=== PATIENT | female | born 1970 | race Caucasian/White ===

== ENCOUNTER 2016-11-17 17:28 | Inpatient (IN) | payer OTHER ==
--- NOTE | 2016-11-17 18:23 | C.PDOC ---
History Of Present Illness 46 y/o female presents to emergency department with complaint of cough productive of yellow phlegm that started a few weeks ago. Patient also reports she has been wheezing. Denies fever. She states that symptoms have been progressively worsening, associated with orthopnea, SOB on exertion, and back pain when laying down. Patient has had full outpatient workup - including CT Chest, showing "re-demonstration of extensive cylindrical bronchiesctasis with areas of mucoid impaction, tree-in-bud interstitial infiltrates as well as lingular consolidation". Sputum culture grew pseudomonas, sensitive only to IV abx. Patient sent to ER by Dr. Huntley. Time Seen by Provider: 11/17/16 18:09 Chief Complaint (Nursing): Shortness Of Breath History Per: Patient History/Exam Limitations: no limitations Onset/Duration Of Symptoms: Days Current Symptoms Are (Timing): Worse Exacerbating Factor(s): Exertion, Laying Flat Current Respiratory Medications: See Home Med List Associated Symptoms: Productive Cough. denies: Fever, Chills, Dizziness, Anxiety Reports Recently: Treated By A Physician Recent travel outside of the [place]: No Past Medical History Reviewed: Historical Data, Nursing Documentation, Vital Signs Vital Signs: Last Vital Signs Temp 97.8 F 11/17/16 17:44 Pulse 96 H 11/17/16 19:12 Resp 22 11/17/16 19:12 BP 115/70 11/17/16 19:12 Pulse Ox 94 L 11/17/16 19:12 - Medical History PMH: Pneumonia Family History: States: Unknown Family Hx - Social History Hx Alcohol Use: No Hx Substance Use: No - Immunization History Hx Tetanus Toxoid Vaccination: No Hx Influenza Vaccination: Yes Hx Pneumococcal Vaccination: No Review Of Systems Except As Marked, All Systems Reviewed And Found Negative. Constitutional: Negative for: Fever, Chills Cardiovascular: Negative for: Chest Pain Respiratory: Positive for: Cough, Shortness of Breath, SOB with Excertion, Sputum, Wheezing Gastrointestinal: Negative for: Nausea, Vomiting, Abdominal Pain Skin: Negative for: Rash Neurological: Negative for: Headache, Dizziness Physical Exam - Physical Exam Appears: Non-toxic, No Acute Distress (at rest) Skin: Warm, Dry Head: Atraumatic, Normacephalic Oral Mucosa: Moist Chest: Symmetrical Cardiovascular: Rhythm Regular, No Murmur Respiratory: No Accessory Muscle Use, No Rales, Rhonchi (bilateral, diffuse, coarse), Wheezing (bilateral, diffuse) Gastrointestinal/Abdominal: Soft, No Tenderness Back: Normal Inspection Extremity: Normal ROM, Capillary Refill (< 2 sec. ) Neurological/Psych: Oriented x3 ED Course And Treatment - Laboratory Results Result Diagrams: 11/17/16 18:33 11/17/16 18:33 Lab Interpretation: No Acute Changes O2 Sat by Pulse Oximetry: 97 (RA) Pulse Ox Interpretation: Normal - Radiology CXR: Interpreted by Me CXR Interpretation: Yes: Infiltrates (bilateral lower lobe) Progress Note: CxR, bloodwork ordered. IVFs given. Reevaluation Time: 19:30 Reassessment Condition: Improved - Physician Consult Information Time Consulting Physician Contacted: 06:00 Physician Contacted: Reuben Gimenez Outcome Of Conversation: Patient to be admitted for IV antibiotics. Case referred to Dr Jorgensen. Disposition - Disposition Disposition: HOSPITALIZED Disposition Time: 19:32 Condition: STABLE - POA Present On Arrival: None - Clinical Impression Clinical Impression: Pseudomonas pneumonia - Scribe Statement The provider has reviewed the documentation as recorded by the Pamelaibmary Malcolm All medical record entries made by the Carlitos were at my direction and personally dictated by me. I have reviewed the chart and agree that the record accurately reflects my personal performance of the history, physical exam, medical decision making, and the department course for this patient. I have also personally directed, reviewed, and agree with the discharge instructions and disposition.
[2016-11-17] MEDS ORDERED: Imipenem/Cilastatin 500 MG in Dextrose 5% In Water 100 ML IVPB STA (18:30)
[2016-11-17 18:43] LABS: BASO % 0.3 % (0.0-2.0); EOS # 0.3 K/uL (0.0-0.7); HEMATOCRIT 41.6 % (34.0-47.0); LYMPH # 3.5 K/uL (1.0-4.3); LYMPH % 34.3 % (20.0-40.0); MEAN CELL VOLUME 69.4 fL (81.0-99.0); MEAN CORPUSCULAR HEMOGLOBIN 21.8 pg (27.0-31.0); MEAN CORPUSCULAR HGB CONC 31.3 g/dL (33.0-37.0); MEAN PLATELET VOLUME 8.1 fL (7.2-11.7); MONO # 0.6 K/uL (0.0-0.8); MONO % 5.9 % (0.0-10.0); RED CELL DISTRIBUTION WIDTH 17.9 % (11.5-14.5); WHITE BLOOD COUNT 10.2 K/uL (4.8-10.8)
[2016-11-17 18:54] LABS: CHLORIDE 99 mmol/L (98-107)
[2016-11-17 18:55] LABS: POTASSIUM 3.9 mmol/L (3.6-5.2); SODIUM 138 mmol/L (132-148)
[2016-11-17 18:57] LABS: AST/SGOT 19 U/L (14-36); BILIRUBIN,TOTAL 0.5 mg/dL (0.2-1.3); CARBON DIOXIDE 29 mmol/L (22-30); GFR AFRICAN-AMERICAN > 60
[2016-11-17 18:58] LABS: ALB/GLOB RATIO 1.2 (1.0-2.1); ALKALINE PHOSPHATASE 49 U/L (38-126); ALT/SGPT 24 U/L (9-52); BLOOD UREA NITROGEN 13 mg/dL (7-17); GLUCOSE,RANDOM 88 mg/dL (65-105); TOTAL PROTEIN 7.5 g/dL (6.3-8.3)
[2016-11-17] MEDS ORDERED: Albuterol-Ipratrop 3 mg / 0.5 (3 ml) UD INH PRN (20:56)
--- NOTE | 2016-11-17 21:08 | CP.PCM.HP ---
<Carson Oakley - Last Filed: 11/18/16 06:52> History of Present Illness - History of Present Illness History of Present Illness: CC: "I have lung problem, can't breathe properly, and have pneumonia" 46 F with PMH of obstructive lung disease, recurrent pneumonia and bronchiectasis presents to [facility] ED with complaint of SOB and pneumonia. Patient was sent in by PMD. Patient had CXR, CT chest, and PFTs done as outpatient at [facility] which showed peribronchial cuffing centrally, extensive cylindrical bronchiectasis with areas of mucoid impaction, tree-in- bud interstitial infiltrates as well as lingular consolidation and obstructive lung disease (see full reports for each). Sputum culture and sensitivity done on 11/03 was positive for Pseudomonas. Patient stated that these symptoms have been going on for about 2 weeks. She has had these symptoms in the past. Each time she experiences these symptoms she has been found to have pneumonia. She states that she has had pneumonia at least one per year. She is usually treated with oral antibiotics. Patient reports associated subjective fever/chills and productive cough with yellow/green sputum. Patient is also experiencing right sided back/rib pain. She rates the pain 8/10 in severity. She describes the pain as constant, dull, and aching located over ribs 4-6 that begins at midaxillary line with radiation paraspinally. Cough, exertion, movement, and lying flat exacerbates her symptoms while nothing specifically alleviates them. Admits fatigue, headache, palpitations. Denies vertigo, dizziness/ lightheadedness, syncope, cp, abd pain, n/v/d, constipation, incontinence, urinary symptoms, numbness/tingling. PMD: Dr. Huntley PMH: obstructive lung disease, recurrent pneumonia and bronchiectasis Meds: As per EMR Allergy: Seasonal, NKDA PSH: Nephrectomy Hosp: Denies FH: Denies Social: denies tobacco/etoh/illicit drug use, lives with family, has difficulty completing daily activities due to SOB, ambulates without assistance, currently unemployed Present on Admission - Present on Admission Any Indicators Present on Admission: No History of DVT/PE: No History of Uncontrolled Diabetes: No Urinary Catheter: No Decubitus Ulcer Present: No Review of Systems - Constitutional Constitutional: Chills, Fatigue, Fever - EENT Eyes: absent: Blurred Vision, Change in Vision, Exophthalmos, Loss of Vision Ears: absent: Decreased Hearing, Ear Discharge, Dizziness Nose/Mouth/Throat: absent: Nasal Congestion, Nasal Discharge, Sore Throat, Neck Mass - Breasts Breasts: absent: Mass, Pain, Swelling - Cardiovascular Cardiovascular: Dyspnea, Palpitations. absent: Chest Pain, Chest Pain at Rest, Chest Pain with Activity, Diaphoresis, Edema, Syncope - Respiratory Respiratory: Cough, Dyspnea, Dyspnea on Exertion, Wheezing, Chest Congestion, Pain with Coughing. absent: Hemoptysis - Gastrointestinal Gastrointestinal: absent: Abdominal Pain, Constipation, Diarrhea, Fecal Incontinence, Nausea, Vomiting - Genitourinary Genitourinary: absent: Change in Urinary Stream, Difficulty Urinating, Dysuria, Urinary Incontinence - Musculoskeletal Musculoskeletal: Arthralgias, Back Pain, Myalgias - Integumentary Integumentary: absent: Changing Lesions, New Lesions, Wounds - Neurological Neurological: Headaches. absent: Dizziness, Numbness, Syncope, Tingling, Tremor , Weakness - Psychiatric Psychiatric: absent: Anxiety, Depression, Homicidal Ideation, Suicidal Ideation - Endocrine Endocrine: Fatigue, Palpitations. absent: Polydipsia, Polyphagia, Polyuria - Hematologic/Lymphatic Hematologic: absent: Easy Bleeding, Easy Bruising, Lymphadenopathy Past Patient History - Past Social History Smoking Status: Never Smoked - PULMONARY Hx Pneumonia: Yes - RENAL Other/Comment: right nephrectomy - PSYCHIATRIC Hx Substance Use: No - SURGICAL HISTORY Hx Surgeries: Yes Other/Comment: right nephrectomy - ANESTHESIA Hx Anesthesia: Yes Hx Anesthesia Reactions: No Meds Allergies/Adverse Reactions: Allergies Allergy/AdvReac Type Severity Reaction Status Date / Time seasonal Allergy Uncoded 11/17/16 17:49 Physical Exam - Constitutional Appears: No Acute Distress - Head Exam Head Exam: ATRAUMATIC, NORMOCEPHALIC - Eye Exam Eye Exam: EOMI, Normal appearance Pupil Exam: PERRL - ENT Exam ENT Exam: Mucous Membranes Moist - Neck Exam Neck exam: Positive for: Normal Inspection - Respiratory Exam Respiratory Exam: Rhonchi, Wheezes - Cardiovascular Exam Cardiovascular Exam: REGULAR RHYTHM, +S1, +S2 - GI/Abdominal Exam GI & Abdominal Exam: Normal Bowel Sounds, Soft. absent: Distended, Firm, Guarding, Rebound, Tenderness - Extremities Exam Extremities exam: Positive for: normal capillary refill, pedal pulses present. Negative for: calf tenderness, pedal edema - Back Exam Back exam: tenderness. absent: CVA tenderness (L), CVA tenderness (R) - Neurological Exam Neurological exam: Alert, CN II-XII Intact, Oriented x3 - Psychiatric Exam Psychiatric exam: Normal Affect, Normal Mood - Skin Skin Exam: Dry, Intact, Normal Color, Warm Results - Vital Signs Recent Vital Signs: Last Vital Signs Temp 97.8 F 11/17/16 17:44 Pulse 96 H 11/17/16 19:12 Resp 22 11/17/16 19:12 BP 115/70 11/17/16 19:12 Pulse Ox 97 11/17/16 19:32 - Labs Result Diagrams: 11/17/16 18:33 11/17/16 18:33 Labs: Laboratory Results - last 24 hr 11/17/16 11/17/16 18:33 18:33 WBC 10.2 RBC 5.99 H Hgb 13.0 Hct 41.6 MCV 69.4 L MCH 21.8 L MCHC 31.3 L RDW 17.9 H Plt Count 375 MPV 8.1 Neut % (Auto) 56.5 Lymph % (Auto) 34.3 [place] % (Auto) 5.9 Eos % (Auto) 3.0 Baso % (Auto) 0.3 Neut # 5.8 Lymph # 3.5 [place] # 0.6 Eos # 0.3 Baso # 0.0 Differential Comment Sodium 138 Potassium 3.9 Chloride 99 Carbon Dioxide 29 Anion Gap 14 BUN 13 Creatinine 0.6 L Est GFR ( Amer) > 60 Est GFR (Non-Af Amer) > 60 Random Glucose 88 Calcium 9.0 Total Bilirubin 0.5 AST 19 ALT 24 Alkaline Phosphatase 49 Total Protein 7.5 Albumin 4.2 Globulin 3.3 Albumin/Globulin Ratio 1.2 Assessment & Plan - Assessment and Plan (Free Text) Plan: 1. Pneumonia Med/surg CT chest (11/09): Re-demonstration of extensive cylindrical bronchiectasis with areas of mucoid impaction, tree-in-bud interstitial infiltrates as well as lingular consolidation (see full report) CXR (11/02): Minimal interstitial prominence and peribronchiolar cuffing centrally. Findings consistent with mild reactive or inflammatory airway disease. Minimal basilar atelectasis (see full report) Repeat CXR EKG Blood culture Repeat Sputum culture Sputum culture (11/03) Pseudomonas + ID consult, Dr. Mendoza, help appreciated Pulm consult, Dr. Crowley, help appreciated Cefepime 1 gm IVPB Q8H Duonebs RQ2 PRN Pulmicort 0.5 mg INH RQ12 Robitussin DM 5 ml PO Q4H PRN Tylenol 650 mg PO Q6H PRN 2. Bronchectasis CT chest (11/09): Re-demonstration of extensive cylindrical bronchiectasis with areas of mucoid impaction, tree-in-bud interstitial infiltrates as well as lingular consolidation (see full report) CXR (11/02): Minimal interstitial prominence and peribronchiolar cuffing centrally. Findings consistent with mild reactive or inflammatory airway disease. Minimal basilar atelectasis (see full report) Repeat CXR EKG ID consult, Dr. Mendoza, help appreciated Pulm consult, Dr. Crowley, help appreciated Cefepime 1 gm IVPB Q8H Duonebs RQ2 PRN Pulmicort 0.5 mg INH RQ12 3. COPD PFTs done as outpatient shows Obstructive lung disease Duonebs RQ2 PRN Pulmicort 0.5 mg INH RQ12 4. Prophylactic Measures Protonix 40 mg PO daily SCDs Lovenox 40 mg SC daily Zofran 4 mg IVP Q6H PRN <Dominik Jorgensen P - Last Filed: 11/20/16 23:28> Results - Vital Signs Recent Vital Signs: Last Vital Signs Temp 97.8 F 11/20/16 15:00 Pulse 95 H 11/20/16 15:00 Resp 20 11/20/16 15:00 BP 145/75 11/20/16 15:00 Pulse Ox 95 11/20/16 15:00 - Labs Result Diagrams: 11/20/16 07:00 11/20/16 07:00 Labs: Laboratory Results - last 24 hr 11/20/16 11/20/16 07:00 07:00 WBC 8.9 RBC 5.41 H Hgb 11.7 Hct 37.5 MCV 69.3 L MCH 21.7 L MCHC 31.3 L RDW 17.5 H Plt Count 287 MPV 8.2 Neut % (Auto) 61.9 Lymph % (Auto) 28.3 [place] % (Auto) 6.6 Eos % (Auto) 2.8 Baso % (Auto) 0.4 Neut # 5.5 Lymph # 2.5 [place] # 0.6 Eos # 0.3 Baso # 0.0 Sodium 137 Potassium 3.8 Chloride 103 Carbon Dioxide 26 Anion Gap 12 BUN 14 Creatinine 0.6 L Est GFR ( Amer) > 60 Est GFR (Non-Af Amer) > 60 Random Glucose 99 Calcium 8.3 L Magnesium 2.2 Total Bilirubin 0.6 AST 20 ALT 16 Alkaline Phosphatase 39 Total Protein 6.5 Albumin 3.4 L Globulin 3.1 Albumin/Globulin Ratio 1.1 Attending/Attestation - Attestation I have personally seen and examined this patient.: Yes I have fully participated in the care of the patient.: Yes I have reviewed all pertinent clinical information: Yes
[2016-11-17 22:32] VITALS: RESP 20
[2016-11-17] MEDS: guaiFENesin DM 100 mg-10 mg/5 ml UD PO PRN (22:45)
--- NOTE | 2016-11-18 07:34 | RAD ---
HISTORY: Pneumonia COMPARISON: No prior. TECHNIQUE: Chest PA and lateral FINDINGS: LUNGS: Ill-defined opacities at both lung bases which may represent underlying infiltrate versus atelectasis versus additional etiology. Clinical correlation. Mild diffuse increased interstitial lung markings. Minimal right apical pleural thickening. PLEURA: Question trace left pleural effusion. CARDIOVASCULAR: Normal. OSSEOUS STRUCTURES: No significant abnormalities. VISUALIZED UPPER ABDOMEN: Normal. OTHER FINDINGS: None. IMPRESSION: Ill-defined opacities at both lung bases which may represent underlying infiltrate versus atelectasis versus additional etiology. Clinical correlation. Mild diffuse increased interstitial lung markings. Minimal right apical pleural thickening. Question trace left pleural effusion.
[2016-11-18 07:52] LABS: INR 1.1
[2016-11-18 07:54] LABS: BASO % 0.3 % (0.0-2.0); EOS # 0.4 K/uL (0.0-0.7); EOS % 5.3 % (0.0-4.0); HEMATOCRIT 39.5 % (34.0-47.0); LYMPH # 3.1 K/uL (1.0-4.3); LYMPH % 40.2 % (20.0-40.0); MEAN CELL VOLUME 68.9 fL (81.0-99.0); MEAN CORPUSCULAR HEMOGLOBIN 21.6 pg (27.0-31.0); MEAN CORPUSCULAR HGB CONC 31.4 g/dL (33.0-37.0); MEAN PLATELET VOLUME 8.2 fL (7.2-11.7); MONO # 0.7 K/uL (0.0-0.8); MONO % 8.8 % (0.0-10.0); NRBC % 0.1 % (0.0-2.0); RED CELL DISTRIBUTION WIDTH 17.7 % (11.5-14.5); WHITE BLOOD COUNT 7.8 K/uL (4.8-10.8)
[2016-11-18 07:58] LABS: CHLORIDE 104 mmol/L (98-107); SODIUM 138 mmol/L (132-148)
[2016-11-18 07:59] LABS: POTASSIUM 4.1 mmol/L (3.6-5.2)
[2016-11-18 08:01] LABS: ALB/GLOB RATIO 1.1 (1.0-2.1); ALKALINE PHOSPHATASE 41 U/L (38-126); ALT/SGPT 19 U/L (9-52); AST/SGOT 18 U/L (14-36); BILIRUBIN,TOTAL 0.5 mg/dL (0.2-1.3); BLOOD UREA NITROGEN 13 mg/dL (7-17); CARBON DIOXIDE 26 mmol/L (22-30); GFR AFRICAN-AMERICAN > 60; GLUCOSE,RANDOM 101 mg/dL (65-105); TOTAL PROTEIN 6.6 g/dL (6.3-8.3)
[2016-11-18 08:02] LABS: CALCIUM 8.4 mg/dl (8.6-10.4)
[2016-11-18] MEDS: Budesonide 0.5 mg/2 ml Inhal Susp UD INH SCH ×2 (09:10→19:58)
[2016-11-18] MEDS: Pantoprazole 40 mg EC Tab PO SCH (09:45)
[2016-11-18] MEDS: Enoxaparin 40 mg Syringe SC SCH (09:45)
[2016-11-18] MEDS: guaiFENesin DM 100 mg-10 mg/5 ml UD PO PRN (09:45)
[2016-11-18] MEDS: Albuterol-Ipratrop 3 mg / 0.5 (3 ml) UD INH SCH ×3 (11:02→19:58)
--- NOTE | 2016-11-18 11:50 | CP.PCM.CON ---
History of Present Illness - History of Present Illness History of Present Illness: reason for consultation: abnormal CAT scan of the chest and sputum positive for Pseudomonas 46 F with PMH of obstructive lung disease, recurrent pneumonia and bronchiectasis presents to [facility] ED with complaint of SOB and pneumonia. Patient was sent in by PMD. Patient had CXR, CT chest, and PFTs done as outpatient at [facility] which showed peribronchial cuffing centrally, extensive cylindrical bronchiectasis with areas of mucoid impaction, tree-in- bud interstitial infiltrates as well as lingular consolidation and obstructive lung disease (see full reports for each). Sputum culture and sensitivity done on 11/03 was positive for Pseudomonas. Review of Systems - Review of Systems All systems: reviewed and no additional remarkable complaints except (Cough associated with shortness of breath) Past Patient History - Past Medical History & Family History Past Medical History?: No - Past Social History Smoking Status: Never Smoked - PULMONARY Hx Pneumonia: Yes - RENAL Other/Comment: right nephrectomy - MUSCULOSKELETAL/RHEUMATOLOGICAL Hx Falls: No - PSYCHIATRIC Hx Substance Use: No - SURGICAL HISTORY Hx Surgeries: Yes Other/Comment: right nephrectomy - ANESTHESIA Hx Anesthesia: Yes Hx Anesthesia Reactions: No Meds Allergies/Adverse Reactions: Allergies Allergy/AdvReac Type Severity Reaction Status Date / Time seasonal Allergy Uncoded 11/17/16 17:49 - Medications Medications: Current Medications Acetaminophen (Tylenol 325mg Tab) 650 mg PO Q6 PRN PRN Reason: Fever >100.4 F Albuterol/Ipratropium (Duoneb 3 Mg/0.5 Mg (3 Ml) Ud) 3 ml INH RQ4 [facility] Last Admin: 11/18/16 11:02 Dose: 3 ml Budesonide (Pulmicort Respules) 0.5 mg INH RQ12 [facility] Last Admin: 11/18/16 09:10 Dose: Not Given Enoxaparin Sodium (Lovenox) 40 mg SC DAILY [facility] Last Admin: 11/18/16 09:45 Dose: 40 mg Guaifenesin/Dextromethorphan (Robitussin Dm) 5 ml PO Q4H PRN PRN Reason: Cough Last Admin: 11/18/16 09:45 Dose: 5 ml Cefepime HCl 1 gm/ Dextrose 50 mls @ 100 mls/hr IVPB Q8H [facility] Last Admin: 11/18/16 04:20 Dose: 100 mls/hr Montelukast Sodium (Singulair) 10 mg PO HS [facility] Last Admin: 11/17/16 22:45 Dose: 10 mg Ondansetron HCl (Zofran Inj) 4 mg IVP Q6 PRN PRN Reason: Nausea/Vomiting Pantoprazole Sodium (Protonix Ec Tab) 40 mg PO DAILY [facility] Last Admin: 11/18/16 09:45 Dose: 40 mg Physical Exam - Constitutional Appears: No Acute Distress - Head Exam Head Exam: ATRAUMATIC, NORMOCEPHALIC - Eye Exam Eye Exam: Normal appearance - ENT Exam ENT Exam: Mucous Membranes Moist - Neck Exam Neck exam: Positive for: Normal Inspection - Respiratory Exam Respiratory Exam: Rales, Rhonchi - Cardiovascular Exam Cardiovascular Exam: REGULAR RHYTHM - GI/Abdominal Exam GI & Abdominal Exam: Normal Bowel Sounds, Soft - Extremities Exam Extremities exam: Positive for: normal inspection - Neurological Exam Neurological exam: Alert, Oriented x3 Results - Vital Signs Recent Vital Signs: Last Vital Signs Temp 98 F 11/18/16 08:00 Pulse 64 11/18/16 08:00 Resp 20 11/18/16 08:00 BP 98/65 L 11/18/16 08:00 Pulse Ox 96 11/18/16 08:00 - Labs Result Diagrams: 11/18/16 07:36 11/18/16 07:36 Labs: Laboratory Results - last 24 hr 11/17/16 11/18/16 11/18/16 23:19 07:36 07:36 WBC 7.8 RBC 5.74 H Hgb 12.4 Hct 39.5 MCV 68.9 L MCH 21.6 L MCHC 31.4 L RDW 17.7 H Plt Count 323 MPV 8.2 Neut % (Auto) 45.4 L Lymph % (Auto) 40.2 H [place] % (Auto) 8.8 Eos % (Auto) 5.3 H Baso % (Auto) 0.3 Neut # 3.5 Lymph # 3.1 [place] # 0.7 Eos # 0.4 Baso # 0.0 PT 12.0 INR 1.1 APTT 31 Sodium Potassium Chloride Carbon Dioxide Anion Gap BUN Creatinine Est GFR ( Amer) Est GFR (Non-Af Amer) Random Glucose Calcium Total Bilirubin AST ALT Alkaline Phosphatase Total Protein Albumin Globulin Albumin/Globulin Ratio Influenza Typ A,B (EIA) Negative for flu a/b 11/18/16 07:36 WBC RBC Hgb Hct MCV MCH MCHC RDW Plt Count MPV Neut % (Auto) Lymph % (Auto) [place] % (Auto) Eos % (Auto) Baso % (Auto) Neut # Lymph # [place] # Eos # Baso # PT INR APTT Sodium 138 Potassium 4.1 Chloride 104 Carbon Dioxide 26 Anion Gap 13 BUN 13 Creatinine 0.6 L Est GFR ( Amer) > 60 Est GFR (Non-Af Amer) > 60 Random Glucose 101 Calcium 8.4 L Total Bilirubin 0.5 AST 18 ALT 19 Alkaline Phosphatase 41 Total Protein 6.6 Albumin 3.5 Globulin 3.2 Albumin/Globulin Ratio 1.1 Influenza Typ A,B (EIA) Assessment & Plan (1) Bronchiectasis Status: Acute Comment: CAT scan of the chest consistent with severe bronchiectasis and sputum culture positive for Pseudomonas. Agree with imipenem. Continue nebulizer treatment and inhaled seroids
--- NOTE | 2016-11-18 14:50 | CP.PCM.PN ---
Subjective - Date & Time of Evaluation Date of Evaluation: 11/18/16 Time of Evaluation: 07:40 - Subjective Subjective: Patient seen and examined at bedside this morning. She admits to some SOB which has slightly improved since admission. She is able to talk in full sentences and is tolerating her diet. She report having a cough with mucus production. She denied fever/chill, chest pain, abd pain, N/V, urinary complaints, pain or weakness in the extremities. Objective - Vital Signs/Intake and Output Vital Signs (last 24 hours): Temp Pulse Resp BP Pulse Ox 98 F 64 20 98/65 L 96 11/18/16 08:00 11/18/16 08:00 11/18/16 08:00 11/18/16 08:00 11/18/16 08:00 Intake and Output: 11/18/16 11/18/16 06:59 18:59 Intake Total 290 Balance 290 - Medications Medications: Current Medications Acetaminophen (Tylenol 325mg Tab) 650 mg PO Q6 PRN PRN Reason: Fever >100.4 F Albuterol/Ipratropium (Duoneb 3 Mg/0.5 Mg (3 Ml) Ud) 3 ml INH RQ4 [facility] Last Admin: 11/18/16 11:02 Dose: 3 ml Budesonide (Pulmicort Respules) 0.5 mg INH RQ12 [facility] Last Admin: 11/18/16 09:10 Dose: Not Given Enoxaparin Sodium (Lovenox) 40 mg SC DAILY [facility] Last Admin: 11/18/16 09:45 Dose: 40 mg Guaifenesin/Dextromethorphan (Robitussin Dm) 5 ml PO Q4H PRN PRN Reason: Cough Last Admin: 11/18/16 09:45 Dose: 5 ml Cefepime HCl 1 gm/ Dextrose 50 mls @ 100 mls/hr IVPB Q8H [facility] Last Admin: 11/18/16 13:46 Dose: 100 mls/hr Montelukast Sodium (Singulair) 10 mg PO HS [facility] Last Admin: 11/17/16 22:45 Dose: 10 mg Ondansetron HCl (Zofran Inj) 4 mg IVP Q6 PRN PRN Reason: Nausea/Vomiting Pantoprazole Sodium (Protonix Ec Tab) 40 mg PO DAILY [facility] Last Admin: 11/18/16 09:45 Dose: 40 mg - Labs Labs: 11/18/16 07:36 11/18/16 07:36 PT 12.0 SECONDS (9.7-12.2) 11/18/16 07:36 INR 1.1 11/18/16 07:36 APTT 31 SECONDS (21-34) 11/18/16 07:36 - Constitutional Appears: Non-toxic, No Acute Distress - Head Exam Head Exam: ATRAUMATIC, NORMAL INSPECTION - Eye Exam Eye Exam: EOMI - ENT Exam ENT Exam: Mucous Membranes Moist - Respiratory Exam Respiratory Exam: Decreased Breath Sounds, Rales. absent: Accessory Muscle Use , Clear to Ausculation Bilateral, Respiratory Distress - Cardiovascular Exam Cardiovascular Exam: REGULAR RHYTHM, +S1, +S2 - GI/Abdominal Exam GI & Abdominal Exam: Soft, Normal Bowel Sounds. absent: Distended, Firm, Guarding, Tenderness - Extremities Exam Extremities Exam: Normal Inspection. absent: Calf Tenderness, Pedal Edema - Back Exam Back Exam: NORMAL INSPECTION. absent: CVA tenderness (L), CVA tenderness (R), paraspinal tenderness - Neurological Exam Neurological Exam: Alert, Awake, CN II-XII Intact, Normal Gait, Oriented x3 - Psychiatric Exam Psychiatric exam: Normal Affect, Normal Mood - Skin Skin Exam: Dry, Intact, Normal Color, Warm Assessment and Plan - Assessment and Plan (Free Text) Assessment: 1. Pneumonia Med/surg CT chest (11/09): Re-demonstration of extensive cylindrical bronchiectasis with areas of mucoid impaction, tree-in-bud interstitial infiltrates as well as lingular consolidation (see full report) CXR (11/02): Minimal interstitial prominence and peribronchiolar cuffing centrally. Findings consistent with mild reactive or inflammatory airway disease. Minimal basilar atelectasis (see full report) Repeat CXR (11/17) - ill defined opactiies at both lung bases underlying infiltrate vs atelectasis. trace left pleural effusion (please see full report) EKG Blood culture f/u Repeat Sputum culture Sputum culture (11/03) Pseudomonas + ID consult, Dr. Mendoza, help appreciated Pulm consult, Dr. Crowley, help appreciated Cefepime 1 gm IVPB Q8H Duonebs RQ2 PRN Pulmicort 0.5 mg INH RQ12 Robitussin DM 5 ml PO Q4H PRN Tylenol 650 mg PO Q6H PRN f/u Echo f/u am labs 2. Bronchectasis CT chest (11/09): Re-demonstration of extensive cylindrical bronchiectasis with areas of mucoid impaction, tree-in-bud interstitial infiltrates as well as lingular consolidation (see full report) CXR (11/02): Minimal interstitial prominence and peribronchiolar cuffing centrally. Findings consistent with mild reactive or inflammatory airway disease. Minimal basilar atelectasis (see full report) Repeat CXR EKG ID consult, Dr. Mendoza, help appreciated Pulm consult, Dr. Crowley, help appreciated Cefepime 1 gm IVPB Q8H Duonebs RQ2 PRN Pulmicort 0.5 mg INH RQ12 3. COPD PFTs done as outpatient shows Obstructive lung disease Duonebs RQ2 PRN Pulmicort 0.5 mg INH RQ12 4. Prophylactic Measures Protonix 40 mg PO daily SCDs Lovenox 40 mg SC daily Zofran 4 mg IVP Q6H PRN
--- NOTE | 2016-11-18 18:03 | CP.PCM.CON ---
History of Present Illness - History of Present Illness History of Present Illness: 46 F presents to [facility] ED with complaint of SOB and pneumonia. id consult requested for pseudomonas infection in setting of bronchiectasis PMH of obstructive lung disease, recurrent pneumonia and bronchiectasis Review of Systems - Constitutional Constitutional: As Per HPI, Fever, Lethargy, Malaise - EENT Eyes: absent: As Per HPI, Blind Spots, Blurred Vision, Change in Vision, Decreased Night Vision, Diplopia, Discharge, Dry Eye, Exophthalmos, Floaters, Irritation, Itchy Eyes, Loss of Peripheral Vision, Pain, Photophobia, Requires Corrective Lenses, Sees Flashes, Spots in Vision, Tunnel Vision, Other Visual Disturbances, Loss of Vision, Other Ears: absent: As Per HPI, Decreased Hearing, Ear Discharge, Ear Pain, Tinnitus, Abnormal Hearing, Disequilibrium, Dizziness, Other Nose/Mouth/Throat: absent: As Per HPI, Epistaxis, Nasal Congestion, Nasal Discharge, Nasal Obstruction, Nasal Trauma, Nose Pain, Post Nasal Drip, Sinus Pain, Sinus Pressure, Bleeding Gums, Change in Voice, Dental Pain, Dry Mouth, Dysphagia, Halitosis, Hoarsness, Lip Swelling, Mouth Lesions, Mouth Pain, Odynophagia, Sore Throat, Throat Swelling, Tongue Swelling, Facial Pain, Neck Pain, Neck Mass, Other - Breasts Breasts: absent: As Per HPI, Change in Shape, Mass, Pain, Nipple Discharge, Nipple Inversion, Skin Changes, Swelling, Other - Cardiovascular Cardiovascular: absent: As Per HPI, Acrocyanosis, Chest Pain, Chest Pain at Rest , Chest Pain with Activity, Claudication, Diaphoresis, Dyspnea, Dyspnea on Exertion, Edema, Irregular Heart Rhythm, Pain Radiating to Arm/Neck/Jaw, Leg Edema, Leg Ulcers, Lightheadedness, Orthopnea, Palpitations, Paroxysmal Nocturnal Dyspnea, Pedal Edema, Radiating Pain, Rapid Heart Rate, Slow Heart Rate, Syncope, Other - Respiratory Respiratory: As Per HPI, Cough, Dyspnea. absent: Hemoptysis - Gastrointestinal Gastrointestinal: absent: As Per HPI, Abdominal Pain, Belching, Bloating, Change in Bowel Habits, Change in Stool Character, Coffee Ground Emesis, Constipation, Cramping, Diarrhea, Dyspepsia, Dysphagia, Early Satiety, Excessive Flatus, Fecal Incontinence, Heartburn, Hematemesis, Hematochezia, Loose Stools, Melena, Nausea, Odynophagia, Temesmus, Vomiting, Other - Genitourinary Genitourinary: absent: As Per HPI, Change in Urinary Stream, Difficulty Urinating, Dysuria, Flank Pain, Hematuria, Pyuria, Nocturia, Urinary Incontinence, Urinary Frequency, Urinary Hesitance, Urinary Urgency, Voiding Freq/Small Amts, Freq UTI, Hx Renal/Bladder Calculi, Hx /Renal Surgery, Bladder Distension, Other - Reproductive: Female Reproductive:Female: absent: As Per HPI, Amenorrhea, Amenorrhea/ Control, Currently Menstual, Cycle <21 Days, Cycle >35 Days, Cycle Variable, Menses 1-7 Days, Menses >/= 8 Days, Menses Variable, Cycle > 4 Weeks Between, No Menses for 6 Months, Heavy Menses, Light Menses, Normal Menses, Spotting Between Cycles , S/P Hysterectomy, Menopausal, Post Menopausal, Premenarche, Abnormal Vaginal Bleeding, Dysmenorrhea, Dyspareunia, Genital Lesions, Genital Pruritis, Pelvic Pain, Prolapse Symptoms, Sexual Dysfunction, Vaginal Discharge, Vaginal Dryness , Vaginal Odor, Vaginal Pruritis, Other - Menstruation Menstruation: absent: As Per HPI, Amenorrhea, Amenorrhea/ Control, Currently Menstual, Cycle <21 Days, Cycle >35 Days, Cycle Variable, Menses 1-7 Days, Menses >/= 8 Days, Menses Variable, Cycle > 4 Weeks Between, No Menses for 6 Months, Heavy Menses, Light Menses, Normal Menses, Spotting Between Cycles , S/P Hysterectomy, Menopausal, Post Menopausal, Premenarche, Abnormal Vaginal Bleeding, Dysmenorrhea, Other - Musculoskeletal Musculoskeletal: absent: As Per HPI, Abnormal Gait, Arthralgias, Atrophy, Back Pain, Deformity, Joint Swelling, Limited Range of Motion, Loss of Height, Muscle Cramps, Muscle Weakness, Myalgias, Neck Pain, Numbness, Radiating Pain into Limb, Stiffness, Tingling, Other - Integumentary Integumentary: absent: As Per HPI, Acne, Alopecia, Bleeding Lesions, Change in Hair, Change in Nails, Change in Pigmentation, Changing Lesions, Dry Skin, Erythema, Furuncle, Hirsutism, Lesions, New Lesions, Non-Healing Lesions, Photosensitivity, Pruritus, Rash, Skin Pain, Skin Ulcer, Sores, Striae, Swelling , Unusual Bruising, Wounds, Jaundice, Other - Neurological Neurological: absent: As Per HPI, Abnormal Gait, Abnormal Hearing, Abnormal Movements, Abnormal Speech, Behavioral Changes, Burning Sensations, Confusion, Convulsions, Disequilibrium, Dizziness, Numbness, Focal Weakness, Frequent Falls , Headaches, Lack of Coordination, Loss of Vision, Memory Loss, Paresthesias, Radicular Pain, Restless Legs, Sensory Deficit, Syncope, Tingling, Tremor, Vertigo, Weakness, Other Visual Disturbances, Other - Psychiatric Psychiatric: absent: As Per HPI, Abnormal Sleep Pattern, Anhedonia, Anxiety, Auditory Hallucinations, Behavioral Changes, Change in Appetite, Change in Libido, Confusion, Depression, Difficulty Concentrating, Hallucinations, Homicidal Ideation, Hopelessness, Irritability, Memory Loss, Mood Swings, Panic Attacks, Paranoia, Suicidal Ideation, Visual Hallucinations, Tactile Hallucinations, Other - Endocrine Endocrine: absent: As Per HPI, Change in Body Appearance, Change in Libido, Cold Intolorance, Deepening of Voice, Excessive Sweating, Fatigue, Flushing, Heat Intolorance, Increase in Ring/Shoe/Hat Size, Palpitations, Polydipsia, Polyphagia, Polyuria, Other - Hematologic/Lymphatic Hematologic: absent: As Per HPI, Easy Bleeding, Easy Bruising, Lymphadenopathy, Other Past Patient History - Past Medical History & Family History Past Medical History?: No - Past Social History Smoking Status: Never Smoked - PULMONARY Hx Pneumonia: Yes - RENAL Other/Comment: right nephrectomy - MUSCULOSKELETAL/RHEUMATOLOGICAL Hx Falls: No - PSYCHIATRIC Hx Substance Use: No - SURGICAL HISTORY Hx Surgeries: Yes Other/Comment: right nephrectomy - ANESTHESIA Hx Anesthesia: Yes Hx Anesthesia Reactions: No Meds Allergies/Adverse Reactions: Allergies Allergy/AdvReac Type Severity Reaction Status Date / Time seasonal Allergy Uncoded 11/17/16 17:49 - Medications Medications: Current Medications Acetaminophen (Tylenol 325mg Tab) 650 mg PO Q6 PRN PRN Reason: Fever >100.4 F Albuterol/Ipratropium (Duoneb 3 Mg/0.5 Mg (3 Ml) Ud) 3 ml INH RQ4 [facility] Last Admin: 11/18/16 17:07 Dose: Not Given Budesonide (Pulmicort Respules) 0.5 mg INH RQ12 [facility] Last Admin: 11/18/16 09:10 Dose: Not Given Enoxaparin Sodium (Lovenox) 40 mg SC DAILY [facility] Last Admin: 11/18/16 09:45 Dose: 40 mg Guaifenesin/Dextromethorphan (Robitussin Dm) 5 ml PO Q4H PRN PRN Reason: Cough Last Admin: 11/18/16 09:45 Dose: 5 ml Cefepime HCl 1 gm/ Dextrose 50 mls @ 100 mls/hr IVPB Q8H [facility] Last Admin: 11/18/16 13:46 Dose: 100 mls/hr Montelukast Sodium (Singulair) 10 mg PO HS [facility] Last Admin: 11/17/16 22:45 Dose: 10 mg Ondansetron HCl (Zofran Inj) 4 mg IVP Q6 PRN PRN Reason: Nausea/Vomiting Pantoprazole Sodium (Protonix Ec Tab) 40 mg PO DAILY [facility] Last Admin: 11/18/16 09:45 Dose: 40 mg Physical Exam - Constitutional Appears: Non-toxic, Chronically Ill - Head Exam Head Exam: NORMOCEPHALIC - Eye Exam Eye Exam: PERRL. absent: Scleral icterus - ENT Exam ENT Exam: Mucous Membranes Dry, Normal External Ear Exam, Normal Oropharynx - Neck Exam Neck exam: Negative for: Lymphadenopathy, Thyromegaly - Respiratory Exam Respiratory Exam: Decreased Breath Sounds, Rhonchi - Cardiovascular Exam Cardiovascular Exam: REGULAR RHYTHM, +S1, +S2 - GI/Abdominal Exam GI & Abdominal Exam: Diminished Bowel Sounds, Soft. absent: Tenderness - Rectal Exam Rectal Exam: Deferred - Exam Exam: NORMAL INSPECTION - Extremities Exam Extremities exam: Negative for: calf tenderness, pedal edema, tenderness - Back Exam Back exam: absent: CVA tenderness (L), CVA tenderness (R), paraspinal tenderness - Neurological Exam Neurological exam: Alert, CN II-XII Intact, Oriented x3, Reflexes Normal - Psychiatric Exam Psychiatric exam: Normal Mood - Skin Skin Exam: Dry Results - Vital Signs Recent Vital Signs: Last Vital Signs Temp 98.2 F 11/18/16 15:20 Pulse 89 11/18/16 15:20 Resp 20 11/18/16 15:20 BP 111/75 11/18/16 15:20 Pulse Ox 96 11/18/16 15:20 - Labs Result Diagrams: 11/18/16 07:36 11/18/16 07:36 Labs: Laboratory Results - last 24 hr 11/17/16 11/18/16 11/18/16 23:19 07:36 07:36 WBC 7.8 RBC 5.74 H Hgb 12.4 Hct 39.5 MCV 68.9 L MCH 21.6 L MCHC 31.4 L RDW 17.7 H Plt Count 323 MPV 8.2 Neut % (Auto) 45.4 L Lymph % (Auto) 40.2 H Gates % (Auto) 8.8 Eos % (Auto) 5.3 H Baso % (Auto) 0.3 Neut # 3.5 Lymph # 3.1 Gates # 0.7 Eos # 0.4 Baso # 0.0 PT 12.0 INR 1.1 APTT 31 Sodium Potassium Chloride Carbon Dioxide Anion Gap BUN Creatinine Est GFR ( Amer) Est GFR (Non-Af Amer) Random Glucose Calcium Total Bilirubin AST ALT Alkaline Phosphatase Total Protein Albumin Globulin Albumin/Globulin Ratio Influenza Typ A,B (EIA) Negative for flu a/b 11/18/16 07:36 WBC RBC Hgb Hct MCV MCH MCHC RDW Plt Count MPV Neut % (Auto) Lymph % (Auto) Gates % (Auto) Eos % (Auto) Baso % (Auto) Neut # Lymph # Gates # Eos # Baso # PT INR APTT Sodium 138 Potassium 4.1 Chloride 104 Carbon Dioxide 26 Anion Gap 13 BUN 13 Creatinine 0.6 L Est GFR ( Amer) > 60 Est GFR (Non-Af Amer) > 60 Random Glucose 101 Calcium 8.4 L Total Bilirubin 0.5 AST 18 ALT 19 Alkaline Phosphatase 41 Total Protein 6.6 Albumin 3.5 Globulin 3.2 Albumin/Globulin Ratio 1.1 Influenza Typ A,B (EIA) Assessment & Plan (1) Bronchiectasis Status: Acute (2) Pseudomonas pneumonia Status: Acute - Assessment and Plan (Free Text) Assessment: cont iv antibiotics, chest pt, postural drainage may need 3 weeks iv rx
[2016-11-19] MEDS: Albuterol-Ipratrop 3 mg / 0.5 (3 ml) UD INH SCH ×6 (00:36→19:36)
[2016-11-19 07:38] LABS: BASO # 0.1 K/uL (0.0-0.2); EOS # 0.4 K/uL (0.0-0.7); EOS % 4.6 % (0.0-4.0); HEMATOCRIT 41.3 % (34.0-47.0); LYMPH % 32.1 % (20.0-40.0); MEAN CELL VOLUME 69.2 fL (81.0-99.0); MEAN CORPUSCULAR HEMOGLOBIN 21.7 pg (27.0-31.0); MEAN CORPUSCULAR HGB CONC 31.4 g/dL (33.0-37.0); MEAN PLATELET VOLUME 8.7 fL (7.2-11.7); MONO # 0.5 K/uL (0.0-0.8); MONO % 5.2 % (0.0-10.0); NRBC % 0.2 % (0.0-2.0); RED CELL DISTRIBUTION WIDTH 17.8 % (11.5-14.5); WHITE BLOOD COUNT 9.2 K/uL (4.8-10.8)
[2016-11-19] MEDS: Budesonide 0.5 mg/2 ml Inhal Susp UD INH SCH ×2 (07:46→19:36)
[2016-11-19 08:00] LABS: CHLORIDE 103 mmol/L (98-107); POTASSIUM 3.8 mmol/L (3.6-5.2); SODIUM 137 mmol/L (132-148)
[2016-11-19 08:02] LABS: AST/SGOT 17 U/L (14-36); BILIRUBIN,TOTAL 0.5 mg/dL (0.2-1.3); CARBON DIOXIDE 23 mmol/L (22-30); GFR AFRICAN-AMERICAN > 60
[2016-11-19 08:03] LABS: ALB/GLOB RATIO 1.2 (1.0-2.1); ALKALINE PHOSPHATASE 45 U/L (38-126); ALT/SGPT 20 U/L (9-52); BLOOD UREA NITROGEN 13 mg/dL (7-17); CALCIUM 8.6 mg/dl (8.6-10.4); GLUCOSE,RANDOM 121 mg/dL (65-105); PHOSPHOROUS 3.7 mg/dL (2.5-4.5); TOTAL PROTEIN 6.9 g/dL (6.3-8.3)
[2016-11-19 10:29] LABS: THYROID STIMULATING HORMONE 2.53 mIU/L (0.46-4.68)
[2016-11-19] MEDS: Pantoprazole 40 mg EC Tab PO SCH (10:52)
[2016-11-19] MEDS: Enoxaparin 40 mg Syringe SC SCH (10:53)
[2016-11-19] MEDS: Vitamins A & D Oint UD Foilpak TOP SCH ×4 (12:50→23:42)
--- NOTE | 2016-11-19 13:52 | CP.PCM.PN ---
<Ana Coffeya - Last Filed: 11/19/16 13:48> Subjective - Date & Time of Evaluation Date of Evaluation: 11/19/16 Time of Evaluation: 09:00 - Subjective Subjective: Medicine Note for Dr. Anne, Patient was seen and examined at bedside. Patient reports she continues to feel SOB and pain upon inspiration or during coughing. Patient consented for PICC line today for prolonged IV ABX. Denied fever, chills, headache, abdominal pain , or urinary symptoms. Objective - Vital Signs/Intake and Output Vital Signs (last 24 hours): Temp Pulse Resp BP Pulse Ox 98.5 F 86 20 111/74 96 11/19/16 07:59 11/19/16 07:59 11/19/16 07:59 11/19/16 07:59 11/19/16 07:59 Intake and Output: 11/19/16 11/19/16 06:59 18:59 Intake Total 410 290 Balance 410 290 - Medications Medications: Current Medications Acetaminophen (Tylenol 325mg Tab) 650 mg PO Q6 PRN PRN Reason: Fever >100.4 F Last Admin: 11/18/16 22:48 Dose: 650 mg Albuterol/Ipratropium (Duoneb 3 Mg/0.5 Mg (3 Ml) Ud) 3 ml INH RQ4 [facility] Last Admin: 11/19/16 11:21 Dose: 3 ml Budesonide (Pulmicort Respules) 0.5 mg INH RQ12 [facility] Last Admin: 11/19/16 07:46 Dose: 0.5 mg Enoxaparin Sodium (Lovenox) 40 mg SC DAILY [facility] Last Admin: 11/19/16 10:53 Dose: Not Given Guaifenesin/Dextromethorphan (Robitussin Dm) 5 ml PO Q4H PRN PRN Reason: Cough Last Admin: 11/18/16 09:45 Dose: 5 ml Cefepime HCl 1 gm/ Dextrose 50 mls @ 100 mls/hr IVPB Q8H [facility] Last Admin: 11/19/16 12:51 Dose: 100 mls/hr Ketorolac Tromethamine (Toradol) 30 mg IVP Q6H PRN PRN Reason: Pain, moderate (4-7) Levothyroxine Sodium (Synthroid) 50 mcg PO DAILY@0630 [facility] Montelukast Sodium (Singulair) 10 mg PO HS [facility] Last Admin: 11/18/16 22:17 Dose: 10 mg Nystatin (Nystop Topical Powder) 1 applic TOP BID [facility] Ondansetron HCl (Zofran Inj) 4 mg IVP Q6 PRN PRN Reason: Nausea/Vomiting Pantoprazole Sodium (Protonix Ec Tab) 40 mg PO DAILY [facility] Last Admin: 11/19/16 10:52 Dose: 40 mg Saccharomyces Boulardii (Florastor) 250 mg PO DAILY [facility] Vitamin A (Vitamin A & D Oint Ud Foilpak) 0.5 ea TOP Q4 [facility] Last Admin: 11/19/16 12:50 Dose: 0.5 ea - Labs Labs: 11/19/16 07:23 11/19/16 07:23 PT 12.0 SECONDS (9.7-12.2) 11/18/16 07:36 INR 1.1 11/18/16 07:36 APTT 31 SECONDS (21-34) 11/18/16 07:36 - Constitutional Appears: No Acute Distress - Head Exam Head Exam: NORMAL INSPECTION, NORMOCEPHALIC - Respiratory Exam Respiratory Exam: Decreased Breath Sounds, Wheezes, NORMAL BREATHING PATTERN - Cardiovascular Exam Cardiovascular Exam: REGULAR RHYTHM, RRR, +S1, +S2 - GI/Abdominal Exam GI & Abdominal Exam: Soft, Normal Bowel Sounds. absent: Distended, Tenderness - Extremities Exam Extremities Exam: Normal Inspection. absent: Pedal Edema, Tenderness - Neurological Exam Neurological Exam: Alert, Awake, Oriented x3 - Skin Skin Exam: Dry, Intact, Normal Color, Warm Assessment and Plan - Assessment and Plan (Free Text) Plan: 1. Pneumonia CT chest (11/09): Re-demonstration of extensive cylindrical bronchiectasis with areas of mucoid impaction, tree-in-bud interstitial infiltrates as well as lingular consolidation (see full report) CXR (11/02): Minimal interstitial prominence and peribronchiolar cuffing centrally. Findings consistent with mild reactive or inflammatory airway disease. Minimal basilar atelectasis (see full report) Repeat CXR (11/17) - ill defined opactiies at both lung bases underlying infiltrate vs atelectasis. trace left pleural effusion (please see full report) Sputum culture (11/03) Pseudomonas + ID consult, Dr. Mendoza, help appreciated Pulm consult, Dr. 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 Bronchectasis CT chest (11/09): Re-demonstration of extensive cylindrical bronchiectasis with areas of mucoid impaction, tree-in-bud interstitial infiltrates as well as lingular consolidation (see full report) CXR (11/02): Minimal interstitial prominence and peribronchiolar cuffing centrally. Findings consistent with mild reactive or inflammatory airway disease. Minimal basilar atelectasis (see full report) Repeat CXR EKG ID consult, Dr. Mendoza, help appreciated Pulm consult, Dr. Crowley, help appreciated Cefepime 1 gm IVPB Q8H Duonebs RQ2 PRN Pulmicort 0.5 mg INH RQ12 3. COPD PFTs done as outpatient shows Obstructive lung disease Duonebs RQ2 PRN Pulmicort 0.5 mg INH RQ12 4. Prophylactic Measures Protonix 40 mg PO daily [facility] Lovenox 40 mg SC daily Zofran 4 mg IVP Q6H PRN F/U PT/ OT - evaluation of pulse ox during ambulation DW Dr. Anne, Erlinda TRAORE, PGY-1 <Sury Anne V - Last Filed: 11/19/16 20:49> Objective - Vital Signs/Intake and Output Vital Signs (last 24 hours): Temp Pulse Resp BP Pulse Ox 98.1 F 76 20 96/64 L 95 11/19/16 15:00 11/19/16 15:00 11/19/16 15:00 11/19/16 15:00 11/19/16 15:00 Intake and Output: 11/19/16 11/20/16 18:59 06:59 Intake Total 540 Balance 540 - Medications Medications: Current Medications Acetaminophen (Tylenol 325mg Tab) 650 mg PO Q6 PRN PRN Reason: Fever >100.4 F Last Admin: 11/18/16 22:48 Dose: 650 mg Albuterol/Ipratropium (Duoneb 3 Mg/0.5 Mg (3 Ml) Ud) 3 ml INH RQ4 [facility] Last Admin: 11/19/16 19:36 Dose: 3 ml Budesonide (Pulmicort Respules) 0.5 mg INH RQ12 [facility] Last Admin: 11/19/16 19:36 Dose: 0.5 mg Enoxaparin Sodium (Lovenox) 40 mg SC DAILY [facility] Last Admin: 11/19/16 10:53 Dose: Not Given Guaifenesin/Dextromethorphan (Robitussin Dm) 5 ml PO Q4H PRN PRN Reason: Cough Last Admin: 11/18/16 09:45 Dose: 5 ml Cefepime HCl 1 gm/ Dextrose 50 mls @ 100 mls/hr IVPB Q8H [facility] Last Admin: 11/19/16 12:51 Dose: 100 mls/hr Ketorolac Tromethamine (Toradol) 30 mg IVP Q6H PRN PRN Reason: Pain, moderate (4-7) Levothyroxine Sodium (Synthroid) 50 mcg PO DAILY@0630 [facility] Montelukast Sodium (Singulair) 10 mg PO HS [facility] Last Admin: 11/18/16 22:17 Dose: 10 mg Nystatin (Nystop Topical Powder) 1 applic TOP BID [facility] Last Admin: 11/19/16 19:00 Dose: 1 applic Ondansetron HCl (Zofran Inj) 4 mg IVP Q6 PRN PRN Reason: Nausea/Vomiting Pantoprazole Sodium (Protonix Ec Tab) 40 mg PO DAILY [facility] Last Admin: 11/19/16 10:52 Dose: 40 mg Saccharomyces Boulardii (Florastor) 250 mg PO DAILY [facility] Vitamin A (Vitamin A & D Oint Ud Foilpak) 0.5 ea TOP Q4 [facility] Last Admin: 11/19/16 17:00 Dose: 0.5 ea - Labs Labs: 11/19/16 07:23 11/19/16 07:23 PT 12.0 SECONDS (9.7-12.2) 11/18/16 07:36 INR 1.1 11/18/16 07:36 APTT 31 SECONDS (21-34) 11/18/16 07:36 Attending/Attestation - Attestation I have personally seen and examined this patient.: Yes I have fully participated in the care of the patient.: Yes I have reviewed all pertinent clinical information, including history, physical exam and plan: Yes Notes (Text): Patient seen, examined and case discussed with day-time resident. Patient seen this morning. Patient reporting productive cough, pleuritic chest pain, denies fever, denies chills, denies nausea, denies vomitting, denies abdominal pain, reports pruritis in the groin area. Per examination, patient has mild erythema along the intrigenous folds of the groin, suspicious for possible fungal infection. Patient's outpatient sputum positive for Pseudomonas. Infectious disease recommended for 3 weeks of IV Abx. Patient consented for PICC by resident, risks and benefits discussed by resident , and PICC line placed by PICC line nurse. Reason: 3 weeks duration IV abx. Discussed with case management, will attempt to setup patient for outpatient transfusion center. Assessment/Plan 1. Pneumonia * CT chest (11/09/16): Re-demonstration of extensive cylindrical bronchiectasis with areas of mucoid impaction, tree-in-bud interstitial infiltrates as well as lingular consolidation (see full report) * CXR (11/02/16): Minimal interstitial prominence and peribronchiolar cuffing centrally. Findings consistent with mild reactive or inflammatory airway disease. Minimal basilar atelectasis (see full report) * CXR (11/17/16) - ill defined opactiies at both lung bases underlying infiltrate vs atelectasis. trace left pleural effusion (please see full report) * Sputum culture (11/03) Pseudomonas + * ID consult, Dr. Mendoza, help appreciated * Pulm consult, Dr. Crowley, help appreciated * PICC line consented for mcc IV ABX use: Cefepime 1 gm IVPB Q8H * Duonebs RQ2 PRN * Pulmicort 0.5 mg INH RQ12 * Robitussin DM 5 ml PO Q4H PRN * Tylenol 650 mg PO Q6H PRN * Motrin 600mg PO tid for pleuritic chest pain * f/u Repeat Sputum culture * f/u Echo 2. Bronchectasis * CT chest (11/09): Re-demonstration of extensive cylindrical bronchiectasis with areas of mucoid impaction, tree-in-bud interstitial infiltrates as well as lingular consolidation (see full report) * CXR (11/02): Minimal interstitial prominence and peribronchiolar cuffing centrally. Findings consistent with mild reactive or inflammatory airway disease. Minimal basilar atelectasis (see full report) * CXR (11/17/16) - ill defined opactiies at both lung bases underlying infiltrate vs atelectasis. trace left pleural effusion (please see full report) * ID consult, Dr. Mendoza, help appreciated * Pulm consult, Dr. Crowley, help appreciated * Cefepime 1 gm IVPB Q8H * Duonebs RQ2 PRN * Pulmicort 0.5 mg INH RQ12 3. COPD * PFTs done as outpatient shows Obstructive lung disease * Duonebs RQ2 PRN * Pulmicort 0.5 mg INH RQ12 * Peak-flows: 150 4. Fungal rash * Groin area * Nystatin topical 5. Prophylactic Measures * Protonix 40 mg PO daily for GI ppx * SCDs b/l * Lovenox 40 mg SC daily for DVT ppx * Zofran 4 mg IVP Q6H PRN * PT/OT eval Disposition: * F/u case management to determine if patient is eligible for outpatient transfusion center
--- NOTE | 2016-11-19 15:06 | RAD ---
PROCEDURE: CHEST RADIOGRAPH, 1 VIEW HISTORY: verify right PICC COMPARISON: Comparison made with prior study 11/17/2016 FINDINGS: LUNGS: Interval placement right-sided PICC line with tip in the SVC so far as can be seen. Re- demonstrated are patchy bilateral lower lobe infiltrates left greater than right. PLEURA: No pneumothorax or pleural fluid seen. CARDIOVASCULAR: Heart appears enlarged. OSSEOUS STRUCTURES: No significant abnormalities. VISUALIZED UPPER ABDOMEN: Normal. OTHER FINDINGS: None. IMPRESSION: In situ right-sided PICC line as above. Patchy bilateral lower lobe infiltrates left greater than right.
--- NOTE | 2016-11-19 16:23 | CP.PCM.PN ---
Subjective - Date & Time of Evaluation Date of Evaluation: 11/19/16 Time of Evaluation: 13:15 - Subjective Subjective: patient seen and examined. Still complaining of shortness of breath and chest pain Objective - Vital Signs/Intake and Output Vital Signs (last 24 hours): Temp Pulse Resp BP Pulse Ox 98.1 F 76 20 96/64 L 95 11/19/16 15:00 11/19/16 15:00 11/19/16 15:00 11/19/16 15:00 11/19/16 15:00 Intake and Output: 11/19/16 11/19/16 06:59 18:59 Intake Total 410 540 Balance 410 540 - Medications Medications: Current Medications Acetaminophen (Tylenol 325mg Tab) 650 mg PO Q6 PRN PRN Reason: Fever >100.4 F Last Admin: 11/18/16 22:48 Dose: 650 mg Albuterol/Ipratropium (Duoneb 3 Mg/0.5 Mg (3 Ml) Ud) 3 ml INH RQ4 [facility] Last Admin: 11/19/16 11:21 Dose: 3 ml Budesonide (Pulmicort Respules) 0.5 mg INH RQ12 [facility] Last Admin: 11/19/16 07:46 Dose: 0.5 mg Enoxaparin Sodium (Lovenox) 40 mg SC DAILY [facility] Last Admin: 11/19/16 10:53 Dose: Not Given Guaifenesin/Dextromethorphan (Robitussin Dm) 5 ml PO Q4H PRN PRN Reason: Cough Last Admin: 11/18/16 09:45 Dose: 5 ml Cefepime HCl 1 gm/ Dextrose 50 mls @ 100 mls/hr IVPB Q8H [facility] Last Admin: 11/19/16 12:51 Dose: 100 mls/hr Ketorolac Tromethamine (Toradol) 30 mg IVP Q6H PRN PRN Reason: Pain, moderate (4-7) Levothyroxine Sodium (Synthroid) 50 mcg PO DAILY@0630 [facility] Montelukast Sodium (Singulair) 10 mg PO HS [facility] Last Admin: 11/18/16 22:17 Dose: 10 mg Nystatin (Nystop Topical Powder) 1 applic TOP BID [facility] Ondansetron HCl (Zofran Inj) 4 mg IVP Q6 PRN PRN Reason: Nausea/Vomiting Pantoprazole Sodium (Protonix Ec Tab) 40 mg PO DAILY [facility] Last Admin: 11/19/16 10:52 Dose: 40 mg Saccharomyces Boulardii (Florastor) 250 mg PO DAILY [facility] Vitamin A (Vitamin A & D Oint Ud Foilpak) 0.5 ea TOP Q4 [facility] Last Admin: 11/19/16 12:50 Dose: 0.5 ea - Labs Labs: 11/19/16 07:23 11/19/16 07:23 PT 12.0 SECONDS (9.7-12.2) 11/18/16 07:36 INR 1.1 11/18/16 07:36 APTT 31 SECONDS (21-34) 11/18/16 07:36 - Constitutional Appears: No Acute Distress - Head Exam Head Exam: ATRAUMATIC, NORMOCEPHALIC - Eye Exam Eye Exam: Normal appearance - ENT Exam ENT Exam: Mucous Membranes Moist - Neck Exam Neck Exam: Normal Inspection - Respiratory Exam Respiratory Exam: Rhonchi - Cardiovascular Exam Cardiovascular Exam: REGULAR RHYTHM - GI/Abdominal Exam GI & Abdominal Exam: Soft, Normal Bowel Sounds - Extremities Exam Extremities Exam: Full ROM, Normal Inspection Assessment and Plan (1) Bronchiectasis Assessment & Plan: Continue antibiotics as per infectious for 3 weeks Status post PICC line insertion Continue nebulizer treatment and inhaled steroid Status: Acute
--- NOTE | 2016-11-19 17:28 | CP.PCM.PN ---
Subjective - Date & Time of Evaluation Date of Evaluation: 11/19/16 Time of Evaluation: 07:00 - Subjective Subjective: pseudomonas infection in setting of bronchiectasis Objective - Vital Signs/Intake and Output Vital Signs (last 24 hours): Temp Pulse Resp BP Pulse Ox 98.1 F 76 20 96/64 L 95 11/19/16 15:00 11/19/16 15:00 11/19/16 15:00 11/19/16 15:00 11/19/16 15:00 Intake and Output: 11/19/16 11/19/16 06:59 18:59 Intake Total 410 540 Balance 410 540 - Medications Medications: Current Medications Acetaminophen (Tylenol 325mg Tab) 650 mg PO Q6 PRN PRN Reason: Fever >100.4 F Last Admin: 11/18/16 22:48 Dose: 650 mg Albuterol/Ipratropium (Duoneb 3 Mg/0.5 Mg (3 Ml) Ud) 3 ml INH RQ4 [facility] Last Admin: 11/19/16 16:41 Dose: 3 ml Budesonide (Pulmicort Respules) 0.5 mg INH RQ12 [facility] Last Admin: 11/19/16 07:46 Dose: 0.5 mg Enoxaparin Sodium (Lovenox) 40 mg SC DAILY [facility] Last Admin: 11/19/16 10:53 Dose: Not Given Guaifenesin/Dextromethorphan (Robitussin Dm) 5 ml PO Q4H PRN PRN Reason: Cough Last Admin: 11/18/16 09:45 Dose: 5 ml Cefepime HCl 1 gm/ Dextrose 50 mls @ 100 mls/hr IVPB Q8H [facility] Last Admin: 11/19/16 12:51 Dose: 100 mls/hr Ketorolac Tromethamine (Toradol) 30 mg IVP Q6H PRN PRN Reason: Pain, moderate (4-7) Levothyroxine Sodium (Synthroid) 50 mcg PO DAILY@0630 [facility] Montelukast Sodium (Singulair) 10 mg PO HS [facility] Last Admin: 11/18/16 22:17 Dose: 10 mg Nystatin (Nystop Topical Powder) 1 applic TOP BID [facility] Ondansetron HCl (Zofran Inj) 4 mg IVP Q6 PRN PRN Reason: Nausea/Vomiting Pantoprazole Sodium (Protonix Ec Tab) 40 mg PO DAILY [facility] Last Admin: 11/19/16 10:52 Dose: 40 mg Saccharomyces Boulardii (Florastor) 250 mg PO DAILY [facility] Vitamin A (Vitamin A & D Oint Ud Foilpak) 0.5 ea TOP Q4 [facility] Last Admin: 11/19/16 12:50 Dose: 0.5 ea - Labs Labs: 11/19/16 07:23 11/19/16 07:23 PT 12.0 SECONDS (9.7-12.2) 11/18/16 07:36 INR 1.1 11/18/16 07:36 APTT 31 SECONDS (21-34) 11/18/16 07:36 - Constitutional Appears: Non-toxic, Chronically Ill - Head Exam Head Exam: NORMOCEPHALIC - Eye Exam Eye Exam: PERRL. absent: Scleral icterus - ENT Exam ENT Exam: Mucous Membranes Dry - Neck Exam Neck Exam: absent: Lymphadenopathy - Respiratory Exam Respiratory Exam: Decreased Breath Sounds, Rhonchi - Cardiovascular Exam Cardiovascular Exam: REGULAR RHYTHM, +S1, +S2 - GI/Abdominal Exam GI & Abdominal Exam: Distended, Soft. absent: Tenderness Assessment and Plan (1) Bronchiectasis Status: Acute (2) Pseudomonas pneumonia Status: Acute - Assessment and Plan (Free Text) Assessment: iv rx renewed
[2016-11-20] MEDS: Albuterol-Ipratrop 3 mg / 0.5 (3 ml) UD INH SCH ×7 (01:06→23:44)
[2016-11-20] MEDS: Vitamins A & D Oint UD Foilpak TOP SCH ×5 (04:32→21:20)
[2016-11-20] MEDS: guaiFENesin DM 100 mg-10 mg/5 ml UD PO PRN ×2 (04:37→09:20)
[2016-11-20] MEDS: Levothyroxine 50 MCG TAB PO SCH (05:46)
[2016-11-20 07:16] LABS: BASO % 0.4 % (0.0-2.0); EOS # 0.3 K/uL (0.0-0.7); EOS % 2.8 % (0.0-4.0); HEMATOCRIT 37.5 % (34.0-47.0); LYMPH # 2.5 K/uL (1.0-4.3); LYMPH % 28.3 % (20.0-40.0); MEAN CELL VOLUME 69.3 fL (81.0-99.0); MEAN CORPUSCULAR HEMOGLOBIN 21.7 pg (27.0-31.0); MEAN CORPUSCULAR HGB CONC 31.3 g/dL (33.0-37.0); MEAN PLATELET VOLUME 8.2 fL (7.2-11.7); MONO # 0.6 K/uL (0.0-0.8); MONO % 6.6 % (0.0-10.0); NRBC % 0.2 % (0.0-2.0); RED CELL DISTRIBUTION WIDTH 17.5 % (11.5-14.5); WHITE BLOOD COUNT 8.9 K/uL (4.8-10.8)
[2016-11-20 07:37] LABS: CHLORIDE 103 mmol/L (98-107)
[2016-11-20 07:38] LABS: SODIUM 137 mmol/L (132-148)
[2016-11-20 07:40] LABS: ALB/GLOB RATIO 1.1 (1.0-2.1); ALKALINE PHOSPHATASE 39 U/L (38-126); ALT/SGPT 16 U/L (9-52); AST/SGOT 20 U/L (14-36); BILIRUBIN,TOTAL 0.6 mg/dL (0.2-1.3); BLOOD UREA NITROGEN 14 mg/dL (7-17); CALCIUM 8.3 mg/dl (8.6-10.4); CARBON DIOXIDE 26 mmol/L (22-30); GFR AFRICAN-AMERICAN > 60; GLUCOSE,RANDOM 99 mg/dL (65-105); POTASSIUM 3.8 mmol/L (3.6-5.2); TOTAL PROTEIN 6.5 g/dL (6.3-8.3)
[2016-11-20 07:41] LABS: MAGNESIUM 2.2 mg/dL (1.6-2.3)
[2016-11-20] MEDS: Budesonide 0.5 mg/2 ml Inhal Susp UD INH SCH ×2 (08:31→20:43)
[2016-11-20] MEDS: Saccharomyces Boulardi 250 mg Cap PO SCH ×2 (09:19→18:55)
[2016-11-20] MEDS: Pantoprazole 40 mg EC Tab PO SCH (09:19)
[2016-11-20] MEDS: Enoxaparin 40 mg Syringe SC SCH (09:20)
[2016-11-20] MEDS ORDERED: Saccharomyces Boulardi 250 mg Cap PO SCH (10:00)
--- NOTE | 2016-11-20 13:29 | CP.PCM.PN ---
Subjective - Date & Time of Evaluation Date of Evaluation: 11/20/16 Time of Evaluation: 09:00 - Subjective Subjective: Medicine Note for Dr. Cunningham, Patient was seen and examined at bedside. Patient reports she continues to feel SOB in the AM and continues to have wheezing at night. Denied fever, chills, headache, abdominal pain, or urinary symptoms. Pending sputum cultures. Objective - Vital Signs/Intake and Output Vital Signs (last 24 hours): Temp Pulse Resp BP Pulse Ox 97.6 F 105 H 20 98/85 L 96 11/20/16 08:00 11/20/16 08:00 11/20/16 08:00 11/20/16 08:00 11/20/16 08:00 Intake and Output: 11/20/16 11/20/16 06:59 18:59 Intake Total 640 Balance 640 - Medications Medications: Current Medications Acetaminophen (Tylenol 325mg Tab) 650 mg PO Q6 PRN PRN Reason: Fever >100.4 F Last Admin: 11/19/16 21:37 Dose: 650 mg Albuterol/Ipratropium (Duoneb 3 Mg/0.5 Mg (3 Ml) Ud) 3 ml INH RQ4 [facility] Last Admin: 11/20/16 08:31 Dose: 3 ml Budesonide (Pulmicort Respules) 0.5 mg INH RQ12 [facility] Last Admin: 11/20/16 08:31 Dose: 0.5 mg Enoxaparin Sodium (Lovenox) 40 mg SC DAILY [facility] Last Admin: 11/20/16 09:20 Dose: 40 mg Guaifenesin/Dextromethorphan (Robitussin Dm) 5 ml PO Q4H PRN PRN Reason: Cough Last Admin: 11/20/16 09:20 Dose: 5 ml Cefepime HCl 1 gm/ Dextrose 50 mls @ 100 mls/hr IVPB Q8H [facility] Last Admin: 11/20/16 13:02 Dose: 100 mls/hr Ibuprofen (Motrin Tab) 600 mg PO TID [facility] Stop: 11/22/16 10:00 Last Admin: 11/20/16 13:05 Dose: 600 mg Levothyroxine Sodium (Synthroid) 50 mcg PO DAILY@0630 [facility] Last Admin: 11/20/16 05:46 Dose: 50 mcg Montelukast Sodium (Singulair) 10 mg PO HS [facility] Last Admin: 11/19/16 21:38 Dose: 10 mg Nystatin (Nystop Topical Powder) 1 applic TOP BID [facility] Last Admin: 11/20/16 10:20 Dose: 1 applic Ondansetron HCl (Zofran Inj) 4 mg IVP Q6 PRN PRN Reason: Nausea/Vomiting Pantoprazole Sodium (Protonix Ec Tab) 40 mg PO DAILY [facility] Last Admin: 11/20/16 09:19 Dose: 40 mg Saccharomyces Boulardii (Florastor) 250 mg PO BID [facility] Last Admin: 11/20/16 09:19 Dose: 250 mg Vitamin A (Vitamin A & D Oint Ud Foilpak) 0.5 ea TOP Q4 [facility] Last Admin: 11/20/16 13:00 Dose: 0.5 ea - Labs Labs: 11/20/16 07:00 11/20/16 07:00 PT 12.0 SECONDS (9.7-12.2) 11/18/16 07:36 INR 1.1 11/18/16 07:36 APTT 31 SECONDS (21-34) 11/18/16 07:36 - Constitutional Appears: No Acute Distress - Head Exam Head Exam: NORMAL INSPECTION, NORMOCEPHALIC - Respiratory Exam Respiratory Exam: Decreased Breath Sounds, NORMAL BREATHING PATTERN. absent: Wheezes - Cardiovascular Exam Cardiovascular Exam: REGULAR RHYTHM, RRR, +S1, +S2 - GI/Abdominal Exam GI & Abdominal Exam: Soft, Normal Bowel Sounds. absent: Distended, Tenderness - Extremities Exam Extremities Exam: Normal Inspection. absent: Pedal Edema, Tenderness - Neurological Exam Neurological Exam: Alert, Awake, Oriented x3 - Skin Skin Exam: Dry, Intact, Normal Color, Warm Assessment and Plan - Assessment and Plan (Free Text) Plan: Pneumonia * CT chest (11/09/16): Re-demonstration of extensive cylindrical bronchiectasis with areas of mucoid impaction, tree-in-bud interstitial infiltrates as well as lingular consolidation (see full report) * CXR (11/02/16): Minimal interstitial prominence and peribronchiolar cuffing centrally. Findings consistent with mild reactive or inflammatory airway disease. Minimal basilar atelectasis (see full report) * CXR (11/17/16) - ill defined opactiies at both lung bases underlying infiltrate vs atelectasis. trace left pleural effusion (please see full report) * Sputum culture (11/03) Pseudomonas + * ID consult, Dr. Mendoza, help appreciated * Pulm consult, Dr. 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 Findings consistent with mild reactive or inflammatory airway disease. Minimal basilar atelectasis (see full report) * CXR (11/17/16) - ill defined opactiies at both lung bases underlying infiltrate vs atelectasis. trace left pleural effusion (please see full report) * ID consult, Dr. Mendoza, help appreciated * Pulm consult, Dr. Crowley, help appreciated * Cefepime 1 gm IVPB Q8H * Duonebs RQ2 PRN * Pulmicort 0.5 mg INH RQ12 COPD * PFTs done as outpatient shows Obstructive lung disease * Duonebs RQ2 PRN * Pulmicort 0.5 mg INH RQ12 * Peak-flows: 150 Fungal rash * Groin area * Nystatin topical Prophylactic Measures * Protonix 40 mg PO daily for GI ppx * SCDs b/l * Lovenox 40 mg SC daily for DVT ppx * Zofran 4 mg IVP Q6H PRN * PT/OT eval Disposition: * F/u case management to determine if patient is eligible for outpatient transfusion center DW Erlinda Stovall DO, PGY-1
[2016-11-21] MEDS: Vitamins A & D Oint UD Foilpak TOP SCH ×6 (00:53→21:33)
[2016-11-21] MEDS: Albuterol-Ipratrop 3 mg / 0.5 (3 ml) UD INH SCH ×6 (03:07→23:36)
[2016-11-21] MEDS: guaiFENesin DM 100 mg-10 mg/5 ml UD PO PRN ×2 (05:26→10:52)
[2016-11-21] MEDS: Levothyroxine 50 MCG TAB PO SCH (05:30)
[2016-11-21 06:57] LABS: BASO % 0.3 % (0.0-2.0); EOS # 0.4 K/uL (0.0-0.7); LYMPH # 2.3 K/uL (1.0-4.3); LYMPH % 24.3 % (20.0-40.0); MEAN CELL VOLUME 69.1 fL (81.0-99.0); MEAN CORPUSCULAR HEMOGLOBIN 21.3 pg (27.0-31.0); MEAN CORPUSCULAR HGB CONC 30.8 g/dL (33.0-37.0); MEAN PLATELET VOLUME 8.2 fL (7.2-11.7); MONO # 0.6 K/uL (0.0-0.8); MONO % 5.9 % (0.0-10.0); RED CELL DISTRIBUTION WIDTH 17.5 % (11.5-14.5); WHITE BLOOD COUNT 9.6 K/uL (4.8-10.8)
[2016-11-21 07:27] LABS: CHLORIDE 104 mmol/L (98-107)
[2016-11-21 07:28] LABS: POTASSIUM 3.9 mmol/L (3.6-5.2); SODIUM 138 mmol/L (132-148)
[2016-11-21 07:30] LABS: BILIRUBIN,TOTAL 0.5 mg/dL (0.2-1.3); GFR AFRICAN-AMERICAN > 60
[2016-11-21 07:59] LABS: ALB/GLOB RATIO 1.1 (1.0-2.1); ALKALINE PHOSPHATASE 37 U/L (38-126); ALT/SGPT 19 U/L (9-52); AST/SGOT 15 U/L (14-36); BLOOD UREA NITROGEN 14 mg/dL (7-17); CARBON DIOXIDE 27 mmol/L (22-30); GLUCOSE,RANDOM 104 mg/dL (65-105); TOTAL PROTEIN 6.2 g/dL (6.3-8.3)
[2016-11-21] MEDS: Budesonide 0.5 mg/2 ml Inhal Susp UD INH SCH ×2 (08:39→21:15)
[2016-11-21] MEDS: Saccharomyces Boulardi 250 mg Cap PO SCH ×2 (10:50→17:59)
[2016-11-21] MEDS: Pantoprazole 40 mg EC Tab PO SCH (10:50)
[2016-11-21] MEDS: Enoxaparin 40 mg Syringe SC SCH (10:51)
--- NOTE | 2016-11-21 11:06 | CP.PCM.PN ---
Subjective - Date & Time of Evaluation Date of Evaluation: 11/21/16 Time of Evaluation: 11:00 - Subjective Subjective: Medical Attending Note Patient seen, examined and case discussed with day-time resident. Patient reports productive cough is improving. Patient reports itchiness associated with the groin and under her eye. Patient denies other acute complaints. Objective - Vital Signs/Intake and Output Vital Signs (last 24 hours): Temp Pulse Resp BP Pulse Ox 98.1 F 76 20 105/69 97 11/21/16 00:00 11/21/16 00:00 11/21/16 00:00 11/21/16 00:00 11/21/16 00:00 Intake and Output: 11/21/16 11/21/16 06:59 18:59 Intake Total 550 Balance 550 - Medications Medications: Current Medications Acetaminophen (Tylenol 325mg Tab) 650 mg PO Q6 PRN PRN Reason: Fever >100.4 F Last Admin: 11/19/16 21:37 Dose: 650 mg Albuterol/Ipratropium (Duoneb 3 Mg/0.5 Mg (3 Ml) Ud) 3 ml INH RQ4 [facility] Last Admin: 11/21/16 03:07 Dose: Not Given Budesonide (Pulmicort Respules) 0.5 mg INH RQ12 [facility] Last Admin: 11/20/16 20:43 Dose: Not Given Enoxaparin Sodium (Lovenox) 40 mg SC DAILY [facility] [place] Last Admin: 11/21/16 10:51 Dose: 40 mg Guaifenesin/Dextromethorphan (Robitussin Dm) 5 ml PO Q4H PRN PRN Reason: Cough Last Admin: 11/21/16 10:52 Dose: 5 ml Cefepime HCl 1 gm/ Dextrose 50 mls @ 100 mls/hr IVPB Q8H [facility] [place] Last Admin: 11/21/16 05:14 Dose: 100 mls/hr Ibuprofen (Motrin Tab) 600 mg PO TID [facility] Stop: 11/22/16 10:00 Last Admin: 11/21/16 10:50 Dose: 600 mg Levothyroxine Sodium (Synthroid) 50 mcg PO DAILY@0630 [facility] [place] Last Admin: 11/21/16 05:30 Dose: 50 mcg Montelukast Sodium (Singulair) 10 mg PO HS [facility] [place] Last Admin: 11/19/16 21:38 Dose: 10 mg Nystatin (Nystop Topical Powder) 1 applic TOP BID [facility] [place] Last Admin: 11/21/16 10:53 Dose: 1 applic Ondansetron HCl (Zofran Inj) 4 mg IVP Q6 PRN PRN Reason: Nausea/Vomiting Pantoprazole Sodium (Protonix Ec Tab) 40 mg PO DAILY [facility] [place] Last Admin: 11/21/16 10:50 Dose: 40 mg Saccharomyces Boulardii (Florastor) 250 mg PO BID [facility] [place] Last Admin: 11/21/16 10:50 Dose: 250 mg Vitamin A (Vitamin A & D Oint Ud Foilpak) 0.5 ea TOP Q4 [facility] [place] Last Admin: 11/21/16 08:43 Dose: 0.5 ea - Labs Labs: 11/21/16 06:50 11/21/16 06:50 PT 12.0 SECONDS (9.7-12.2) 11/18/16 07:36 INR 1.1 11/18/16 07:36 APTT 31 SECONDS (21-34) 11/18/16 07:36 - Constitutional Appears: Non-toxic, No Acute Distress - Head Exam Head Exam: NORMAL INSPECTION Additional comments: PICC line over the right upper extremity - Eye Exam Eye Exam: EOMI - ENT Exam ENT Exam: Mucous Membranes Moist - Respiratory Exam Respiratory Exam: Decreased Breath Sounds, NORMAL BREATHING PATTERN. absent: Stridor - Cardiovascular Exam Cardiovascular Exam: REGULAR RHYTHM, +S1, +S2 - GI/Abdominal Exam GI & Abdominal Exam: Soft, Normal Bowel Sounds. absent: Distended, Firm, Guarding, Tenderness, Rebound - Extremities Exam Extremities Exam: absent: Pedal Edema, Tenderness - Neurological Exam Neurological Exam: Alert, Awake, Oriented x3 - Psychiatric Exam Psychiatric exam: Normal Affect, Normal Mood - Skin Skin Exam: Dry, Normal Color, Warm Assessment and Plan - Assessment and Plan (Free Text) Assessment: Assessment/Plan 1. Pneumonia * CT chest (11/09/16): Re-demonstration of extensive cylindrical bronchiectasis with areas of mucoid impaction, tree-in-bud interstitial infiltrates as well as lingular consolidation (see full report) * CXR (11/02/16): Minimal interstitial prominence and peribronchiolar cuffing centrally. Findings consistent with mild reactive or inflammatory airway disease. Minimal basilar atelectasis (see full report) * CXR (11/17/16) - ill defined opactiies at both lung bases underlying infiltrate vs atelectasis. trace left pleural effusion (please see full report) * Sputum culture (11/03) Pseudomonas + * ID consult, Dr. Mendoza, help appreciated * Pulm consult, Dr. Crowley, help appreciated * PICC line consented for mechanical engineer IV ABX use: Cefepime 1 gm IVPB Q8H * Cefepime 1 gm IVPB Q8H (Active since 11/17/16) * Duonebs RQ2 PRN * Pulmicort 0.5 mg INH RQ12 * Robitussin DM 5 ml PO Q4H PRN * Tylenol 650 mg PO Q6H PRN * Motrin 600mg PO tid for pleuritic chest pain * f/u Repeat Sputum culture: gram negative pending speciation * f/u Echo 2. Bronchectasis * Dr. Crowley (pul) on board-->help appreciated * CT chest (11/09): Re-demonstration of extensive cylindrical bronchiectasis with areas of mucoid impaction, tree-in-bud interstitial infiltrates as well as lingular consolidation (see full report) * CXR (11/02): Minimal interstitial prominence and peribronchiolar cuffing centrally. Findings consistent with mild reactive or inflammatory airway disease. Minimal basilar atelectasis (see full report) * CXR (11/17/16) - ill defined opactiies at both lung bases underlying infiltrate vs atelectasis. trace left pleural effusion (please see full report) * ID consult, Dr. Mendoza, help appreciated * Pulm consult, Dr. Crowley, help appreciated * Cefepime 1 gm IVPB Q8H (Active since 11/17/16) * Duonebs RQ2 PRN * Pulmicort 0.5 mg INH RQ12 * Robotussin DM 5ml PO Q 4hour PRn cough * Alpha-antitrypsin ordered 3. COPD * PFTs done as outpatient shows Obstructive lung disease * Duonebs RQ2 PRN * Pulmicort 0.5 mg INH RQ12 * Peak-flows: 150 4. Fungal rash * Groin area * Nystatin topical * Benadryl prn 5. Prophylactic Measures * Protonix 40 mg PO daily for GI ppx * SCDs b/l * Lovenox 40 mg SC daily for DVT ppx * Zofran 4 mg IVP Q6H PRN * PT/OT eval Disposition: * F/u case management to determine if patient is eligible for outpatient transfusion center pending sputum culture
--- NOTE | 2016-11-21 16:10 | CP.PCM.PN ---
Subjective - Date & Time of Evaluation Date of Evaluation: 11/21/16 Time of Evaluation: 08:00 - Subjective Subjective: discussed on rounds c/o post chest discomfort no fever iv maxepime increased to 2 g q12h Objective - Vital Signs/Intake and Output Vital Signs (last 24 hours): Temp Pulse Resp BP Pulse Ox 98.5 F 97 H 20 103/72 97 11/21/16 09:00 11/21/16 09:00 11/21/16 09:00 11/21/16 09:00 11/21/16 09:00 Intake and Output: 11/21/16 11/21/16 06:59 18:59 Intake Total 550 550 Balance 550 550 - Medications Medications: Current Medications Acetaminophen (Tylenol 325mg Tab) 650 mg PO Q6 PRN PRN Reason: Fever >100.4 F Last Admin: 11/19/16 21:37 Dose: 650 mg Albuterol/Ipratropium (Duoneb 3 Mg/0.5 Mg (3 Ml) Ud) 3 ml INH RQ4 [facility] Last Admin: 11/21/16 12:39 Dose: 3 ml Budesonide (Pulmicort Respules) 0.5 mg INH RQ12 [facility] Last Admin: 11/21/16 08:39 Dose: 0.5 mg Enoxaparin Sodium (Lovenox) 40 mg SC DAILY [facility] Last Admin: 11/21/16 10:51 Dose: 40 mg Guaifenesin/Dextromethorphan (Robitussin Dm) 5 ml PO Q4H PRN PRN Reason: Cough Last Admin: 11/21/16 10:52 Dose: 5 ml Cefepime HCl (Maxipime Iv 2 Gm Premix) 2 gm in 100 mls @ 100 mls/hr IVPB Q12 [facility] Stop: 11/26/16 22:01 Ibuprofen (Motrin Tab) 600 mg PO TID [facility] Stop: 11/22/16 10:00 Last Admin: 11/21/16 13:45 Dose: 600 mg Levothyroxine Sodium (Synthroid) 50 mcg PO DAILY@0630 [facility] Last Admin: 11/21/16 05:30 Dose: 50 mcg Montelukast Sodium (Singulair) 10 mg PO HS [facility] Last Admin: 11/19/16 21:38 Dose: 10 mg Nystatin (Nystop Topical Powder) 1 applic TOP BID [facility] Last Admin: 11/21/16 10:53 Dose: 1 applic Ondansetron HCl (Zofran Inj) 4 mg IVP Q6 PRN PRN Reason: Nausea/Vomiting Pantoprazole Sodium (Protonix Ec Tab) 40 mg PO DAILY [facility] Last Admin: 11/21/16 10:50 Dose: 40 mg Saccharomyces Boulardii (Florastor) 250 mg PO BID [facility] Last Admin: 11/21/16 10:50 Dose: 250 mg Vitamin A (Vitamin A & D Oint Ud Foilpak) 0.5 ea TOP Q4 [facility] Last Admin: 11/21/16 13:02 Dose: 0.5 ea - Labs Labs: 11/21/16 06:50 11/21/16 06:50 PT 12.0 SECONDS (9.7-12.2) 11/18/16 07:36 INR 1.1 11/18/16 07:36 APTT 31 SECONDS (21-34) 11/18/16 07:36 - Constitutional Appears: Non-toxic - Head Exam Head Exam: NORMOCEPHALIC - Eye Exam Eye Exam: absent: Scleral icterus - ENT Exam ENT Exam: Mucous Membranes Dry - Neck Exam Neck Exam: absent: Lymphadenopathy - Respiratory Exam Respiratory Exam: Decreased Breath Sounds, Rhonchi - Cardiovascular Exam Cardiovascular Exam: REGULAR RHYTHM - GI/Abdominal Exam GI & Abdominal Exam: Distended, Soft Assessment and Plan (1) Bronchiectasis Status: Acute (2) Pseudomonas pneumonia Status: Acute - Assessment and Plan (Free Text) Assessment: cont iv rx for brionchiectasis / [id number]
[2016-11-21] MEDS: Cefepime IV 2 gm in Dextrose 2 GM/100 ML BAG IVPB SCH (21:34)
[2016-11-22] MEDS: Vitamins A & D Oint UD Foilpak TOP SCH ×6 (00:45→21:28)
[2016-11-22] MEDS: guaiFENesin DM 100 mg-10 mg/5 ml UD PO PRN ×3 (01:29→21:30)
[2016-11-22] MEDS: Albuterol-Ipratrop 3 mg / 0.5 (3 ml) UD INH SCH ×6 (03:05→23:42)
[2016-11-22] MEDS: Levothyroxine 50 MCG TAB PO SCH (05:50)
[2016-11-22 06:21] LABS: BASO % 0.2 % (0.0-2.0); EOS # 0.3 K/uL (0.0-0.7); EOS % 3.2 % (0.0-4.0); HEMATOCRIT 36.6 % (34.0-47.0); LYMPH # 2.7 K/uL (1.0-4.3); LYMPH % 28.1 % (20.0-40.0); MEAN CELL VOLUME 68.8 fL (81.0-99.0); MEAN CORPUSCULAR HEMOGLOBIN 21.6 pg (27.0-31.0); MEAN CORPUSCULAR HGB CONC 31.4 g/dL (33.0-37.0); MEAN PLATELET VOLUME 8.3 fL (7.2-11.7); MONO # 0.6 K/uL (0.0-0.8); NRBC % 0.1 % (0.0-2.0); RED CELL DISTRIBUTION WIDTH 17.8 % (11.5-14.5); WHITE BLOOD COUNT 9.6 K/uL (4.8-10.8)
[2016-11-22 06:38] LABS: CHLORIDE 103 mmol/L (98-107); SODIUM 138 mmol/L (132-148)
[2016-11-22 06:40] LABS: ALB/GLOB RATIO 1.2 (1.0-2.1); AST/SGOT 14 U/L (14-36); BILIRUBIN,TOTAL 0.7 mg/dL (0.2-1.3); CARBON DIOXIDE 25 mmol/L (22-30); GFR AFRICAN-AMERICAN > 60; TOTAL PROTEIN 6.2 g/dL (6.3-8.3)
[2016-11-22 06:41] LABS: ALKALINE PHOSPHATASE 35 U/L (38-126); ALT/SGPT 23 U/L (9-52); BLOOD UREA NITROGEN 16 mg/dL (7-17); CALCIUM 8.4 mg/dl (8.6-10.4); GLUCOSE,RANDOM 99 mg/dL (65-105)
[2016-11-22] MEDS: Budesonide 0.5 mg/2 ml Inhal Susp UD INH SCH ×2 (07:39→19:43)
--- NOTE | 2016-11-22 10:32 | CP.PCM.PN ---
Addendum entered and electronically signed by Paris Eric DO 11/22/16 13:59: Patient complained of back pain radiating from chest. Will order dissection study, EKG and JOHNNIE. Original Note: <Paris Eric - Last Filed: 11/22/16 10:27> Subjective - Date & Time of Evaluation Date of Evaluation: 11/22/16 Time of Evaluation: 07:00 - Subjective Subjective: Patient seen, examined at bedside. Nursing reports no adverse events overnight. Today, pt is comfortable and in no acute distress. Pt states she continues to cough and wheeze, though she says both are much improved from admission. She complains of some soreness around her new picc line and states that her forearm on that side is slightly swollen. She continues to complain about pain in her left thoracic region and states that the oral medication helped more than the injected medication. Patient reports continued itchiness associated with the groin and states the given cream did not improve it. Patient denies dizziness, headache, chest pain, chanegs in vision, fever, chills, palpitations, abdominal pain. Pt is tolerating diet and having no trouble moving bladder or bowel. Objective - Vital Signs/Intake and Output Vital Signs (last 24 hours): Temp Pulse Resp BP Pulse Ox 98 F 92 H 20 100/63 95 11/22/16 00:00 11/22/16 00:00 11/22/16 00:00 11/22/16 00:00 11/22/16 00:00 Intake and Output: 11/22/16 11/22/16 06:59 18:59 Intake Total 240 Balance 240 - Medications Medications: Current Medications Acetaminophen (Tylenol 325mg Tab) 650 mg PO Q6 PRN PRN Reason: Fever >100.4 F Last Admin: 11/19/16 21:37 Dose: 650 mg Albuterol/Ipratropium (Duoneb 3 Mg/0.5 Mg (3 Ml) Ud) 3 ml INH RQ4 [facility] Last Admin: 11/22/16 07:39 Dose: Not Given Budesonide (Pulmicort Respules) 0.5 mg INH RQ12 [facility] Last Admin: 11/22/16 07:39 Dose: Not Given Clotrimazole (Lotrimin 1%) 1 gm TOP BID [facility] Enoxaparin Sodium (Lovenox) 40 mg SC DAILY [facility] Last Admin: 11/21/16 10:51 Dose: 40 mg Guaifenesin/Dextromethorphan (Robitussin Dm) 5 ml PO Q4H PRN PRN Reason: Cough Last Admin: 11/22/16 01:29 Dose: 5 ml Cefepime HCl (Maxipime Iv 2 Gm Premix) 2 gm in 100 mls @ 100 mls/hr IVPB Q12 [facility] Stop: 11/26/16 22:01 Last Admin: 11/21/16 21:34 Dose: 100 mls/hr Ibuprofen (Motrin Tab) 800 mg PO Q8 PRN PRN Reason: Pain, moderate (4-7) Levothyroxine Sodium (Synthroid) 50 mcg PO DAILY@0630 [facility] Last Admin: 11/22/16 05:50 Dose: 50 mcg Montelukast Sodium (Singulair) 10 mg PO HS [facility] Last Admin: 11/21/16 21:33 Dose: 10 mg Ondansetron HCl (Zofran Inj) 4 mg IVP Q6 PRN PRN Reason: Nausea/Vomiting Pantoprazole Sodium (Protonix Ec Tab) 40 mg PO DAILY [facility] Last Admin: 11/21/16 10:50 Dose: 40 mg Saccharomyces Boulardii (Florastor) 250 mg PO BID [facility] Last Admin: 11/21/16 17:59 Dose: 250 mg Vitamin A (Vitamin A & D Oint Ud Foilpak) 0.5 ea TOP Q4 [facility] Last Admin: 11/22/16 04:30 Dose: Not Given - Labs Labs: 11/22/16 06:15 11/22/16 06:15 PT 12.0 SECONDS (9.7-12.2) 11/18/16 07:36 INR 1.1 11/18/16 07:36 APTT 31 SECONDS (21-34) 11/18/16 07:36 - Constitutional Appears: Non-toxic, No Acute Distress - Head Exam Head Exam: ATRAUMATIC, NORMOCEPHALIC - Eye Exam Eye Exam: EOMI, Normal appearance. absent: Scleral icterus - Respiratory Exam Respiratory Exam: Decreased Breath Sounds, Wheezes, NORMAL BREATHING PATTERN. absent: Respiratory Distress - Cardiovascular Exam Cardiovascular Exam: REGULAR RHYTHM, +S1, +S2 - GI/Abdominal Exam GI & Abdominal Exam: Soft, Normal Bowel Sounds. absent: Distended, Firm, Guarding, Tenderness - Exam Additional comments: groin rash - Extremities Exam Extremities Exam: Tenderness Additional comments: TTP around picc line. R forearm slightly more swollen than L forearm - Back Exam Back Exam: NORMAL INSPECTION. absent: CVA tenderness (R), paraspinal tenderness , tenderness - Neurological Exam Neurological Exam: Alert, Awake, Normal Gait, Oriented x3 - Psychiatric Exam Psychiatric exam: Normal Affect, Normal Mood - Skin Skin Exam: Dry, Intact, Normal Color, Warm Assessment and Plan - Assessment and Plan (Free Text) Assessment: Assessment: 46 F presenting with bronchiectasis with pseudomonial pneumonia Plan: 1. Pneumonia * Sputum culture (11/18) Pseudomonas + * Cefepime 2 gm IVPB Q12H (Active since 11/17/16) * CT chest (11/09/16): Re-demonstration of extensive cylindrical bronchiectasis with areas of mucoid impaction, tree-in-bud interstitial infiltrates as well as lingular consolidation (see full report) * CXR (11/02/16): Minimal interstitial prominence and peribronchiolar cuffing centrally. Findings consistent with mild reactive or inflammatory airway disease. Minimal basilar atelectasis (see full report) * CXR (11/17/16) - ill defined opactiies at both lung bases underlying infiltrate vs atelectasis. trace left pleural effusion (please see full report) * ID consult, Dr. Mendoza, help appreciated * Pulm consult, Dr. Crowley, help appreciated * PICC line inserted 11/19, swelling around line, f/u doppler * Duonebs RQ2 PRN * Pulmicort 0.5 mg INH RQ12 * Robitussin DM 5 ml PO Q4H PRN * Tylenol 650 mg PO Q6H PRN * Motrin 800mg PO tid for pleuritic chest pain/dose increased today * f/u Echo 2. Bronchectasis * Dr. Crowley (pulm) on board-->help appreciated * Meds and imaging as listed above * Alpha-antitrypsin ordered 3. COPD * PFTs done as outpatient shows Obstructive lung disease * Duonebs RQ2 PRN * Pulmicort 0.5 mg INH RQ12 * Peak-flows: 150 4. Fungal rash * Groin area * Nystatin discontinued * lotrimin topical to be applied to rash * Benadryl prn 5. Prophylactic Measures * Protonix 40 mg PO daily for GI ppx * SCDs b/l * Lovenox 40 mg SC daily for DVT ppx * Zofran 4 mg IVP Q6H PRN * Florastor * PT/OT eval Disposition: * F/u case management to determine if patient is eligible for outpatient transfusion center <Sury Anne V - Last Filed: 11/22/16 21:05> Objective - Vital Signs/Intake and Output Vital Signs (last 24 hours): Temp Pulse Resp BP Pulse Ox 98.4 F 91 H 20 109/73 99 11/22/16 15:00 11/22/16 15:00 11/22/16 15:00 11/22/16 15:00 11/22/16 15:00 - Medications Medications: Current Medications Acetaminophen (Tylenol 325mg Tab) 650 mg PO Q6 PRN PRN Reason: Fever >100.4 F Last Admin: 11/19/16 21:37 Dose: 650 mg Albuterol/Ipratropium (Duoneb 3 Mg/0.5 Mg (3 Ml) Ud) 3 ml INH RQ4 [facility] Last Admin: 11/22/16 19:43 Dose: 3 ml Budesonide (Pulmicort Respules) 0.5 mg INH RQ12 [facility] Last Admin: 11/22/16 19:43 Dose: 0.5 mg Clotrimazole (Lotrimin 1%) 1 gm TOP BID [facility] Last Admin: 11/22/16 18:59 Dose: 1 applic Diphenhydramine HCl (Benadryl) 25 mg PO Q6 [facility] Last Admin: 11/22/16 18:56 Dose: 25 mg Enoxaparin Sodium (Lovenox) 40 mg SC DAILY [facility] Last Admin: 11/22/16 10:37 Dose: 40 mg Guaifenesin/Dextromethorphan (Robitussin Dm) 5 ml PO Q4H PRN PRN Reason: Cough Last Admin: 11/22/16 10:36 Dose: 5 ml Cefepime HCl (Maxipime Iv 2 Gm Premix) 2 gm in 100 mls @ 100 mls/hr IVPB Q12 [facility] Stop: 11/26/16 22:01 Last Admin: 11/22/16 10:34 Dose: 100 mls/hr Sodium Chloride (Sodium Chloride 0.9%) 1,000 mls @ 100 mls/hr IV .Q10H [facility] Ibuprofen (Motrin Tab) 800 mg PO Q8 PRN PRN Reason: Pain, moderate (4-7) Levothyroxine Sodium (Synthroid) 50 mcg PO DAILY@0630 [facility] Last Admin: 11/22/16 05:50 Dose: 50 mcg Montelukast Sodium (Singulair) 10 mg PO HS [facility] Last Admin: 11/21/16 21:33 Dose: 10 mg Ondansetron HCl (Zofran Inj) 4 mg IVP Q6 PRN PRN Reason: Nausea/Vomiting Pantoprazole Sodium (Protonix Ec Tab) 40 mg PO DAILY [facility] Last Admin: 11/22/16 10:37 Dose: 40 mg Saccharomyces Boulardii (Florastor) 250 mg PO BID [facility] Last Admin: 11/22/16 18:56 Dose: 250 mg Vitamin A (Vitamin A & D Oint Ud Foilpak) 0.5 ea TOP Q4 [facility] Last Admin: 11/22/16 19:01 Dose: Not Given - Labs Labs: 11/22/16 06:15 11/22/16 06:15 PT 12.0 SECONDS (9.7-12.2) 11/18/16 07:36 INR 1.1 11/18/16 07:36 APTT 31 SECONDS (21-34) 11/18/16 07:36 Attending/Attestation - Attestation I have personally seen and examined this patient.: Yes I have fully participated in the care of the patient.: Yes I have reviewed all pertinent clinical information, including history, physical exam and plan: Yes Notes (Text): Patient seen, examined and case discussed with day-time resident. Patient seen at bedside reporting productive cough which is improving but associated left back pain. Observed the back no observed erythema, no pain on palpation. Patient also reporting itchiness over the groin site which she reports is not improving with Nystatin, will change to Lotrim. CT dissection completed and report as below Pulmonary and infectious disease on the case-->help appreciated 1. Pneumonia * CT Dissection (11/22/16): thoracic and abdominal aorta appear within normal limits of caliber, extensive cyclindrical bronchiestasis throughout the lower lobes, bilateral hilar adenopathy, mediastinal adenoopathy measuring up to 11mm. Hepatomegaly. numerous splenules. Right nephrectomy, 15mm left ovarian cyst, uterine fundal fibroid * CT chest (11/09/16): Re-demonstration of extensive cylindrical bronchiectasis with areas of mucoid impaction, tree-in-bud interstitial infiltrates as well as lingular consolidation (see full report) * CXR (11/02/16): Minimal interstitial prominence and peribronchiolar cuffing centrally. Findings consistent with mild reactive or inflammatory airway disease. Minimal basilar atelectasis (see full report) * CXR (11/17/16) - ill defined opactiies at both lung bases underlying infiltrate vs atelectasis. trace left pleural effusion (please see full report) * Sputum culture (11/03) Pseudomonas + * Sputum culture (11/18/16) Pseudomonas + * ID consult, Dr. Mendoza, help appreciated * Pulm consult, Dr. Crowley, help appreciated * PICC line in place * Cefepime 2 gm IVPB Q12H (Active since 11/21/16) * Duonebs RQ2 PRN * Pulmicort 0.5 mg INH RQ12 * Robitussin DM 5 ml PO Q4H PRN * Tylenol 650 mg PO Q6H PRN * Motrin 600mg PO tid for pleuritic chest pain * f/u Echo-->PENDING 2. Bronchectasis * Dr. Crowley (pulm) on board-->help appreciated * CT chest (11/09): Re-demonstration of extensive cylindrical bronchiectasis with areas of mucoid impaction, tree-in-bud interstitial infiltrates as well as lingular consolidation (see full report) * CXR (11/02): Minimal interstitial prominence and peribronchiolar cuffing centrally. Findings consistent with mild reactive or inflammatory airway disease. Minimal basilar atelectasis (see full report) * CXR (11/17/16) - ill defined opactiies at both lung bases underlying infiltrate vs atelectasis. trace left pleural effusion (please see full report) * CT Dissection (11/22/16): thoracic and abdominal aorta appear within normal limits of caliber, extensive cyclindrical bronchiestasis throughout the lower lobes, bilateral hilar adenopathy, mediastinal adenoopathy measuring up to 11mm. Hepatomegaly. numerous splenules. Right nephrectomy, 15mm left ovarian cyst, uterine fundal fibroid * ID consult, Dr. Mendoza, help appreciated * Pulm consult, Dr. Crowley, help appreciated * Duonebs RQ2 PRN * Pulmicort 0.5 mg INH RQ12 * Robotussin DM 5ml PO Q 4hour PRn cough * Alpha-antitrypsin ordered 3. COPD * PFTs done as outpatient shows Obstructive lung disease * Duonebs RQ2 PRN * Pulmicort 0.5 mg INH RQ12 * Peak-flows: 150 4. Fungal rash * Groin area * Lotrim 1 top bid * Benadryl 25mg PO Q 6hour PRN pruitus 5. Prophylactic Measures * Protonix 40 mg PO daily for GI ppx * SCDs b/l * Lovenox 40 mg SC daily for DVT ppx * Zofran 4 mg IVP Q6H PRN * PT/OT eval * NS 100cc/hr Disposition: * F/u case management to determine if patient is eligible for outpatient transfusion center; Patient's antibiotic is currently twice a day
[2016-11-22] MEDS: Cefepime IV 2 gm in Dextrose 2 GM/100 ML BAG IVPB SCH ×2 (10:34→21:16)
[2016-11-22] MEDS: Enoxaparin 40 mg Syringe SC SCH (10:37)
[2016-11-22] MEDS: Saccharomyces Boulardi 250 mg Cap PO SCH ×2 (10:37→18:56)
[2016-11-22] MEDS: Pantoprazole 40 mg EC Tab PO SCH (10:37)
--- NOTE | 2016-11-22 11:44 | CP.PCM.PN ---
Subjective - Date & Time of Evaluation Date of Evaluation: 11/22/16 Time of Evaluation: 08:20 - Subjective Subjective: patient seen and examined. Complaining of pain at the back of the chest on left side close to the scapula Complaining of slight cough and dyspnea on exertion Objective - Vital Signs/Intake and Output Vital Signs (last 24 hours): Temp Pulse Resp BP Pulse Ox 98 F 92 H 20 100/63 95 11/22/16 00:00 11/22/16 00:00 11/22/16 00:00 11/22/16 00:00 11/22/16 00:00 Intake and Output: 11/22/16 11/22/16 06:59 18:59 Intake Total 240 Balance 240 - Medications Medications: Current Medications Acetaminophen (Tylenol 325mg Tab) 650 mg PO Q6 PRN PRN Reason: Fever >100.4 F Last Admin: 11/19/16 21:37 Dose: 650 mg Albuterol/Ipratropium (Duoneb 3 Mg/0.5 Mg (3 Ml) Ud) 3 ml INH RQ4 [facility] Last Admin: 11/22/16 11:19 Dose: 3 ml Budesonide (Pulmicort Respules) 0.5 mg INH RQ12 [facility] Last Admin: 11/22/16 07:39 Dose: Not Given Clotrimazole (Lotrimin 1%) 1 gm TOP BID [facility] Enoxaparin Sodium (Lovenox) 40 mg SC DAILY [facility] Last Admin: 11/22/16 10:37 Dose: 40 mg Guaifenesin/Dextromethorphan (Robitussin Dm) 5 ml PO Q4H PRN PRN Reason: Cough Last Admin: 11/22/16 10:36 Dose: 5 ml Cefepime HCl (Maxipime Iv 2 Gm Premix) 2 gm in 100 mls @ 100 mls/hr IVPB Q12 [facility] Stop: 11/26/16 22:01 Last Admin: 11/22/16 10:34 Dose: 100 mls/hr Ibuprofen (Motrin Tab) 800 mg PO Q8 PRN PRN Reason: Pain, moderate (4-7) Levothyroxine Sodium (Synthroid) 50 mcg PO DAILY@0630 [facility] Last Admin: 11/22/16 05:50 Dose: 50 mcg Montelukast Sodium (Singulair) 10 mg PO HS [facility] Last Admin: 11/21/16 21:33 Dose: 10 mg Ondansetron HCl (Zofran Inj) 4 mg IVP Q6 PRN PRN Reason: Nausea/Vomiting Pantoprazole Sodium (Protonix Ec Tab) 40 mg PO DAILY [facility] Last Admin: 11/22/16 10:37 Dose: 40 mg Saccharomyces Boulardii (Florastor) 250 mg PO BID [facility] Last Admin: 11/22/16 10:37 Dose: 250 mg Vitamin A (Vitamin A & D Oint Ud Foilpak) 0.5 ea TOP Q4 [facility] Last Admin: 11/22/16 10:37 Dose: 0.5 ea - Labs Labs: 11/22/16 06:15 11/22/16 06:15 PT 12.0 SECONDS (9.7-12.2) 11/18/16 07:36 INR 1.1 11/18/16 07:36 APTT 31 SECONDS (21-34) 11/18/16 07:36 - Constitutional Appears: No Acute Distress - Head Exam Head Exam: ATRAUMATIC, NORMOCEPHALIC - Eye Exam Eye Exam: Normal appearance - ENT Exam ENT Exam: Normal Exam - Neck Exam Neck Exam: Normal Inspection - Respiratory Exam Respiratory Exam: Rales, Rhonchi - Cardiovascular Exam Cardiovascular Exam: REGULAR RHYTHM - GI/Abdominal Exam GI & Abdominal Exam: Soft, Normal Bowel Sounds - Extremities Exam Extremities Exam: Normal Inspection - Neurological Exam Neurological Exam: Alert, Oriented x3 Assessment and Plan (1) Bronchiectasis Assessment & Plan: continue antibiotics for Pseudomonas infection Continue nebulizer treatment Pain medication as needed x-ray of ribs Status: Acute
[2016-11-22] MEDS: Clotrimazole 1% Cream(30 gm) TOP SCH ×2 (12:38→18:59)
[2016-11-22 13:51] LABS: ABG ALLEN TEST POS; ARTERIAL BLOOD HGB O2 SAT 96.9 % (95.0-98.0); CARBOXYHEMOGLOBIN 1.3 % (0.5-1.5); DRAW SITE RRA; HHB 0.8 % (0.0-5.0)
[2016-11-22] MEDS ORDERED: Iodixanol 320 MG/ML 100 ML BOTTLE IV ONE (17:23)
--- NOTE | 2016-11-22 19:11 | CT ---
CT dissection protocol without and with IV contrast Indication: r/o dissection, CT chest w/wo contrast Technique: Contiguous axial images of the abdomen and pelvis. Coronal and Sagittal reformats generated and reviewed. IV Visipaque [id number] exam was performed using 1 or more of the falling dose reduction techniques: Automated exposure control, adjustment of the MAA and/or kV according to patient size, and/or use of iterative reconstruction technique. Radiation dose: Total exam DLP = 1690.66 MGy-cm. Comparison: Chest x-ray performed 11/19/16, CT chest without contrast performed 11/09/16 Findings: Included portions of the thyroid gland appear unremarkable. Mediastinal and hilar vascular structures appear unremarkable. Heart size appears within normal limits. No evidence of pericardial effusion. Bilateral hilar adenopathy. Sub cm prevascular lymph nodes, nonspecific. Mediastinal adenopathy measuring up to 11 mm (pretracheal). No central pulmonary embolus identified. The thoracic and abdominal aorta appears within normal limits of caliber without evidence of dissection. No focal consolidation. Extensive cylindrical bronchiectasis throughout the lower lobes. Mosaic profusion compatible with small vessel/small airways disease. No pleural effusion. No pneumothorax. Hepatomegaly. Numerous splenules. 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 The left kidney appears unremarkable. Bilateral adrenal glands appear within normal limits. Diminutive pancreas similar in configuration to prior study. The stomach is nondistended. The bowel loops appear within normal limits of caliber without evidence of intestinal obstruction. There is no definite free air. The appendix appears within normal limits of caliber. No secondary signs of acute appendicitis. Uterus is present. Fundal fibroid. Decompressed urinary bladder limits evaluation. 15 mm probable left ovarian cyst. No acute osseous abnormality is detected. Impression: The thoracic and abdominal aorta appears within normal limits of caliber without evidence of dissection. Extensive cylindrical bronchiectasis throughout the lower lobes. Mosaic profusion compatible with small vessel/small airways disease. Bilateral hilar adenopathy. Sub cm prevascular lymph nodes, nonspecific. Mediastinal adenopathy measuring up to 11 mm (pretracheal). Hepatomegaly. Numerous splenules. Right nephrectomy. 15 mm probable left ovarian cyst. Uterine fundal fibroid. Pelvic ultrasound may be considered for further evaluation. Additional incidental findings as above.
[2016-11-22] MEDS: Sodium Chloride 0.9% 1,000 ML IV SCH (21:15)
[2016-11-23] MEDS: Vitamins A & D Oint UD Foilpak TOP SCH ×6 (00:40→21:08)
[2016-11-23] MEDS: Albuterol-Ipratrop 3 mg / 0.5 (3 ml) UD INH SCH ×5 (03:09→20:38)
[2016-11-23] MEDS: Levothyroxine 50 MCG TAB PO SCH (06:29)
[2016-11-23] MEDS: Sodium Chloride 0.9% 1,000 ML IV SCH ×4 (07:00→22:40)
[2016-11-23] MEDS: Budesonide 0.5 mg/2 ml Inhal Susp UD INH SCH ×2 (07:47→20:38)
[2016-11-23 07:48] LABS: BASO % 0.3 % (0.0-2.0); EOS # 0.5 K/uL (0.0-0.7); EOS % 4.8 % (0.0-4.0); HEMATOCRIT 38.6 % (34.0-47.0); LYMPH # 2.8 K/uL (1.0-4.3); LYMPH % 29.7 % (20.0-40.0); MEAN CELL VOLUME 69.2 fL (81.0-99.0); MEAN CORPUSCULAR HEMOGLOBIN 21.7 pg (27.0-31.0); MEAN CORPUSCULAR HGB CONC 31.3 g/dL (33.0-37.0); MEAN PLATELET VOLUME 8.4 fL (7.2-11.7); MONO # 0.6 K/uL (0.0-0.8); MONO % 6.2 % (0.0-10.0); NRBC % 0.1 % (0.0-2.0); RED CELL DISTRIBUTION WIDTH 17.4 % (11.5-14.5); WHITE BLOOD COUNT 9.3 K/uL (4.8-10.8)
[2016-11-23 08:03] LABS: CHLORIDE 105 mmol/L (98-107)
[2016-11-23 08:04] LABS: POTASSIUM 4.1 mmol/L (3.6-5.2); SODIUM 139 mmol/L (132-148)
[2016-11-23 08:06] LABS: ALB/GLOB RATIO 1.1 (1.0-2.1); ALKALINE PHOSPHATASE 38 U/L (38-126); AST/SGOT 20 U/L (14-36); BILIRUBIN,TOTAL 0.5 mg/dL (0.2-1.3); CARBON DIOXIDE 27 mmol/L (22-30); GFR AFRICAN-AMERICAN > 60; TOTAL PROTEIN 6.6 g/dL (6.3-8.3)
[2016-11-23 08:07] LABS: ALT/SGPT 18 U/L (9-52); BLOOD UREA NITROGEN 12 mg/dL (7-17); CALCIUM 8.3 mg/dl (8.6-10.4); GLUCOSE,RANDOM 94 mg/dL (65-105); MAGNESIUM 2.1 mg/dL (1.6-2.3); PHOSPHOROUS 3.6 mg/dL (2.5-4.5)
[2016-11-23] MEDS: guaiFENesin DM 100 mg-10 mg/5 ml UD PO PRN ×2 (10:23→18:41)
[2016-11-23] MEDS: Pantoprazole 40 mg EC Tab PO SCH (10:23)
[2016-11-23] MEDS: Enoxaparin 40 mg Syringe SC SCH (10:23)
[2016-11-23] MEDS: Saccharomyces Boulardi 250 mg Cap PO SCH ×2 (10:23→18:35)
[2016-11-23] MEDS: Cefepime IV 2 gm in Dextrose 2 GM/100 ML BAG IVPB SCH ×2 (10:24→21:05)
--- NOTE | 2016-11-23 10:25 | CP.PCM.PN ---
<Paris Eric - Last Filed: 11/23/16 10:35> Subjective - Date & Time of Evaluation Date of Evaluation: 11/23/16 Time of Evaluation: 07:00 - Subjective Subjective: Pt seen and examined at bedside. Nursing reports no adverse events overnight. Pt states she had some trouble breathing yesterday, but it improved entirely with her nebulizer treatment. Today, pt is comfortable and in no acute distress. Pt states that her back pain has improved, but it still bothers her form time to time. Pt also reports that she sometimes gets some pain in her epigastric region. Pt states she thinks the swelling in her arm has gone down and reports less soreness by the picc line. Pt denies headache, dizziness, chest pain, palpitations, leg swelling/pain. Pt tolerating diet and moving bowels/bladder without difficulty. Objective - Vital Signs/Intake and Output Vital Signs (last 24 hours): Temp Pulse Resp BP Pulse Ox 97.8 F 100 H 20 105/72 97 11/23/16 08:00 11/23/16 08:00 11/23/16 08:00 11/23/16 08:00 11/23/16 08:00 Intake and Output: 11/23/16 11/23/16 06:59 18:59 Intake Total 1450 Balance 1450 - Medications Medications: Current Medications Acetaminophen (Tylenol 325mg Tab) 650 mg PO Q6 PRN PRN Reason: Fever >100.4 F Last Admin: 11/19/16 21:37 Dose: 650 mg Albuterol/Ipratropium (Duoneb 3 Mg/0.5 Mg (3 Ml) Ud) 3 ml INH RQ4 [facility] Last Admin: 11/23/16 07:47 Dose: 3 ml Budesonide (Pulmicort Respules) 0.5 mg INH RQ12 [facility] Last Admin: 11/23/16 07:47 Dose: 0.5 mg Clotrimazole (Lotrimin 1%) 1 gm TOP BID [facility] Last Admin: 11/22/16 18:59 Dose: 1 applic Diphenhydramine HCl (Benadryl) 25 mg PO Q6 [facility] Last Admin: 11/23/16 06:29 Dose: 25 mg Enoxaparin Sodium (Lovenox) 40 mg SC DAILY [facility] Last Admin: 11/22/16 10:37 Dose: 40 mg Guaifenesin/Dextromethorphan (Robitussin Dm) 5 ml PO Q4H PRN PRN Reason: Cough Last Admin: 11/22/16 21:30 Dose: 5 ml Cefepime HCl (Maxipime Iv 2 Gm Premix) 2 gm in 100 mls @ 100 mls/hr IVPB Q12 [facility] Stop: 11/26/16 22:01 Last Admin: 11/22/16 21:16 Dose: 100 mls/hr Sodium Chloride (Sodium Chloride 0.9%) 1,000 mls @ 100 mls/hr IV .Q10H [facility] Last Admin: 11/23/16 07:00 Dose: Not Given Ibuprofen (Motrin Tab) 800 mg PO Q8 PRN PRN Reason: Pain, moderate (4-7) Levothyroxine Sodium (Synthroid) 50 mcg PO DAILY@0630 [facility] Last Admin: 11/23/16 06:29 Dose: 50 mcg Montelukast Sodium (Singulair) 10 mg PO HS [facility] Last Admin: 11/22/16 21:17 Dose: 10 mg Ondansetron HCl (Zofran Inj) 4 mg IVP Q6 PRN PRN Reason: Nausea/Vomiting Pantoprazole Sodium (Protonix Ec Tab) 40 mg PO DAILY [facility] Last Admin: 11/22/16 10:37 Dose: 40 mg Saccharomyces Boulardii (Florastor) 250 mg PO BID [facility] Last Admin: 11/22/16 18:56 Dose: 250 mg Vitamin A (Vitamin A & D Oint Ud Foilpak) 0.5 ea TOP Q4 [facility] Last Admin: 11/23/16 04:04 Dose: 0.5 ea - Labs Labs: 11/23/16 07:17 11/23/16 07:17 PT 12.0 SECONDS (9.7-12.2) 11/18/16 07:36 INR 1.1 11/18/16 07:36 APTT 31 SECONDS (21-34) 11/18/16 07:36 - Constitutional Appears: Non-toxic, No Acute Distress - Head Exam Head Exam: ATRAUMATIC, NORMOCEPHALIC - Eye Exam Eye Exam: EOMI, Normal appearance. absent: Scleral icterus - Respiratory Exam Respiratory Exam: Decreased Breath Sounds, NORMAL BREATHING PATTERN. absent: Respiratory Distress - Cardiovascular Exam Cardiovascular Exam: REGULAR RHYTHM, +S1, +S2. absent: JVD - GI/Abdominal Exam GI & Abdominal Exam: Soft, Tenderness, Normal Bowel Sounds. absent: Distended, Firm Additional comments: mild TTP in epigastric region - Extremities Exam Extremities Exam: Normal Inspection. absent: Calf Tenderness, Pedal Edema, Tenderness - Neurological Exam Neurological Exam: Alert, Awake, Normal Gait, Oriented x3 - Psychiatric Exam Psychiatric exam: Normal Affect, Normal Mood - Skin Skin Exam: Dry, Intact, Normal Color, Warm Assessment and Plan - Assessment and Plan (Free Text) Assessment: Assessment: 46 F presenting with bronchiectasis with pseudomonial pneumonia Plan: 1. Pneumonia * Sputum culture (11/18) Pseudomonas + * Cefepime 2 gm IVPB Q12H (Active since 11/17/16) Per ID the patient will need a total of 2 more weeks of IV abx (end 12/06) * CT chest (11/09/16): Re-demonstration of extensive cylindrical bronchiectasis with areas of mucoid impaction, tree-in-bud interstitial infiltrates as well as lingular consolidation (see full report) * CXR (11/02/16): Minimal interstitial prominence and peribronchiolar cuffing centrally. Findings consistent with mild reactive or inflammatory airway disease. Minimal basilar atelectasis (see full report) * CXR (11/17/16) - ill defined opactiies at both lung bases underlying infiltrate vs atelectasis. trace left pleural effusion (please see full report) * ID consult, Dr. Mendoza, help appreciated * Pulm consult, Dr. Crowley, help appreciated * PICC line inserted 11/19, swelling around line, f/u doppler * Duonebs RQ2 PRN * Pulmicort 0.5 mg INH RQ12 * Robitussin DM 5 ml PO Q4H PRN * Tylenol 650 mg PO Q6H PRN * Motrin 800mg PO tid for pleuritic chest pain/dose increased today * f/u Echo 2. Bronchectasis * Dr. Crowley (pulm) on board-->help appreciated * Meds and imaging as listed above * Alpha-antitrypsin ordered 3. COPD * PFTs done as outpatient shows Obstructive lung disease * Duonebs RQ2 PRN * Pulmicort 0.5 mg INH RQ12 * Peak-flows: 150 4. Fungal rash * Groin area * Nystatin discontinued * lotrimin topical to be applied to rash * Benadryl prn 5. Prophylactic Measures * Protonix 40 mg PO daily for GI ppx * SCDs b/l * Lovenox 40 mg SC daily for DVT ppx * Zofran 4 mg IVP Q6H PRN * Florastor * PT/OT eval Disposition: * Patient will need 2 more weeks of IV abx infusions. Not able to get outpatient because she will need them twice a day for Pseudomonal coverage. <Sury Anne V - Last Filed: 11/23/16 17:40> Objective - Vital Signs/Intake and Output Vital Signs (last 24 hours): Temp Pulse Resp BP Pulse Ox 98.1 F 91 H 20 113/78 97 11/23/16 15:00 11/23/16 15:00 11/23/16 15:00 11/23/16 15:00 11/23/16 15:00 Intake and Output: 11/23/16 11/23/16 06:59 18:59 Intake Total 1450 1280 Balance 1450 1280 - Medications Medications: Current Medications Acetaminophen (Tylenol 325mg Tab) 650 mg PO Q6 PRN PRN Reason: Fever >100.4 F Last Admin: 11/19/16 21:37 Dose: 650 mg Albuterol/Ipratropium (Duoneb 3 Mg/0.5 Mg (3 Ml) Ud) 3 ml INH RQ4 [facility] Last Admin: 11/23/16 15:50 Dose: 3 ml Budesonide (Pulmicort Respules) 0.5 mg INH RQ12 [facility] Last Admin: 11/23/16 07:47 Dose: 0.5 mg Clotrimazole (Lotrimin 1%) 1 gm TOP BID [facility] Last Admin: 11/23/16 10:26 Dose: 1 applic Diphenhydramine HCl (Benadryl) 25 mg PO Q6 [facility] Last Admin: 11/23/16 12:56 Dose: 25 mg Enoxaparin Sodium (Lovenox) 40 mg SC DAILY [facility] Last Admin: 11/23/16 10:23 Dose: 40 mg Guaifenesin/Dextromethorphan (Robitussin Dm) 5 ml PO Q4H PRN PRN Reason: Cough Last Admin: 11/23/16 10:23 Dose: 5 ml Cefepime HCl (Maxipime Iv 2 Gm Premix) 2 gm in 100 mls @ 100 mls/hr IVPB Q12 [facility] Stop: 11/26/16 22:01 Last Admin: 11/23/16 10:24 Dose: 100 mls/hr Sodium Chloride (Sodium Chloride 0.9%) 1,000 mls @ 100 mls/hr IV .Q10H [facility] Last Admin: 11/23/16 10:34 Dose: 100 mls/hr Ibuprofen (Motrin Tab) 800 mg PO Q8 PRN PRN Reason: Pain, moderate (4-7) Last Admin: 11/23/16 10:21 Dose: 800 mg Levothyroxine Sodium (Synthroid) 50 mcg PO DAILY@0630 [facility] Last Admin: 11/23/16 06:29 Dose: 50 mcg Montelukast Sodium (Singulair) 10 mg PO HS [facility] Last Admin: 11/22/16 21:17 Dose: 10 mg Ondansetron HCl (Zofran Inj) 4 mg IVP Q6 PRN PRN Reason: Nausea/Vomiting Pantoprazole Sodium (Protonix Ec Tab) 40 mg PO DAILY [facility] Last Admin: 11/23/16 10:23 Dose: 40 mg Saccharomyces Boulardii (Florastor) 250 mg PO BID [facility] Last Admin: 11/23/16 10:23 Dose: 250 mg Vitamin A (Vitamin A & D Oint Ud Foilpak) 0.5 ea TOP Q4 [facility] Last Admin: 11/23/16 12:56 Dose: 0.5 ea - Labs Labs: 11/23/16 07:17 11/23/16 07:17 PT 12.0 SECONDS (9.7-12.2) 11/18/16 07:36 INR 1.1 11/18/16 07:36 APTT 31 SECONDS (21-34) 11/18/16 07:36 Attending/Attestation - Attestation I have personally seen and examined this patient.: Yes I have fully participated in the care of the patient.: Yes I have reviewed all pertinent clinical information, including history, physical exam and plan: Yes Notes (Text): Patient seen, examined and case discussed with day-time resident. Patient seen at bedside reporting productive cough which is improving but associated left back pain. Observed the back no observed erythema, no pain on palpation. Increased Motrin 800mg PO tid for pleuritic chest pain. Patient is currently on IV abx for Pseudomonas Pneumonia. 1. Pneumonia * CT Dissection (11/22/16): thoracic and abdominal aorta appear within normal limits of caliber, extensive cyclindrical bronchiestasis throughout the lower lobes, bilateral hilar adenopathy, mediastinal adenoopathy measuring up to 11mm. Hepatomegaly. numerous splenules. Right nephrectomy, 15mm left ovarian cyst, uterine fundal fibroid * CT chest (11/09/16): Re-demonstration of extensive cylindrical bronchiectasis with areas of mucoid impaction, tree-in-bud interstitial infiltrates as well as lingular consolidation (see full report) * CXR (11/02/16): Minimal interstitial prominence and peribronchiolar cuffing centrally. Findings consistent with mild reactive or inflammatory airway disease. Minimal basilar atelectasis (see full report) * CXR (11/17/16) - ill defined opactiies at both lung bases underlying infiltrate vs atelectasis. trace left pleural effusion (please see full report) * Sputum culture (11/03) Pseudomonas + * Sputum culture (11/18/16) Pseudomonas + * ID consult, Dr. Mendoza, help appreciated * Pulm consult, Dr. Crowley, help appreciated * PICC line in place * Cefepime 2 gm IVPB Q12H (Active since 11/21/16 until 12/05/16) * Duonebs RQ2 PRN * Pulmicort 0.5 mg INH RQ12 * Robitussin DM 5 ml PO Q4H PRN * Tylenol 650 mg PO Q6H PRN * Motrin 800mg PO tid for pleuritic chest pain * f/u Echo-->PENDING 2. Bronchectasis * Dr. Crowley (pulm) on board-->help appreciated * CT chest (11/09): Re-demonstration of extensive cylindrical bronchiectasis with areas of mucoid impaction, tree-in-bud interstitial infiltrates as well as lingular consolidation (see full report) * CXR (11/02): Minimal interstitial prominence and peribronchiolar cuffing centrally. Findings consistent with mild reactive or inflammatory airway disease. Minimal basilar atelectasis (see full report) * CXR (11/17/16) - ill defined opactiies at both lung bases underlying infiltrate vs atelectasis. trace left pleural effusion (please see full report) * CT Dissection (11/22/16): thoracic and abdominal aorta appear within normal limits of caliber, extensive cyclindrical bronchiestasis throughout the lower lobes, bilateral hilar adenopathy, mediastinal adenoopathy measuring up to 11mm. Hepatomegaly. numerous splenules. Right nephrectomy, 15mm left ovarian cyst, uterine fundal fibroid * ID consult, Dr. Mendoza, help appreciated * Pulm consult, Dr. Crowley, help appreciated * Duonebs RQ2 PRN * Pulmicort 0.5 mg INH RQ12 * Robotussin DM 5ml PO Q 4hour PRn cough * Alpha-antitrypsin ordered 3. COPD * PFTs done as outpatient shows Obstructive lung disease * Duonebs RQ2 PRN * Pulmicort 0.5 mg INH RQ12 * Peak-flows: 150 4. Fungal rash * Groin area * Lotrim 1 top bid * Benadryl 25mg PO Q 6hour PRN pruitus 5. Prophylactic Measures * Protonix 40 mg PO daily for GI ppx * SCDs b/l * Lovenox 40 mg SC daily for DVT ppx * Zofran 4 mg IVP Q6H PRN * PT/OT eval * NS 100cc/hr Disposition: * F/u case management to determine if patient is eligible for outpatient transfusion center; Patient's antibiotic is currently twice a day for two weeks as recommended strongly by infectious disease.
[2016-11-23] MEDS: Clotrimazole 1% Cream(30 gm) TOP SCH ×2 (10:26→18:36)
--- NOTE | 2016-11-23 12:17 | CP.PCM.PN ---
Subjective - Date & Time of Evaluation Date of Evaluation: 11/23/16 Time of Evaluation: 07:00 - Subjective Subjective: slow progress cont iv rzx Objective - Vital Signs/Intake and Output Vital Signs (last 24 hours): Temp Pulse Resp BP Pulse Ox 97.8 F 100 H 20 105/72 97 11/23/16 08:00 11/23/16 08:00 11/23/16 08:00 11/23/16 08:00 11/23/16 08:00 Intake and Output: 11/23/16 11/23/16 06:59 18:59 Intake Total 1450 Balance 1450 - Medications Medications: Current Medications Acetaminophen (Tylenol 325mg Tab) 650 mg PO Q6 PRN PRN Reason: Fever >100.4 F Last Admin: 11/19/16 21:37 Dose: 650 mg Albuterol/Ipratropium (Duoneb 3 Mg/0.5 Mg (3 Ml) Ud) 3 ml INH RQ4 [facility] Last Admin: 11/23/16 07:47 Dose: 3 ml Budesonide (Pulmicort Respules) 0.5 mg INH RQ12 [facility] Last Admin: 11/23/16 07:47 Dose: 0.5 mg Clotrimazole (Lotrimin 1%) 1 gm TOP BID [facility] Last Admin: 11/23/16 10:26 Dose: 1 applic Diphenhydramine HCl (Benadryl) 25 mg PO Q6 [facility] Last Admin: 11/23/16 06:29 Dose: 25 mg Enoxaparin Sodium (Lovenox) 40 mg SC DAILY [facility] Last Admin: 11/23/16 10:23 Dose: 40 mg Guaifenesin/Dextromethorphan (Robitussin Dm) 5 ml PO Q4H PRN PRN Reason: Cough Last Admin: 11/23/16 10:23 Dose: 5 ml Cefepime HCl (Maxipime Iv 2 Gm Premix) 2 gm in 100 mls @ 100 mls/hr IVPB Q12 [facility] Stop: 11/26/16 22:01 Last Admin: 11/23/16 10:24 Dose: 100 mls/hr Sodium Chloride (Sodium Chloride 0.9%) 1,000 mls @ 100 mls/hr IV .Q10H [facility] Last Admin: 11/23/16 10:34 Dose: 100 mls/hr Ibuprofen (Motrin Tab) 800 mg PO Q8 PRN PRN Reason: Pain, moderate (4-7) Last Admin: 11/23/16 10:21 Dose: 800 mg Levothyroxine Sodium (Synthroid) 50 mcg PO DAILY@0630 [facility] Last Admin: 11/23/16 06:29 Dose: 50 mcg Montelukast Sodium (Singulair) 10 mg PO HS [facility] Last Admin: 11/22/16 21:17 Dose: 10 mg Ondansetron HCl (Zofran Inj) 4 mg IVP Q6 PRN PRN Reason: Nausea/Vomiting Pantoprazole Sodium (Protonix Ec Tab) 40 mg PO DAILY [facility] Last Admin: 11/23/16 10:23 Dose: 40 mg Saccharomyces Boulardii (Florastor) 250 mg PO BID [facility] Last Admin: 11/23/16 10:23 Dose: 250 mg Vitamin A (Vitamin A & D Oint Ud Foilpak) 0.5 ea TOP Q4 [facility] Last Admin: 11/23/16 08:25 Dose: 0.5 ea - Labs Labs: 11/23/16 07:17 11/23/16 07:17 PT 12.0 SECONDS (9.7-12.2) 11/18/16 07:36 INR 1.1 11/18/16 07:36 APTT 31 SECONDS (21-34) 11/18/16 07:36 - Constitutional Appears: Non-toxic, Chronically Ill - Head Exam Head Exam: NORMOCEPHALIC - Eye Exam Eye Exam: PERRL. absent: Scleral icterus - ENT Exam ENT Exam: Mucous Membranes Dry, Normal External Ear Exam - Neck Exam Neck Exam: absent: Lymphadenopathy - Respiratory Exam Respiratory Exam: Decreased Breath Sounds, Rhonchi - Cardiovascular Exam Cardiovascular Exam: REGULAR RHYTHM Assessment and Plan (1) Bronchiectasis Status: Acute (2) Pseudomonas pneumonia Status: Acute
[2016-11-24] MEDS: guaiFENesin DM 100 mg-10 mg/5 ml UD PO PRN ×3 (00:01→12:00)
[2016-11-24] MEDS: Vitamins A & D Oint UD Foilpak TOP SCH ×6 (00:03→21:00)
[2016-11-24] MEDS: Albuterol-Ipratrop 3 mg / 0.5 (3 ml) UD INH SCH ×7 (03:30→23:34)
[2016-11-24] MEDS: Levothyroxine 50 MCG TAB PO SCH (05:59)
--- NOTE | 2016-11-24 07:19 | CP.PCM.PN ---
<HernestoParis - Last Filed: 11/24/16 13:59> Subjective - Date & Time of Evaluation Date of Evaluation: 11/24/16 Time of Evaluation: 07:10 - Subjective Subjective: Pt seen and examined at bedside. Nursing reports no adverse events overnight. Today, pt is comfortable and in no acute distress. Pt states that her thoracic back pain has gone away completely, but she now complains of lower back pain. She states the pain feels like "heavy pressure," that hurts more when she walks. Pt states she has had this pain for years, but it feels worse since she' s been lying in bed so much. Pt states that the new cream has greatly improved her groin rash. Pt denies headache, dizziness, chest pain, palpitations, leg swelling/pain. Pt tolerating diet and moving bowels/bladder without difficulty. Objective - Vital Signs/Intake and Output Vital Signs (last 24 hours): Temp Pulse Resp BP Pulse Ox 97.7 F 86 20 100/67 97 11/24/16 00:00 11/24/16 00:00 11/24/16 00:00 11/24/16 00:00 11/24/16 00:00 Intake and Output: 11/24/16 11/24/16 06:59 18:59 Intake Total 1120 Output Total 1 Balance 1119 - Medications Medications: Current Medications Acetaminophen (Tylenol 325mg Tab) 650 mg PO Q6 PRN PRN Reason: Fever >100.4 F Last Admin: 11/19/16 21:37 Dose: 650 mg Albuterol/Ipratropium (Duoneb 3 Mg/0.5 Mg (3 Ml) Ud) 3 ml INH RQ4 [facility] Last Admin: 11/24/16 03:30 Dose: Not Given Budesonide (Pulmicort Respules) 0.5 mg INH RQ12 [facility] Last Admin: 11/23/16 20:38 Dose: 0.5 mg Clotrimazole (Lotrimin 1%) 1 gm TOP BID [facility] Last Admin: 11/23/16 18:36 Dose: 1 applic Diphenhydramine HCl (Benadryl) 25 mg PO Q6 [facility] Last Admin: 11/24/16 05:59 Dose: 25 mg Enoxaparin Sodium (Lovenox) 40 mg SC DAILY [facility] Last Admin: 11/23/16 10:23 Dose: 40 mg Guaifenesin/Dextromethorphan (Robitussin Dm) 5 ml PO Q4H PRN PRN Reason: Cough Last Admin: 11/24/16 05:58 Dose: 5 ml Cefepime HCl (Maxipime Iv 2 Gm Premix) 2 gm in 100 mls @ 100 mls/hr IVPB Q12 [facility] Stop: 11/26/16 22:01 Last Admin: 11/23/16 21:05 Dose: 100 mls/hr Sodium Chloride (Sodium Chloride 0.9%) 1,000 mls @ 100 mls/hr IV .Q10H [facility] Last Admin: 11/23/16 22:40 Dose: 100 mls/hr Ibuprofen (Motrin Tab) 800 mg PO Q8 PRN PRN Reason: Pain, moderate (4-7) Last Admin: 11/23/16 18:41 Dose: 800 mg Levothyroxine Sodium (Synthroid) 50 mcg PO DAILY@0630 [facility] Last Admin: 11/24/16 05:59 Dose: 50 mcg Montelukast Sodium (Singulair) 10 mg PO HS [facility] Last Admin: 11/23/16 21:07 Dose: 10 mg Ondansetron HCl (Zofran Inj) 4 mg IVP Q6 PRN PRN Reason: Nausea/Vomiting Pantoprazole Sodium (Protonix Ec Tab) 40 mg PO DAILY [facility] Last Admin: 11/23/16 10:23 Dose: 40 mg Saccharomyces Boulardii (Florastor) 250 mg PO BID [facility] Last Admin: 11/23/16 18:35 Dose: 250 mg Vitamin A (Vitamin A & D Oint Ud Foilpak) 0.5 ea TOP Q4 [facility] Last Admin: 11/24/16 04:00 Dose: 0.5 ea - Labs Labs: 11/23/16 07:17 11/23/16 07:17 PT 12.0 SECONDS (9.7-12.2) 11/18/16 07:36 INR 1.1 11/18/16 07:36 APTT 31 SECONDS (21-34) 11/18/16 07:36 - Constitutional Appears: Non-toxic, No Acute Distress - Head Exam Head Exam: ATRAUMATIC, NORMAL INSPECTION - Eye Exam Eye Exam: EOMI - ENT Exam ENT Exam: Mucous Membranes Moist - Neck Exam Neck Exam: Normal Inspection - Respiratory Exam Respiratory Exam: Decreased Breath Sounds, Clear to Ausculation Bilateral, NORMAL BREATHING PATTERN. absent: Respiratory Distress - Cardiovascular Exam Cardiovascular Exam: REGULAR RHYTHM, +S1, +S2 - GI/Abdominal Exam GI & Abdominal Exam: Soft, Normal Bowel Sounds. absent: Distended, Firm, Guarding, Tenderness - Extremities Exam Extremities Exam: Normal Inspection. absent: Calf Tenderness - Back Exam Back Exam: NORMAL INSPECTION, paraspinal tenderness. absent: CVA tenderness (L) , CVA tenderness (R) Additional comments: TTP in lumbar lordosis - Neurological Exam Neurological Exam: Alert, Awake, Normal Gait, Oriented x3 - Psychiatric Exam Psychiatric exam: Normal Affect, Normal Mood - Skin Skin Exam: Dry, Intact, Normal Color, Warm Assessment and Plan - Assessment and Plan (Free Text) Assessment: Pneumonia * Sputum culture (11/18/16) Pseudomonas + * Cefepime 2 gm IVPB Q12H (Active since 11/21/16 until 12/05/16) - will need to complete IV ABX inpatient, not a candidate for outpatient infusions * CT Dissection (11/22/16): thoracic and abdominal aorta appear within normal limits of caliber, extensive cyclindrical bronchiestasis throughout the lower lobes, bilateral hilar adenopathy, mediastinal adenoopathy measuring up to 11mm. Hepatomegaly. numerous splenules. Right nephrectomy, 15mm left ovarian cyst, uterine fundal fibroid * CT chest (11/09/16): Re-demonstration of extensive cylindrical bronchiectasis with areas of mucoid impaction, tree-in-bud interstitial infiltrates as well as lingular consolidation (see full report) * CXR (11/02/16): Minimal interstitial prominence and peribronchiolar cuffing centrally. Findings consistent with mild reactive or inflammatory airway disease. Minimal basilar atelectasis (see full report) * CXR (11/17/16) - ill defined opactiies at both lung bases underlying infiltrate vs atelectasis. trace left pleural effusion (please see full report) * ID consult, Dr. Mendoza, help appreciated * Pulm consult, Dr. Crowley, help appreciated * PICC line in place * Duonebs RQ2 PRN * Pulmicort 0.5 mg INH RQ12 * Robitussin DM 5 ml PO Q4H PRN * Tylenol 650 mg PO Q6H PRN * Motrin 800mg PO tid for pleuritic chest pain * f/u Echo-->PENDING, call placed to cardiology today to obtain read Bronchectasis * Dr. Crowley (pulm) on board-->help appreciated * CT chest (11/09): Re-demonstration of extensive cylindrical bronchiectasis with areas of mucoid impaction, tree-in-bud interstitial infiltrates as well as lingular consolidation (see full report) * CXR (11/02): Minimal interstitial prominence and peribronchiolar cuffing centrally. Findings consistent with mild reactive or inflammatory airway disease. Minimal basilar atelectasis (see full report) * CXR (11/17/16) - ill defined opactiies at both lung bases underlying infiltrate vs atelectasis. trace left pleural effusion (please see full report) * CT Dissection (11/22/16): thoracic and abdominal aorta appear within normal limits of caliber, extensive cyclindrical bronchiestasis throughout the lower lobes, bilateral hilar adenopathy, mediastinal adenoopathy measuring up to 11mm. Hepatomegaly. numerous splenules. Right nephrectomy, 15mm left ovarian cyst, uterine fundal fibroid * ID consult, Dr. Mendoza, help appreciated * Pulm consult, Dr. Crowley, help appreciated * Duonebs RQ2 PRN * Pulmicort 0.5 mg INH RQ12 * Robotussin DM 5ml PO Q 4hour PRn cough * Alpha-antitrypsin ordered COPD * PFTs done as outpatient shows Obstructive lung disease * Duonebs RQ2 PRN * Pulmicort 0.5 mg INH RQ12 * Peak-flows: 150 Fungal rash * Groin area, improving * Lotrim 1 top bid * Benadryl 25mg PO Q 6hour PRN pruitus Prophylactic Measures * Protonix 40 mg PO daily for GI ppx * SCDs b/l * Lovenox 40 mg SC daily for DVT ppx * Zofran 4 mg IVP Q6H PRN * PT/OT eval * NS 100cc/hr Back pain * likely musculoskeletal in nature * Flexeril 5mg PO TID prn Disposition: * F/u case management to determine if patient is eligible for outpatient transfusion center; Patient's antibiotic is currently twice a day for two weeks as recommended strongly by infectious disease. <Sury Anne V - Last Filed: 11/24/16 15:51> Objective - Vital Signs/Intake and Output Vital Signs (last 24 hours): Temp Pulse Resp BP Pulse Ox 98.0 F 75 20 135/75 97 11/24/16 08:00 11/24/16 15:30 11/24/16 08:00 11/24/16 15:30 11/24/16 15:30 Intake and Output: 11/24/16 11/24/16 06:59 18:59 Intake Total 1120 Output Total 1 Balance 1119 - Medications Medications: Current Medications Acetaminophen (Tylenol 325mg Tab) 650 mg PO Q6 PRN PRN Reason: Fever >100.4 F Last Admin: 11/19/16 21:37 Dose: 650 mg Albuterol/Ipratropium (Duoneb 3 Mg/0.5 Mg (3 Ml) Ud) 3 ml INH RQ4 [facility] Last Admin: 11/24/16 15:40 Dose: 3 ml Budesonide (Pulmicort Respules) 0.5 mg INH RQ12 [facility] Last Admin: 11/24/16 07:44 Dose: 0.5 mg Clotrimazole (Lotrimin 1%) 1 gm TOP BID [facility] Last Admin: 11/24/16 12:02 Dose: 1 applic Cyclobenzaprine HCl (Flexeril) 5 mg PO TID PRN PRN Reason: Pain, moderate (4-7) Diphenhydramine HCl (Benadryl) 25 mg PO Q6 [facility] Last Admin: 11/24/16 12:00 Dose: 25 mg Enoxaparin Sodium (Lovenox) 40 mg SC DAILY [facility] Last Admin: 11/24/16 11:58 Dose: 40 mg Guaifenesin/Dextromethorphan (Robitussin Dm) 5 ml PO Q4H PRN PRN Reason: Cough Last Admin: 11/24/16 12:00 Dose: 5 ml Cefepime HCl (Maxipime Iv 2 Gm Premix) 2 gm in 100 mls @ 100 mls/hr IVPB Q12 [facility] Stop: 11/26/16 22:01 Last Admin: 11/24/16 11:00 Dose: 100 mls/hr Sodium Chloride (Sodium Chloride 0.9%) 1,000 mls @ 100 mls/hr IV .Q10H [facility] Last Admin: 11/24/16 12:13 Dose: 100 mls/hr Ibuprofen (Motrin Tab) 800 mg PO Q8 PRN PRN Reason: Pain, moderate (4-7) Last Admin: 11/24/16 11:59 Dose: 800 mg Levothyroxine Sodium (Synthroid) 50 mcg PO DAILY@0630 [facility] Last Admin: 11/24/16 05:59 Dose: 50 mcg Montelukast Sodium (Singulair) 10 mg PO HS [facility] Last Admin: 11/23/16 21:07 Dose: 10 mg Ondansetron HCl (Zofran Inj) 4 mg IVP Q6 PRN PRN Reason: Nausea/Vomiting Pantoprazole Sodium (Protonix Ec Tab) 40 mg PO DAILY [facility] Last Admin: 11/24/16 12:00 Dose: 40 mg Saccharomyces Boulardii (Florastor) 250 mg PO BID [facility] Last Admin: 11/24/16 12:00 Dose: 250 mg Vitamin A (Vitamin A & D Oint Ud Foilpak) 0.5 ea TOP Q4 [facility] Last Admin: 11/24/16 12:00 Dose: 0.5 ea - Labs Labs: 11/24/16 07:49 11/24/16 07:49 PT 12.0 SECONDS (9.7-12.2) 11/18/16 07:36 INR 1.1 11/18/16 07:36 APTT 31 SECONDS (21-34) 11/18/16 07:36 Attending/Attestation - Attestation I have personally seen and examined this patient.: Yes I have fully participated in the care of the patient.: Yes I have reviewed all pertinent clinical information, including history, physical exam and plan: Yes Notes (Text): Patient seen, examined and case discussed with day-time resident. Patient seen at bedside reporting productive cough which is improving but associated left back pain. Observed the back no observed erythema, no pain on palpation. Denies drop foot, denies urinary incontinence. Patient started on muscle relaxant as needed. Patient is currently on IV abx for Pseudomonas Pneumonia until 12/05/16. Assessment/Plan 1. Pneumonia * CT Dissection (11/22/16): thoracic and abdominal aorta appear within normal limits of caliber, extensive cyclindrical bronchiestasis throughout the lower lobes, bilateral hilar adenopathy, mediastinal adenoopathy measuring up to 11mm. Hepatomegaly. numerous splenules. Right nephrectomy, 15mm left ovarian cyst, uterine fundal fibroid * CT chest (11/09/16): Re-demonstration of extensive cylindrical bronchiectasis with areas of mucoid impaction, tree-in-bud interstitial infiltrates as well as lingular consolidation (see full report) * CXR (11/02/16): Minimal interstitial prominence and peribronchiolar cuffing centrally. Findings consistent with mild reactive or inflammatory airway disease. Minimal basilar atelectasis (see full report) * CXR (11/17/16) - ill defined opactiies at both lung bases underlying infiltrate vs atelectasis. trace left pleural effusion (please see full report) * Sputum culture (11/03) Pseudomonas + * Sputum culture (11/18/16) Pseudomonas + * ID consult, Dr. Mendoza, help appreciated * Pulm consult, Dr. Crowley, help appreciated * PICC line in place * Cefepime 2 gm IVPB Q12H (Active since 11/21/16 until 12/05/16) * Duonebs RQ2 PRN * Pulmicort 0.5 mg INH RQ12 * Robitussin DM 5 ml PO Q4H PRN * Tylenol 650 mg PO Q6H PRN * Motrin 800mg PO tid for pleuritic chest pain * f/u Echo-->PENDING 2. Bronchectasis * Dr. Crowley (pulm) on board-->help appreciated * CT chest (11/09): Re-demonstration of extensive cylindrical bronchiectasis with areas of mucoid impaction, tree-in-bud interstitial infiltrates as well as lingular consolidation (see full report) * CXR (11/02): Minimal interstitial prominence and peribronchiolar cuffing centrally. Findings consistent with mild reactive or inflammatory airway disease. Minimal basilar atelectasis (see full report) * CXR (11/17/16) - ill defined opactiies at both lung bases underlying infiltrate vs atelectasis. trace left pleural effusion (please see full report) * CT Dissection (11/22/16): thoracic and abdominal aorta appear within normal limits of caliber, extensive cyclindrical bronchiestasis throughout the lower lobes, bilateral hilar adenopathy, mediastinal adenoopathy measuring up to 11mm. Hepatomegaly. numerous splenules. Right nephrectomy, 15mm left ovarian cyst, uterine fundal fibroid * ID consult, Dr. Mendoza, help appreciated * Pulm consult, Dr. Crowley, help appreciated * Duonebs RQ2 PRN * Pulmicort 0.5 mg INH RQ12 * Robotussin DM 5ml PO Q 4hour PRn cough * Alpha-antitrypsin ordered 3. COPD * PFTs done as outpatient shows Obstructive lung disease * Duonebs RQ2 PRN * Pulmicort 0.5 mg INH RQ12 * Peak-flows: 150 4. Fungal rash * Groin area * Lotrim 1 top bid * Benadryl 25mg PO Q 6hour PRN pruitus 5. Prophylactic Measures * Protonix 40 mg PO daily for GI ppx * SCDs b/l * Lovenox 40 mg SC daily for DVT ppx * Zofran 4 mg IVP Q6H PRN * PT/OT eval * NS 100cc/hr Disposition: * F/u case management to determine if patient is eligible for outpatient transfusion center; Patient's antibiotic is currently twice a day for two weeks as recommended strongly by infectious disease.
[2016-11-24] MEDS: Sodium Chloride 0.9% 1,000 ML IV SCH ×2 (07:38→12:13)
[2016-11-24] MEDS: Budesonide 0.5 mg/2 ml Inhal Susp UD INH SCH ×2 (07:44→18:59)
[2016-11-24 08:06] LABS: BASO % 0.2 % (0.0-2.0); EOS # 0.4 K/uL (0.0-0.7); EOS % 4.2 % (0.0-4.0); HEMATOCRIT 34.8 % (34.0-47.0); LYMPH # 2.3 K/uL (1.0-4.3); LYMPH % 27.4 % (20.0-40.0); MEAN CELL VOLUME 69.8 fL (81.0-99.0); MEAN CORPUSCULAR HEMOGLOBIN 21.6 pg (27.0-31.0); MEAN CORPUSCULAR HGB CONC 30.9 g/dL (33.0-37.0); MEAN PLATELET VOLUME 8.4 fL (7.2-11.7); MONO # 0.6 K/uL (0.0-0.8); MONO % 6.8 % (0.0-10.0); NRBC % 0.1 % (0.0-2.0); RED CELL DISTRIBUTION WIDTH 17.5 % (11.5-14.5); WHITE BLOOD COUNT 8.4 K/uL (4.8-10.8)
[2016-11-24 08:20] LABS: CHLORIDE 105 mmol/L (98-107)
[2016-11-24 08:21] LABS: POTASSIUM 3.9 mmol/L (3.6-5.2); SODIUM 139 mmol/L (132-148)
[2016-11-24 08:23] LABS: ALKALINE PHOSPHATASE 35 U/L (38-126); AST/SGOT 13 U/L (14-36); BILIRUBIN,TOTAL 0.5 mg/dL (0.2-1.3); CARBON DIOXIDE 26 mmol/L (22-30); GFR AFRICAN-AMERICAN > 60; TOTAL PROTEIN 5.9 g/dL (6.3-8.3)
[2016-11-24 08:24] LABS: ALT/SGPT 19 U/L (9-52); BLOOD UREA NITROGEN 11 mg/dL (7-17); CALCIUM 7.9 mg/dl (8.6-10.4); GLUCOSE,RANDOM 90 mg/dL (65-105); PHOSPHOROUS 3.7 mg/dL (2.5-4.5)
[2016-11-24] MEDS: Cefepime IV 2 gm in Dextrose 2 GM/100 ML BAG IVPB SCH ×2 (11:00→21:55)
[2016-11-24] MEDS: Enoxaparin 40 mg Syringe SC SCH (11:58)
[2016-11-24] MEDS: Saccharomyces Boulardi 250 mg Cap PO SCH ×2 (12:00→17:09)
[2016-11-24] MEDS: Pantoprazole 40 mg EC Tab PO SCH (12:00)
[2016-11-24] MEDS: Clotrimazole 1% Cream(30 gm) TOP SCH ×2 (12:02→17:10)
--- NOTE | 2016-11-24 15:05 | VASCLAB ---
PROCEDURE: Right Upper Extremity Venous Duplex Exam HISTORY: swelling around picc line PRIORS: None. TECHNIQUE: Right upper extremity, internal jugular, subclavian, axillary, brachial, ulnar, radial, basilic and upper cephalic veins were evaluated. Flow was assessed with color Doppler, compressibility, assessment of phasic flow and augmentation response. Report prepared by LITA Capellan, RVT FINDINGS: RIGHT: 1. Internal Jugular: 1.1. Compressibility - Fully compressible: Thrombus - None : Flow - Phasic: Augmentation -Normal: Reflux - None. 2. Subclavian: 2.1. Compressibility - Fully compressible: Thrombus - None : Flow - Phasic: Augmentation -Normal: Reflux - None. 3. Axillary: 3.1. Compressibility - Fully compressible: Thrombus - None : Flow - Phasic: Augmentation -Normal: Reflux - None. 4. Brachial: 4.1. Compressibility - Fully compressible: Thrombus - None: Flow - Phasic: Augmentation -Normal: Reflux - None. 5. Ulnar: 5.1. Compressibility - Fully compressible: Thrombus - None: Flow - Phasic: Augmentation -Normal: Reflux - None. 6. Radial: 6.1. Compressibility - Fully compressible: Thrombus - None: Flow - Phasic: Augmentation - Normal: Reflux - None. 7. Cephalic: 7.1. Compressibility - Fully compressible: Thrombus - None: Flow - Phasic: Augmentation -Normal: Reflux - None. 8. Basilic: 8.1. Compressibility - Fully compressible: Thrombus - None: Flow - Phasic: Augmentation -Normal: Reflux - None. OTHER FINDINGS: Right: None. IMPRESSION: Right: No evidence of vein thrombosis of the right upper extremity with excellent venous flow. Normal valve function noted of the right side. Normal venous flow noted in the left internal jugular and left subclavian veins.
[2016-11-25] MEDS: Vitamins A & D Oint UD Foilpak TOP SCH ×6 (00:05→22:07)
[2016-11-25] MEDS: guaiFENesin DM 100 mg-10 mg/5 ml UD PO PRN (00:15)
--- NOTE | 2016-11-25 01:08 | CARD ---
APPROVED REPORT EXAM: Two-dimensional and M-mode echocardiogram with Doppler and color Doppler. Other Information Quality : Good[employer]hythm : INDICATION Dyspnea Palpitations M-Mode DIMENSIONS RVDd2.50 (2.1-3.2cm)Left Atrium (MM)3.09 (2.5-4.0cm) IVSd0.59 (0.7-1.1cm)Aortic Root2.53 (2.2-3.7cm) LVDd4.48 (4.0-5.6cm)Aortic Cusp Exc.1.87 (1.5-2.0cm) PWd0.69 (0.7-1.1cm)FS (%) 36 % LVDs2.88 (2.0-3.8cm)LVEF (%)65 (>50%) Mitral Valve MV E Irjfksnk67.3cm/sMV A Xkpjkjno46.7cm/sE/A ratio1.1 TDI E/Lateral E'0.0E/Medial E'0.0 Tricuspid Valve TR Peak [id number]/sTR Peak [id number] <Conclusion> Left ventricle: thickness: normal; size: normal; overall ejection fraction: 65%: diastolic filling pressures: normal Mitral valve: annulus: normal: leaflets: normal: excursion: normal; no significant trans-mitral gradient: mild incompetence: left atrium: normal Aortic valve: leaflets: normal: excursion: normal; no significant trans-aortic gradient: No significant incompetence: aortic root: normal Right sided Structures: Pulmonary valve: normal; no significant incompetence; Tricuspid valve: normal; no significant incompetence: Intra-cardiac hemodynamics: pulmonary systolic pressures: normal; central venous pressures: normal No pericardial effusion
[2016-11-25] MEDS: Albuterol-Ipratrop 3 mg / 0.5 (3 ml) UD INH SCH ×5 (03:08→19:02)
[2016-11-25] MEDS: Levothyroxine 50 MCG TAB PO SCH (06:17)
--- NOTE | 2016-11-25 07:21 | CP.PCM.PN ---
<HernestoParis - Last Filed: 11/25/16 13:13> Subjective - Date & Time of Evaluation Date of Evaluation: 11/25/16 Time of Evaluation: 07:05 - Subjective Subjective: Pt seen and examined at bedside. Nursing reports no adverse events overnight. Today, pt is comfortable and in no acute distress. She states that he back pain yesterday was relieved with the Flexeril. She also reports that her groin rash is improving. Pt denies headache, dizziness, chest pain, palpitations, leg swelling/pain. Patient is tolerating diet and moving bowels/bladder without difficulty. Objective - Vital Signs/Intake and Output Vital Signs (last 24 hours): Temp Pulse Resp BP Pulse Ox 97.4 F L 85 20 104/69 98 11/25/16 00:00 11/25/16 00:00 11/25/16 00:00 11/25/16 00:00 11/25/16 00:00 Intake and Output: 11/25/16 11/25/16 06:59 18:59 Intake Total 1160 Balance 1160 - Medications Medications: Current Medications Acetaminophen (Tylenol 325mg Tab) 650 mg PO Q6 PRN PRN Reason: Fever >100.4 F Last Admin: 11/19/16 21:37 Dose: 650 mg Albuterol/Ipratropium (Duoneb 3 Mg/0.5 Mg (3 Ml) Ud) 3 ml INH RQ4 [facility] Last Admin: 11/25/16 03:08 Dose: Not Given Budesonide (Pulmicort Respules) 0.5 mg INH RQ12 [facility] Last Admin: 11/24/16 18:59 Dose: 0.5 mg Clotrimazole (Lotrimin 1%) 1 gm TOP BID [facility] Last Admin: 11/24/16 17:10 Dose: 1 applic Cyclobenzaprine HCl (Flexeril) 5 mg PO TID PRN PRN Reason: Pain, moderate (4-7) Last Admin: 11/24/16 17:08 Dose: 5 mg Diphenhydramine HCl (Benadryl) 25 mg PO Q6 [facility] Last Admin: 11/25/16 06:17 Dose: 25 mg Enoxaparin Sodium (Lovenox) 40 mg SC DAILY [facility] Last Admin: 11/24/16 11:58 Dose: 40 mg Guaifenesin/Dextromethorphan (Robitussin Dm) 5 ml PO Q4H PRN PRN Reason: Cough Last Admin: 11/25/16 00:15 Dose: 5 ml Cefepime HCl (Maxipime Iv 2 Gm Premix) 2 gm in 100 mls @ 100 mls/hr IVPB Q12 [facility] Stop: 11/26/16 22:01 Last Admin: 11/24/16 21:55 Dose: 100 mls/hr Sodium Chloride (Sodium Chloride 0.9%) 1,000 mls @ 100 mls/hr IV .Q10H [facility] Last Admin: 11/25/16 00:00 Dose: 100 mls/hr Ibuprofen (Motrin Tab) 800 mg PO Q8 PRN PRN Reason: Pain, moderate (4-7) Last Admin: 11/24/16 11:59 Dose: 800 mg Levothyroxine Sodium (Synthroid) 50 mcg PO DAILY@0630 [facility] Last Admin: 11/25/16 06:17 Dose: 50 mcg Montelukast Sodium (Singulair) 10 mg PO HS [facility] Last Admin: 11/24/16 21:55 Dose: 10 mg Ondansetron HCl (Zofran Inj) 4 mg IVP Q6 PRN PRN Reason: Nausea/Vomiting Pantoprazole Sodium (Protonix Ec Tab) 40 mg PO DAILY [facility] Last Admin: 11/24/16 12:00 Dose: 40 mg Saccharomyces Boulardii (Florastor) 250 mg PO BID [facility] Last Admin: 11/24/16 17:09 Dose: 250 mg Vitamin A (Vitamin A & D Oint Ud Foilpak) 0.5 ea TOP Q4 [facility] Last Admin: 11/25/16 04:24 Dose: 0.5 ea - Labs Labs: 11/24/16 07:49 11/24/16 07:49 PT 12.0 SECONDS (9.7-12.2) 11/18/16 07:36 INR 1.1 11/18/16 07:36 APTT 31 SECONDS (21-34) 11/18/16 07:36 - Constitutional Appears: Non-toxic, No Acute Distress - Head Exam Head Exam: ATRAUMATIC, NORMAL INSPECTION - Eye Exam Eye Exam: EOMI Pupil Exam: NORMAL ACCOMODATION - ENT Exam ENT Exam: Mucous Membranes Moist - Respiratory Exam Respiratory Exam: Decreased Breath Sounds, NORMAL BREATHING PATTERN. absent: Clear to Ausculation Bilateral, Rales, Rhonchi, Wheezes, Respiratory Distress - Cardiovascular Exam Cardiovascular Exam: REGULAR RHYTHM, +S1, +S2. absent: Diastolic murmur - GI/Abdominal Exam GI & Abdominal Exam: Soft, Normal Bowel Sounds. absent: Distended, Firm, Guarding, Tenderness - Extremities Exam Extremities Exam: Normal Inspection. absent: Calf Tenderness, Pedal Edema - Back Exam Back Exam: NORMAL INSPECTION. absent: CVA tenderness (L), CVA tenderness (R), paraspinal tenderness - Neurological Exam Neurological Exam: Alert, Awake, CN II-XII Intact, Normal Gait, Oriented x3 Neuro motor strength exam: Left Upper Extremity: 5, Right Upper Extremity: 5, Left Lower Extremity: 5, Right Lower Extremity: 5 - Psychiatric Exam Psychiatric exam: Normal Affect, Normal Mood - Skin Skin Exam: Dry, Intact, Normal Color, Warm Assessment and Plan - Assessment and Plan (Free Text) Assessment: Pneumonia * Sputum culture (11/18/16) Pseudomonas + * Cefepime 2 gm IVPB Q12H (Active since 11/21/16 until 12/05/16) - will need to complete IV ABX inpatient, not a candidate for outpatient infusions * CT Dissection (11/22/16): thoracic and abdominal aorta appear within normal limits of caliber, extensive cyclindrical bronchiestasis throughout the lower lobes, bilateral hilar adenopathy, mediastinal adenoopathy measuring up to 11mm. Hepatomegaly. numerous splenules. Right nephrectomy, 15mm left ovarian cyst, uterine fundal fibroid * CT chest (11/09/16): Re-demonstration of extensive cylindrical bronchiectasis with areas of mucoid impaction, tree-in-bud interstitial infiltrates as well as lingular consolidation (see full report) * CXR (11/02/16): Minimal interstitial prominence and peribronchiolar cuffing centrally. Findings consistent with mild reactive or inflammatory airway disease. Minimal basilar atelectasis (see full report) * CXR (11/17/16) - ill defined opactiies at both lung bases underlying infiltrate vs atelectasis. trace left pleural effusion (please see full report) * ID consult, Dr. Mendoza, help appreciated * Pulm consult, Dr. Crowley, help appreciated * PICC line in place * Duonebs RQ2 PRN * Pulmicort 0.5 mg INH RQ12 * Robitussin DM 5 ml PO Q4H PRN * Tylenol 650 mg PO Q6H PRN * Motrin 800mg PO tid for pleuritic chest pain * f/u Echo--> wnl EF 65% Bronchectasis * Dr. Crowley (pulm) on board-->help appreciated * CT chest (11/09): Re-demonstration of extensive cylindrical bronchiectasis with areas of mucoid impaction, tree-in-bud interstitial infiltrates as well as lingular consolidation (see full report) * CXR (11/02): Minimal interstitial prominence and peribronchiolar cuffing centrally. Findings consistent with mild reactive or inflammatory airway disease. Minimal basilar atelectasis (see full report) * CXR (11/17/16) - ill defined opactiies at both lung bases underlying infiltrate vs atelectasis. trace left pleural effusion (please see full report) * CT Dissection (11/22/16): thoracic and abdominal aorta appear within normal limits of caliber, extensive cyclindrical bronchiestasis throughout the lower lobes, bilateral hilar adenopathy, mediastinal adenoopathy measuring up to 11mm. Hepatomegaly. numerous splenules. Right nephrectomy, 15mm left ovarian cyst, uterine fundal fibroid * ID consult, Dr. Mendoza, help appreciated * Pulm consult, Dr. Crowley, help appreciated * Duonebs RQ2 PRN * Pulmicort 0.5 mg INH RQ12 * Robotussin DM 5ml PO Q 4hour PRn cough * Alpha-antitrypsin ordered COPD * PFTs done as outpatient shows Obstructive lung disease * Duonebs RQ2 PRN * Pulmicort 0.5 mg INH RQ12 * Peak-flows: 150 Fungal rash * Groin area, improving * Lotrim 1 top bid * Benadryl 25mg PO Q 6hour PRN pruitus Prophylactic Measures * Protonix 40 mg PO daily for GI ppx * SCDs b/l * Lovenox 40 mg SC daily for DVT ppx * Zofran 4 mg IVP Q6H PRN * PT/OT eval * NS 100cc/hr Back pain * likely musculoskeletal in nature * Flexeril 5mg PO TID prn Disposition: * F/u case management to determine if patient is eligible for outpatient transfusion center; Patient's antibiotic is currently twice a day for two weeks as recommended strongly by infectious disease. <Sury Anne V - Last Filed: 11/30/16 16:36> Objective - Vital Signs/Intake and Output Vital Signs (last 24 hours): Temp Pulse Resp BP Pulse Ox 97.8 F 78 20 102/69 95 11/30/16 08:40 11/30/16 08:40 11/30/16 08:40 11/30/16 08:40 11/30/16 08:40 Intake and Output: 11/30/16 11/30/16 06:59 18:59 Intake Total 300 Output Total 700 Balance -400 - Medications Medications: Current Medications Acetaminophen (Tylenol 325mg Tab) 650 mg PO Q6 PRN PRN Reason: Fever >100.4 F Last Admin: 11/19/16 21:37 Dose: 650 mg Albuterol/Ipratropium (Duoneb 3 Mg/0.5 Mg (3 Ml) Ud) 3 ml INH RQ4 [facility] Last Admin: 11/30/16 15:50 Dose: 3 ml Artificial Tears (Artificial Tears) 0.1 ml OU Q8H [facility] Last Admin: 11/30/16 14:29 Dose: 1 drop Budesonide (Pulmicort Respules) 0.5 mg INH RQ12 [facility] Last Admin: 11/30/16 08:44 Dose: 0.5 mg Clotrimazole (Lotrimin 1%) 1 gm TOP BID [facility] Last Admin: 11/30/16 09:35 Dose: 1 applic Cyclobenzaprine HCl (Flexeril) 5 mg PO TID PRN PRN Reason: Pain, moderate (4-7) Last Admin: 11/28/16 22:18 Dose: 5 mg Diphenhydramine HCl (Benadryl) 25 mg PO Q6 [facility] Last Admin: 11/30/16 12:17 Dose: 25 mg Enoxaparin Sodium (Lovenox) 40 mg SC DAILY [facility] Last Admin: 11/30/16 09:32 Dose: 40 mg Guaifenesin/Dextromethorphan (Robitussin Dm) 5 ml PO Q4H PRN PRN Reason: Cough Last Admin: 11/28/16 22:18 Dose: 5 ml Cefepime HCl (Maxipime Iv 2 Gm Premix) 2 gm in 100 mls @ 100 mls/hr IVPB Q12H [facility] Last Admin: 11/30/16 12:08 Dose: 100 mls/hr Levothyroxine Sodium (Synthroid) 50 mcg PO DAILY@0630 [facility] Last Admin: 11/30/16 05:45 Dose: 50 mcg Montelukast Sodium (Singulair) 10 mg PO HS [facility] Last Admin: 11/29/16 21:37 Dose: 10 mg Naproxen (Anaprox) 275 mg PO BID [facility] Last Admin: 11/30/16 09:30 Dose: 275 mg Ondansetron HCl (Zofran Inj) 4 mg IVP Q6 PRN PRN Reason: Nausea/Vomiting Pantoprazole Sodium (Protonix Ec Tab) 40 mg PO DAILY [facility] Last Admin: 11/30/16 09:32 Dose: 40 mg Saccharomyces Boulardii (Florastor) 250 mg PO BID [facility] Last Admin: 11/30/16 09:32 Dose: 250 mg Simethicone (Mylicon Chew Tab) 80 mg PO Q12 PRN PRN Reason: GI distress Vitamin A (Vitamin A & D Oint Ud Foilpak) 0.5 ea TOP Q4 [facility] Last Admin: 11/30/16 12:11 Dose: 0.5 ea - Labs Labs: 11/30/16 06:16 11/30/16 06:16 PT 12.0 SECONDS (9.7-12.2) 11/18/16 07:36 INR 1.1 11/18/16 07:36 APTT 31 SECONDS (21-34) 11/18/16 07:36 Attending/Attestation - Attestation I have personally seen and examined this patient.: Yes I have fully participated in the care of the patient.: Yes I have reviewed all pertinent clinical information, including history, physical exam and plan: Yes Notes (Text): This is a late computer entry for 11/25/16. Patient seen, examined and case discussed with day-time resident. Patient reports muscle relaxant helps to improve her back pain. Patient is currently on IV abx for Pseudomonas Pneumonia until 12/05/16. Assessment/Plan 1. Pneumonia * CT Dissection (11/22/16): thoracic and abdominal aorta appear within normal limits of caliber, extensive cyclindrical bronchiestasis throughout the lower lobes, bilateral hilar adenopathy, mediastinal adenoopathy measuring up to 11mm. Hepatomegaly. numerous splenules. Right nephrectomy, 15mm left ovarian cyst, uterine fundal fibroid * CT chest (11/09/16): Re-demonstration of extensive cylindrical bronchiectasis with areas of mucoid impaction, tree-in-bud interstitial infiltrates as well as lingular consolidation (see full report) * CXR (11/02/16): Minimal interstitial prominence and peribronchiolar cuffing centrally. Findings consistent with mild reactive or inflammatory airway disease. Minimal basilar atelectasis (see full report) * CXR (11/17/16) - ill defined opactiies at both lung bases underlying infiltrate vs atelectasis. trace left pleural effusion (please see full report) * Sputum culture (11/03) Pseudomonas + * Sputum culture (11/18/16) Pseudomonas + * ID consult, Dr. Mendoza, help appreciated * Pulm consult, Dr. Crowley, help appreciated * PICC line in place * Cefepime 2 gm IVPB Q12H (Active since 11/21/16 until 12/05/16) * Duonebs RQ2 PRN * Pulmicort 0.5 mg INH RQ12 * Robitussin DM 5 ml PO Q4H PRN * Tylenol 650 mg PO Q6H PRN * Motrin 800mg PO tid for pleuritic chest pain * Echo:EF: 65% 2. Bronchectasis * Dr. Crowley (pulm) on board-->help appreciated * CT chest (11/09): Re-demonstration of extensive cylindrical bronchiectasis with areas of mucoid impaction, tree-in-bud interstitial infiltrates as well as lingular consolidation (see full report) * CXR (11/02): Minimal interstitial prominence and peribronchiolar cuffing centrally. Findings consistent with mild reactive or inflammatory airway disease. Minimal basilar atelectasis (see full report) * CXR (11/17/16) - ill defined opactiies at both lung bases underlying infiltrate vs atelectasis. trace left pleural effusion (please see full report) * CT Dissection (11/22/16): thoracic and abdominal aorta appear within normal limits of caliber, extensive cyclindrical bronchiestasis throughout the lower lobes, bilateral hilar adenopathy, mediastinal adenoopathy measuring up to 11mm. Hepatomegaly. numerous splenules. Right nephrectomy, 15mm left ovarian cyst, uterine fundal fibroid * ID consult, Dr. Mendoza, help appreciated * Pulm consult, Dr. Crowley, help appreciated * Duonebs RQ2 PRN * Pulmicort 0.5 mg INH RQ12 * Robotussin DM 5ml PO Q 4hour PRn cough * Alpha-antitrypsin ordered 3. COPD * PFTs done as outpatient shows Obstructive lung disease * Duonebs RQ2 PRN * Pulmicort 0.5 mg INH RQ12 * Peak-flows: 150 4. Fungal rash * Groin area * Lotrim 1 top bid * Benadryl 25mg PO Q 6hour PRN pruitus 5. Prophylactic Measures * Protonix 40 mg PO daily for GI ppx * SCDs b/l * Lovenox 40 mg SC daily for DVT ppx * Zofran 4 mg IVP Q6H PRN * PT/OT eval * NS 100cc/hr Disposition: * Patient's antibiotic is currently twice a day for two weeks as recommended strongly by infectious disease; inpatient only given frequency of antibiotic per case management.
[2016-11-25] MEDS: Budesonide 0.5 mg/2 ml Inhal Susp UD INH SCH ×2 (07:22→19:02)
[2016-11-25 08:10] LABS: BASO % 0.3 % (0.0-2.0); EOS # 0.4 K/uL (0.0-0.7); HEMATOCRIT 33.5 % (34.0-47.0); LYMPH # 2.3 K/uL (1.0-4.3); LYMPH % 28.5 % (20.0-40.0); MEAN CELL VOLUME 69.3 fL (81.0-99.0); MEAN CORPUSCULAR HEMOGLOBIN 21.6 pg (27.0-31.0); MEAN CORPUSCULAR HGB CONC 31.2 g/dL (33.0-37.0); MEAN PLATELET VOLUME 8.6 fL (7.2-11.7); MONO # 0.5 K/uL (0.0-0.8); MONO % 6.7 % (0.0-10.0); RED CELL DISTRIBUTION WIDTH 17.6 % (11.5-14.5)
[2016-11-25 08:23] LABS: CHLORIDE 106 mmol/L (98-107)
[2016-11-25 08:24] LABS: POTASSIUM 3.7 mmol/L (3.6-5.2); SODIUM 139 mmol/L (132-148)
[2016-11-25 08:26] LABS: ALKALINE PHOSPHATASE 36 U/L (38-126); ALT/SGPT 23 U/L (9-52); AST/SGOT 17 U/L (14-36); BILIRUBIN,TOTAL 0.4 mg/dL (0.2-1.3); BLOOD UREA NITROGEN 11 mg/dL (7-17); CARBON DIOXIDE 26 mmol/L (22-30); GFR AFRICAN-AMERICAN > 60; GLUCOSE,RANDOM 114 mg/dL (65-105); TOTAL PROTEIN 5.9 g/dL (6.3-8.3)
[2016-11-25 08:27] LABS: CALCIUM 7.8 mg/dl (8.6-10.4); MAGNESIUM 1.9 mg/dL (1.6-2.3); PHOSPHOROUS 3.3 mg/dL (2.5-4.5)
[2016-11-25] MEDS: Sodium Chloride 0.9% 1,000 ML IV SCH ×3 (09:34→22:06)
[2016-11-25] MEDS: Pantoprazole 40 mg EC Tab PO SCH (09:35)
[2016-11-25] MEDS: Enoxaparin 40 mg Syringe SC SCH (09:36)
[2016-11-25] MEDS: Saccharomyces Boulardi 250 mg Cap PO SCH ×2 (09:36→17:41)
[2016-11-25] MEDS: Clotrimazole 1% Cream(30 gm) TOP SCH ×2 (09:37→17:43)
[2016-11-25] MEDS: Cefepime IV 2 gm in Dextrose 2 GM/100 ML BAG IVPB SCH ×2 (10:00→22:02)
[2016-11-26] MEDS: Vitamins A & D Oint UD Foilpak TOP SCH ×6 (00:19→21:21)
[2016-11-26] MEDS: Albuterol-Ipratrop 3 mg / 0.5 (3 ml) UD INH SCH ×7 (01:05→23:58)
[2016-11-26] MEDS: Sodium Chloride 0.9% 1,000 ML IV SCH ×3 (05:00→16:00)
[2016-11-26] MEDS: Levothyroxine 50 MCG TAB PO SCH (06:10)
--- NOTE | 2016-11-26 06:32 | CP.PCM.PN ---
Subjective - Date & Time of Evaluation Date of Evaluation: 11/26/16 Time of Evaluation: 07:05 - Subjective Subjective: Pt seen and examined at bedside. Nursing reports no adverse events overnight. Today, pt is comfortable and in no acute distress. She complains of back pain which she has had since admission. She also reports that her groin rash is improving. Pt denies headache, dizziness, chest pain, palpitations, leg swelling /pain. Patient is tolerating diet and moving bowels/bladder without difficulty. Objective - Vital Signs/Intake and Output Vital Signs (last 24 hours): Temp Pulse Resp BP Pulse Ox 98.2 F 89 20 99/66 L 94 L 11/26/16 00:00 11/26/16 00:00 11/26/16 00:00 11/26/16 00:00 11/26/16 00:00 - Medications Medications: Current Medications Acetaminophen (Tylenol 325mg Tab) 650 mg PO Q6 PRN PRN Reason: Fever >100.4 F Last Admin: 11/19/16 21:37 Dose: 650 mg Albuterol/Ipratropium (Duoneb 3 Mg/0.5 Mg (3 Ml) Ud) 3 ml INH RQ4 [facility] Last Admin: 11/26/16 04:30 Dose: Not Given Budesonide (Pulmicort Respules) 0.5 mg INH RQ12 [facility] Last Admin: 11/25/16 19:02 Dose: 0.5 mg Clotrimazole (Lotrimin 1%) 1 gm TOP BID [facility] Last Admin: 11/25/16 17:43 Dose: 1 applic Cyclobenzaprine HCl (Flexeril) 5 mg PO TID PRN PRN Reason: Pain, moderate (4-7) Last Admin: 11/24/16 17:08 Dose: 5 mg Diphenhydramine HCl (Benadryl) 25 mg PO Q6 [facility] Last Admin: 11/26/16 06:09 Dose: 25 mg Enoxaparin Sodium (Lovenox) 40 mg SC DAILY [facility] Last Admin: 11/25/16 09:36 Dose: 40 mg Guaifenesin/Dextromethorphan (Robitussin Dm) 5 ml PO Q4H PRN PRN Reason: Cough Last Admin: 11/25/16 00:15 Dose: 5 ml Cefepime HCl (Maxipime Iv 2 Gm Premix) 2 gm in 100 mls @ 100 mls/hr IVPB Q12 [facility] Stop: 11/26/16 22:01 Last Admin: 11/25/16 22:02 Dose: 100 mls/hr Sodium Chloride (Sodium Chloride 0.9%) 1,000 mls @ 100 mls/hr IV .Q10H [facility] Last Admin: 11/26/16 05:00 Dose: Not Given Ibuprofen (Motrin Tab) 800 mg PO Q8 PRN PRN Reason: Pain, moderate (4-7) Last Admin: 11/25/16 12:16 Dose: 800 mg Levothyroxine Sodium (Synthroid) 50 mcg PO DAILY@0630 [facility] Last Admin: 11/25/16 06:17 Dose: 50 mcg Montelukast Sodium (Singulair) 10 mg PO HS [facility] Last Admin: 11/25/16 22:02 Dose: 10 mg Ondansetron HCl (Zofran Inj) 4 mg IVP Q6 PRN PRN Reason: Nausea/Vomiting Pantoprazole Sodium (Protonix Ec Tab) 40 mg PO DAILY [facility] Last Admin: 11/25/16 09:35 Dose: 40 mg Saccharomyces Boulardii (Florastor) 250 mg PO BID [facility] Last Admin: 11/25/16 17:41 Dose: 250 mg Vitamin A (Vitamin A & D Oint Ud Foilpak) 0.5 ea TOP Q4 [facility] Last Admin: 11/26/16 04:15 Dose: 0.5 ea - Labs Labs: 11/25/16 08:02 11/25/16 08:02 PT 12.0 SECONDS (9.7-12.2) 11/18/16 07:36 INR 1.1 11/18/16 07:36 APTT 31 SECONDS (21-34) 11/18/16 07:36 - Constitutional Appears: Non-toxic, No Acute Distress - Head Exam Head Exam: ATRAUMATIC, NORMAL INSPECTION - Eye Exam Eye Exam: EOMI, PERRL Pupil Exam: NORMAL ACCOMODATION - ENT Exam ENT Exam: Mucous Membranes Moist - Neck Exam Neck Exam: Normal Inspection - Respiratory Exam Respiratory Exam: Decreased Breath Sounds, Clear to Ausculation Bilateral, NORMAL BREATHING PATTERN. absent: Accessory Muscle Use, Rales, Rhonchi, Wheezes , Respiratory Distress - Cardiovascular Exam Cardiovascular Exam: REGULAR RHYTHM, +S1, +S2 - GI/Abdominal Exam GI & Abdominal Exam: Soft, Normal Bowel Sounds. absent: Distended, Firm, Guarding, Tenderness - Back Exam Back Exam: NORMAL INSPECTION. absent: CVA tenderness (L), CVA tenderness (R), paraspinal tenderness - Neurological Exam Neurological Exam: Alert, Awake, Normal Gait, Oriented x3 Neuro motor strength exam: Left Upper Extremity: 5, Right Upper Extremity: 5, Left Lower Extremity: 5, Right Lower Extremity: 5 - Psychiatric Exam Psychiatric exam: Normal Affect, Normal Mood - Skin Skin Exam: Dry, Intact, Normal Color, Warm Assessment and Plan - Assessment and Plan (Free Text) Assessment: Pneumonia * Sputum culture (11/18/16) Pseudomonas + * Cefepime 2 gm IVPB Q12H (Active since 11/21/16 until 12/05/16) - will need to complete IV ABX inpatient, not a candidate for outpatient infusions * CT Dissection (11/22/16): thoracic and abdominal aorta appear within normal limits of caliber, extensive cyclindrical bronchiestasis throughout the lower lobes, bilateral hilar adenopathy, mediastinal adenoopathy measuring up to 11mm. Hepatomegaly. numerous splenules. Right nephrectomy, 15mm left ovarian cyst, uterine fundal fibroid * CT chest (11/09/16): Re-demonstration of extensive cylindrical bronchiectasis with areas of mucoid impaction, tree-in-bud interstitial infiltrates as well as lingular consolidation (see full report) * CXR (11/02/16): Minimal interstitial prominence and peribronchiolar cuffing centrally. Findings consistent with mild reactive or inflammatory airway disease. Minimal basilar atelectasis (see full report) * CXR (11/17/16) - ill defined opactiies at both lung bases underlying infiltrate vs atelectasis. trace left pleural effusion (please see full report) * ID consult, Dr. Mendoza, help appreciated * Pulm consult, Dr. Crowley, help appreciated * PICC line in place * Duonebs RQ2 PRN * Pulmicort 0.5 mg INH RQ12 * Robitussin DM 5 ml PO Q4H PRN * Tylenol 650 mg PO Q6H PRN * Motrin 800mg PO tid for pleuritic chest pain * f/u Echo--> wnl EF 65% Bronchectasis * Dr. Crowley (pulm) on board-->help appreciated * CT chest (11/09): Re-demonstration of extensive cylindrical bronchiectasis with areas of mucoid impaction, tree-in-bud interstitial infiltrates as well as lingular consolidation (see full report) * CXR (11/02): Minimal interstitial prominence and peribronchiolar cuffing centrally. Findings consistent with mild reactive or inflammatory airway disease. Minimal basilar atelectasis (see full report) * CXR (11/17/16) - ill defined opactiies at both lung bases underlying infiltrate vs atelectasis. trace left pleural effusion (please see full report) * CT Dissection (11/22/16): thoracic and abdominal aorta appear within normal limits of caliber, extensive cyclindrical bronchiestasis throughout the lower lobes, bilateral hilar adenopathy, mediastinal adenoopathy measuring up to 11mm. Hepatomegaly. numerous splenules. Right nephrectomy, 15mm left ovarian cyst, uterine fundal fibroid * ID consult, Dr. Mendoza, help appreciated * Pulm consult, Dr. Crowley, help appreciated * Duonebs RQ2 PRN * Pulmicort 0.5 mg INH RQ12 * Robotussin DM 5ml PO Q 4hour PRn cough * Alpha-antitrypsin ordered COPD * PFTs done as outpatient shows Obstructive lung disease * Duonebs RQ2 PRN * Pulmicort 0.5 mg INH RQ12 * Peak-flows: 150 Fungal rash * Groin area, improving * Lotrim 1 top bid * Benadryl 25mg PO Q 6hour PRN pruitus Prophylactic Measures * Protonix 40 mg PO daily for GI ppx * SCDs b/l * Lovenox 40 mg SC daily for DVT ppx * Zofran 4 mg IVP Q6H PRN * PT/OT eval * NS 100cc/hr Back pain * likely musculoskeletal in nature * Flexeril 5mg PO TID prn Disposition: * F/u case management to determine if patient is eligible for outpatient transfusion center; Patient's antibiotic is currently twice a day for two weeks as recommended strongly by infectious disease.
[2016-11-26 07:20] LABS: BASO % 0.2 % (0.0-2.0); EOS # 0.4 K/uL (0.0-0.7); EOS % 4.4 % (0.0-4.0); LYMPH # 2.4 K/uL (1.0-4.3); LYMPH % 24.9 % (20.0-40.0); MEAN CELL VOLUME 69.6 fL (81.0-99.0); MEAN CORPUSCULAR HEMOGLOBIN 21.6 pg (27.0-31.0); MEAN PLATELET VOLUME 8.6 fL (7.2-11.7); MONO # 0.6 K/uL (0.0-0.8); MONO % 6.6 % (0.0-10.0); RED CELL DISTRIBUTION WIDTH 17.9 % (11.5-14.5); WHITE BLOOD COUNT 9.8 K/uL (4.8-10.8)
[2016-11-26 07:37] LABS: CHLORIDE 105 mmol/L (98-107); SODIUM 139 mmol/L (132-148)
[2016-11-26 07:39] LABS: ALKALINE PHOSPHATASE 34 U/L (38-126); AST/SGOT 21 U/L (14-36); BILIRUBIN,TOTAL 0.5 mg/dL (0.2-1.3); BLOOD UREA NITROGEN 13 mg/dL (7-17); CARBON DIOXIDE 24 mmol/L (22-30); GFR AFRICAN-AMERICAN > 60; GLUCOSE,RANDOM 97 mg/dL (65-105)
[2016-11-26 07:40] LABS: ALT/SGPT 20 U/L (9-52); MAGNESIUM 1.9 mg/dL (1.6-2.3); PHOSPHOROUS 3.4 mg/dL (2.5-4.5)
[2016-11-26] MEDS: Budesonide 0.5 mg/2 ml Inhal Susp UD INH SCH ×2 (07:52→19:14)
[2016-11-26] MEDS: Saccharomyces Boulardi 250 mg Cap PO SCH ×2 (09:28→17:58)
[2016-11-26] MEDS: Enoxaparin 40 mg Syringe SC SCH (09:28)
[2016-11-26] MEDS: Pantoprazole 40 mg EC Tab PO SCH (09:28)
[2016-11-26] MEDS: Cefepime IV 2 gm in Dextrose 2 GM/100 ML BAG IVPB SCH ×2 (09:29→21:12)
[2016-11-26] MEDS: Clotrimazole 1% Cream(30 gm) TOP SCH ×2 (09:31→21:12)
[2016-11-26] MEDS: guaiFENesin DM 100 mg-10 mg/5 ml UD PO PRN (09:36)
--- NOTE | 2016-11-26 15:34 | CP.PCM.PN ---
Subjective - Date & Time of Evaluation Date of Evaluation: 11/26/16 Time of Evaluation: 09:00 - Subjective Subjective: CT noted rx renewed dr newberry for folow up Objective - Vital Signs/Intake and Output Vital Signs (last 24 hours): Temp Pulse Resp BP Pulse Ox 97.8 F 88 20 114/80 95 11/26/16 07:32 11/26/16 07:32 11/26/16 07:32 11/26/16 07:32 11/26/16 07:32 Intake and Output: 11/26/16 11/26/16 06:59 18:59 Intake Total 2089 Balance 2089 - Medications Medications: Current Medications Acetaminophen (Tylenol 325mg Tab) 650 mg PO Q6 PRN PRN Reason: Fever >100.4 F Last Admin: 11/19/16 21:37 Dose: 650 mg Albuterol/Ipratropium (Duoneb 3 Mg/0.5 Mg (3 Ml) Ud) 3 ml INH RQ4 [facility] Last Admin: 11/26/16 15:18 Dose: 3 ml Budesonide (Pulmicort Respules) 0.5 mg INH RQ12 [facility] Last Admin: 11/26/16 07:52 Dose: 0.5 mg Clotrimazole (Lotrimin 1%) 1 gm TOP BID [facility] Last Admin: 11/26/16 09:31 Dose: 1 applic Cyclobenzaprine HCl (Flexeril) 5 mg PO TID PRN PRN Reason: Pain, moderate (4-7) Last Admin: 11/26/16 09:35 Dose: 5 mg Diphenhydramine HCl (Benadryl) 25 mg PO Q6 [facility] Last Admin: 11/26/16 13:19 Dose: 25 mg Enoxaparin Sodium (Lovenox) 40 mg SC DAILY [facility] Last Admin: 11/26/16 09:28 Dose: 40 mg Guaifenesin/Dextromethorphan (Robitussin Dm) 5 ml PO Q4H PRN PRN Reason: Cough Last Admin: 11/26/16 09:36 Dose: 5 ml Cefepime HCl (Maxipime Iv 2 Gm Premix) 2 gm in 100 mls @ 100 mls/hr IVPB Q12 [facility] Stop: 11/26/16 22:01 Last Admin: 11/26/16 09:29 Dose: 100 mls/hr Sodium Chloride (Sodium Chloride 0.9%) 1,000 mls @ 100 mls/hr IV .Q10H [facility] Last Admin: 11/26/16 07:57 Dose: 100 mls/hr Ibuprofen (Motrin Tab) 800 mg PO Q8 PRN PRN Reason: Pain, moderate (4-7) Last Admin: 11/25/16 12:16 Dose: 800 mg Levothyroxine Sodium (Synthroid) 50 mcg PO DAILY@0630 [facility] Last Admin: 11/26/16 06:10 Dose: 50 mcg Montelukast Sodium (Singulair) 10 mg PO HS [facility] Last Admin: 11/25/16 22:02 Dose: 10 mg Ondansetron HCl (Zofran Inj) 4 mg IVP Q6 PRN PRN Reason: Nausea/Vomiting Pantoprazole Sodium (Protonix Ec Tab) 40 mg PO DAILY [facility] Last Admin: 11/26/16 09:28 Dose: 40 mg Saccharomyces Boulardii (Florastor) 250 mg PO BID [facility] Last Admin: 11/26/16 09:28 Dose: 250 mg Vitamin A (Vitamin A & D Oint Ud Foilpak) 0.5 ea TOP Q4 [facility] Last Admin: 11/26/16 13:18 Dose: Not Given - Labs Labs: 11/26/16 07:01 11/26/16 07:01 PT 12.0 SECONDS (9.7-12.2) 11/18/16 07:36 INR 1.1 11/18/16 07:36 APTT 31 SECONDS (21-34) 11/18/16 07:36 - Constitutional Appears: Non-toxic, Chronically Ill - Head Exam Head Exam: NORMOCEPHALIC - Eye Exam Eye Exam: PERRL. absent: Scleral icterus - ENT Exam ENT Exam: Mucous Membranes Dry, Normal External Ear Exam - Neck Exam Neck Exam: absent: Lymphadenopathy - Respiratory Exam Respiratory Exam: Decreased Breath Sounds, Rhonchi Assessment and Plan (1) Bronchiectasis Status: Acute (2) Pseudomonas pneumonia Status: Acute
[2016-11-27] MEDS: Vitamins A & D Oint UD Foilpak TOP SCH ×7 (00:10→23:49)
--- NOTE | 2016-11-27 01:45 | CP.PCM.PN ---
<TomaelleYobani - Last Filed: 11/27/16 07:50> Subjective - Date & Time of Evaluation Date of Evaluation: 11/27/16 Time of Evaluation: 01:42 - Subjective Subjective: PGY-1 medicine progress note Pt seen and examined at bedside. Nursing reports no adverse events overnight. Pt is found walking the halls comfortably with IV pole in tow. She complains of minimal back pain, which comes and goes, but does not stop her from walking. She reports it is responsive to the Flexeril she was prescribed. She denies difficulty breathing or SOB with exertion. Pt denies fever, chills, headache, dizziness, chest pain, palpitations, leg swelling/pain. Patient is tolerating diet and moving bowels/bladder without difficulty. Objective - Vital Signs/Intake and Output Vital Signs (last 24 hours): Temp Pulse Resp BP Pulse Ox 97.8 F 99 H 20 112/71 94 L 11/27/16 00:00 11/27/16 00:00 11/27/16 00:00 11/27/16 00:00 11/27/16 00:00 Intake and Output: 11/26/16 11/27/16 18:59 06:59 Intake Total 2090 1200 Output Total 700 Balance 2090 500 - Medications Medications: Current Medications Acetaminophen (Tylenol 325mg Tab) 650 mg PO Q6 PRN PRN Reason: Fever >100.4 F Last Admin: 11/19/16 21:37 Dose: 650 mg Albuterol/Ipratropium (Duoneb 3 Mg/0.5 Mg (3 Ml) Ud) 3 ml INH RQ4 [facility] Last Admin: 11/26/16 23:58 Dose: Not Given Budesonide (Pulmicort Respules) 0.5 mg INH RQ12 [facility] Last Admin: 11/26/16 19:14 Dose: 0.5 mg Clotrimazole (Lotrimin 1%) 1 gm TOP BID [facility] Last Admin: 11/26/16 21:12 Dose: 1 applic Cyclobenzaprine HCl (Flexeril) 5 mg PO TID PRN PRN Reason: Pain, moderate (4-7) Last Admin: 11/26/16 09:35 Dose: 5 mg Diphenhydramine HCl (Benadryl) 25 mg PO Q6 [facility] Last Admin: 11/27/16 00:10 Dose: Not Given Enoxaparin Sodium (Lovenox) 40 mg SC DAILY [facility] Last Admin: 11/26/16 09:28 Dose: 40 mg Guaifenesin/Dextromethorphan (Robitussin Dm) 5 ml PO Q4H PRN PRN Reason: Cough Last Admin: 11/26/16 09:36 Dose: 5 ml Sodium Chloride (Sodium Chloride 0.9%) 1,000 mls @ 100 mls/hr IV .Q10H [facility] Last Admin: 11/26/16 16:00 Dose: Not Given Ibuprofen (Motrin Tab) 800 mg PO Q8 PRN PRN Reason: Pain, moderate (4-7) Last Admin: 11/26/16 17:58 Dose: 800 mg Levothyroxine Sodium (Synthroid) 50 mcg PO DAILY@0630 [facility] Last Admin: 11/26/16 06:10 Dose: 50 mcg Montelukast Sodium (Singulair) 10 mg PO HS [facility] Last Admin: 11/26/16 21:21 Dose: 10 mg Ondansetron HCl (Zofran Inj) 4 mg IVP Q6 PRN PRN Reason: Nausea/Vomiting Pantoprazole Sodium (Protonix Ec Tab) 40 mg PO DAILY [facility] Last Admin: 11/26/16 09:28 Dose: 40 mg Saccharomyces Boulardii (Florastor) 250 mg PO BID [facility] Last Admin: 11/26/16 17:58 Dose: 250 mg Vitamin A (Vitamin A & D Oint Ud Foilpak) 0.5 ea TOP Q4 [facility] Last Admin: 11/27/16 00:10 Dose: Not Given - Labs Labs: 11/26/16 07:01 11/26/16 07:01 PT 12.0 SECONDS (9.7-12.2) 11/18/16 07:36 INR 1.1 11/18/16 07:36 APTT 31 SECONDS (21-34) 11/18/16 07:36 - Additional Findings Additional findings: - Constitutional Appears: Non-toxic, No Acute Distress - Head Exam Head Exam: ATRAUMATIC, NORMAL INSPECTION - Eye Exam Eye Exam: EOMI, PERRL Pupil Exam: NORMAL ACCOMODATION - ENT Exam ENT Exam: Mucous Membranes Moist - Neck Exam Neck Exam: Normal Inspection - Respiratory Exam Respiratory Exam: Decreased Breath Sounds, Clear to Ausculation Bilateral, NORMAL BREATHING PATTERN. absent: Accessory Muscle Use, Rales, Rhonchi, Wheezes , Respiratory Distress - Cardiovascular Exam Cardiovascular Exam: REGULAR RHYTHM, +S1, +S2 - GI/Abdominal Exam GI & Abdominal Exam: Soft, Normal Bowel Sounds. absent: Distended, Firm, Guarding, Tenderness - Back Exam Back Exam: NORMAL INSPECTION, tenderness in left paraspinal region with palpation (T6-T9 Sr, Rr). absent: CVA tenderness (L), CVA tenderness (R), paraspinal tenderness - Neurological Exam Neurological Exam: Alert, Awake, Normal Gait, Oriented x3 - Psychiatric Exam Psychiatric exam: Normal Affect, Normal Mood - Skin Skin Exam: Dry, Intact, Normal Color, Warm Assessment and Plan - Assessment and Plan (Free Text) Plan: Pneumonia * Sputum culture (11/18/16) Pseudomonas + * Cefepime 2 gm IVPB Q12H (Active since 11/21/16 until 12/05/16) - will need to complete IV ABX inpatient, not a candidate for outpatient infusions * CT Dissection (11/22/16): thoracic and abdominal aorta appear within normal limits of caliber, extensive cyclindrical bronchiestasis throughout the lower lobes, bilateral hilar adenopathy, mediastinal adenoopathy measuring up to 11mm. Hepatomegaly. numerous splenules. Right nephrectomy, 15mm left ovarian cyst, uterine fundal fibroid * CT chest (11/09/16): Re-demonstration of extensive cylindrical bronchiectasis with areas of mucoid impaction, tree-in-bud interstitial infiltrates as well as lingular consolidation (see full report) * CXR (11/02/16): Minimal interstitial prominence and peribronchiolar cuffing centrally. Findings consistent with mild reactive or inflammatory airway disease. Minimal basilar atelectasis (see full report) * CXR (11/17/16) - ill defined opactiies at both lung bases underlying infiltrate vs atelectasis. trace left pleural effusion (please see full report) * ID consult, Dr. Mendoza, help appreciated * Pulm consult, Dr. Crowley, help appreciated * PICC line in place * Duonebs RQ2 PRN * Pulmicort 0.5 mg INH RQ12 * Robitussin DM 5 ml PO Q4H PRN * Tylenol 650 mg PO Q6H PRN * Motrin 800mg PO tid for pleuritic chest pain * f/u Echo--> wnl EF 65% Bronchectasis * Dr. Crowley (pulm) on board-->help appreciated * CT chest (11/09): Re-demonstration of extensive cylindrical bronchiectasis with areas of mucoid impaction, tree-in-bud interstitial infiltrates as well as lingular consolidation (see full report) * CXR (11/02): Minimal interstitial prominence and peribronchiolar cuffing centrally. Findings consistent with mild reactive or inflammatory airway disease. Minimal basilar atelectasis (see full report) * CXR (11/17/16) - ill defined opactiies at both lung bases underlying infiltrate vs atelectasis. trace left pleural effusion (please see full report) * CT Dissection (11/22/16): thoracic and abdominal aorta appear within normal limits of caliber, extensive cyclindrical bronchiestasis throughout the lower lobes, bilateral hilar adenopathy, mediastinal adenoopathy measuring up to 11mm. Hepatomegaly. numerous splenules. Right nephrectomy, 15mm left ovarian cyst, uterine fundal fibroid * ID consult, Dr. Mendoza, help appreciated * Pulm consult, Dr. Crowley, help appreciated * Duonebs RQ2 PRN * Pulmicort 0.5 mg INH RQ12 * Robotussin DM 5ml PO Q 4hour PRn cough * Alpha-antitrypsin - 128 (WNL) COPD * PFTs done as outpatient shows Obstructive lung disease * Duonebs RQ4 PRN * Pulmicort 0.5 mg INH RQ12 * Peak-flows: 150 Fungal rash * Groin area, improving * Lotrim 1 top bid * Benadryl 25mg PO Q 6hour PRN pruitus Prophylactic Measures * Protonix 40 mg PO daily for GI ppx * SCDs b/l * Lovenox 40 mg SC daily for DVT ppx * Zofran 4 mg IVP Q6H PRN * PT/OT eval * NS 100cc/hr Back pain * likely musculoskeletal in nature * Flexeril 5mg PO TID prn Disposition: * F/u case management to determine if patient is eligible for outpatient transfusion center; Patient's antibiotic is currently twice a day for two weeks as recommended strongly by infectious disease. <Francois Goetz - Last Filed: 11/27/16 17:35> Objective - Vital Signs/Intake and Output Vital Signs (last 24 hours): Temp Pulse Resp BP Pulse Ox 98 F 91 H 20 108/75 96 11/27/16 15:00 11/27/16 15:00 11/27/16 15:00 11/27/16 15:00 11/27/16 15:00 Intake and Output: 11/27/16 11/27/16 06:59 18:59 Intake Total 1200 Output Total 700 Balance 500 - Medications Medications: Current Medications Acetaminophen (Tylenol 325mg Tab) 650 mg PO Q6 PRN PRN Reason: Fever >100.4 F Last Admin: 11/19/16 21:37 Dose: 650 mg Albuterol/Ipratropium (Duoneb 3 Mg/0.5 Mg (3 Ml) Ud) 3 ml INH RQ4 [facility] Last Admin: 11/27/16 16:29 Dose: 3 ml Budesonide (Pulmicort Respules) 0.5 mg INH RQ12 [facility] Last Admin: 11/27/16 07:44 Dose: 0.5 mg Clotrimazole (Lotrimin 1%) 1 gm TOP BID [facility] Last Admin: 11/27/16 10:58 Dose: 1 applic Cyclobenzaprine HCl (Flexeril) 5 mg PO TID PRN PRN Reason: Pain, moderate (4-7) Last Admin: 11/26/16 09:35 Dose: 5 mg Diphenhydramine HCl (Benadryl) 25 mg PO Q6 [facility] Last Admin: 11/27/16 12:37 Dose: 25 mg Enoxaparin Sodium (Lovenox) 40 mg SC DAILY [facility] Last Admin: 11/27/16 10:49 Dose: 40 mg Guaifenesin/Dextromethorphan (Robitussin Dm) 5 ml PO Q4H PRN PRN Reason: Cough Last Admin: 11/26/16 09:36 Dose: 5 ml Sodium Chloride (Sodium Chloride 0.9%) 1,000 mls @ 100 mls/hr IV .Q10H [facility] Last Admin: 11/27/16 15:04 Dose: Not Given Cefepime HCl (Maxipime Iv 2 Gm Premix) 2 gm in 100 mls @ 100 mls/hr IVPB Q12H [facility] Last Admin: 11/27/16 12:37 Dose: 100 mls/hr Ibuprofen (Motrin Tab) 800 mg PO Q8 PRN PRN Reason: Pain, moderate (4-7) Last Admin: 11/26/16 17:58 Dose: 800 mg Levothyroxine Sodium (Synthroid) 50 mcg PO DAILY@0630 [facility] Last Admin: 11/27/16 05:42 Dose: 50 mcg Montelukast Sodium (Singulair) 10 mg PO HS [facility] Last Admin: 11/26/16 21:21 Dose: 10 mg Ondansetron HCl (Zofran Inj) 4 mg IVP Q6 PRN PRN Reason: Nausea/Vomiting Pantoprazole Sodium (Protonix Ec Tab) 40 mg PO DAILY [facility] Last Admin: 11/27/16 10:49 Dose: 40 mg Saccharomyces Boulardii (Florastor) 250 mg PO BID [facility] Last Admin: 11/27/16 10:49 Dose: 250 mg Vitamin A (Vitamin A & D Oint Ud Foilpak) 0.5 ea TOP Q4 [facility] Last Admin: 11/27/16 12:37 Dose: 0.5 ea - Labs Labs: 11/27/16 06:54 11/27/16 06:54 PT 12.0 SECONDS (9.7-12.2) 11/18/16 07:36 INR 1.1 11/18/16 07:36 APTT 31 SECONDS (21-34) 11/18/16 07:36 Attending/Attestation - Attestation I have personally seen and examined this patient.: Yes I have fully participated in the care of the patient.: Yes I have reviewed all pertinent clinical information, including history, physical exam and plan: Yes Notes (Text): 11/27/16 17:30 Alert, Afebrile, back pain, No significant coughing. #. Pneumonia with Bronchiectasis - Sputum +ve for Pseudomonas - Continue IV Cefepime 2gms q12H until 12/05 - Not candidate for outpatient IV infusion #. Back pain responsive to Flexeril Francois Goetz MD
[2016-11-27] MEDS: Albuterol-Ipratrop 3 mg / 0.5 (3 ml) UD INH SCH ×5 (04:30→20:08)
[2016-11-27] MEDS: Levothyroxine 50 MCG TAB PO SCH (05:42)
[2016-11-27 07:07] LABS: BASO % 0.3 % (0.0-2.0); EOS # 0.4 K/uL (0.0-0.7); EOS % 4.9 % (0.0-4.0); HEMATOCRIT 34.9 % (34.0-47.0); LYMPH # 2.7 K/uL (1.0-4.3); MEAN CELL VOLUME 69.5 fL (81.0-99.0); MEAN CORPUSCULAR HEMOGLOBIN 21.8 pg (27.0-31.0); MEAN CORPUSCULAR HGB CONC 31.4 g/dL (33.0-37.0); MEAN PLATELET VOLUME 8.6 fL (7.2-11.7); MONO # 0.5 K/uL (0.0-0.8); MONO % 6.3 % (0.0-10.0); NRBC % 0.1 % (0.0-2.0); RED CELL DISTRIBUTION WIDTH 17.8 % (11.5-14.5); WHITE BLOOD COUNT 8.5 K/uL (4.8-10.8)
[2016-11-27 07:19] LABS: CHLORIDE 106 mmol/L (98-107); SODIUM 140 mmol/L (132-148)
[2016-11-27 07:21] LABS: ALB/GLOB RATIO 1.1 (1.0-2.1); ALKALINE PHOSPHATASE 37 U/L (38-126); ALT/SGPT 26 U/L (9-52); AST/SGOT 28 U/L (14-36); BILIRUBIN,TOTAL 0.5 mg/dL (0.2-1.3); BLOOD UREA NITROGEN 15 mg/dL (7-17); CARBON DIOXIDE 26 mmol/L (22-30); GFR AFRICAN-AMERICAN > 60; TOTAL PROTEIN 6.1 g/dL (6.3-8.3)
[2016-11-27 07:22] LABS: CALCIUM 8.4 mg/dl (8.6-10.4); GLUCOSE,RANDOM 89 mg/dL (65-105); MAGNESIUM 1.9 mg/dL (1.6-2.3); PHOSPHOROUS 3.7 mg/dL (2.5-4.5)
[2016-11-27] MEDS: Budesonide 0.5 mg/2 ml Inhal Susp UD INH SCH ×2 (07:44→20:08)
[2016-11-27] MEDS: Saccharomyces Boulardi 250 mg Cap PO SCH ×2 (10:49→17:49)
[2016-11-27] MEDS: Pantoprazole 40 mg EC Tab PO SCH (10:49)
[2016-11-27] MEDS: Enoxaparin 40 mg Syringe SC SCH (10:49)
[2016-11-27] MEDS: Clotrimazole 1% Cream(30 gm) TOP SCH ×2 (10:58→17:50)
[2016-11-27] MEDS: Cefepime IV 2 gm in Dextrose 2 GM/100 ML BAG IVPB SCH ×2 (12:37→23:46)
[2016-11-27] MEDS: Sodium Chloride 0.9% 1,000 ML IV SCH ×5 (15:04→23:25)
[2016-11-27] MEDS: guaiFENesin DM 100 mg-10 mg/5 ml UD PO PRN (17:59)
[2016-11-27] MEDS: Aritificial Tears (15ml) OU SCH (22:26)
[2016-11-28] MEDS: Albuterol-Ipratrop 3 mg / 0.5 (3 ml) UD INH SCH ×6 (00:05→19:47)
--- NOTE | 2016-11-28 01:33 | CP.PCM.PN ---
Subjective - Date & Time of Evaluation Date of Evaluation: 11/28/16 Time of Evaluation: 01:30 - Subjective Subjective: PGY-1 medicine progress note Pt seen and examined at bedside. Nursing reports no adverse events overnight. Pt is found resting comfortably in bed. Back pain has been chronic finding since admission, but pt states it was not bothering her as much today. She denies difficulty breathing or SOB with exertion. Pt c/o dry eyes, so artificial tears ordered. Pt denies fever, chills, headache, dizziness, chest pain, palpitations, leg swelling/pain. Patient is tolerating diet and moving bowels/bladder without difficulty. Objective - Vital Signs/Intake and Output Vital Signs (last 24 hours): Temp Pulse Resp BP Pulse Ox 98 F 93 H 20 112/75 95 11/28/16 00:00 11/28/16 00:00 11/28/16 00:00 11/28/16 00:00 11/28/16 00:00 Intake and Output: 11/27/16 11/28/16 18:59 06:59 Intake Total 1100 Balance 1100 - Medications Medications: Current Medications Acetaminophen (Tylenol 325mg Tab) 650 mg PO Q6 PRN PRN Reason: Fever >100.4 F Last Admin: 11/19/16 21:37 Dose: 650 mg Albuterol/Ipratropium (Duoneb 3 Mg/0.5 Mg (3 Ml) Ud) 3 ml INH RQ4 [facility] Last Admin: 11/28/16 00:05 Dose: Not Given Artificial Tears (Artificial Tears) 0.1 ml OU Q8H [facility] Last Admin: 11/27/16 22:26 Dose: 1 drop Budesonide (Pulmicort Respules) 0.5 mg INH RQ12 [facility] Last Admin: 11/27/16 20:08 Dose: 0.5 mg Clotrimazole (Lotrimin 1%) 1 gm TOP BID [facility] Last Admin: 11/27/16 17:50 Dose: 1 applic Cyclobenzaprine HCl (Flexeril) 5 mg PO TID PRN PRN Reason: Pain, moderate (4-7) Last Admin: 11/27/16 17:59 Dose: 5 mg Diphenhydramine HCl (Benadryl) 25 mg PO Q6 [facility] Last Admin: 11/27/16 23:45 Dose: 25 mg Enoxaparin Sodium (Lovenox) 40 mg SC DAILY [facility] Last Admin: 11/27/16 10:49 Dose: 40 mg Guaifenesin/Dextromethorphan (Robitussin Dm) 5 ml PO Q4H PRN PRN Reason: Cough Last Admin: 11/27/16 17:59 Dose: 5 ml Sodium Chloride (Sodium Chloride 0.9%) 1,000 mls @ 100 mls/hr IV .Q10H [facility] Last Admin: 11/27/16 21:00 Dose: Not Given Cefepime HCl (Maxipime Iv 2 Gm Premix) 2 gm in 100 mls @ 100 mls/hr IVPB Q12H [facility] Last Admin: 11/27/16 23:46 Dose: 100 mls/hr Ibuprofen (Motrin Tab) 800 mg PO Q8 PRN PRN Reason: Pain, moderate (4-7) Last Admin: 11/27/16 21:45 Dose: 800 mg Levothyroxine Sodium (Synthroid) 50 mcg PO DAILY@0630 [facility] Last Admin: 11/27/16 05:42 Dose: 50 mcg Montelukast Sodium (Singulair) 10 mg PO HS [facility] Last Admin: 11/27/16 22:06 Dose: 10 mg Ondansetron HCl (Zofran Inj) 4 mg IVP Q6 PRN PRN Reason: Nausea/Vomiting Pantoprazole Sodium (Protonix Ec Tab) 40 mg PO DAILY [facility] Last Admin: 11/27/16 10:49 Dose: 40 mg Saccharomyces Boulardii (Florastor) 250 mg PO BID [facility] Last Admin: 11/27/16 17:49 Dose: 250 mg Vitamin A (Vitamin A & D Oint Ud Foilpak) 0.5 ea TOP Q4 [facility] Last Admin: 11/27/16 23:49 Dose: 0.5 ea - Labs Labs: 11/27/16 06:54 11/27/16 06:54 PT 12.0 SECONDS (9.7-12.2) 11/18/16 07:36 INR 1.1 11/18/16 07:36 APTT 31 SECONDS (21-34) 11/18/16 07:36 - Additional Findings Additional findings: - Head Exam Head Exam: ATRAUMATIC, NORMAL INSPECTION - Eye Exam Eye Exam: EOMI, PERRL Pupil Exam: NORMAL ACCOMODATION - ENT Exam ENT Exam: Mucous Membranes Moist - Neck Exam Neck Exam: Normal Inspection - Respiratory Exam Respiratory Exam: Decreased Breath Sounds, Rhonchi (lower lobes) absent: Accessory Muscle Use, Rales, Wheezes, Respiratory Distress - Cardiovascular Exam Cardiovascular Exam: REGULAR RHYTHM, +S1, +S2 - GI/Abdominal Exam GI & Abdominal Exam: Soft, Normal Bowel Sounds. absent: Distended, Firm, Guarding, Tenderness - Back Exam Back Exam: NORMAL INSPECTION. absent: CVA tenderness (L), CVA tenderness (R), paraspinal tenderness - Neurological Exam Neurological Exam: Alert, Awake, Normal Gait, Oriented x3 Neuro motor strength exam: Left Upper Extremity: 5, Right Upper Extremity: 5, Left Lower Extremity: 5, Right Lower Extremity: 5 - Psychiatric Exam Psychiatric exam: Normal Affect, Normal Mood - Skin Skin Exam: Dry, Intact, Normal Color, Warm Assessment and Plan - Assessment and Plan (Free Text) Plan: Pneumonia * Sputum culture (11/18/16) Pseudomonas + * Cefepime 2 gm IVPB Q12H (Active since 11/21/16 until 12/05/16) - will need to complete IV ABX inpatient, not a candidate for outpatient infusions * CT Dissection (11/22/16): thoracic and abdominal aorta appear within normal limits of caliber, extensive cyclindrical bronchiestasis throughout the lower lobes, bilateral hilar adenopathy, mediastinal adenoopathy measuring up to 11mm. Hepatomegaly. numerous splenules. Right nephrectomy, 15mm left ovarian cyst, uterine fundal fibroid * CT chest (11/09/16): Re-demonstration of extensive cylindrical bronchiectasis with areas of mucoid impaction, tree-in-bud interstitial infiltrates as well as lingular consolidation (see full report) * CXR (11/02/16): Minimal interstitial prominence and peribronchiolar cuffing centrally. Findings consistent with mild reactive or inflammatory airway disease. Minimal basilar atelectasis (see full report) * CXR (11/17/16) - ill defined opactiies at both lung bases underlying infiltrate vs atelectasis. trace left pleural effusion (please see full report) * ID consult, Dr. Mendoza, help appreciated * Pulm consult, Dr. Crowley, help appreciated * PICC line in place * Duonebs RQ2 PRN * Pulmicort 0.5 mg INH RQ12 * Robitussin DM 5 ml PO Q4H PRN * Tylenol 650 mg PO Q6H PRN * Motrin 800mg PO tid for pleuritic chest pain * f/u Echo--> wnl EF 65% Bronchectasis * Dr. Crowley (pulm) on board-->help appreciated * CT chest (11/09): Re-demonstration of extensive cylindrical bronchiectasis with areas of mucoid impaction, tree-in-bud interstitial infiltrates as well as lingular consolidation (see full report) * CXR (11/02): Minimal interstitial prominence and peribronchiolar cuffing centrally. Findings consistent with mild reactive or inflammatory airway disease. Minimal basilar atelectasis (see full report) * CXR (11/17/16) - ill defined opactiies at both lung bases underlying infiltrate vs atelectasis. trace left pleural effusion (please see full report) * CT Dissection (11/22/16): thoracic and abdominal aorta appear within normal limits of caliber, extensive cyclindrical bronchiestasis throughout the lower lobes, bilateral hilar adenopathy, mediastinal adenoopathy measuring up to 11mm. Hepatomegaly. numerous splenules. Right nephrectomy, 15mm left ovarian cyst, uterine fundal fibroid * ID consult, Dr. Mendoza, help appreciated * Pulm consult, Dr. Crowley, help appreciated * Duonebs RQ2 PRN * Pulmicort 0.5 mg INH RQ12 * Robotussin DM 5ml PO Q 4hour PRn cough * Alpha-antitrypsin - 128 (WNL) COPD * PFTs done as outpatient shows Obstructive lung disease * Duonebs RQ4 PRN * Pulmicort 0.5 mg INH RQ12 * Peak-flows: 150 Fungal rash * Groin area, improving * Lotrim 1 top bid * Benadryl 25mg PO Q 6hour PRN pruitus Hypothyroidism * Continue home med Synthroid 50mcg PO Daily Prophylactic Measures * Protonix 40 mg PO daily for GI ppx * SCDs b/l * Lovenox 40 mg SC daily for DVT ppx * Zofran 4 mg IVP Q6H PRN * PT/OT eval * NS 100cc/hr Back pain * likely musculoskeletal in nature * Flexeril 5mg PO TID prn Disposition: * Patient is not eligible for outpatient transfusion center per case mgmt; Patient's antibiotic is currently twice a day for two weeks as recommended strongly by infectious disease.
[2016-11-28] MEDS: Vitamins A & D Oint UD Foilpak TOP SCH ×5 (04:33→20:10)
[2016-11-28] MEDS: Levothyroxine 50 MCG TAB PO SCH (05:32)
[2016-11-28] MEDS: Aritificial Tears (15ml) OU SCH ×3 (05:33→21:45)
[2016-11-28 07:23] LABS: CHLORIDE 106 mmol/L (98-107); SODIUM 141 mmol/L (132-148)
[2016-11-28 07:24] LABS: POTASSIUM 3.9 mmol/L (3.6-5.2)
[2016-11-28 07:26] LABS: ALB/GLOB RATIO 1.1 (1.0-2.1); ALKALINE PHOSPHATASE 38 U/L (38-126); AST/SGOT 37 U/L (14-36); BILIRUBIN,TOTAL 0.5 mg/dL (0.2-1.3); BLOOD UREA NITROGEN 14 mg/dL (7-17); CARBON DIOXIDE 26 mmol/L (22-30); GFR AFRICAN-AMERICAN > 60; GLUCOSE,RANDOM 90 mg/dL (65-105); PHOSPHOROUS 3.9 mg/dL (2.5-4.5)
[2016-11-28 07:27] LABS: ALT/SGPT 38 U/L (9-52); CALCIUM 8.7 mg/dl (8.6-10.4)
[2016-11-28 07:31] LABS: BASO % 0.2 % (0.0-2.0); EOS # 0.4 K/uL (0.0-0.7); EOS % 5.3 % (0.0-4.0); HEMATOCRIT 34.5 % (34.0-47.0); LYMPH # 2.6 K/uL (1.0-4.3); LYMPH % 31.8 % (20.0-40.0); MEAN CELL VOLUME 69.3 fL (81.0-99.0); MEAN CORPUSCULAR HEMOGLOBIN 21.6 pg (27.0-31.0); MEAN CORPUSCULAR HGB CONC 31.1 g/dL (33.0-37.0); MEAN PLATELET VOLUME 8.7 fL (7.2-11.7); MONO # 0.5 K/uL (0.0-0.8); MONO % 6.5 % (0.0-10.0); NRBC % 0.2 % (0.0-2.0); RED CELL DISTRIBUTION WIDTH 17.8 % (11.5-14.5); WHITE BLOOD COUNT 8.2 K/uL (4.8-10.8)
[2016-11-28] MEDS: Budesonide 0.5 mg/2 ml Inhal Susp UD INH SCH ×2 (07:36→19:47)
[2016-11-28] MEDS: Cefepime IV 2 gm in Dextrose 2 GM/100 ML BAG IVPB SCH (11:35)
[2016-11-28] MEDS: Saccharomyces Boulardi 250 mg Cap PO SCH ×2 (11:35→17:39)
[2016-11-28] MEDS: Pantoprazole 40 mg EC Tab PO SCH (11:35)
[2016-11-28] MEDS: Enoxaparin 40 mg Syringe SC SCH (11:36)
[2016-11-28] MEDS: Sodium Chloride 0.9% 1,000 ML IV SCH (11:45)
[2016-11-28] MEDS: Clotrimazole 1% Cream(30 gm) TOP SCH ×2 (11:47→18:15)
[2016-11-28] MEDS: guaiFENesin DM 100 mg-10 mg/5 ml UD PO PRN (22:18)
[2016-11-29] MEDS: Cefepime IV 2 gm in Dextrose 2 GM/100 ML BAG IVPB SCH ×2 (00:07→11:43)
[2016-11-29] MEDS: Albuterol-Ipratrop 3 mg / 0.5 (3 ml) UD INH SCH ×5 (00:14→20:00)
[2016-11-29] MEDS: Vitamins A & D Oint UD Foilpak TOP SCH ×6 (00:17→20:00)
[2016-11-29] MEDS: Aritificial Tears (15ml) OU SCH ×2 (05:44→14:28)
[2016-11-29] MEDS: Levothyroxine 50 MCG TAB PO SCH (05:45)
[2016-11-29 06:14] LABS: BASO # 0.1 K/uL (0.0-0.2); BASO % 0.7 % (0.0-2.0); EOS # 0.4 K/uL (0.0-0.7); EOS % 4.7 % (0.0-4.0); HEMATOCRIT 35.1 % (34.0-47.0); LYMPH # 2.3 K/uL (1.0-4.3); LYMPH % 26.7 % (20.0-40.0); MEAN CELL VOLUME 69.3 fL (81.0-99.0); MEAN CORPUSCULAR HEMOGLOBIN 21.3 pg (27.0-31.0); MEAN CORPUSCULAR HGB CONC 30.8 g/dL (33.0-37.0); MEAN PLATELET VOLUME 8.4 fL (7.2-11.7); MONO # 0.6 K/uL (0.0-0.8); MONO % 6.8 % (0.0-10.0); NRBC % 0.1 % (0.0-2.0); RED CELL DISTRIBUTION WIDTH 17.5 % (11.5-14.5); WHITE BLOOD COUNT 8.7 K/uL (4.8-10.8)
[2016-11-29 06:45] LABS: CHLORIDE 102 mmol/L (98-107)
[2016-11-29 06:46] LABS: POTASSIUM 3.9 mmol/L (3.6-5.2); SODIUM 137 mmol/L (132-148)
[2016-11-29 06:48] LABS: ALB/GLOB RATIO 1.1 (1.0-2.1); AST/SGOT 39 U/L (14-36); BILIRUBIN,TOTAL 0.5 mg/dL (0.2-1.3); CARBON DIOXIDE 28 mmol/L (22-30); GFR AFRICAN-AMERICAN > 60; TOTAL PROTEIN 6.1 g/dL (6.3-8.3)
[2016-11-29 06:49] LABS: ALKALINE PHOSPHATASE 38 U/L (38-126); ALT/SGPT 38 U/L (9-52); BLOOD UREA NITROGEN 15 mg/dL (7-17); CALCIUM 8.5 mg/dl (8.6-10.4); GLUCOSE,RANDOM 107 mg/dL (65-105); MAGNESIUM 1.9 mg/dL (1.6-2.3); PHOSPHOROUS 3.8 mg/dL (2.5-4.5)
[2016-11-29] MEDS: Budesonide 0.5 mg/2 ml Inhal Susp UD INH SCH ×2 (07:18→20:00)
--- NOTE | 2016-11-29 07:18 | CP.PCM.PN ---
Subjective - Date & Time of Evaluation Date of Evaluation: 11/29/16 Time of Evaluation: 07:15 - Subjective Subjective: Pt seen and evaluated at bedside. Nursing reports no adverse events overnight. Today, pt states that her breathing has greatly improved from admission, but that she continues to have thoracic back pain on her left side. Pt has not been asking for her pain medication and has been instructed to do so. Pt has no other complaints at this time. Pt denies fever, chills, headache, chest pain, palpitations, shortness of breath, abdominal pain, bowel/bladder pain or leg swelling/pain. Pt tolerating diet and medications well. Objective - Vital Signs/Intake and Output Vital Signs (last 24 hours): Temp Pulse Resp BP Pulse Ox 98.1 F 86 20 106/72 95 11/29/16 00:00 11/29/16 00:00 11/29/16 00:00 11/29/16 00:00 11/29/16 00:00 Intake and Output: 11/29/16 11/29/16 06:59 18:59 Intake Total 1140 Balance 1140 - Medications Medications: Current Medications Acetaminophen (Tylenol 325mg Tab) 650 mg PO Q6 PRN PRN Reason: Fever >100.4 F Last Admin: 11/19/16 21:37 Dose: 650 mg Albuterol/Ipratropium (Duoneb 3 Mg/0.5 Mg (3 Ml) Ud) 3 ml INH RQ4 [facility]IM[facility] Last Admin: 11/29/16 04:49 Dose: Not Given Artificial Tears (Artificial Tears) 0.1 ml OU Q8H [facility] Last Admin: 11/29/16 05:44 Dose: 1 drop Budesonide (Pulmicort Respules) 0.5 mg INH RQ12 [facility] Last Admin: 11/28/16 19:47 Dose: 0.5 mg Clotrimazole (Lotrimin 1%) 1 gm TOP BID [facility] Last Admin: 11/28/16 18:15 Dose: 1 applic Cyclobenzaprine HCl (Flexeril) 5 mg PO TID PRN PRN Reason: Pain, moderate (4-7) Last Admin: 11/28/16 22:18 Dose: 5 mg Diphenhydramine HCl (Benadryl) 25 mg PO Q6 [facility] Last Admin: 11/29/16 05:45 Dose: 25 mg Enoxaparin Sodium (Lovenox) 40 mg SC DAILY [facility] Last Admin: 11/28/16 11:36 Dose: 40 mg Guaifenesin/Dextromethorphan (Robitussin Dm) 5 ml PO Q4H PRN PRN Reason: Cough Last Admin: 11/28/16 22:18 Dose: 5 ml Cefepime HCl (Maxipime Iv 2 Gm Premix) 2 gm in 100 mls @ 100 mls/hr IVPB Q12H [facility] Last Admin: 11/29/16 00:07 Dose: 100 mls/hr Ibuprofen (Motrin Tab) 800 mg PO Q8 PRN PRN Reason: Pain, moderate (4-7) Last Admin: 11/28/16 13:31 Dose: 800 mg Levothyroxine Sodium (Synthroid) 50 mcg PO DAILY@0630 [facility] Last Admin: 11/29/16 05:45 Dose: 50 mcg Montelukast Sodium (Singulair) 10 mg PO HS [facility] Last Admin: 11/28/16 22:15 Dose: 10 mg Ondansetron HCl (Zofran Inj) 4 mg IVP Q6 PRN PRN Reason: Nausea/Vomiting Pantoprazole Sodium (Protonix Ec Tab) 40 mg PO DAILY [facility] Last Admin: 11/28/16 11:35 Dose: 40 mg Saccharomyces Boulardii (Florastor) 250 mg PO BID [facility] Last Admin: 11/28/16 17:39 Dose: 250 mg Vitamin A (Vitamin A & D Oint Ud Foilpak) 0.5 ea TOP Q4 [facility] Last Admin: 11/29/16 04:45 Dose: 0.5 ea - Labs Labs: 11/29/16 06:03 11/29/16 06:03 PT 12.0 SECONDS (9.7-12.2) 11/18/16 07:36 INR 1.1 11/18/16 07:36 APTT 31 SECONDS (21-34) 11/18/16 07:36 - Constitutional Appears: Non-toxic, No Acute Distress - Head Exam Head Exam: ATRAUMATIC, NORMOCEPHALIC - Eye Exam Eye Exam: EOMI. absent: Scleral icterus - ENT Exam ENT Exam: Mucous Membranes Moist, Normal Exam - Respiratory Exam Respiratory Exam: Wheezes, NORMAL BREATHING PATTERN. absent: Respiratory Distress - Cardiovascular Exam Cardiovascular Exam: REGULAR RHYTHM, +S1, +S2. absent: JVD - GI/Abdominal Exam GI & Abdominal Exam: Soft, Normal Bowel Sounds. absent: Distended, Firm, Guarding, Tenderness - Extremities Exam Extremities Exam: Normal Inspection. absent: Pedal Edema, Tenderness - Back Exam Back Exam: NORMAL INSPECTION, paraspinal tenderness. absent: muscle spasm Additional comments: T3-T8 - Neurological Exam Neurological Exam: Alert, Awake, Normal Gait, Oriented x3 - Psychiatric Exam Psychiatric exam: Normal Affect, Normal Mood - Skin Skin Exam: Dry, Intact, Normal Color, Warm Assessment and Plan - Assessment and Plan (Free Text) Assessment: 46F presenting with pseudomonal pneumonia Pneumonia * Sputum culture (11/18/16) Pseudomonas + * Cefepime 2 gm IVPB Q12H (Active since 11/21/16 until 12/05/16) - will need to complete IV ABX inpatient, not a candidate for outpatient infusions * CT Dissection (11/22/16): thoracic and abdominal aorta appear within normal limits of caliber, extensive cyclindrical bronchiestasis throughout the lower lobes, bilateral hilar adenopathy, mediastinal adenoopathy measuring up to 11mm. Hepatomegaly. numerous splenules. Right nephrectomy, 15mm left ovarian cyst, uterine fundal fibroid * CT chest (11/09/16): Re-demonstration of extensive cylindrical bronchiectasis with areas of mucoid impaction, tree-in-bud interstitial infiltrates as well as lingular consolidation (see full report) * CXR (11/02/16): Minimal interstitial prominence and peribronchiolar cuffing centrally. Findings consistent with mild reactive or inflammatory airway disease. Minimal basilar atelectasis (see full report) * CXR (11/17/16) - ill defined opactiies at both lung bases underlying infiltrate vs atelectasis. trace left pleural effusion (please see full report) * ID consult, Dr. Mendoza, help appreciated * Pulm consult, Dr. Crowley, help appreciated * PICC line in place * Duonebs RQ2 PRN * Pulmicort 0.5 mg INH RQ12 * Robitussin DM 5 ml PO Q4H PRN * Tylenol 650 mg PO Q6H PRN * Motrin 800mg PO tid for pleuritic chest pain * f/u Echo--> wnl EF 65% Bronchectasis * Dr. Crowley (pulm) on board-->help appreciated * CT chest (11/09): Re-demonstration of extensive cylindrical bronchiectasis with areas of mucoid impaction, tree-in-bud interstitial infiltrates as well as lingular consolidation (see full report) * CXR (11/02): Minimal interstitial prominence and peribronchiolar cuffing centrally. Findings consistent with mild reactive or inflammatory airway disease. Minimal basilar atelectasis (see full report) * CXR (11/17/16) - ill defined opactiies at both lung bases underlying infiltrate vs atelectasis. trace left pleural effusion (please see full report) * CT Dissection (11/22/16): thoracic and abdominal aorta appear within normal limits of caliber, extensive cyclindrical bronchiestasis throughout the lower lobes, bilateral hilar adenopathy, mediastinal adenoopathy measuring up to 11mm. Hepatomegaly. numerous splenules. Right nephrectomy, 15mm left ovarian cyst, uterine fundal fibroid * ID consult, Dr. Mendoza, help appreciated * Pulm consult, Dr. Crowley, help appreciated * Duonebs RQ2 PRN * Pulmicort 0.5 mg INH RQ12 * Robotussin DM 5ml PO Q 4hour PRn cough * Alpha-antitrypsin ordered COPD * PFTs done as outpatient shows Obstructive lung disease * Duonebs RQ2 PRN * Pulmicort 0.5 mg INH RQ12 * Peak-flows: 150 Fungal rash * Groin area, improving * Lotrim 1 top bid * Benadryl 25mg PO Q 6hour PRN pruitus Prophylactic Measures * Protonix 40 mg PO daily for GI ppx * SCDs b/l * Lovenox 40 mg SC daily for DVT ppx * Zofran 4 mg IVP Q6H PRN * PT/OT eval * NS 100cc/hr Back pain * likely musculoskeletal in nature * Flexeril 5mg PO TID prn * Added Naproxen BID KIMBER Dry eyes * Artificial tears Disposition: * F/u case management to determine if patient is eligible for outpatient transfusion center; Patient's antibiotic is currently twice a day for two weeks as recommended strongly by infectious disease.
[2016-11-29] MEDS: Saccharomyces Boulardi 250 mg Cap PO SCH ×2 (10:53→17:49)
[2016-11-29] MEDS: Pantoprazole 40 mg EC Tab PO SCH (10:53)
[2016-11-29] MEDS: Clotrimazole 1% Cream(30 gm) TOP SCH ×2 (10:54→17:52)
[2016-11-29] MEDS: Enoxaparin 40 mg Syringe SC SCH (11:58)
[2016-11-29] MEDS: Naproxen 275 mg Tab PO SCH ×2 (11:59→17:50)
[2016-11-30] MEDS: Cefepime IV 2 gm in Dextrose 2 GM/100 ML BAG IVPB SCH ×2 (00:03→12:08)
[2016-11-30] MEDS: Vitamins A & D Oint UD Foilpak TOP SCH ×6 (00:04→21:03)
[2016-11-30] MEDS: Albuterol-Ipratrop 3 mg / 0.5 (3 ml) UD INH SCH ×6 (00:35→20:23)
[2016-11-30] MEDS: Aritificial Tears (15ml) OU SCH ×4 (04:45→21:02)
[2016-11-30] MEDS: Levothyroxine 50 MCG TAB PO SCH (05:45)
[2016-11-30 06:29] LABS: BASO % 0.6 % (0.0-2.0); EOS # 0.4 K/uL (0.0-0.7); EOS % 5.2 % (0.0-4.0); HEMATOCRIT 36.6 % (34.0-47.0); LYMPH # 2.5 K/uL (1.0-4.3); LYMPH % 29.9 % (20.0-40.0); MEAN CELL VOLUME 69.9 fL (81.0-99.0); MEAN CORPUSCULAR HEMOGLOBIN 21.8 pg (27.0-31.0); MEAN CORPUSCULAR HGB CONC 31.1 g/dL (33.0-37.0); MEAN PLATELET VOLUME 8.5 fL (7.2-11.7); MONO # 0.5 K/uL (0.0-0.8); MONO % 6.3 % (0.0-10.0); RED CELL DISTRIBUTION WIDTH 17.5 % (11.5-14.5); WHITE BLOOD COUNT 8.3 K/uL (4.8-10.8)
[2016-11-30 06:42] LABS: CHLORIDE 99 mmol/L (98-107); POTASSIUM 3.8 mmol/L (3.6-5.2); SODIUM 138 mmol/L (132-148)
[2016-11-30 06:44] LABS: ALKALINE PHOSPHATASE 43 U/L (38-126); AST/SGOT 25 U/L (14-36); BILIRUBIN,TOTAL 0.5 mg/dL (0.2-1.3); BLOOD UREA NITROGEN 15 mg/dL (7-17); CARBON DIOXIDE 28 mmol/L (22-30); GFR AFRICAN-AMERICAN > 60; GLUCOSE,RANDOM 103 mg/dL (65-105); TOTAL PROTEIN 5.9 g/dL (6.3-8.3)
[2016-11-30 06:45] LABS: ALT/SGPT 37 U/L (9-52); CALCIUM 8.6 mg/dl (8.6-10.4); MAGNESIUM 1.8 mg/dL (1.6-2.3); PHOSPHOROUS 3.8 mg/dL (2.5-4.5)
[2016-11-30 06:46] LABS: ALB/GLOB RATIO 1.4 (1.0-2.1)
--- NOTE | 2016-11-30 07:02 | CP.PCM.PN ---
Subjective - Date & Time of Evaluation Date of Evaluation: 11/30/16 Time of Evaluation: 07:20 - Subjective Subjective: Pt seen and evaluated at bedside. Nursing reports no adverse events overnight. Today, pt is comfortable and in no acute distress. Pt states that her breathing is good today and that her back pain has resolved. Pt has no other complaints at this time. Pt denies fever, chills, headache, chest pain, palpitations, shortness of breath, back pain, abdominal pain, bowel/bladder pain or leg swelling/pain. Pt tolerating diet and medications well. Objective - Vital Signs/Intake and Output Vital Signs (last 24 hours): Temp Pulse Resp BP Pulse Ox 97.6 F 83 20 116/81 94 L 11/30/16 00:00 11/30/16 00:00 11/30/16 00:00 11/30/16 00:00 11/30/16 00:00 Intake and Output: 11/29/16 11/30/16 18:59 06:59 Intake Total 600 300 Output Total 700 Balance 600 -400 - Medications Medications: Current Medications Acetaminophen (Tylenol 325mg Tab) 650 mg PO Q6 PRN PRN Reason: Fever >100.4 F Last Admin: 11/19/16 21:37 Dose: 650 mg Albuterol/Ipratropium (Duoneb 3 Mg/0.5 Mg (3 Ml) Ud) 3 ml INH RQ4 [facility] Last Admin: 11/30/16 04:19 Dose: Not Given Artificial Tears (Artificial Tears) 0.1 ml OU Q8H [facility] Last Admin: 11/30/16 04:45 Dose: 1 drop Budesonide (Pulmicort Respules) 0.5 mg INH RQ12 [facility] Last Admin: 11/29/16 20:00 Dose: 0.5 mg Clotrimazole (Lotrimin 1%) 1 gm TOP BID [facility] Last Admin: 11/29/16 17:52 Dose: 1 applic Cyclobenzaprine HCl (Flexeril) 5 mg PO TID PRN PRN Reason: Pain, moderate (4-7) Last Admin: 11/28/16 22:18 Dose: 5 mg Diphenhydramine HCl (Benadryl) 25 mg PO Q6 [facility] Last Admin: 11/30/16 05:45 Dose: 25 mg Enoxaparin Sodium (Lovenox) 40 mg SC DAILY [facility] Last Admin: 11/29/16 11:58 Dose: 40 mg Guaifenesin/Dextromethorphan (Robitussin Dm) 5 ml PO Q4H PRN PRN Reason: Cough Last Admin: 11/28/16 22:18 Dose: 5 ml Cefepime HCl (Maxipime Iv 2 Gm Premix) 2 gm in 100 mls @ 100 mls/hr IVPB Q12H [facility] Last Admin: 11/30/16 00:03 Dose: 100 mls/hr Ibuprofen (Motrin Tab) 800 mg PO Q8 PRN PRN Reason: Pain, moderate (4-7) Last Admin: 11/28/16 13:31 Dose: 800 mg Levothyroxine Sodium (Synthroid) 50 mcg PO DAILY@0630 [facility] Last Admin: 11/30/16 05:45 Dose: 50 mcg Montelukast Sodium (Singulair) 10 mg PO HS [facility] Last Admin: 11/29/16 21:37 Dose: 10 mg Naproxen (Anaprox) 275 mg PO BID [facility] Last Admin: 11/29/16 17:50 Dose: 275 mg Ondansetron HCl (Zofran Inj) 4 mg IVP Q6 PRN PRN Reason: Nausea/Vomiting Pantoprazole Sodium (Protonix Ec Tab) 40 mg PO DAILY [facility] Last Admin: 11/29/16 10:53 Dose: 40 mg Saccharomyces Boulardii (Florastor) 250 mg PO BID [facility] Last Admin: 11/29/16 17:49 Dose: 250 mg Vitamin A (Vitamin A & D Oint Ud Foilpak) 0.5 ea TOP Q4 [facility] Last Admin: 11/30/16 05:00 Dose: 0.5 ea - Labs Labs: 11/30/16 06:16 11/30/16 06:16 PT 12.0 SECONDS (9.7-12.2) 11/18/16 07:36 INR 1.1 11/18/16 07:36 APTT 31 SECONDS (21-34) 11/18/16 07:36 - Constitutional Appears: Non-toxic, No Acute Distress - Head Exam Head Exam: ATRAUMATIC, NORMAL INSPECTION - Eye Exam Eye Exam: EOMI, Normal appearance, PERRL Pupil Exam: NORMAL ACCOMODATION - ENT Exam ENT Exam: Mucous Membranes Moist - Respiratory Exam Respiratory Exam: Rales, NORMAL BREATHING PATTERN. absent: Accessory Muscle Use , Chest Wall Tenderness, Rhonchi, Wheezes, Respiratory Distress - Cardiovascular Exam Cardiovascular Exam: REGULAR RHYTHM, +S1, +S2 - GI/Abdominal Exam GI & Abdominal Exam: Soft, Normal Bowel Sounds. absent: Distended, Firm, Guarding, Tenderness - Extremities Exam Extremities Exam: Normal Inspection. absent: Calf Tenderness, Pedal Edema - Back Exam Back Exam: NORMAL INSPECTION, paraspinal tenderness. absent: CVA tenderness (L) , CVA tenderness (R) - Neurological Exam Neurological Exam: Alert, Awake, CN II-XII Intact, Normal Gait, Oriented x3 Neuro motor strength exam: Left Upper Extremity: 5, Right Upper Extremity: 5, Left Lower Extremity: 5, Right Lower Extremity: 5 - Psychiatric Exam Psychiatric exam: Normal Affect, Normal Mood - Skin Skin Exam: Dry, Intact, Normal Color, Warm Assessment and Plan - Assessment and Plan (Free Text) Assessment: Assessment: 46F presenting with pseudomonal pneumonia Pneumonia * Sputum culture (11/18/16) Pseudomonas + * Cefepime 2 gm IVPB Q12H (Active since 11/21/16 until 12/05/16) - will need to complete IV ABX inpatient, not a candidate for outpatient infusions * CT Dissection (11/22/16): thoracic and abdominal aorta appear within normal limits of caliber, extensive cyclindrical bronchiestasis throughout the lower lobes, bilateral hilar adenopathy, mediastinal adenoopathy measuring up to 11mm. Hepatomegaly. numerous splenules. Right nephrectomy, 15mm left ovarian cyst, uterine fundal fibroid * CT chest (11/09/16): Re-demonstration of extensive cylindrical bronchiectasis with areas of mucoid impaction, tree-in-bud interstitial infiltrates as well as lingular consolidation (see full report) * CXR (11/02/16): Minimal interstitial prominence and peribronchiolar cuffing centrally. Findings consistent with mild reactive or inflammatory airway disease. Minimal basilar atelectasis (see full report) * CXR (11/17/16) - ill defined opactiies at both lung bases underlying infiltrate vs atelectasis. trace left pleural effusion (please see full report) * ID consult, Dr. Mendoza, help appreciated * Pulm consult, Dr. Crowley, help appreciated * PICC line in place * Duonebs RQ2 PRN * Pulmicort 0.5 mg INH RQ12 * Robitussin DM 5 ml PO Q4H PRN * Tylenol 650 mg PO Q6H PRN * Echo: wnl EF 65% Bronchectasis * Dr. Crowley (pulm) on board-->help appreciated * CT chest (11/09): Re-demonstration of extensive cylindrical bronchiectasis with areas of mucoid impaction, tree-in-bud interstitial infiltrates as well as lingular consolidation (see full report) * CXR (11/02): Minimal interstitial prominence and peribronchiolar cuffing centrally. Findings consistent with mild reactive or inflammatory airway disease. Minimal basilar atelectasis (see full report) * CXR (11/17/16) - ill defined opactiies at both lung bases underlying infiltrate vs atelectasis. trace left pleural effusion (please see full report) * CT Dissection (11/22/16): thoracic and abdominal aorta appear within normal limits of caliber, extensive cyclindrical bronchiestasis throughout the lower lobes, bilateral hilar adenopathy, mediastinal adenoopathy measuring up to 11mm. Hepatomegaly. numerous splenules. Right nephrectomy, 15mm left ovarian cyst, uterine fundal fibroid * ID consult, Dr. Mendoza, help appreciated * Pulm consult, Dr. Crowley, help appreciated * Duonebs RQ2 PRN * Pulmicort 0.5 mg INH RQ12 * Robotussin DM 5ml PO Q 4hour PRn cough * Alpha-antitrypsin negative COPD * PFTs done as outpatient shows Obstructive lung disease * Duonebs RQ2 PRN * Pulmicort 0.5 mg INH RQ12 * Peak-flows: 150 Fungal rash * Groin area, improving * Lotrim 1 top bid * Benadryl 25mg PO Q 6hour PRN pruitus Prophylactic Measures * Protonix 40 mg PO daily for GI ppx * SCDs b/l * Lovenox 40 mg SC daily for DVT ppx * Zofran 4 mg IVP Q6H PRN * PT/OT eval Back pain * likely musculoskeletal in nature * Flexeril 5mg PO TID prn * Added Naproxen BID KIMBER * Simethicone prn Dry eyes * Artificial tears Disposition: * F/u case management to determine if patient is eligible for outpatient transfusion center; Patient's antibiotic is currently twice a day for two weeks as recommended strongly by infectious disease.
[2016-11-30] MEDS: Budesonide 0.5 mg/2 ml Inhal Susp UD INH SCH ×2 (08:44→20:23)
[2016-11-30] MEDS: Naproxen 275 mg Tab PO SCH ×2 (09:30→18:12)
[2016-11-30] MEDS: Saccharomyces Boulardi 250 mg Cap PO SCH ×2 (09:32→18:13)
[2016-11-30] MEDS: Enoxaparin 40 mg Syringe SC SCH (09:32)
[2016-11-30] MEDS: Pantoprazole 40 mg EC Tab PO SCH (09:32)
[2016-11-30] MEDS: Clotrimazole 1% Cream(30 gm) TOP SCH ×2 (09:35→18:15)
[2016-11-30] MEDS: Simethicone 80 mg Chewtab PO PRN (18:12)
[2016-12-01] MEDS: Cefepime IV 2 gm in Dextrose 2 GM/100 ML BAG IVPB SCH ×2 (00:29→13:50)
[2016-12-01] MEDS: Vitamins A & D Oint UD Foilpak TOP SCH ×6 (00:30→21:08)
[2016-12-01] MEDS: Albuterol-Ipratrop 3 mg / 0.5 (3 ml) UD INH SCH ×5 (01:07→21:00)
[2016-12-01] MEDS: Aritificial Tears (15ml) OU SCH ×3 (05:38→21:07)
[2016-12-01] MEDS: Levothyroxine 50 MCG TAB PO SCH (05:38)
--- NOTE | 2016-12-01 07:09 | CP.PCM.PN ---
<Paris Eric - Last Filed: 12/01/16 12:00> Subjective - Date & Time of Evaluation Date of Evaluation: 12/01/16 Time of Evaluation: 07:05 - Subjective Subjective: Pt seen and evaluated at bedside. Nursing reports no adverse events overnight. Today, pt is comfortable and in no acute distress. Pt states that her breathing is good today and that her back pain has resolved. Pt has no other complaints at this time. Pt denies fever, chills, headache, chest pain, palpitations, shortness of breath, back pain, abdominal pain, bowel/bladder pain or leg swelling/pain. Pt tolerating diet and medications well. Objective - Vital Signs/Intake and Output Vital Signs (last 24 hours): Temp Pulse Resp BP Pulse Ox 98.1 F 87 20 116/83 99 12/01/16 00:20 12/01/16 00:20 12/01/16 00:20 12/01/16 00:20 12/01/16 00:20 Intake and Output: 12/01/16 12/01/16 06:59 18:59 Intake Total 640 Output Total 600 Balance 40 - Medications Medications: Current Medications Acetaminophen (Tylenol 325mg Tab) 650 mg PO Q6 PRN PRN Reason: Fever >100.4 F Last Admin: 11/19/16 21:37 Dose: 650 mg Albuterol/Ipratropium (Duoneb 3 Mg/0.5 Mg (3 Ml) Ud) 3 ml INH RQ4 [facility] Last Admin: 12/01/16 01:07 Dose: Not Given Artificial Tears (Artificial Tears) 0.1 ml OU Q8H [facility] Last Admin: 12/01/16 05:38 Dose: 1 drop Budesonide (Pulmicort Respules) 0.5 mg INH RQ12 [facility] Last Admin: 11/30/16 20:23 Dose: 0.5 mg Clotrimazole (Lotrimin 1%) 1 gm TOP BID [facility] Last Admin: 11/30/16 18:15 Dose: 1 applic Cyclobenzaprine HCl (Flexeril) 5 mg PO TID PRN PRN Reason: Pain, moderate (4-7) Last Admin: 11/28/16 22:18 Dose: 5 mg Diphenhydramine HCl (Benadryl) 25 mg PO Q6 [facility] Last Admin: 12/01/16 05:38 Dose: 25 mg Enoxaparin Sodium (Lovenox) 40 mg SC DAILY [facility] Last Admin: 11/30/16 09:32 Dose: 40 mg Guaifenesin/Dextromethorphan (Robitussin Dm) 5 ml PO Q4H PRN PRN Reason: Cough Last Admin: 11/28/16 22:18 Dose: 5 ml Cefepime HCl (Maxipime Iv 2 Gm Premix) 2 gm in 100 mls @ 100 mls/hr IVPB Q12H [facility] Last Admin: 12/01/16 00:29 Dose: 100 mls/hr Levothyroxine Sodium (Synthroid) 50 mcg PO DAILY@0630 [facility] Last Admin: 12/01/16 05:38 Dose: 50 mcg Montelukast Sodium (Singulair) 10 mg PO HS [facility] Last Admin: 11/30/16 21:01 Dose: 10 mg Naproxen (Anaprox) 275 mg PO BID [facility] Last Admin: 11/30/16 18:12 Dose: 275 mg Ondansetron HCl (Zofran Inj) 4 mg IVP Q6 PRN PRN Reason: Nausea/Vomiting Pantoprazole Sodium (Protonix Ec Tab) 40 mg PO DAILY [facility] Last Admin: 11/30/16 09:32 Dose: 40 mg Saccharomyces Boulardii (Florastor) 250 mg PO BID [facility] Last Admin: 11/30/16 18:13 Dose: 250 mg Simethicone (Mylicon Chew Tab) 80 mg PO Q12 PRN PRN Reason: GI distress Last Admin: 11/30/16 18:12 Dose: 80 mg Vitamin A (Vitamin A & D Oint Ud Foilpak) 0.5 ea TOP Q4 [facility] Last Admin: 12/01/16 03:53 Dose: Not Given - Labs Labs: 11/30/16 06:16 11/30/16 06:16 PT 12.0 SECONDS (9.7-12.2) 11/18/16 07:36 INR 1.1 11/18/16 07:36 APTT 31 SECONDS (21-34) 11/18/16 07:36 - Constitutional Appears: Non-toxic, No Acute Distress - Head Exam Head Exam: ATRAUMATIC, NORMAL INSPECTION - Eye Exam Eye Exam: EOMI, Normal appearance, PERRL Pupil Exam: NORMAL ACCOMODATION - ENT Exam ENT Exam: Mucous Membranes Moist - Neck Exam Neck Exam: Normal Inspection - Respiratory Exam Respiratory Exam: Decreased Breath Sounds, Rales, NORMAL BREATHING PATTERN. absent: Accessory Muscle Use, Chest Wall Tenderness, Rhonchi, Wheezes, Respiratory Distress - Cardiovascular Exam Cardiovascular Exam: REGULAR RHYTHM, +S1, +S2 - GI/Abdominal Exam GI & Abdominal Exam: Soft, Normal Bowel Sounds. absent: Distended, Firm, Guarding, Tenderness - Extremities Exam Extremities Exam: Normal Inspection. absent: Calf Tenderness, Pedal Edema - Back Exam Back Exam: NORMAL INSPECTION. absent: CVA tenderness (L), CVA tenderness (R), paraspinal tenderness - Neurological Exam Neurological Exam: Alert, Awake, CN II-XII Intact, Normal Gait, Oriented x3 Neuro motor strength exam: Left Upper Extremity: 5, Right Upper Extremity: 5, Left Lower Extremity: 5, Right Lower Extremity: 5 - Psychiatric Exam Psychiatric exam: Normal Affect, Normal Mood - Skin Skin Exam: Dry, Intact, Normal Color, Warm Assessment and Plan - Assessment and Plan (Free Text) Assessment: Assessment: 46F presenting with pseudomonal pneumonia Pneumonia * Sputum culture (11/18/16) Pseudomonas + * Cefepime 2 gm IVPB Q12H (Active since 11/21/16 until 12/05/16) - will need to complete IV ABX inpatient, not a candidate for outpatient infusions * CT Dissection (11/22/16): thoracic and abdominal aorta appear within normal limits of caliber, extensive cyclindrical bronchiestasis throughout the lower lobes, bilateral hilar adenopathy, mediastinal adenoopathy measuring up to 11mm. Hepatomegaly. numerous splenules. Right nephrectomy, 15mm left ovarian cyst, uterine fundal fibroid * CT chest (11/09/16): Re-demonstration of extensive cylindrical bronchiectasis with areas of mucoid impaction, tree-in-bud interstitial infiltrates as well as lingular consolidation (see full report) * CXR (11/02/16): Minimal interstitial prominence and peribronchiolar cuffing centrally. Findings consistent with mild reactive or inflammatory airway disease. Minimal basilar atelectasis (see full report) * CXR (11/17/16) - ill defined opactiies at both lung bases underlying infiltrate vs atelectasis. trace left pleural effusion (please see full report) * ID consult, Dr. Mendoza, help appreciated * Pulm consult, Dr. Crowley, help appreciated * PICC line in place * Duonebs RQ2 PRN * Pulmicort 0.5 mg INH RQ12 * Robitussin DM 5 ml PO Q4H PRN * Tylenol 650 mg PO Q6H PRN * Echo: wnl EF 65% Bronchectasis * Dr. Crowley (pulm) on board-->help appreciated * CT chest (11/09): Re-demonstration of extensive cylindrical bronchiectasis with areas of mucoid impaction, tree-in-bud interstitial infiltrates as well as lingular consolidation (see full report) * CXR (11/02): Minimal interstitial prominence and peribronchiolar cuffing centrally. Findings consistent with mild reactive or inflammatory airway disease. Minimal basilar atelectasis (see full report) * CXR (11/17/16) - ill defined opactiies at both lung bases underlying infiltrate vs atelectasis. trace left pleural effusion (please see full report) * CT Dissection (11/22/16): thoracic and abdominal aorta appear within normal limits of caliber, extensive cyclindrical bronchiestasis throughout the lower lobes, bilateral hilar adenopathy, mediastinal adenoopathy measuring up to 11mm. Hepatomegaly. numerous splenules. Right nephrectomy, 15mm left ovarian cyst, uterine fundal fibroid * ID consult, Dr. Mendoza, help appreciated * Pulm consult, Dr. Crowley, help appreciated * Duonebs RQ2 PRN * Pulmicort 0.5 mg INH RQ12 * Robotussin DM 5ml PO Q 4hour PRn cough * Alpha-antitrypsin negative COPD * PFTs done as outpatient shows Obstructive lung disease * Duonebs RQ2 PRN * Pulmicort 0.5 mg INH RQ12 * Peak-flows: 150 Fungal rash * Resolved * Groin area * Lotrim 1 top bid - discontinue, finished course Prophylactic Measures * Protonix 40 mg PO daily for GI ppx * SCDs b/l * Lovenox 40 mg SC daily for DVT ppx * Zofran 4 mg IVP Q6H PRN * PT/OT eval Back pain * likely musculoskeletal in nature * Flexeril 5mg PO TID prn * Naproxen BID [facility] * Simethicone prn Dry eyes * Artificial tears Disposition: * Will need IV inpatient ABX until 12/05/2016. <Sury Anne V - Last Filed: 12/01/16 20:50> Objective - Vital Signs/Intake and Output Vital Signs (last 24 hours): Temp Pulse Resp BP Pulse Ox 97.4 F L 90 20 128/81 96 12/01/16 15:00 12/01/16 15:00 12/01/16 15:00 12/01/16 15:00 12/01/16 15:00 Intake and Output: 12/01/16 12/02/16 18:59 06:59 Intake Total 400 Output Total 700 Balance -300 - Medications Medications: Current Medications Acetaminophen (Tylenol 325mg Tab) 650 mg PO Q6 PRN PRN Reason: Fever >100.4 F Last Admin: 11/19/16 21:37 Dose: 650 mg Albuterol/Ipratropium (Duoneb 3 Mg/0.5 Mg (3 Ml) Ud) 3 ml INH RQ4 [facility] Last Admin: 12/01/16 14:02 Dose: 3 ml Artificial Tears (Artificial Tears) 0.1 ml OU Q8H [facility] Last Admin: 12/01/16 14:27 Dose: 1 drop Budesonide (Pulmicort Respules) 0.5 mg INH RQ12 [facility] Last Admin: 12/01/16 07:54 Dose: 0.5 mg Cyclobenzaprine HCl (Flexeril) 5 mg PO TID PRN PRN Reason: Pain, moderate (4-7) Last Admin: 11/28/16 22:18 Dose: 5 mg Enoxaparin Sodium (Lovenox) 40 mg SC DAILY [facility] Last Admin: 12/01/16 09:04 Dose: 40 mg Guaifenesin/Dextromethorphan (Robitussin Dm) 5 ml PO Q4H PRN PRN Reason: Cough Last Admin: 12/01/16 09:05 Dose: 5 ml Cefepime HCl (Maxipime Iv 2 Gm Premix) 2 gm in 100 mls @ 100 mls/hr IVPB Q12H [facility] Last Admin: 12/01/16 13:50 Dose: 100 mls/hr Levothyroxine Sodium (Synthroid) 50 mcg PO DAILY@0630 [facility] Last Admin: 12/01/16 05:38 Dose: 50 mcg Montelukast Sodium (Singulair) 10 mg PO HS [facility] Last Admin: 11/30/16 21:01 Dose: 10 mg Naproxen (Anaprox) 275 mg PO BID [facility] Last Admin: 12/01/16 17:44 Dose: 275 mg Ondansetron HCl (Zofran Inj) 4 mg IVP Q6 PRN PRN Reason: Nausea/Vomiting Pantoprazole Sodium (Protonix Ec Tab) 40 mg PO DAILY [facility] Last Admin: 12/01/16 09:04 Dose: 40 mg Saccharomyces Boulardii (Florastor) 250 mg PO BID [facility] Last Admin: 12/01/16 17:44 Dose: 250 mg Simethicone (Mylicon Chew Tab) 80 mg PO Q12 PRN PRN Reason: GI distress Last Admin: 11/30/16 18:12 Dose: 80 mg Vitamin A (Vitamin A & D Oint Ud Foilpak) 0.5 ea TOP Q4 [facility] Last Admin: 12/01/16 12:00 Dose: Not Given - Labs Labs: 12/01/16 07:41 12/01/16 07:41 PT 12.0 SECONDS (9.7-12.2) 11/18/16 07:36 INR 1.1 11/18/16 07:36 APTT 31 SECONDS (21-34) 11/18/16 07:36 Attending/Attestation - Attestation I have personally seen and examined this patient.: Yes I have fully participated in the care of the patient.: Yes I have reviewed all pertinent clinical information, including history, physical exam and plan: Yes Notes (Text): Patient seen, examined, and case discussed with day-time resident. Patient denies acute complaints. Patient is currently finishing IV abx therapy of Pseudomonas pneumonia. Assessment/Plan 1. Pneumonia * CT Dissection (11/22/16): thoracic and abdominal aorta appear within normal limits of caliber, extensive cyclindrical bronchiestasis throughout the lower lobes, bilateral hilar adenopathy, mediastinal adenoopathy measuring up to 11mm. Hepatomegaly. numerous splenules. Right nephrectomy, 15mm left ovarian cyst, uterine fundal fibroid * CT chest (11/09/16): Re-demonstration of extensive cylindrical bronchiectasis with areas of mucoid impaction, tree-in-bud interstitial infiltrates as well as lingular consolidation (see full report) * CXR (11/02/16): Minimal interstitial prominence and peribronchiolar cuffing centrally. Findings consistent with mild reactive or inflammatory airway disease. Minimal basilar atelectasis (see full report) * CXR (11/17/16) - ill defined opactiies at both lung bases underlying infiltrate vs atelectasis. trace left pleural effusion (please see full report) * Sputum culture (11/03) Pseudomonas + * Sputum culture (11/18/16) Pseudomonas + * ID consult, Dr. Mendoza, help appreciated * Pulm consult, Dr. Crowley, help appreciated * PICC line in place * Cefepime 2 gm IVPB Q12H (Active since 11/21/16 until 12/05/16) * Duonebs RQ2 PRN * Pulmicort 0.5 mg INH RQ12 * Robitussin DM 5 ml PO Q4H PRN * Tylenol 650 mg PO Q6H PRN * Anaprox 275mg PO bid * Echo:EF: 65%; normal 2. Bronchectasis * Dr. Crowley (pul) on board-->help appreciated * CT chest (11/09): Re-demonstration of extensive cylindrical bronchiectasis with areas of mucoid impaction, tree-in-bud interstitial infiltrates as well as lingular consolidation (see full report) * CXR (11/02): Minimal interstitial prominence and peribronchiolar cuffing centrally. Findings consistent with mild reactive or inflammatory airway disease. Minimal basilar atelectasis (see full report) * CXR (11/17/16) - ill defined opactiies at both lung bases underlying infiltrate vs atelectasis. trace left pleural effusion (please see full report) * CT Dissection (11/22/16): thoracic and abdominal aorta appear within normal limits of caliber, extensive cyclindrical bronchiestasis throughout the lower lobes, bilateral hilar adenopathy, mediastinal adenoopathy measuring up to 11mm. Hepatomegaly. numerous splenules. Right nephrectomy, 15mm left ovarian cyst, uterine fundal fibroid * ID consult, Dr. Mendoza, help appreciated * Pulm consult, Dr. Crowley, help appreciated * Duonebs RQ2 PRN * Pulmicort 0.5 mg INH RQ12 * Robotussin DM 5ml PO Q 4hour PRn cough * Alpha-antitrypsin: 128 3. COPD * Pulmonary (Dr. Crowley) on board-->help appreciated * PFTs done as outpatient shows Obstructive lung disease * Duonebs RQ2 PRN * Pulmicort 0.5 mg INH RQ12 * Peak-flows: 150 4. Fungal rash * Groin area * Lotrim 1 top bid d/c today * Benadryl 25mg PO Q 6hour PRN pruitus 5. Prophylactic Measures * Protonix 40 mg PO daily for GI ppx * SCDs b/l * Lovenox 40 mg SC daily for DVT ppx * Zofran 4 mg IVP Q6H PRN * PT/OT eval Disposition: * Patient's antibiotic is currently twice a day for two weeks total; requiring inpatient IV infusion
[2016-12-01 07:49] LABS: EOS # 0.4 K/uL (0.0-0.7); MEAN CELL VOLUME 69.8 fL (81.0-99.0); MEAN PLATELET VOLUME 8.7 fL (7.2-11.7); MONO # 0.6 K/uL (0.0-0.8)
[2016-12-01] MEDS: Budesonide 0.5 mg/2 ml Inhal Susp UD INH SCH ×2 (07:54→21:00)
[2016-12-01 08:06] LABS: BASO % 0.4 % (0.0-2.0); HEMATOCRIT 37.1 % (34.0-47.0); LYMPH # 2.3 K/uL (1.0-4.3); MEAN CORPUSCULAR HEMOGLOBIN 21.7 pg (27.0-31.0); MEAN CORPUSCULAR HGB CONC 31.1 g/dL (33.0-37.0); MONO % 7.8 % (0.0-10.0); NRBC % 0.2 % (0.0-2.0); RED CELL DISTRIBUTION WIDTH 17.3 % (11.5-14.5)
[2016-12-01 08:13] LABS: CHLORIDE 102 mmol/L (98-107); SODIUM 139 mmol/L (132-148)
[2016-12-01 08:15] LABS: ALB/GLOB RATIO 1.2 (1.0-2.1); ALKALINE PHOSPHATASE 44 U/L (38-126); AST/SGOT 28 U/L (14-36); BILIRUBIN,TOTAL 0.5 mg/dL (0.2-1.3); CARBON DIOXIDE 28 mmol/L (22-30); GFR AFRICAN-AMERICAN > 60; TOTAL PROTEIN 6.4 g/dL (6.3-8.3)
[2016-12-01 08:16] LABS: ALT/SGPT 38 U/L (9-52); BLOOD UREA NITROGEN 18 mg/dL (7-17); CALCIUM 9.1 mg/dl (8.6-10.4); GLUCOSE,RANDOM 87 mg/dL (65-105); MAGNESIUM 2.1 mg/dL (1.6-2.3); PHOSPHOROUS 3.9 mg/dL (2.5-4.5)
[2016-12-01] MEDS: Saccharomyces Boulardi 250 mg Cap PO SCH ×2 (09:04→17:44)
[2016-12-01] MEDS: Enoxaparin 40 mg Syringe SC SCH (09:04)
[2016-12-01] MEDS: Pantoprazole 40 mg EC Tab PO SCH (09:04)
[2016-12-01] MEDS: guaiFENesin DM 100 mg-10 mg/5 ml UD PO PRN (09:05)
[2016-12-01] MEDS: Naproxen 275 mg Tab PO SCH ×2 (09:05→17:44)
[2016-12-01] MEDS: Clotrimazole 1% Cream(30 gm) TOP SCH (09:06)
[2016-12-01] MEDS: Simethicone 80 mg Chewtab PO PRN (21:06)
[2016-12-02] MEDS: Albuterol-Ipratrop 3 mg / 0.5 (3 ml) UD INH SCH ×6 (00:16→19:52)
[2016-12-02] MEDS: Vitamins A & D Oint UD Foilpak TOP SCH ×6 (00:41→23:42)
[2016-12-02] MEDS: Cefepime IV 2 gm in Dextrose 2 GM/100 ML BAG IVPB SCH ×2 (00:59→11:47)
[2016-12-02] MEDS: Levothyroxine 50 MCG TAB PO SCH (05:41)
--- NOTE | 2016-12-02 07:18 | CP.PCM.PN ---
<Paris Eric - Last Filed: 12/02/16 15:59> Subjective - Date & Time of Evaluation Date of Evaluation: 12/02/16 Time of Evaluation: 07:00 - Subjective Subjective: Pt seen and evaluated at bedside. Nursing reports no adverse events overnight. Today, pt is comfortable and in no acute distress. Pt states that her breathing is good today and that her back pain has resolved. Pt has no other complaints at this time. Pt denies fever, chills, headache, chest pain, palpitations, shortness of breath, back pain, abdominal pain, bowel/bladder pain or leg swelling/pain. Pt tolerating diet and medications well. Objective - Vital Signs/Intake and Output Vital Signs (last 24 hours): Temp Pulse Resp BP Pulse Ox 98.2 F 85 20 118/57 L 94 L 12/02/16 00:00 12/02/16 00:00 12/02/16 00:00 12/02/16 00:00 12/02/16 00:00 Intake and Output: 12/02/16 12/02/16 06:59 18:59 Intake Total 300 Output Total 700 Balance -400 - Medications Medications: Current Medications Acetaminophen (Tylenol 325mg Tab) 650 mg PO Q6 PRN PRN Reason: Fever >100.4 F Last Admin: 11/19/16 21:37 Dose: 650 mg Albuterol/Ipratropium (Duoneb 3 Mg/0.5 Mg (3 Ml) Ud) 3 ml INH RQ4 [facility] Last Admin: 12/02/16 04:11 Dose: Not Given Artificial Tears (Artificial Tears) 0.1 ml OU Q8H [facility] Last Admin: 12/01/16 21:07 Dose: 1 drop Budesonide (Pulmicort Respules) 0.5 mg INH RQ12 [facility] Last Admin: 12/01/16 21:00 Dose: 0.5 mg Cyclobenzaprine HCl (Flexeril) 5 mg PO TID PRN PRN Reason: Pain, moderate (4-7) Last Admin: 11/28/16 22:18 Dose: 5 mg Enoxaparin Sodium (Lovenox) 40 mg SC DAILY [facility] Last Admin: 12/01/16 09:04 Dose: 40 mg Guaifenesin/Dextromethorphan (Robitussin Dm) 5 ml PO Q4H PRN PRN Reason: Cough Last Admin: 12/01/16 09:05 Dose: 5 ml Cefepime HCl (Maxipime Iv 2 Gm Premix) 2 gm in 100 mls @ 100 mls/hr IVPB Q12H [facility] Last Admin: 12/02/16 00:59 Dose: 100 mls/hr Levothyroxine Sodium (Synthroid) 50 mcg PO DAILY@0630 [facility] Last Admin: 12/02/16 05:41 Dose: 50 mcg Montelukast Sodium (Singulair) 10 mg PO HS [facility] Last Admin: 12/01/16 21:06 Dose: 10 mg Naproxen (Anaprox) 275 mg PO BID [facility] Last Admin: 12/01/16 17:44 Dose: 275 mg Ondansetron HCl (Zofran Inj) 4 mg IVP Q6 PRN PRN Reason: Nausea/Vomiting Pantoprazole Sodium (Protonix Ec Tab) 40 mg PO DAILY [facility] Last Admin: 12/01/16 09:04 Dose: 40 mg Saccharomyces Boulardii (Florastor) 250 mg PO BID [facility] Last Admin: 12/01/16 17:44 Dose: 250 mg Simethicone (Mylicon Chew Tab) 80 mg PO Q12 PRN PRN Reason: GI distress Last Admin: 12/01/16 21:06 Dose: 80 mg Vitamin A (Vitamin A & D Oint Ud Foilpak) 0.5 ea TOP Q4 [facility] Last Admin: 12/02/16 04:00 Dose: 0.5 ea - Labs Labs: 12/01/16 07:41 12/01/16 07:41 PT 12.0 SECONDS (9.7-12.2) 11/18/16 07:36 INR 1.1 11/18/16 07:36 APTT 31 SECONDS (21-34) 11/18/16 07:36 - Constitutional Appears: Non-toxic, No Acute Distress - Head Exam Head Exam: NORMAL INSPECTION, NORMOCEPHALIC - Eye Exam Eye Exam: EOMI, Normal appearance, PERRL Pupil Exam: NORMAL ACCOMODATION - ENT Exam ENT Exam: Mucous Membranes Moist - Respiratory Exam Respiratory Exam: Decreased Breath Sounds, Rales, NORMAL BREATHING PATTERN. absent: Accessory Muscle Use, Rhonchi, Wheezes, Respiratory Distress, Stridor - Cardiovascular Exam Cardiovascular Exam: REGULAR RHYTHM, +S1, +S2 - GI/Abdominal Exam GI & Abdominal Exam: Soft, Normal Bowel Sounds. absent: Distended, Firm, Guarding, Tenderness - Extremities Exam Extremities Exam: Normal Inspection. absent: Calf Tenderness, Pedal Edema - Back Exam Back Exam: NORMAL INSPECTION. absent: CVA tenderness (L), CVA tenderness (R), paraspinal tenderness - Neurological Exam Neurological Exam: Alert, Awake, CN II-XII Intact, Normal Gait, Oriented x3 Neuro motor strength exam: Left Upper Extremity: 5, Right Upper Extremity: 5, Left Lower Extremity: 5, Right Lower Extremity: 5 - Psychiatric Exam Psychiatric exam: Normal Affect, Normal Mood - Skin Skin Exam: Dry, Intact, Normal Color, Warm Assessment and Plan - Assessment and Plan (Free Text) Assessment: Assessment: 46F presenting with pseudomonal pneumonia Pneumonia * Sputum culture (11/18/16) Pseudomonas + * Cefepime 2 gm IVPB Q12H (Active since 11/21/16 until 12/05/16) - will need to complete IV ABX inpatient, not a candidate for outpatient infusions * CT Dissection (11/22/16): thoracic and abdominal aorta appear within normal limits of caliber, extensive cyclindrical bronchiestasis throughout the lower lobes, bilateral hilar adenopathy, mediastinal adenoopathy measuring up to 11mm. Hepatomegaly. numerous splenules. Right nephrectomy, 15mm left ovarian cyst, uterine fundal fibroid * CT chest (11/09/16): Re-demonstration of extensive cylindrical bronchiectasis with areas of mucoid impaction, tree-in-bud interstitial infiltrates as well as lingular consolidation (see full report) * CXR (11/02/16): Minimal interstitial prominence and peribronchiolar cuffing centrally. Findings consistent with mild reactive or inflammatory airway disease. Minimal basilar atelectasis (see full report) * CXR (11/17/16) - ill defined opactiies at both lung bases underlying infiltrate vs atelectasis. trace left pleural effusion (please see full report) * ID consult, Dr. Mendoza, help appreciated * Pulm consult, Dr. Crowley, help appreciated * PICC line in place * Duonebs RQ2 PRN * Pulmicort 0.5 mg INH RQ12 * Robitussin DM 5 ml PO Q4H PRN * Tylenol 650 mg PO Q6H PRN * Echo: wnl EF 65% Bronchectasis * Dr. Crowley (pulm) on board-->help appreciated * CT chest (11/09): Re-demonstration of extensive cylindrical bronchiectasis with areas of mucoid impaction, tree-in-bud interstitial infiltrates as well as lingular consolidation (see full report) * CXR (11/02): Minimal interstitial prominence and peribronchiolar cuffing centrally. Findings consistent with mild reactive or inflammatory airway disease. Minimal basilar atelectasis (see full report) * CXR (11/17/16) - ill defined opactiies at both lung bases underlying infiltrate vs atelectasis. trace left pleural effusion (please see full report) * CT Dissection (11/22/16): thoracic and abdominal aorta appear within normal limits of caliber, extensive cyclindrical bronchiestasis throughout the lower lobes, bilateral hilar adenopathy, mediastinal adenoopathy measuring up to 11mm. Hepatomegaly. numerous splenules. Right nephrectomy, 15mm left ovarian cyst, uterine fundal fibroid * ID consult, Dr. Mendoza, help appreciated * Pulm consult, Dr. Crowley, help appreciated * Duonebs RQ2 PRN * Pulmicort 0.5 mg INH RQ12 * Robotussin DM 5ml PO Q 4hour PRn cough * Alpha-antitrypsin negative: 128 COPD * Pulmonary (Dr. Crowley) on board-->help appreciated * PFTs done as outpatient shows Obstructive lung disease * Duonebs RQ2 PRN * Pulmicort 0.5 mg INH RQ12 * Peak-flows: 150 Fungal rash * Resolved * Groin area * Lotrim 1 top bid - discontinue, finished course Prophylactic Measures * Protonix 40 mg PO daily for GI ppx * SCDs b/l * Lovenox 40 mg SC daily for DVT ppx * Zofran 4 mg IVP Q6H PRN * PT/OT eval Back pain * likely musculoskeletal in nature * Flexeril 5mg PO TID prn * Naproxen BID KIMBER * Simethicone prn Dry eyes * Artificial tears Disposition: * Will need IV antibiotics twice a day until 12/05/2016 <Sury Anne V - Last Filed: 12/02/16 21:47> Objective - Vital Signs/Intake and Output Vital Signs (last 24 hours): Temp Pulse Resp BP Pulse Ox 98.3 F 91 H 20 114/80 95 12/02/16 15:00 12/02/16 15:00 12/02/16 15:00 12/02/16 15:00 12/02/16 15:00 Intake and Output: 12/02/16 12/03/16 18:59 06:59 Intake Total 700 Balance 700 - Medications Medications: Current Medications Acetaminophen (Tylenol 325mg Tab) 650 mg PO Q6 PRN PRN Reason: Fever >100.4 F Last Admin: 11/19/16 21:37 Dose: 650 mg Albuterol/Ipratropium (Duoneb 3 Mg/0.5 Mg (3 Ml) Ud) 3 ml INH RQ4 [facility] Last Admin: 12/02/16 19:52 Dose: 3 ml Artificial Tears (Artificial Tears) 0.1 ml OU Q8H [facility] Last Admin: 12/02/16 13:53 Dose: 1 drop Budesonide (Pulmicort Respules) 0.5 mg INH RQ12 [facility] Last Admin: 12/02/16 19:52 Dose: 0.5 mg Cyclobenzaprine HCl (Flexeril) 5 mg PO TID PRN PRN Reason: Pain, moderate (4-7) Last Admin: 12/02/16 15:32 Dose: 5 mg Enoxaparin Sodium (Lovenox) 40 mg SC DAILY [facility] Last Admin: 12/02/16 09:28 Dose: 40 mg Guaifenesin/Dextromethorphan (Robitussin Dm) 5 ml PO Q4H PRN PRN Reason: Cough Last Admin: 12/01/16 09:05 Dose: 5 ml Cefepime HCl (Maxipime Iv 2 Gm Premix) 2 gm in 100 mls @ 100 mls/hr IVPB Q12H [facility] Last Admin: 12/02/16 11:47 Dose: 100 mls/hr Levothyroxine Sodium (Synthroid) 50 mcg PO DAILY@0630 [facility] Last Admin: 12/02/16 05:41 Dose: 50 mcg Montelukast Sodium (Singulair) 10 mg PO HS [facility] Last Admin: 12/01/16 21:06 Dose: 10 mg Naproxen (Anaprox) 275 mg PO BID [facility] Last Admin: 12/02/16 17:56 Dose: 275 mg Ondansetron HCl (Zofran Inj) 4 mg IVP Q6 PRN PRN Reason: Nausea/Vomiting Pantoprazole Sodium (Protonix Ec Tab) 40 mg PO DAILY [facility] Last Admin: 12/02/16 09:28 Dose: 40 mg Saccharomyces Boulardii (Florastor) 250 mg PO BID [facility] Last Admin: 12/02/16 17:57 Dose: 250 mg Simethicone (Mylicon Chew Tab) 80 mg PO Q12 PRN PRN Reason: GI distress Last Admin: 12/02/16 09:28 Dose: 80 mg Vitamin A (Vitamin A & D Oint Ud Foilpak) 0.5 ea TOP Q4 [facility] Last Admin: 12/02/16 15:33 Dose: Not Given - Labs Labs: 12/02/16 07:33 12/02/16 07:33 PT 12.0 SECONDS (9.7-12.2) 11/18/16 07:36 INR 1.1 11/18/16 07:36 APTT 31 SECONDS (21-34) 11/18/16 07:36 Attending/Attestation - Attestation I have personally seen and examined this patient.: Yes I have fully participated in the care of the patient.: Yes I have reviewed all pertinent clinical information, including history, physical exam and plan: Yes Notes (Text): Patient seen, examined, and case discussed with day-time resident. Patient denies acute complaints. Patient tolerating diet and seen walking on the hospital floors with ease. Patient is currently finishing IV abx therapy of Pseudomonas pneumonia. Assessment/Plan 1. Pneumonia * CT Dissection (11/22/16): thoracic and abdominal aorta appear within normal limits of caliber, extensive cyclindrical bronchiestasis throughout the lower lobes, bilateral hilar adenopathy, mediastinal adenoopathy measuring up to 11mm. Hepatomegaly. numerous splenules. Right nephrectomy, 15mm left ovarian cyst, uterine fundal fibroid * CT chest (11/09/16): Re-demonstration of extensive cylindrical bronchiectasis with areas of mucoid impaction, tree-in-bud interstitial infiltrates as well as lingular consolidation (see full report) * CXR (11/02/16): Minimal interstitial prominence and peribronchiolar cuffing centrally. Findings consistent with mild reactive or inflammatory airway disease. Minimal basilar atelectasis (see full report) * CXR (11/17/16) - ill defined opactiies at both lung bases underlying infiltrate vs atelectasis. trace left pleural effusion (please see full report) * Sputum culture (11/03) Pseudomonas + * Sputum culture (11/18/16) Pseudomonas + * ID consult, Dr. Mendoza, help appreciated * Pulm consult, Dr. Crowley, help appreciated * PICC line in place * Cefepime 2 gm IVPB Q12H (Active since 11/21/16 until 12/05/16) * Duonebs RQ2 PRN * Pulmicort 0.5 mg INH RQ12 * Robitussin DM 5 ml PO Q4H PRN * Tylenol 650 mg PO Q6H PRN * Anaprox 275mg PO bid * Echo:EF: 65%; normal * Florastor 250mg PO bid 2. Bronchiectasis * Dr. Crowley (pul) on board-->help appreciated * CT chest (11/09): Re-demonstration of extensive cylindrical bronchiectasis with areas of mucoid impaction, tree-in-bud interstitial infiltrates as well as lingular consolidation (see full report) * CXR (11/02): Minimal interstitial prominence and peribronchiolar cuffing centrally. Findings consistent with mild reactive or inflammatory airway disease. Minimal basilar atelectasis (see full report) * CXR (11/17/16) - ill defined opactiies at both lung bases underlying infiltrate vs atelectasis. trace left pleural effusion (please see full report) * CT Dissection (11/22/16): thoracic and abdominal aorta appear within normal limits of caliber, extensive cyclindrical bronchiestasis throughout the lower lobes, bilateral hilar adenopathy, mediastinal adenoopathy measuring up to 11mm. Hepatomegaly. numerous splenules. Right nephrectomy, 15mm left ovarian cyst, uterine fundal fibroid * ID consult, Dr. Mendoza, help appreciated * Pulm consult, Dr. Crowley, help appreciated * Duonebs RQ2 PRN * Pulmicort 0.5 mg INH RQ12 * Robotussin DM 5ml PO Q 4hour PRn cough * Alpha-antitrypsin: 128 3. COPD * Pulmonary (Dr. Crowley) on board-->help appreciated * PFTs done as outpatient shows Obstructive lung disease * Duonebs RQ2 PRN * Pulmicort 0.5 mg INH RQ12 * Peak-flows: 150-->210 4. Fungal rash * Completed 1 week therapy of Lotrim * Benadryl 25mg PO Q 6hour PRN pruitus 5. Prophylactic Measures * Protonix 40 mg PO daily for GI ppx * SCDs b/l * Lovenox 40 mg SC daily for DVT ppx * Zofran 4 mg IVP Q6H PRN * PT/OT eval Disposition: * Patient's antibiotic is currently twice a day for two weeks total; requiring inpatient IV infusion until 12/05/16 * Patient will need assistance for transportation on day of discharge; reports she does not have family who can pick her up
[2016-12-02] MEDS: Aritificial Tears (15ml) OU SCH ×3 (07:36→22:07)
[2016-12-02 07:53] LABS: BASO % 0.4 % (0.0-2.0); EOS # 0.4 K/uL (0.0-0.7); EOS % 5.2 % (0.0-4.0); HEMATOCRIT 38.7 % (34.0-47.0); LYMPH # 2.5 K/uL (1.0-4.3); LYMPH % 28.6 % (20.0-40.0); MEAN CELL VOLUME 70.2 fL (81.0-99.0); MEAN CORPUSCULAR HEMOGLOBIN 21.7 pg (27.0-31.0); MEAN CORPUSCULAR HGB CONC 30.9 g/dL (33.0-37.0); MEAN PLATELET VOLUME 8.6 fL (7.2-11.7); MONO # 0.7 K/uL (0.0-0.8); NRBC % 0.1 % (0.0-2.0); RED CELL DISTRIBUTION WIDTH 17.4 % (11.5-14.5); WHITE BLOOD COUNT 8.6 K/uL (4.8-10.8)
[2016-12-02] MEDS: Budesonide 0.5 mg/2 ml Inhal Susp UD INH SCH ×2 (07:57→19:52)
[2016-12-02 08:22] LABS: CHLORIDE 99 mmol/L (98-107); SODIUM 137 mmol/L (132-148)
[2016-12-02 08:24] LABS: ALB/GLOB RATIO 1.2 (1.0-2.1); ALKALINE PHOSPHATASE 49 U/L (38-126); AST/SGOT 27 U/L (14-36); BILIRUBIN,TOTAL 0.5 mg/dL (0.2-1.3); BLOOD UREA NITROGEN 20 mg/dL (7-17); CARBON DIOXIDE 25 mmol/L (22-30); GFR AFRICAN-AMERICAN > 60; GLUCOSE,RANDOM 89 mg/dL (65-105); TOTAL PROTEIN 7.1 g/dL (6.3-8.3)
[2016-12-02 08:25] LABS: ALT/SGPT 40 U/L (9-52); CALCIUM 8.9 mg/dl (8.6-10.4); MAGNESIUM 1.9 mg/dL (1.6-2.3); PHOSPHOROUS 4.2 mg/dL (2.5-4.5)
[2016-12-02] MEDS: Naproxen 275 mg Tab PO SCH ×2 (09:27→17:56)
[2016-12-02] MEDS: Simethicone 80 mg Chewtab PO PRN (09:28)
[2016-12-02] MEDS: Pantoprazole 40 mg EC Tab PO SCH (09:28)
[2016-12-02] MEDS: Enoxaparin 40 mg Syringe SC SCH (09:28)
[2016-12-02] MEDS: Saccharomyces Boulardi 250 mg Cap PO SCH ×2 (09:28→17:57)
[2016-12-03] MEDS: Cefepime IV 2 gm in Dextrose 2 GM/100 ML BAG IVPB SCH ×3 (00:05→23:52)
[2016-12-03] MEDS: Albuterol-Ipratrop 3 mg / 0.5 (3 ml) UD INH SCH ×6 (00:33→21:09)
[2016-12-03] MEDS: Levothyroxine 50 MCG TAB PO SCH (05:48)
[2016-12-03] MEDS: Aritificial Tears (15ml) OU SCH ×3 (05:48→21:31)
[2016-12-03] MEDS: Vitamins A & D Oint UD Foilpak TOP SCH ×6 (05:49→23:52)
[2016-12-03 07:27] LABS: BASO % 0.3 % (0.0-2.0); EOS # 0.4 K/uL (0.0-0.7); EOS % 5.9 % (0.0-4.0); HEMATOCRIT 38.4 % (34.0-47.0); LYMPH % 27.1 % (20.0-40.0); MEAN CELL VOLUME 69.5 fL (81.0-99.0); MEAN CORPUSCULAR HEMOGLOBIN 21.7 pg (27.0-31.0); MEAN CORPUSCULAR HGB CONC 31.3 g/dL (33.0-37.0); MEAN PLATELET VOLUME 8.8 fL (7.2-11.7); MONO # 0.6 K/uL (0.0-0.8); MONO % 8.2 % (0.0-10.0); NRBC % 0.1 % (0.0-2.0); RED CELL DISTRIBUTION WIDTH 17.5 % (11.5-14.5); WHITE BLOOD COUNT 7.4 K/uL (4.8-10.8)
[2016-12-03 07:55] LABS: CHLORIDE 104 mmol/L (98-107); SODIUM 138 mmol/L (132-148)
[2016-12-03 07:58] LABS: ALB/GLOB RATIO 1.2 (1.0-2.1); ALKALINE PHOSPHATASE 46 U/L (38-126); ALT/SGPT 32 U/L (9-52); AST/SGOT 23 U/L (14-36); BILIRUBIN,TOTAL 0.6 mg/dL (0.2-1.3); BLOOD UREA NITROGEN 20 mg/dL (7-17); CARBON DIOXIDE 26 mmol/L (22-30); GFR AFRICAN-AMERICAN > 60; GLUCOSE,RANDOM 100 mg/dL (65-105); PHOSPHOROUS 3.8 mg/dL (2.5-4.5); TOTAL PROTEIN 6.6 g/dL (6.3-8.3)
[2016-12-03] MEDS ORDERED: Pantoprazole 40 mg EC Tab PO SCH (08:16)
[2016-12-03] MEDS: Pantoprazole 40 mg EC Tab PO SCH ×2 (08:29→09:20)
[2016-12-03] MEDS: Simethicone 80 mg Chewtab PO PRN (08:30)
[2016-12-03] MEDS: Budesonide 0.5 mg/2 ml Inhal Susp UD INH SCH ×2 (08:36→21:09)
[2016-12-03] MEDS: Naproxen 275 mg Tab PO SCH ×2 (09:18→17:45)
[2016-12-03] MEDS: Enoxaparin 40 mg Syringe SC SCH (09:19)
[2016-12-03] MEDS: Saccharomyces Boulardi 250 mg Cap PO SCH ×2 (09:19→17:46)
--- NOTE | 2016-12-03 10:13 | CP.PCM.PN ---
Subjective - Date & Time of Evaluation Date of Evaluation: 12/03/16 Time of Evaluation: 07:15 - Subjective Subjective: Pt seen and evaluated at bedside. Nursing reports no adverse events overnight. Today, pt is comfortable and in no acute distress. She was requesting that her protnix be given earlier before she eats breakfast. Pt has no other complaints at this time. Pt denies fever, chills, headache, chest pain, palpitations, shortness of breath, back pain, abdominal pain, bowel/bladder pain or leg swelling/pain. Pt tolerating diet and medications well. Objective - Vital Signs/Intake and Output Vital Signs (last 24 hours): Temp Pulse Resp BP Pulse Ox 97.9 F 89 20 100/63 97 12/03/16 07:47 12/03/16 07:47 12/03/16 07:47 12/03/16 07:47 12/03/16 07:47 Intake and Output: 12/03/16 12/03/16 06:59 18:59 Intake Total 300 Balance 300 - Medications Medications: Current Medications Acetaminophen (Tylenol 325mg Tab) 650 mg PO Q6 PRN PRN Reason: Fever >100.4 F Last Admin: 11/19/16 21:37 Dose: 650 mg Albuterol/Ipratropium (Duoneb 3 Mg/0.5 Mg (3 Ml) Ud) 3 ml INH RQ4 [facility] Last Admin: 12/03/16 08:36 Dose: 3 ml Artificial Tears (Artificial Tears) 0.1 ml OU Q8H [facility] Last Admin: 12/03/16 05:48 Dose: 1 drop Budesonide (Pulmicort Respules) 0.5 mg INH RQ12 [facility] Last Admin: 12/03/16 08:36 Dose: 0.5 mg Cyclobenzaprine HCl (Flexeril) 5 mg PO TID PRN PRN Reason: Pain, moderate (4-7) Last Admin: 12/03/16 09:19 Dose: 5 mg Enoxaparin Sodium (Lovenox) 40 mg SC DAILY [facility] Last Admin: 12/03/16 09:19 Dose: 40 mg Guaifenesin/Dextromethorphan (Robitussin Dm) 5 ml PO Q4H PRN PRN Reason: Cough Last Admin: 12/01/16 09:05 Dose: 5 ml Cefepime HCl (Maxipime Iv 2 Gm Premix) 2 gm in 100 mls @ 100 mls/hr IVPB Q12H [facility] Last Admin: 12/03/16 00:05 Dose: 100 mls/hr Levothyroxine Sodium (Synthroid) 50 mcg PO DAILY@0630 [facility] Last Admin: 12/03/16 05:48 Dose: 50 mcg Montelukast Sodium (Singulair) 10 mg PO HS [facility] Last Admin: 12/02/16 22:08 Dose: 10 mg Naproxen (Anaprox) 275 mg PO BID [facility] Last Admin: 12/03/16 09:18 Dose: 275 mg Ondansetron HCl (Zofran Inj) 4 mg IVP Q6 PRN PRN Reason: Nausea/Vomiting Pantoprazole Sodium (Protonix Ec Tab) 40 mg PO DAILY [facility] Last Admin: 12/03/16 09:20 Dose: Not Given Saccharomyces Boulardii (Florastor) 250 mg PO BID [facility] Last Admin: 12/03/16 09:19 Dose: 250 mg Simethicone (Mylicon Chew Tab) 80 mg PO Q12 PRN PRN Reason: GI distress Last Admin: 12/03/16 08:30 Dose: 80 mg Vitamin A (Vitamin A & D Oint Ud Foilpak) 0.5 ea TOP Q4 [facility] Last Admin: 12/03/16 07:49 Dose: Not Given - Labs Labs: 12/03/16 07:07 12/03/16 07:07 PT 12.0 SECONDS (9.7-12.2) 11/18/16 07:36 INR 1.1 11/18/16 07:36 APTT 31 SECONDS (21-34) 11/18/16 07:36 - Constitutional Appears: Non-toxic, No Acute Distress - Head Exam Head Exam: ATRAUMATIC, NORMAL INSPECTION - Eye Exam Eye Exam: EOMI, Normal appearance Pupil Exam: NORMAL ACCOMODATION - ENT Exam ENT Exam: Mucous Membranes Moist - Respiratory Exam Respiratory Exam: Decreased Breath Sounds, NORMAL BREATHING PATTERN. absent: Accessory Muscle Use, Respiratory Distress - Cardiovascular Exam Cardiovascular Exam: REGULAR RHYTHM, +S1, +S2 - GI/Abdominal Exam GI & Abdominal Exam: Soft, Normal Bowel Sounds. absent: Distended, Firm, Guarding, Tenderness - Extremities Exam Extremities Exam: Normal Inspection. absent: Calf Tenderness, Pedal Edema - Back Exam Back Exam: NORMAL INSPECTION. absent: CVA tenderness (L), CVA tenderness (R), paraspinal tenderness - Neurological Exam Neurological Exam: Alert, Awake, CN II-XII Intact, Normal Gait, Oriented x3 Neuro motor strength exam: Left Upper Extremity: 5, Right Upper Extremity: 5, Left Lower Extremity: 5, Right Lower Extremity: 5 - Psychiatric Exam Psychiatric exam: Normal Affect, Normal Mood - Skin Skin Exam: Dry, Intact, Normal Color, Warm Assessment and Plan - Assessment and Plan (Free Text) Assessment: Assessment: 46F presenting with pseudomonal pneumonia Pneumonia * Sputum culture (11/18/16) Pseudomonas + * Cefepime 2 gm IVPB Q12H (Active since 11/21/16 until 12/05/16) - will need to complete IV ABX inpatient, not a candidate for outpatient infusions * CT Dissection (11/22/16): thoracic and abdominal aorta appear within normal limits of caliber, extensive cyclindrical bronchiestasis throughout the lower lobes, bilateral hilar adenopathy, mediastinal adenoopathy measuring up to 11mm. Hepatomegaly. numerous splenules. Right nephrectomy, 15mm left ovarian cyst, uterine fundal fibroid * CT chest (11/09/16): Re-demonstration of extensive cylindrical bronchiectasis with areas of mucoid impaction, tree-in-bud interstitial infiltrates as well as lingular consolidation (see full report) * CXR (11/02/16): Minimal interstitial prominence and peribronchiolar cuffing centrally. Findings consistent with mild reactive or inflammatory airway disease. Minimal basilar atelectasis (see full report) * CXR (11/17/16) - ill defined opactiies at both lung bases underlying infiltrate vs atelectasis. trace left pleural effusion (please see full report) * ID consult, Dr. Mendoza, help appreciated * Pulm consult, Dr. Crowley, help appreciated * PICC line in place * Duonebs RQ2 PRN * Pulmicort 0.5 mg INH RQ12 * Robitussin DM 5 ml PO Q4H PRN * Tylenol 650 mg PO Q6H PRN * Echo: wnl EF 65% Bronchectasis * Dr. Crowley (pulm) on board-->help appreciated * CT chest (11/09): Re-demonstration of extensive cylindrical bronchiectasis with areas of mucoid impaction, tree-in-bud interstitial infiltrates as well as lingular consolidation (see full report) * CXR (11/02): Minimal interstitial prominence and peribronchiolar cuffing centrally. Findings consistent with mild reactive or inflammatory airway disease. Minimal basilar atelectasis (see full report) * CXR (11/17/16) - ill defined opactiies at both lung bases underlying infiltrate vs atelectasis. trace left pleural effusion (please see full report) * CT Dissection (11/22/16): thoracic and abdominal aorta appear within normal limits of caliber, extensive cyclindrical bronchiestasis throughout the lower lobes, bilateral hilar adenopathy, mediastinal adenoopathy measuring up to 11mm. Hepatomegaly. numerous splenules. Right nephrectomy, 15mm left ovarian cyst, uterine fundal fibroid * ID consult, Dr. Mendoza, help appreciated * Pulm consult, Dr. Crowley, help appreciated * Duonebs RQ2 PRN * Pulmicort 0.5 mg INH RQ12 * Robotussin DM 5ml PO Q 4hour PRn cough * Alpha-antitrypsin negative: 128 COPD * Pulmonary (Dr. Crowley) on board-->help appreciated * PFTs done as outpatient shows Obstructive lung disease * Duonebs RQ2 PRN * Pulmicort 0.5 mg INH RQ12 * Peak-flows: 150 Fungal rash * Resolved * Groin area * Lotrim 1 top bid - discontinue, finished course Prophylactic Measures * Protonix 40 mg PO daily for GI ppx * SCDs b/l * Lovenox 40 mg SC daily for DVT ppx * Zofran 4 mg IVP Q6H PRN * PT/OT eval Back pain * likely musculoskeletal in nature * Flexeril 5mg PO TID prn * Naproxen BID [facility] * Simethicone prn Dry eyes * Artificial tears Disposition: * Will need IV antibiotics twice a day until 12/05/2016
[2016-12-03] MEDS: guaiFENesin DM 100 mg-10 mg/5 ml UD PO PRN (16:09)
[2016-12-04] MEDS: guaiFENesin DM 100 mg-10 mg/5 ml UD PO PRN ×2 (00:29→17:40)
[2016-12-04] MEDS: Albuterol-Ipratrop 3 mg / 0.5 (3 ml) UD INH SCH ×8 (00:41→23:47)
--- NOTE | 2016-12-04 01:06 | CP.PCM.PN ---
Subjective - Date & Time of Evaluation Date of Evaluation: 12/04/16 Time of Evaluation: 00:10 - Subjective Subjective: PGY 1 Medicine Note- Dr. Cunningham's service Pt seen and evaluated at bedside with no acute events overnight. Patient has a cough that has persisted. Pt denies subjective fevers or chills, headaches, chest pain, palpitations, shortness of breath, paresthesias, back pain, abdominal pain, or leg swelling/pain. Objective - Vital Signs/Intake and Output Vital Signs (last 24 hours): Temp Pulse Resp BP Pulse Ox 97.7 F 76 20 115/77 95 12/04/16 00:00 12/04/16 00:00 12/04/16 00:00 12/04/16 00:00 12/04/16 00:00 Intake and Output: 12/03/16 12/04/16 18:59 06:59 Intake Total 500 500 Balance 500 500 - Medications Medications: Current Medications Acetaminophen (Tylenol 325mg Tab) 650 mg PO Q6 PRN PRN Reason: Fever >100.4 F Last Admin: 11/19/16 21:37 Dose: 650 mg Albuterol/Ipratropium (Duoneb 3 Mg/0.5 Mg (3 Ml) Ud) 3 ml INH RQ4 KIMBER Last Admin: 12/04/16 00:41 Dose: Not Given Artificial Tears (Artificial Tears) 0.1 ml OU Q8H KIMBRE Last Admin: 12/03/16 21:31 Dose: 1 drop Budesonide (Pulmicort Respules) 0.5 mg INH RQ12 KIMBER Last Admin: 12/03/16 21:09 Dose: 0.5 mg Cyclobenzaprine HCl (Flexeril) 5 mg PO TID PRN PRN Reason: Pain, moderate (4-7) Last Admin: 12/03/16 17:46 Dose: 5 mg Enoxaparin Sodium (Lovenox) 40 mg SC DAILY KIMBER Last Admin: 12/03/16 09:19 Dose: 40 mg Guaifenesin/Dextromethorphan (Robitussin Dm) 5 ml PO Q4H PRN PRN Reason: Cough Last Admin: 12/04/16 00:29 Dose: 5 ml Cefepime HCl (Maxipime Iv 2 Gm Premix) 2 gm in 100 mls @ 100 mls/hr IVPB Q12H KIMBER Last Admin: 12/03/16 23:52 Dose: 100 mls/hr Levothyroxine Sodium (Synthroid) 50 mcg PO DAILY@0630 [facility] Last Admin: 12/03/16 05:48 Dose: 50 mcg Montelukast Sodium (Singulair) 10 mg PO HS [facility] Last Admin: 12/03/16 21:31 Dose: 10 mg Naproxen (Anaprox) 275 mg PO BID [facility] Last Admin: 12/03/16 17:45 Dose: 275 mg Ondansetron HCl (Zofran Inj) 4 mg IVP Q6 PRN PRN Reason: Nausea/Vomiting Pantoprazole Sodium (Protonix Ec Tab) 40 mg PO DAILY [facility] Last Admin: 12/03/16 09:20 Dose: Not Given Saccharomyces Boulardii (Florastor) 250 mg PO BID [facility] Last Admin: 12/03/16 17:46 Dose: 250 mg Simethicone (Mylicon Chew Tab) 80 mg PO Q12 PRN PRN Reason: GI distress Last Admin: 12/03/16 08:30 Dose: 80 mg Vitamin A (Vitamin A & D Oint Ud Foilpak) 0.5 ea TOP Q4 [facility] Last Admin: 12/03/16 23:52 Dose: 0.5 ea - Labs Labs: 12/03/16 07:07 12/03/16 07:07 PT 12.0 SECONDS (9.7-12.2) 11/18/16 07:36 INR 1.1 11/18/16 07:36 APTT 31 SECONDS (21-34) 11/18/16 07:36 - Constitutional Appears: Non-toxic, No Acute Distress - Head Exam Head Exam: ATRAUMATIC, NORMAL INSPECTION, NORMOCEPHALIC - Eye Exam Eye Exam: EOMI, Normal appearance, PERRL Pupil Exam: NORMAL ACCOMODATION, PERRL - ENT Exam ENT Exam: Mucous Membranes Moist - Neck Exam Neck Exam: Full ROM - Respiratory Exam Respiratory Exam: Wheezes, NORMAL BREATHING PATTERN - Cardiovascular Exam Cardiovascular Exam: +S1, +S2 - GI/Abdominal Exam GI & Abdominal Exam: Soft, Normal Bowel Sounds - Extremities Exam Extremities Exam: Full ROM, Normal Capillary Refill - Back Exam Back Exam: Full ROM, NORMAL INSPECTION - Neurological Exam Neurological Exam: Alert, Awake, CN II-XII Intact, Oriented x3 - Psychiatric Exam Psychiatric exam: Normal Affect, Normal Mood - Skin Skin Exam: Dry, Normal Color, Warm Assessment and Plan - Assessment and Plan (Free Text) Assessment: Pneumonia * Sputum culture (11/18/16) Pseudomonas + * Cefepime 2 gm IVPB Q12H (Active since 11/21/16 until 12/05/16) - will need to complete IV ABX inpatient, not a candidate for outpatient infusions * CT Dissection (11/22/16): thoracic and abdominal aorta appear within normal limits of caliber, extensive cyclindrical bronchiestasis throughout the lower lobes, bilateral hilar adenopathy, mediastinal adenoopathy measuring up to 11mm. Hepatomegaly. numerous splenules. Right nephrectomy, 15mm left ovarian cyst, uterine fundal fibroid * CT chest (11/09/16): Re-demonstration of extensive cylindrical bronchiectasis with areas of mucoid impaction, tree-in-bud interstitial infiltrates as well as lingular consolidation (see full report) * CXR (11/02/16): Minimal interstitial prominence and peribronchiolar cuffing centrally. Findings consistent with mild reactive or inflammatory airway disease. Minimal basilar atelectasis (see full report) * CXR (11/17/16) - ill defined opacities at both lung bases underlying infiltrate vs atelectasis. trace left pleural effusion (please see full report) * ID consult, Dr. Mendoza, help appreciated * Pulm consult, Dr. Crowley, help appreciated * PICC line in place * Duonebs RQ2 PRN * Pulmicort 0.5 mg INH RQ12 * Robitussin DM 5 ml PO Q4H PRN * Tylenol 650 mg PO Q6H PRN * Echo: wnl EF 65% Bronchiectasis * Dr. Crowley (pulm) on board-->help appreciated * CT chest (11/09): Re-demonstration of extensive cylindrical bronchiectasis with areas of mucoid impaction, tree-in-bud interstitial infiltrates as well as lingular consolidation (see full report) * CXR (11/02): Minimal interstitial prominence and peribronchiolar cuffing centrally. Findings consistent with mild reactive or inflammatory airway disease. Minimal basilar atelectasis (see full report) * CXR (11/17/16) - ill defined opacities at both lung bases underlying infiltrate vs atelectasis. trace left pleural effusion (please see full report) * CT Dissection (11/22/16): thoracic and abdominal aorta appear within normal limits of caliber, extensive cyclindrical bronchiestasis throughout the lower lobes, bilateral hilar adenopathy, mediastinal adenopathy measuring up to 11mm. Hepatomegaly. numerous splenules. Right nephrectomy, 15mm left ovarian cyst, uterine fundal fibroid * ID consult, Dr. Mendoza, help appreciated * Pulm consult, Dr. Crowley, help appreciated * Duonebs RQ2 PRN * Pulmicort 0.5 mg INH RQ12 * Robitussin DM 5ml PO Q 4hour prm cough * Alpha-antitrypsin negative: 128 COPD * Pulmonary (Dr. Crowley) on board-->help appreciated * PFTs done as outpatient shows Obstructive lung disease * Duonebs RQ2 PRN * Pulmicort 0.5 mg INH RQ12 * Peak-flows: 150 Fungal rash * Resolved * Groin area * Lotrim 1 top bid - discontinue, finished course Back pain * No current complaints * likely musculoskeletal in nature * Flexeril 5mg PO TID prn * Naproxen BID KIMBER * Simethicone prn Dry eyes * Artificial tears Prophylactic Measures * Protonix 40 mg PO daily for GI ppx * SCDs b/l * Lovenox 40 mg SC daily for DVT ppx * Zofran 4 mg IVP Q6H PRN * PT/OT eval Disposition: * Will need IV antibiotics twice a day until 12/05/2016
[2016-12-04] MEDS: Aritificial Tears (15ml) OU SCH ×3 (06:00→21:21)
[2016-12-04] MEDS: Levothyroxine 50 MCG TAB PO SCH (06:00)
[2016-12-04] MEDS: Vitamins A & D Oint UD Foilpak TOP SCH ×5 (06:00→20:14)
[2016-12-04 06:19] LABS: BASO % 0.5 % (0.0-2.0); EOS # 0.4 K/uL (0.0-0.7); HEMATOCRIT 37.2 % (34.0-47.0); LYMPH # 2.5 K/uL (1.0-4.3); LYMPH % 34.2 % (20.0-40.0); MEAN CELL VOLUME 69.9 fL (81.0-99.0); MEAN CORPUSCULAR HEMOGLOBIN 21.7 pg (27.0-31.0); MEAN CORPUSCULAR HGB CONC 31.1 g/dL (33.0-37.0); MEAN PLATELET VOLUME 8.5 fL (7.2-11.7); MONO # 0.7 K/uL (0.0-0.8); MONO % 9.4 % (0.0-10.0); RED CELL DISTRIBUTION WIDTH 17.8 % (11.5-14.5); WHITE BLOOD COUNT 7.4 K/uL (4.8-10.8)
[2016-12-04 06:39] LABS: CHLORIDE 101 mmol/L (98-107)
[2016-12-04 06:40] LABS: POTASSIUM 3.9 mmol/L (3.6-5.2); SODIUM 138 mmol/L (132-148)
[2016-12-04 06:42] LABS: ALB/GLOB RATIO 1.2 (1.0-2.1); BILIRUBIN,TOTAL 0.6 mg/dL (0.2-1.3); GFR AFRICAN-AMERICAN > 60; GLUCOSE,RANDOM 105 mg/dL (65-105); TOTAL PROTEIN 6.5 g/dL (6.3-8.3)
[2016-12-04 06:43] LABS: ALKALINE PHOSPHATASE 45 U/L (38-126); ALT/SGPT 31 U/L (9-52); AST/SGOT 21 U/L (14-36); BLOOD UREA NITROGEN 16 mg/dL (7-17); CALCIUM 8.6 mg/dl (8.6-10.4); CARBON DIOXIDE 27 mmol/L (22-30); PHOSPHOROUS 3.5 mg/dL (2.5-4.5)
[2016-12-04] MEDS: Budesonide 0.5 mg/2 ml Inhal Susp UD INH SCH ×2 (07:25→19:20)
[2016-12-04] MEDS: Saccharomyces Boulardi 250 mg Cap PO SCH ×2 (09:32→17:40)
[2016-12-04] MEDS: Naproxen 275 mg Tab PO SCH ×2 (09:32→17:39)
[2016-12-04] MEDS: Pantoprazole 40 mg EC Tab PO SCH (09:32)
[2016-12-04] MEDS: Enoxaparin 40 mg Syringe SC SCH (09:36)
[2016-12-04] MEDS: Cefepime IV 2 gm in Dextrose 2 GM/100 ML BAG IVPB SCH (11:32)
[2016-12-04] MEDS: Simethicone 80 mg Chewtab PO PRN (18:00)
[2016-12-05] MEDS: Vitamins A & D Oint UD Foilpak TOP SCH ×4 (00:04→13:10)
[2016-12-05] MEDS: guaiFENesin DM 100 mg-10 mg/5 ml UD PO PRN ×3 (00:15→10:44)
[2016-12-05 00:27] VITALS: TEMP 97.9
[2016-12-05] MEDS: Albuterol-Ipratrop 3 mg / 0.5 (3 ml) UD INH SCH ×3 (03:10→11:31)
--- NOTE | 2016-12-05 03:27 | CP.PCM.PN ---
Subjective - Date & Time of Evaluation Date of Evaluation: 12/05/16 Time of Evaluation: 00:11 - Subjective Subjective: PGY 1 Medicine Note- Dr. Cunningham's service Pt seen and evaluated at bedside with no acute events overnight. Patient states that she still has intermittent wheezes. Pt denies subjective fevers or chills, headaches, chest pain, palpitations, shortness of breath, paresthesias, back pain, nausea, vomiting, abdominal pain, or leg swelling/pain. Objective - Vital Signs/Intake and Output Vital Signs (last 24 hours): Temp Pulse Resp BP Pulse Ox 97.9 F 89 20 99/66 L 95 12/05/16 00:00 12/05/16 00:00 12/05/16 00:00 12/05/16 00:00 12/05/16 00:00 Intake and Output: 12/04/16 12/05/16 18:59 06:59 Intake Total 600 500 Balance 600 500 - Medications Medications: Current Medications Acetaminophen (Tylenol 325mg Tab) 650 mg PO Q6 PRN PRN Reason: Fever >100.4 F Last Admin: 11/19/16 21:37 Dose: 650 mg Albuterol/Ipratropium (Duoneb 3 Mg/0.5 Mg (3 Ml) Ud) 3 ml INH RQ4 KIMBER Last Admin: 12/05/16 03:10 Dose: Not Given Artificial Tears (Artificial Tears) 0.1 ml OU Q8H KIMBER Last Admin: 12/04/16 21:21 Dose: 1 drop Budesonide (Pulmicort Respules) 0.5 mg INH RQ12 KIMBER Last Admin: 12/04/16 19:20 Dose: 0.5 mg Cyclobenzaprine HCl (Flexeril) 5 mg PO TID PRN PRN Reason: Pain, moderate (4-7) Last Admin: 12/04/16 21:21 Dose: 5 mg Enoxaparin Sodium (Lovenox) 40 mg SC DAILY KIMBER Last Admin: 12/04/16 09:36 Dose: 40 mg Guaifenesin/Dextromethorphan (Robitussin Dm) 5 ml PO Q4H PRN PRN Reason: Cough Last Admin: 12/05/16 00:15 Dose: 5 ml Cefepime HCl (Maxipime Iv 2 Gm Premix) 2 gm in 100 mls @ 100 mls/hr IVPB Q12H [facility] Last Admin: 12/05/16 00:00 Dose: 100 mls/hr Levothyroxine Sodium (Synthroid) 50 mcg PO DAILY@0630 [facility] Last Admin: 12/04/16 06:00 Dose: 50 mcg Montelukast Sodium (Singulair) 10 mg PO HS [facility] Last Admin: 12/04/16 21:21 Dose: 10 mg Naproxen (Anaprox) 275 mg PO BID [facility] Last Admin: 12/04/16 17:39 Dose: 275 mg Ondansetron HCl (Zofran Inj) 4 mg IVP Q6 PRN PRN Reason: Nausea/Vomiting Pantoprazole Sodium (Protonix Ec Tab) 40 mg PO DAILY [facility] Last Admin: 12/04/16 09:32 Dose: 40 mg Saccharomyces Boulardii (Florastor) 250 mg PO BID [facility] Last Admin: 12/04/16 17:40 Dose: 250 mg Simethicone (Mylicon Chew Tab) 80 mg PO Q12 PRN PRN Reason: GI distress Last Admin: 12/04/16 18:00 Dose: 80 mg Vitamin A (Vitamin A & D Oint Ud Foilpak) 0.5 ea TOP Q4 [facility] Last Admin: 12/05/16 00:04 Dose: 0.5 ea - Labs Labs: 12/04/16 06:13 12/04/16 06:13 PT 12.0 SECONDS (9.7-12.2) 11/18/16 07:36 INR 1.1 11/18/16 07:36 APTT 31 SECONDS (21-34) 11/18/16 07:36 - Constitutional Appears: Non-toxic, No Acute Distress - Head Exam Head Exam: ATRAUMATIC, NORMAL INSPECTION, NORMOCEPHALIC - Eye Exam Eye Exam: EOMI, Normal appearance, PERRL Pupil Exam: NORMAL ACCOMODATION - ENT Exam ENT Exam: Mucous Membranes Moist - Neck Exam Neck Exam: Full ROM - Respiratory Exam Respiratory Exam: Wheezes - Cardiovascular Exam Cardiovascular Exam: REGULAR RHYTHM, +S1, +S2 - GI/Abdominal Exam GI & Abdominal Exam: Soft, Normal Bowel Sounds - Extremities Exam Extremities Exam: Full ROM - Back Exam Back Exam: Full ROM - Neurological Exam Neurological Exam: Alert, Awake, Normal Gait, Oriented x3 - Psychiatric Exam Psychiatric exam: Normal Affect, Normal Mood - Skin Skin Exam: Dry, Normal Color, Warm Assessment and Plan - Assessment and Plan (Free Text) Assessment: Pneumonia * Sputum culture (11/18/16) Pseudomonas + * Cefepime 2 gm IVPB Q12H (Active since 11/21/16 until 12/05/16) - will need to complete IV ABX inpatient, not a candidate for outpatient infusions * CT Dissection (11/22/16): thoracic and abdominal aorta appear within normal limits of caliber, extensive cyclindrical bronchiestasis throughout the lower lobes, bilateral hilar adenopathy, mediastinal adenoopathy measuring up to 11mm. Hepatomegaly. numerous splenules. Right nephrectomy, 15mm left ovarian cyst, uterine fundal fibroid * CT chest (11/09/16): Re-demonstration of extensive cylindrical bronchiectasis with areas of mucoid impaction, tree-in-bud interstitial infiltrates as well as lingular consolidation (see full report) * CXR (11/02/16): Minimal interstitial prominence and peribronchiolar cuffing centrally. Findings consistent with mild reactive or inflammatory airway disease. Minimal basilar atelectasis (see full report) * CXR (11/17/16) - ill defined opacities at both lung bases underlying infiltrate vs atelectasis. trace left pleural effusion (please see full report) * ID consult, Dr. Mendoza, help appreciated * Pulm consult, Dr. Crowley, help appreciated * PICC line in place * Duonebs RQ2 PRN * Pulmicort 0.5 mg INH RQ12 * Robitussin DM 5 ml PO Q4H PRN * Tylenol 650 mg PO Q6H PRN * Echo: wnl EF 65% Bronchiectasis * Dr. Crowley (pulm) on board-->help appreciated * CT chest (11/09): Re-demonstration of extensive cylindrical bronchiectasis with areas of mucoid impaction, tree-in-bud interstitial infiltrates as well as lingular consolidation (see full report) * CXR (11/02): Minimal interstitial prominence and peribronchiolar cuffing centrally. Findings consistent with mild reactive or inflammatory airway disease. Minimal basilar atelectasis (see full report) * CXR (11/17/16) - ill defined opacities at both lung bases underlying infiltrate vs atelectasis. trace left pleural effusion (please see full report) * CT Dissection (11/22/16): thoracic and abdominal aorta appear within normal limits of caliber, extensive cyclindrical bronchiestasis throughout the lower lobes, bilateral hilar adenopathy, mediastinal adenopathy measuring up to 11mm. Hepatomegaly. numerous splenules. Right nephrectomy, 15mm left ovarian cyst, uterine fundal fibroid * ID consult, Dr. Mendoza, help appreciated * Pulm consult, Dr. Crowley, help appreciated * Duonebs RQ2 PRN * Pulmicort 0.5 mg INH RQ12 * Robitussin DM 5ml PO Q 4hour prm cough * Alpha-antitrypsin negative: 128 COPD * Pulmonary (Dr. Crowley) on board-->help appreciated * PFTs done as outpatient shows Obstructive lung disease * Duonebs RQ2 PRN * Pulmicort 0.5 mg INH RQ12 * Peak-flows: 150 Fungal rash * Resolved * Groin area * Lotrim 1 top bid - discontinue, finished course Back pain * No current complaints * likely musculoskeletal in nature * Flexeril 5mg PO TID prn * Naproxen BID KIMBER * Simethicone prn Dry eyes * Artificial tears Prophylactic Measures * Protonix 40 mg PO daily for GI ppx * SCDs b/l * Lovenox 40 mg SC daily for DVT ppx * Zofran 4 mg IVP Q6H PRN * PT/OT eval Disposition: * Will need IV antibiotics twice a day until 12/05/2016
[2016-12-05] MEDS: Levothyroxine 50 MCG TAB PO SCH (06:21)
[2016-12-05] MEDS: Aritificial Tears (15ml) OU SCH ×2 (06:23→14:14)
[2016-12-05 07:23] LABS: BASO % 0.4 % (0.0-2.0); EOS # 0.4 K/uL (0.0-0.7); EOS % 5.5 % (0.0-4.0); HEMATOCRIT 37.9 % (34.0-47.0); LYMPH # 2.3 K/uL (1.0-4.3); LYMPH % 29.9 % (20.0-40.0); MEAN CELL VOLUME 69.7 fL (81.0-99.0); MEAN CORPUSCULAR HEMOGLOBIN 21.5 pg (27.0-31.0); MEAN CORPUSCULAR HGB CONC 30.8 g/dL (33.0-37.0); MEAN PLATELET VOLUME 8.7 fL (7.2-11.7); MONO # 0.6 K/uL (0.0-0.8); MONO % 7.4 % (0.0-10.0); NRBC % 0.1 % (0.0-2.0); RED CELL DISTRIBUTION WIDTH 17.4 % (11.5-14.5); WHITE BLOOD COUNT 7.7 K/uL (4.8-10.8)
[2016-12-05 07:28] LABS: CHLORIDE 100 mmol/L (98-107); POTASSIUM 3.8 mmol/L (3.6-5.2); SODIUM 137 mmol/L (132-148)
[2016-12-05 07:30] LABS: AST/SGOT 17 U/L (14-36); BILIRUBIN,TOTAL 0.5 mg/dL (0.2-1.3); CARBON DIOXIDE 26 mmol/L (22-30); GFR AFRICAN-AMERICAN > 60
[2016-12-05 07:31] LABS: ALB/GLOB RATIO 1.2 (1.0-2.1); ALKALINE PHOSPHATASE 43 U/L (38-126); ALT/SGPT 28 U/L (9-52); BLOOD UREA NITROGEN 18 mg/dL (7-17); CALCIUM 8.8 mg/dl (8.6-10.4); GLUCOSE,RANDOM 93 mg/dL (65-105); PHOSPHOROUS 3.8 mg/dL (2.5-4.5); TOTAL PROTEIN 6.5 g/dL (6.3-8.3)
[2016-12-05] MEDS: Budesonide 0.5 mg/2 ml Inhal Susp UD INH SCH ×2 (08:11→11:33)
[2016-12-05 09:40] VITALS: BP 106/72; PULSE 87; O2SAT 93
[2016-12-05] MEDS: Naproxen 275 mg Tab PO SCH (10:44)
[2016-12-05] MEDS: Saccharomyces Boulardi 250 mg Cap PO SCH (10:44)
[2016-12-05] MEDS: Pantoprazole 40 mg EC Tab PO SCH (10:44)
[2016-12-05] MEDS: Enoxaparin 40 mg Syringe SC SCH (10:44)
[2016-12-05] MEDS: Cefepime IV 2 gm in Dextrose 2 GM/100 ML BAG IVPB SCH ×2 (12:20)
[2016-12-05] MEDS ORDERED: Pneumococcal 23-Valent Vaccine IM ONE (13:36)
--- NOTE | 2016-12-05 14:00 | CP.PCM.DIS ---
Provider - Provider Date of Admission: 11/17/16 19:33 Attending physician: Sury Anne DO Primary care physician: Dr. Keo Kauffman Consults: ID: [id number] Pulm: Keo Time Spent in preparation of Discharge (in minutes): 40 Hospital Course - Lab Results Lab Results: Micro Results 11/18/16 05:10 Sputum Gram Stain - Final 11/18/16 05:10 Sputum Sputum Culture - Final Pseudomonas Aeruginosa Most Recent Lab Values WBC 7.7 K/uL (4.8-10.8) 12/05/16 07:11 RBC 5.43 Mil/uL (3.80-5.20) H 12/05/16 07:11 Hgb 11.7 g/dL (11.0-16.0) 12/05/16 07:11 Hct 37.9 % (34.0-47.0) 12/05/16 07:11 MCV 69.7 fL (81.0-99.0) L 12/05/16 07:11 MCH 21.5 pg (27.0-31.0) L 12/05/16 07:11 MCHC 30.8 g/dL (33.0-37.0) L 12/05/16 07:11 RDW 17.4 % (11.5-14.5) H 12/05/16 07:11 Plt Count 286 K/uL (130-400) 12/05/16 07:11 MPV 8.7 fL (7.2-11.7) 12/05/16 07:11 Neut % (Auto) 56.8 % (50.0-75.0) 12/05/16 07:11 Lymph % (Auto) 29.9 % (20.0-40.0) 12/05/16 07:11 Ponce % (Auto) 7.4 % (0.0-10.0) 12/05/16 07:11 Eos % (Auto) 5.5 % (0.0-4.0) H 12/05/16 07:11 Baso % (Auto) 0.4 % (0.0-2.0) 12/05/16 07:11 Neut # 4.4 K/uL (1.8-7.0) 12/05/16 07:11 Lymph # 2.3 K/uL (1.0-4.3) 12/05/16 07:11 Ponce # 0.6 K/uL (0.0-0.8) 12/05/16 07:11 Eos # 0.4 K/uL (0.0-0.7) 12/05/16 07:11 Baso # 0.0 K/uL (0.0-0.2) 12/05/16 07:11 Differential Comment 11/17/16 18:33 PT 12.0 SECONDS (9.7-12.2) 11/18/16 07:36 INR 1.1 11/18/16 07:36 APTT 31 SECONDS (21-34) 11/18/16 07:36 Puncture Site Rra 11/22/16 13:47 pCO2 27 mm/Hg (35-45) L 11/22/16 13:47 pO2 159 mm/Hg (80-100) H 11/22/16 13:47 HCO3 24.1 mmol/L (21-28) 11/22/16 13:47 ABG pH 7.50 (7.35-7.45) H 11/22/16 13:47 ABG Total CO2 21.9 mmol/L (22-28) L 11/22/16 13:47 ABG O2 Saturation 99.2 % (95-98) H 11/22/16 13:47 ABG Base Excess -1.1 mmol/L (-2.0-3.0) 11/22/16 13:47 ABG Hemoglobin 11.2 g/dL (11.7-17.4) L 11/22/16 13:47 ABG Carboxyhemoglobin 1.3 % (0.5-1.5) 11/22/16 13:47 POC ABG HHb (Measured) 0.8 % (0.0-5.0) 11/22/16 13:47 ABG Methemoglobin 1.0 % (0.0-3.0) 11/22/16 13:47 Quinn Test Pos 11/22/16 13:47 Hgb O2 Saturation 96.9 % (95.0-98.0) 11/22/16 13:47 Sodium 137 mmol/L (132-148) 12/05/16 07:11 Potassium 3.8 mmol/L (3.6-5.2) 12/05/16 07:11 Chloride 100 mmol/L (98-107) 12/05/16 07:11 Carbon Dioxide 26 mmol/L (22-30) 12/05/16 07:11 Anion Gap 15 (10-20) 12/05/16 07:11 BUN 18 mg/dL (7-17) H 12/05/16 07:11 Creatinine 0.6 MG/DL (0.7-1.2) L 12/05/16 07:11 Est GFR ( Amer) > 60 12/05/16 07:11 Est GFR (Non-Af Amer) > 60 12/05/16 07:11 POC Glucose (mg/dL) 98 mg/dL (65-110) 11/28/16 07:04 Random Glucose 93 mg/dL (65-105) 12/05/16 07:11 Calcium 8.8 mg/dl (8.6-10.4) 12/05/16 07:11 Phosphorus 3.8 mg/dL (2.5-4.5) 12/05/16 07:11 Magnesium 2.0 mg/dL (1.6-2.3) 12/05/16 07:11 Total Bilirubin 0.5 mg/dL (0.2-1.3) 12/05/16 07:11 AST 17 U/L (14-36) 12/05/16 07:11 ALT 28 U/L (9-52) 12/05/16 07:11 Alkaline Phosphatase 43 U/L (38-126) 12/05/16 07:11 Total Creatine Kinase 40 U/L (30-135) 11/22/16 14:48 CK-MB (Mass) 0.32 ng/mL (0.0-3.38) 11/22/16 14:48 Troponin I, Quant < 0.0120 ng/mL (0.00-0.120) 11/22/16 14:48 Total Protein 6.5 g/dL (6.3-8.3) 12/05/16 07:11 Albumin 3.5 g/dL (3.5-5.0) 12/05/16 07:11 Globulin 3.0 gm/dL (2.2-3.9) 12/05/16 07:11 Albumin/Globulin Ratio 1.2 (1.0-2.1) 12/05/16 07:11 Dcxco-7-Hlbplpouvte 128 mg/dL (83-199) 11/21/16 06:50 TSH 3rd Generation 2.53 mIU/L (0.46-4.68) 11/19/16 07:23 Urine HCG, Qual Negative (NEGATIVE) 11/22/16 16:26 Influenza Typ A,B (EIA) Negative for flu a/b (NEGATIVE) 11/17/16 23:19 - Hospital Course Hospital Course: On admission: 46 F with PMH of obstructive lung disease, recurrent pneumonia and bronchiectasis presents to [facility] ED with complaint of SOB and pneumonia. Patient was sent in by PMD. Patient had CXR, CT chest, and PFTs done as outpatient at [facility] which showed peribronchial cuffing centrally, extensive cylindrical bronchiectasis with areas of mucoid impaction, tree-in- bud interstitial infiltrates as well as lingular consolidation and obstructive lung disease (see full reports for each). Sputum culture and sensitivity done on 11/03 was positive for Pseudomonas. Patient stated that these symptoms have been going on for about 2 weeks. She has had these symptoms in the past. Each time she experiences these symptoms she has been found to have pneumonia. She states that she has had pneumonia at least one per year. She is usually treated with oral antibiotics. Patient reports associated subjective fever/chills and productive cough with yellow/green sputum. Patient is also experiencing right sided back/rib pain. She rates the pain 8/10 in severity. She describes the pain as constant, dull, and aching located over ribs 4-6 that begins at midaxillary line with radiation paraspinally. Cough, exertion, movement, and lying flat exacerbates her symptoms while nothing specifically alleviates them. Admits fatigue, headache, palpitations. Denies vertigo, dizziness/ lightheadedness, syncope, cp, abd pain, n/v/d, constipation, incontinence, urinary symptoms, numbness/tingling. Hospital Course: Patient was treated for pneumonia and bronchiectasis. CT Dissection (11/22/16) showed thoracic and abdominal aorta appear within normal limits of caliber, extensive cyclindrical bronchiestasis throughout the lower lobes, bilateral hilar adenopathy, mediastinal adenoopathy measuring up to 11mm. Hepatomegaly. numerous splenules. Right nephrectomy, 15mm left ovarian cyst, uterine fundal fibroid (please see full report). Chest CT (11/09/16) showed Re-demonstration of extensive cylindrical bronchiectasis with areas of mucoid impaction, tree-in- bud interstitial infiltrates as well as lingular consolidation (see full report) . CXR (11/17/16) showed ill defined opacities at both lung bases underlying infiltrate vs atelectasis. trace left pleural effusion (please see full report) . Sputum culture showed pseudomonas. Alpha- antitrypsin was negative at 128. ECHO showed EF of 65%. Patient was started on Cefepime 2gm IVPB Q12H from to 12/05/16. Electrophysiology Nurse Practitioner, Dr. Crowley, was consulted - help appreciated. ID consulted - Dr. Mendoza - help appreciated. Patient was also treated with Duonebs, Pulmicort, Robitussin and Tylenol. Patient also treated for COPD by extruder operator helper. PFTs done as outpatient showed obstructive lung disase. Duonebs and Pulmicort were used for treatment. Patient had a fungal rash in the groin which resolved with a course of lotrim topical cream twice a day. Patient also had back pain treated with flexeril and naproxen. Patient discharged today once her IV Abx were completed. On discharge: Patient to be discharged home per Dr. Jose E Cunningham. Patient should resume home medications and take newly prescribed medications as directed on prescriptions, including but not limited to Keflex 500mg by mouth twice a day for 5 days. Patient should make an appointment and follow up with her primary medical doctor within one week. Patient should return to ED immediately if symptoms return or worsen. Discharge Exam - Head Exam Head Exam: ATRAUMATIC, NORMAL INSPECTION, NORMOCEPHALIC - Eye Exam Eye Exam: EOMI - ENT Exam ENT Exam: Mucous Membranes Moist - Respiratory Exam Respiratory Exam: Clear to PA & Lateral, NORMAL BREATHING PATTERN. absent: Rales, Rhonchi, Wheezes - Cardiovascular Exam Cardiovascular Exam: REGULAR RHYTHM, +S1, +S2. absent: Gallop, Rubs, Systolic Murmur - GI/Abdominal Exam GI & Abdominal Exam: Normal Bowel Sounds, Soft, Unremarkable. absent: Tenderness - Extremities Exam Extremities exam: normal capillary refill - Neurological Exam Neurological exam: Alert, Oriented x3 - Psychiatric Exam Psychiatric exam: Normal Affect, Normal Mood - Skin Skin Exam: Normal Color, Warm Discharge Plan - Discharge Medications Prescriptions: Albuterol 0.083% [Albuterol Sulfate 3 Ml] 3 ml IH Q4 #60 neb Budesonide [Pulmicort Respules] 0.5 mg INH RQ12 #1 Cephalexin [cephalexin] 500 mg PO BID #10 cap Cyclobenzaprine [Flexeril] 5 mg PO TID PRN #30 tab PRN Reason: Pain, Moderate (4-7) guaiFENesin/Dextromethorphan [Robitussin DM] 5 ml PO Q4H PRN #1 PRN Reason: Cough Levothyroxine [Synthroid] 50 mcg PO DAILY@0630 #30 tab Montelukast [Singulair] 10 mg PO DAILY #30 Naproxen [Anaprox] 275 mg PO BID #60 tab Pantoprazole [Protonix EC Tab] 40 mg PO DAILY #30 ect Simethicone [Mylicon Chew Tab] 80 mg PO Q12 PRN #60 PRN Reason: Gi Distress - Follow Up Plan Condition: STABLE Disposition: HOME/ ROUTINE Instructions: Bronchiectasis (DC), Bronchiectasis (GEN), Bacterial Pneumonia ( DC), Bacterial Pneumonia (GEN) Additional Instructions: Patient to be discharged home per Dr. Jose E Cunningham. Patient should resume home medications and take newly prescribed medications as directed on prescriptions, including but not limited to Keflex 500mg by mouth twice a day for 5 days. Patient should make an appointment and follow up with her primary medical doctor within one week. Patient should return to ED immediately if symptoms return or worsen. Referrals: Kody Crowley MD [Staff Provider] -
== END 2016-12-05 15:00 | disposition home or self-care (01) | DRG 79 ==
LOC: C.ER 17:28 → C.9E 19:33 → C.3T 19:55
PROVIDERS: ADMIT Hospitalist; ATTEND Hospitalist
PROC: 02HV33Z Insertion of Infusion Device into Superior Vena Cava, Percutaneous Approach (ICD-10-PCS; principal; 2016-11-19)
DX: J15.1 Pneumonia due to Pseudomonas (principal); J90 Pleural effusion, not elsewhere classified; R16.0 Hepatomegaly, not elsewhere classified; J47.9 Bronchiectasis, uncomplicated; B35.6 Tinea cruris; E03.9 Hypothyroidism, unspecified; G89.29 Other chronic pain; M54.9 Dorsalgia, unspecified; R59.0 Localized enlarged lymph nodes

== ENCOUNTER 2018-06-28 10:11 | Observation (INO) | payer OTHER ==
--- NOTE | 2018-06-28 11:02 | C.PDOC ---
History Of Present Illness 47 y/o female,w/PMhx of COPD, presents to the ER complaining of worsening shortness of breath and dyspnea on exertion over the past 5 days. Patient states that she has associated pleuritic chest pain and subjective fever. Patient rep orts that she had similar symptoms last year. She notes that she is compliant with her medications but she still has persistent symptoms. Denies having nausea, vomiting, and leg swelling. <Suki Thakkar - Last Filed: 06/28/18 12:47> History Per: Patient History/Exam Limitations: no limitations Onset/Duration Of Symptoms: Days Current Symptoms Are (Timing): Still Present Severity: Moderate <Suki Thakkar - Last Filed: 06/28/18 12:47> <Fco Eric - Last Filed: 06/28/18 15:12> Time Seen by Provider: 06/28/18 10:55 Chief Complaint (Nursing): Respiratory Distress Past Medical History Reviewed: Historical Data, Nursing Documentation, Vital Signs Vital Signs: Last Vital Signs Temp 98.3 F 06/28/18 10:22 Pulse 124 H 06/28/18 10:22 Resp 34 H 06/28/18 10:22 BP 132/97 H 06/28/18 10:22 Pulse Ox 89 L 06/28/18 10:22 - Medical History PMH: Arthritis (KNEE), Asthma, Bronchitis, Hypothyroidism, Kidney Stones, Pneumonia, Chronic Kidney Disease Other Surgeries: Hx of surgeries - [facility] Procedures INSERTION OF INFUSION DEV INTO SUP VENA CAVA, PERC APPROACH (11/17/16) Family History: States: No Known Family Hx - Social History Hx Alcohol Use: No Hx Substance Use: No - Immunization History Hx Tetanus Toxoid Vaccination: No Hx Influenza Vaccination: Yes Hx Pneumococcal Vaccination: No <Suki Thakkar - Last Filed: 06/28/18 12:47> Vital Signs: Last Vital Signs Temp 98.3 F 06/28/18 10:22 Pulse 124 H 06/28/18 10:22 Resp 34 H 06/28/18 10:22 BP 132/97 H 06/28/18 10:22 Pulse Ox 89 L 06/28/18 12:48 - [facility] Procedures INSERTION OF INFUSION DEV INTO SUP VENA CAVA, PERC APPROACH (11/17/16) <Fco Eric - Last Filed: 06/28/18 15:12> Review Of Systems Except As Marked, All Systems Reviewed And Found Negative. Constitutional: Positive for: Fever (subjective). Negative for: Chills Cardiovascular: Positive for: Chest Pain (pleuritic chest pain) Respiratory: Positive for: Shortness of Breath Gastrointestinal: Negative for: Nausea, Vomiting <Suki Thakkar Last Filed: 06/28/18 12:47> Physical Exam - Physical Exam Appears: No Acute Distress Skin: Normal Color, Warm, Dry Head: Atraumatic, Normacephalic Eye(s): bilateral: Normal Inspection Cardiovascular: Other (irregular rate and rhythm ( tachycardia)) Respiratory: Rales (bilateral rales), Rhonchi (bilateral rhonchi), No Wheezing, Other (retractions, tachypnea) Extremity: Normal ROM, Other (no edema) Neurological/Psych: Oriented x3, Normal Speech <Suki Thakkar Last Filed: 06/28/18 12:47> ED Course And Treatment - Laboratory Results Result Diagrams: 06/28/18 11:29 06/28/18 11:29 ECG: Interpreted By Me, Viewed By Me ECG Rhythm: Sinus Tachycardia Rate From EC O2 Sat by Pulse Oximetry: 89 (Nasal Cannula) Pulse Ox Interpretation: Abnormal <Suki Thakkar Last Filed: 06/28/18 12:47> - Laboratory Results Result Diagrams: 06/28/18 11:29 06/28/18 11:29 Lab Results: pO2 44 mm/Hg (30-55) 06/28/18 11:20 VBG pH 7.40 (7.32-7.43) 06/28/18 11:20 VBG pCO2 45 mmHg (40-60) 06/28/18 11:20 VBG HCO3 26.4 mmol/L 06/28/18 11:20 VBG Total CO2 29.3 mmol/L (22-28) H 06/28/18 11:20 VBG O2 Sat (Calc) 83.3 % (40-65) H 06/28/18 11:20 VBG Base Excess 2.5 mmol/L (0.0-2.0) H 06/28/18 11:20 VBG Potassium 4.3 mmol/L (3.6-5.2) 06/28/18 11:20 Sodium 138.0 mmol/l (132-148) 06/28/18 11:20 Chloride 104.0 mmol/L (98-107) 06/28/18 11:20 Glucose 94 mg/dl (65-105) 06/28/18 11:20 Lactate 0.7 mmol/L (0.7-2.1) 06/28/18 11:20 Troponin I < 0.0120 ng/mL (0.00-0.120) 06/28/18 11:29 NT-Pro-B Natriuret Pep 53.3 pg/mL (0-450) 06/28/18 11:29 Total Bilirubin 0.4 mg/dL (0.2-1.3) 06/28/18 11:29 AST 36 U/L (14-36) D 06/28/18 11:29 ALT 60 U/L (9-52) H D 06/28/18 11:29 Alkaline Phosphatase 51 U/L (38-126) 06/28/18 11:29 Total Protein 8.3 g/dL (6.3-8.3) 06/28/18 11:29 Albumin 4.6 g/dL (3.5-5.0) 06/28/18 11:29 Globulin 3.7 gm/dL (2.2-3.9) 06/28/18 11:29 Albumin/Globulin Ratio 1.2 (1.0-2.1) 06/28/18 11:29 <Fco Eric - Last Filed: 06/28/18 15:12> Progress - Re-Evaluation Re-evaluation Note: 06/28/18 12:37 NO IMPROVE SP NEB. PERSIST B/L CHEST WALL TIGHTNESS. VSS. PENDING CTA - Data Reviewed Data Reviewed: Lab, Diagnostic imaging, EKG, Old records - Critical Care Citical Care: Excluding Proc Time Critical Care Time: 90 minutes <Suki Thakkar - Last Filed: 06/28/18 12:47> Medical Decision Making Medical Decision Making: Plan: --Labs --CXR --Solu-Medrol IV --Albuterol <Suki Thakkar - Last Filed: 06/28/18 12:47> Disposition Counseled Patient/Family Regarding: Studies Performed, Diagnosis - Disposition Disposition Time: 13:00 <Suki Thakkar - Last Filed: 06/28/18 12:47> Discussed With : Aura Smith Doctor Will See Patient In The: Hospital - Disposition Disposition Time: 15:12 <Fco Eric - Last Filed: 06/28/18 15:12> - Disposition Disposition: HOSPITALIZED Condition: FAIR Forms: [facility] (Citizen Of [place]) - Clinical Impression Clinical Impression: Exacerbation of asthma, Bronchitis, Pleuritic chest pain - Scribe Statement The provider has reviewed the documentation as recorded by the Scribe Fabi Padgett Provider Attestation: All medical record entries made by the Scribe were at my direction and personally dictated by me. I have reviewed the chart and agree that the record accurately reflects my personal performance of the history, physical exam, medical decision making, and the department course for this patient. I have also personally directed, reviewed, and agree with the discharge instructions and disposition. <Suki Thakkar - Last Filed: 06/28/18 12:47> Physician Patient Turnover Patient Signed Over To: Fco Eric Handoff Comments: FU CTA, DISPO <Suki Thakkar - Last Filed: 06/28/18 12:47> Addendum Addendum: 06/28/18 15:11 Received patient in s/o pending cta chest. Cta no pe. Patient still with sob. Discussed with Dr. Smith and will admit to med surg observation. <Fco Eric - Last Filed: 06/28/18 15:12>
[2018-06-28] MEDS ORDERED: MethylPREDNISolone 40 mg Vial ONE (11:13)
[2018-06-28] MEDS ORDERED: Albuterol-Ipratrop 3 mg / 0.5 (3 ml) UD ONE (11:13)
[2018-06-28] MEDS ORDERED: Albuterol-Ipratrop 3 mg / 0.5 (3 ml) UD IH SCH (11:15)
[2018-06-28 11:23] LABS: VENOUS BLOOD GAS BASE EXCESS 2.5 mmol/L (0.0-2.0); VENOUS BLOOD GAS PCO2 45 mmHg (40-60); VENOUS BLOOD GAS PO2 44 mm/Hg (30-55)
[2018-06-28 11:38] LABS: BASO # 0.1 K/uL (0.0-0.2); BASO % 0.4 % (0.0-2.0); EOS # 0.3 K/uL (0.0-0.7); EOS % 2.3 % (0.0-4.0); LYMPH # 3.1 K/uL (1.0-4.3); LYMPH % 21.3 % (20.0-40.0); MEAN CORPUSCULAR HEMOGLOBIN 21.4 pg (27.0-31.0); MEAN CORPUSCULAR HGB CONC 31.1 g/dL (33.0-37.0); MEAN PLATELET VOLUME 8.1 fL (7.2-11.7); MONO # 0.8 K/uL (0.0-0.8); MONO % 5.7 % (0.0-10.0); NEUT # 10.3 K/uL (1.8-7.0); NEUT % 70.3 % (50.0-75.0); RBC 6.34 Mil/uL (3.80-5.20); RED CELL DISTRIBUTION WIDTH 18.2 % (11.5-14.5)
[2018-06-28 11:47] LABS: HEMOGLOBIN 13.6 g/dL (11.0-16.0); WHITE BLOOD COUNT 14.7 K/uL (4.8-10.8)
[2018-06-28 11:53] LABS: ALB/GLOB RATIO 1.2 (1.0-2.1); ALBUMIN 4.6 g/dL (3.5-5.0); ALT/SGPT 60 U/L (9-52); AST/SGOT 36 U/L (14-36); BLOOD UREA NITROGEN 14 mg/dL (7-17); CALCIUM 9.5 mg/dl (8.6-10.4); GFR NON-AFRICAN AMERICAN > 60
[2018-06-28 12:05] LABS: B-TYPE NATRIURETIC PEPTIDE 53.3 pg/mL (0-450)
--- NOTE | 2018-06-28 13:27 | RAD ---
Date of service: 06/28/2018 HISTORY: SOB COMPARISON: Comparison made with prior chest radiograph dated 01/02/2018. Comparison also made with CT chest performed the as part of a dissection study dated 11/22/2016 FINDINGS: LUNGS: Redemonstrated are cylindrical bronchiectatic changes both lower lung murray left greater than right although these changes are less well seen on the current exam as compared to high-resolution CT chest possibly in part due to poor inspiration with low lung volumes.. PLEURA: No significant pleural effusion identified, no pneumothorax apparent. CARDIOVASCULAR: No discernible aortic atherosclerotic calcification present. Heart is enlarged.. No pulmonary vascular congestion. OSSEOUS STRUCTURES: No significant abnormalities. VISUALIZED UPPER ABDOMEN: Normal. OTHER FINDINGS: None. IMPRESSION: Redemonstrated are residual cylindrical bronchiectatic changes both lower lung murray left greater than right although these changes are less well seen on the current exam as compared to high-resolution CT chest possibly in part due to poor inspiration with low lung volumes.
[2018-06-28] MEDS ORDERED: Iodixanol 320 MG/ML 200 ML BOTTLE IV ONE (13:43)
--- NOTE | 2018-06-28 14:20 | CT ---
Date of service: 06/28/2018 PROCEDURE: CT Chest with contrast (Pulmonary Angiogram) HISTORY: SOB r/o PE COMPARISON: Dissection protocol CT with contrast 11/22/2017. TECHNIQUE: Axial computed tomography images were obtained of the chest in the pulmonary arterial phase of enhancement. Coronal and sagittal reformatted images were created and reviewed. Intravenous contrast dose: Visipaque 320, 100 cc Radiation dose: Total exam DLP = 473.22 mGy-cm. This CT exam was performed using one or more of the following dose reduction techniques: Automated exposure control, adjustment of the mA and/or kV according to patient size, and/or use of iterative reconstruction technique. FINDINGS: PULMONARY ARTERIES: Unremarkable. No pulmonary embolism. AORTA: No acute findings. No thoracic aortic aneurysm. No aortic atherosclerotic calcification or mural plaque present. 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 LUNGS: Diffuse interstitial pulmonary disease appreciate manifest by increased reticular markings bilaterally and with predominant lower lobe bronchiectasis with associated aerated cystic changes at the bases as well. This pattern is not significantly changed in the interval with no alveolar pulmonary disease appreciable in the interval once again. PLEURAL SPACES: Unremarkable. No effusion or pneumothorax. HEART: Unremarkable. No cardiomegaly. No significant pericardial effusion. LYMPH NODES: Limited pre aortic lymph node enlargement again identified low gross lymphadenopathy appreciable. BONES, CHEST WALL: Unremarkable. No fracture or destructive lesion OTHER FINDINGS: Prior right nephrectomy evident. IMPRESSION: 1. No CT evidence of pulmonary embolus at this time. 2. Extensive bilateral lower lobe and middle lobe bronchiectasis appreciated once again without significant interval change associated limited cystic changes in the bilateral lower lobes accompanying dilated airways. Reticular markings are diffusely increased bilaterally diffusely on a chronic basis with no acute alveolitis appreciated bilaterally. No distinct mass or central airway lesion. 3. Limited pre aortic lymphadenopathy reiterated. 4. 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
[2018-06-28] MEDS ORDERED: Simethicone 80 mg Chewtab PO PRN (22:02)
[2018-06-29] MEDS: MethylPREDNISolone 40 mg Vial IVP SCH ×2 (00:26→12:15)
[2018-06-29] MEDS: Albuterol-Ipratrop 3 mg / 0.5 (3 ml) UD INH SCH ×6 (00:50→19:30)
[2018-06-29 01:19] VITALS: RESP 20
[2018-06-29] MEDS: Levothyroxine 50 MCG TAB PO SCH (05:37)
--- NOTE | 2018-06-29 07:56 | CP.PCM.PN ---
Subjective - Date & Time of Evaluation Date of Evaluation: 06/29/18 Time of Evaluation: 07:56 - Subjective Subjective: Progress note for Dr. Smith Patient is a 47 year old female with a past medical history of asthma, bronchiestasis, and hypothyroidism, presented to the hospital with complaints of coughing and rib/back pain for over 10 days. She also complains of 2 days blood in sputum in the mornings. She denies having fevers and chills. The patient has have similar episodes in the past, last admission for similar complaints was in 2016. She has been using her nebulizer 4 times daily for the past 10 days, proair twice a day and breo once a day. She currently complains of wheezing, shortness of breath, pain in her ribcage and back pain when laying down (pain resolves when sitting up), and denies fevers, chills, nausea, vomiting, bowel and urinary complaints. PMHx: asthma, bronchiecstasis, uterine polyp, hypothyroidism SurgHx: right nephrectomy (2003), uterine polyp removal 01/2018 FamHx: denies SocHx: denies tobacco, alcohol, and drug use; recently traveled to last week and [place] in May. Allergies: NKDA Medications: Synthroid 50mg PO HS, Protonix 40mg PO BID, Norethindrone 5mg PO BID, Breo daily, Proair BID. Objective - Vital Signs/Intake and Output Vital Signs (last 24 hours): Temp Pulse Resp BP Pulse Ox 97.5 F L 120 H 20 122/83 95 06/29/18 07:50 06/29/18 07:50 06/29/18 07:50 06/29/18 07:50 06/29/18 07:50 Intake and Output: 06/29/18 06/29/18 06:59 18:59 Intake Total 250 Balance 250 - Medications Medications: Current Medications Albuterol/Ipratropium (Duoneb 3 Mg/0.5 Mg (3 Ml) Ud) 3 ml INH RQ4 [facility] Last Admin: 06/29/18 04:06 Dose: Not Given Ketorolac Tromethamine (Toradol) 30 mg IVP Q6 PRN PRN Reason: Pain, moderate (4-7) Levothyroxine Sodium (Synthroid) 50 mcg PO DAILY@0630 [facility] Last Admin: 06/29/18 05:37 Dose: 50 mcg Methylprednisolone (Solu-Medrol) 40 mg IVP Q12H [facility] Last Admin: 06/29/18 00:26 Dose: 40 mg Montelukast Sodium (Singulair) 10 mg PO HS [facility] Pantoprazole Sodium (Protonix Ec Tab) 40 mg PO DAILY [facility] Simethicone (Mylicon Chew Tab) 80 mg PO Q12 PRN PRN Reason: GI distress - Labs Labs: 06/28/18 11:29 06/28/18 11:29 - Constitutional Appears: No Acute Distress - Head Exam Head Exam: ATRAUMATIC, NORMAL INSPECTION - Eye Exam Eye Exam: EOMI, Normal appearance - ENT Exam ENT Exam: Mucous Membranes Moist - Respiratory Exam Respiratory Exam: Wheezes (throughout all lung murray), NORMAL BREATHING PATTERN. absent: Clear to Ausculation Bilateral, Rales, Rhonchi - Cardiovascular Exam Cardiovascular Exam: REGULAR RHYTHM, +S1, +S2 - GI/Abdominal Exam GI & Abdominal Exam: Soft, Normal Bowel Sounds. absent: Distended, Firm, Tenderness - Back Exam Back Exam: NORMAL INSPECTION. absent: rash noted, tenderness, vertebral tenderness - Neurological Exam Neurological Exam: Alert, Awake, Oriented x3 - Psychiatric Exam Psychiatric exam: Normal Affect, Normal Mood - Skin Skin Exam: Dry, Normal Color, Warm Assessment and Plan - Assessment and Plan (Free Text) Plan: Bronchiectasis - Hx of asthma - Previous admission in 2017 for bronchiectasis - CXR (06/28/18): Redemonstrated are residual cylindrical bronchiectatic changes both lower lung murray left greater than right although these changes are less well seen on the current exam as compared to high-resolution CT chest possibly in part due to poor inspiration with low lung volumes. - Chest CTA (06/28/18): No CT evidence of pulmonary embolus at this time. Exte nsive bilateral lower lobe and middle lobe bronchiectasis appreciated once again without significant interval change associated limited cystic changes in the bilateral lower lobes accompanying dilated airways. Reticular markings are diffusely increased bilaterally diffusely on a chronic basis with no acute alveolitis appreciated bilaterally. No distinct mass or central airway lesion. Limited pre aortic lymphadenopathy reiterated. 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 Management: * Duonebs Q4hr mirta * Solumedrol 40mg IV Q12hr * Avelox 400mg IV Q24h (started on 06/29/18) * Toradol 30mg IV Q6h prn for pain * Continue home medication: Montelukast 10mg PO HS, Breo qD Hypothyroidism - Continue home medication: Synthroid 50mcg PO daily Prophylaxis - DVT: Lovenox 40mg, SCDs - GI: Protonix 40mg PO daily Case discussed and patient seen with Dr. Luis Stevens, PGY2
[2018-06-29] MEDS: Enoxaparin 40 mg Syringe SC SCH (09:37)
[2018-06-29] MEDS: Pantoprazole 40 mg EC Tab PO SCH (09:37)
[2018-06-29] MEDS ORDERED: Fluticasone-Vilanterol 100/25mcg Diskus INH SCH (10:45)
[2018-06-29] MEDS: Moxifloxacin IV 400mg/250ml NS 400 MG/250 ML BAG IVPB SCH (12:28)
[2018-06-29 12:34] LABS: BASO % 0.3 % (0.0-2.0); HEMOGLOBIN 12.8 g/dL (11.0-16.0); LYMPH # 1.3 K/uL (1.0-4.3); LYMPH % 9.4 % (20.0-40.0); MEAN CELL VOLUME 68.2 fL (81.0-99.0); MEAN CORPUSCULAR HEMOGLOBIN 21.6 pg (27.0-31.0); MEAN CORPUSCULAR HGB CONC 31.7 g/dL (33.0-37.0); MEAN PLATELET VOLUME 7.9 fL (7.2-11.7); MONO # 0.5 K/uL (0.0-0.8); MONO % 3.8 % (0.0-10.0); NEUT # 12.2 K/uL (1.8-7.0); NEUT % 86.5 % (50.0-75.0); PLATELET COUNT 551 K/uL (130-400); RBC 5.93 Mil/uL (3.80-5.20); RED CELL DISTRIBUTION WIDTH 18.3 % (11.5-14.5); WHITE BLOOD COUNT 14.1 K/uL (4.8-10.8)
[2018-06-29 12:56] LABS: ALB/GLOB RATIO 1.3 (1.0-2.1); ALBUMIN 4.4 g/dL (3.5-5.0); ALT/SGPT 89 U/L (9-52); AST/SGOT 53 U/L (14-36); BLOOD UREA NITROGEN 17 mg/dL (7-17); CALCIUM 9.4 mg/dl (8.6-10.4); GFR NON-AFRICAN AMERICAN > 60
[2018-06-29 13:01] LABS: LYMPHOCYTE 8 % (20-40); MONOCYTE 2 % (0-10); MYELOCYTE 1 % (0-0); NEUTROPHIL 89 % (50-75); TOTAL CELLS COUNTED 100
[2018-06-29 13:02] LABS: ANISOCYTOSIS SLIGHT; MICROCYTOSIS SLIGHT; PLATELET ESTIMATE INCREASED (NORMAL)
[2018-06-30] MEDS: MethylPREDNISolone 40 mg Vial IVP SCH ×2 (00:31→12:35)
[2018-06-30] MEDS: Albuterol-Ipratrop 3 mg / 0.5 (3 ml) UD INH SCH ×3 (01:17→09:53)
[2018-06-30] MEDS: Levothyroxine 50 MCG TAB PO SCH (05:39)
[2018-06-30 07:16] LABS: BASO % 0.1 % (0.0-2.0); HEMOGLOBIN 12.2 g/dL (11.0-16.0); LYMPH # 0.9 K/uL (1.0-4.3); LYMPH % 6.4 % (20.0-40.0); MEAN CORPUSCULAR HEMOGLOBIN 21.9 pg (27.0-31.0); MEAN CORPUSCULAR HGB CONC 31.7 g/dL (33.0-37.0); MEAN PLATELET VOLUME 8.1 fL (7.2-11.7); MONO # 0.3 K/uL (0.0-0.8); MONO % 2.2 % (0.0-10.0); NEUT # 13.3 K/uL (1.8-7.0); NEUT % 91.3 % (50.0-75.0); PLATELET COUNT 499 K/uL (130-400); RBC 5.56 Mil/uL (3.80-5.20); RED CELL DISTRIBUTION WIDTH 18.7 % (11.5-14.5); WHITE BLOOD COUNT 14.6 K/uL (4.8-10.8)
--- NOTE | 2018-06-30 07:18 | CP.PCM.PN ---
Subjective - Date & Time of Evaluation Date of Evaluation: 06/30/18 Time of Evaluation: 07:18 - Subjective Subjective: Progress note for Dr. Smith Patient was seen and examined at bedside in no acute distress. Patient reports feeling better, no longer wheezing and less short of breath. She also says her rib/back pain has also improved. She is currently complaining of nasal congestion and says she usually takes nasonex at home. Objective - Vital Signs/Intake and Output Vital Signs (last 24 hours): Temp Pulse Resp BP Pulse Ox 98.2 F 114 H 20 129/79 94 L 06/30/18 00:00 06/30/18 00:00 06/30/18 00:00 06/30/18 00:00 06/30/18 04:05 Intake and Output: 06/30/18 06/30/18 06:59 18:59 Intake Total 800 250 Balance 800 250 - Medications Medications: Current Medications Albuterol/Ipratropium (Duoneb 3 Mg/0.5 Mg (3 Ml) Ud) 3 ml INH RQ4 [facility] Last Admin: 06/30/18 04:26 Dose: Not Given Enoxaparin Sodium (Lovenox) 40 mg SC DAILY [facility] Last Admin: 06/29/18 09:37 Dose: 40 mg Fluticasone/Vilanterol (Breo Ellipta 100-25 Mcg Inh) 1 puff INH RQ24 [facility] Last Admin: 06/29/18 13:59 Dose: Not Given Moxifloxacin HCl (Avelox Iv 400mg/250ml Ns) 400 mg in 250 mls @ 167 mls/hr IVPB Q24H [facility]; Protocol Last Admin: 06/29/18 12:28 Dose: 167 mls/hr Ketorolac Tromethamine (Toradol) 30 mg IVP Q6 PRN PRN Reason: Pain, moderate (4-7) Last Admin: 06/29/18 21:55 Dose: 30 mg Levothyroxine Sodium (Synthroid) 50 mcg PO DAILY@0630 [facility] Last Admin: 06/30/18 05:39 Dose: 50 mcg Methylprednisolone (Solu-Medrol) 40 mg IVP Q12H [facility] Last Admin: 06/30/18 00:31 Dose: 40 mg Montelukast Sodium (Singulair) 10 mg PO HS [facility] Last Admin: 06/29/18 21:50 Dose: 10 mg Pantoprazole Sodium (Protonix Ec Tab) 40 mg PO DAILY [facility] Last Admin: 06/29/18 09:37 Dose: 40 mg Simethicone (Mylicon Chew Tab) 80 mg PO Q12 PRN PRN Reason: GI distress - Labs Labs: 06/30/18 07:01 06/29/18 12:23 - Additional Findings Additional findings: - Constitutional Appears: No Acute Distress - Head Exam Head Exam: ATRAUMATIC, NORMAL INSPECTION - Eye Exam Eye Exam: EOMI, Normal appearance - ENT Exam ENT Exam: Mucous Membranes Moist - Respiratory Exam Respiratory Exam: Decreased breath sounds, NORMAL BREATHING PATTERN. absent: Clear to Ausculation Bilateral, Rales, Rhonchi, wheezes - Cardiovascular Exam Cardiovascular Exam: REGULAR RHYTHM, +S1, +S2 - GI/Abdominal Exam GI & Abdominal Exam: Soft, Normal Bowel Sounds. absent: Distended, Firm, Tenderness - Back Exam Back Exam: NORMAL INSPECTION. absent: rash noted, tenderness, vertebral tenderness - Neurological Exam Neurological Exam: Alert, Awake, Oriented x3 - Psychiatric Exam Psychiatric exam: Normal Affect, Normal Mood - Skin Skin Exam: Dry, Normal Color, Warm Assessment and Plan - Assessment and Plan (Free Text) Plan: Bronchiectasis (improving) - Patient is no longer wheezing, and shortness of breath has improved. - Hx of asthma - Previous admission in 2017 for bronchiectasis - CXR (06/28/18): Redemonstrated are residual cylindrical bronchiectatic changes both lower lung murray left greater than right although these changes are less well seen on the current exam as compared to high-resolution CT chest possibly in part due to poor inspiration with low lung volumes. - Chest CTA (06/28/18): No CT evidence of pulmonary embolus at this time. Extensive bilateral lower lobe and middle lobe bronchiectasis appreciated once again without significant interval change associated limited cystic changes in the bilateral lower lobes accompanying dilated airways. Reticular markings are diffusely increased bilaterally diffusely on a chronic basis with no acute alveolitis appreciated bilaterally. No distinct mass or central airway lesion. Limited pre aortic lymphadenopathy reiterated. 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 Management: * Duonebs Q4hr mir[facility] * Solumedrol 40mg IV Q12hr * Avelox 400mg IV Q24h (started on 06/29/18) * Toradol 30mg IV Q6h prn for pain * Continue home medication: Montelukast 10mg PO HS, Breo qD Hypothyroidism - Continue home medication: Synthroid 50mcg PO daily Nasal congestion - Flonase 1 spray in each nostril daily Prophylaxis - DVT: Lovenox 40mg, SCDs - GI: Protonix 40mg PO daily Patient is stable for discharge to home per Dr. Smith. Patient must continue home mediations and must start the following new medications: Medrol dose pack (take as directed) and Augmenting 875mg-125mg- take 1 tablet with breakfast and 1 tablet with dinner for 10 days. [Prescriptions sent electronically to patient's preferred pharmacy.] Patient must follow up with kickboxing instructor, Dr. Crowley, within one week of discharge. The patient must also follow up with their PMD within 1 week of discharge. If symptoms worsen or reoccur, patient should return to the nearest ED. Case discussed and patient seen with Dr. Luis Stevens, PGY2
[2018-06-30 07:38] LABS: ALB/GLOB RATIO 1.3 (1.0-2.1); ALBUMIN 4.2 g/dL (3.5-5.0); ALT/SGPT 93 U/L (9-52); AST/SGOT 50 U/L (14-36); BLOOD UREA NITROGEN 19 mg/dL (7-17); CALCIUM 8.9 mg/dl (8.6-10.4); GFR NON-AFRICAN AMERICAN > 60
[2018-06-30 07:50] VITALS: BP 133/85; PULSE 108; TEMP 97.9; O2SAT 95
[2018-06-30] MEDS: Enoxaparin 40 mg Syringe SC SCH (09:37)
[2018-06-30] MEDS: Pantoprazole 40 mg EC Tab PO SCH (09:37)
[2018-06-30 09:44] LABS: BANDS 1 % (0-2); LYMPHOCYTE 8 % (20-40); MONOCYTE 2 % (0-10); NEUTROPHIL 88 % (50-75); PLATELET ESTIMATE NORMAL (NORMAL); REACTIVE LYMPHOCYTES 1 % (0-0); TOTAL CELLS COUNTED 100
[2018-06-30] MEDS ORDERED: Fluticasone Nasal 50 mcg/Spray NAS SCH (11:00)
[2018-06-30] MEDS: Moxifloxacin IV 400mg/250ml NS 400 MG/250 ML BAG IVPB SCH (12:36)
--- NOTE | 2018-07-01 17:37 | CARD ---
APPROVED REPORT Date of service: 06/28/2018 EKG Measurement Heart [id number] <Conclusion> Sinus tachycardia Otherwise normal ECG
== END 2018-06-30 13:20 | disposition home or self-care (01) ==
LOC: C.ER 10:11 → C.9E 15:12 → C.3T 20:24
PROVIDERS: ADMIT Internal Medicine Pulmonary Disease; ATTEND Internal Medicine Pulmonary Disease
DX: J45.901 Unspecified asthma with (acute) exacerbation (principal); R07.81 Pleurodynia; J40 Bronchitis, not specified as acute or chronic; E03.9 Hypothyroidism, unspecified; N18.9 Chronic kidney disease, unspecified; Z87.442 Personal history of urinary calculi; Z90.5 Acquired absence of kidney
CPT/HCPCS: 36415; 71045; 71275; 80053; 81025; 82803; 82948; 83735; 83880; 84100; 84484; 85025; 87804; 93005; 94640; 96374; 99285; G0378; J1650; J1885; J2280; J2920; J2930; Q9966

== ENCOUNTER 2018-07-05 05:05 | Inpatient (IN) | payer OTHER ==
--- NOTE | 2018-07-05 05:17 | C.PDOC ---
History Of Present Illness The patient presents to the ED via ambulance for evaluation of shortness of breath and palpitations which began around five days ago but worsened tonight. Patient was found to be in uncontrollable atrial fibrillation with heart rate in 210bpm range. Patient recently underwent hospitalization for asthma exacerbation. She denies fever, chills, chest pain at this time. Time Seen by Provider: 07/05/18 05:16 History Per: Patient History/Exam Limitations: no limitations Onset/Duration Of Symptoms: Days (5) Current Symptoms Are (Timing): Worse Severity: Severe Pain Scale Rating Of: 8 Reports Recently: Seen In ED, Treated By A Physician, Hospitalized Recent travel outside of the [place]: No Additional History Per: Patient Past Medical History Reviewed: Historical Data, Nursing Documentation, Vital Signs - Medical History PMH: Arthritis (KNEE), Asthma, Bronchitis, Hypothyroidism, Kidney Stones, Pneumonia, Chronic Kidney Disease Surgical History: No Surg Hx - [facility] Procedures INSERTION OF INFUSION DEV INTO SUP VENA CAVA, PERC APPROACH (11/17/16) Family History: States: Unknown Family Hx - Social History Hx Alcohol Use: No Hx Substance Use: No - Immunization History Hx Tetanus Toxoid Vaccination: No Hx Influenza Vaccination: Yes Hx Pneumococcal Vaccination: No Review Of Systems Constitutional: Negative for: Fever, Chills Cardiovascular: Positive for: Palpitations. Negative for: Chest Pain Respiratory: Positive for: Shortness of Breath. Negative for: Cough Gastrointestinal: Negative for: Nausea, Vomiting, Abdominal Pain, Diarrhea Musculoskeletal: Negative for: Back Pain Skin: Negative for: Rash, Lesions, Jaundice, Bruising Neurological: Negative for: Weakness, Numbness, Headache, Dizziness Psych: Negative for: Anxiety Physical Exam - Physical Exam Appears: Other (in severe distress ) Skin: Warm, Dry Head: Normacephalic Eye(s): bilateral: Normal Inspection Oral Mucosa: Moist Neck: Supple Chest: Symmetrical, No Deformity, No Tenderness Cardiovascular: Rhythm Irregular, No Murmur, Other (irregularly irregular, tachycardia ) Respiratory: Decreased Breath Sounds, Rales, No Rhonchi, Wheezing (scattered ) Gastrointestinal/Abdominal: Soft, No Tenderness, Distention, No Guarding, No Rebound, Other (tympanic to percussion ) Back: Normal Inspection Extremity: Normal ROM, No Pedal Edema, Capillary Refill (less than 2 seconds ) Extremity: Bilateral: Atraumatic, Normal ROM Pulses: Left Dorsalis Pedis: Normal, Right Dorsalis Pedis: Normal Neurological/Psych: Oriented x3 Gait: Unable To Assess ED Course And Treatment - Laboratory Results Result Diagrams: 07/05/18 05:24 07/05/18 05:24 ECG: Interpreted By Me, Viewed By Me ECG Rhythm: Atrial Fibrillation Interpretation Of ECG: Atrial Fibrillation at rate 126bpm. Nonspecific changes. Rate From EC O2 Sat by Pulse Oximetry: 91 Pulse Ox Interpretation: Abnormal - Radiology CXR: Interpreted by Me, Viewed By Me CXR Interpretation: Yes: Other (? small left effuion). No: Infiltrates, Fracture, Pnemothorax Progress Note: Bloodwork, urinalysis, CXR, EKG ordered and reviewed. Cardizem IVP and Duoneb INH given. Placed on bipap. 6:34 AM pt feels better., hr controlled Critical Care Time - Critical Care Note Total Time (in mins): 30 Documented critical care: time excludes all time spent performing seperately billable procedures. Disposition Discussed With : Aura Smith Comment: accepted the pt on his service and took over the care at 5:55 AM Doctor Will See Patient In The: Hospital Counseled Patient/Family Regarding: Studies Performed, Diagnosis - Disposition Disposition: HOSPITALIZED Disposition Time: 05:17 Condition: GUARDED - POA Present On Arrival: Poor Glycemic Control - Clinical Impression Clinical Impression: Respiratory distress, Uncontrolled atrial fibrillation - Scribe Statement The provider has reviewed the documentation as recorded by the Scribe (Catalina Hanson) Provider Attestation: All medical record entries made by the Scribe were at my direction and personally dictated by me. I have reviewed the chart and agree that the record accurately reflects my personal performance of the history, physical exam, medical decision making, and the department course for this patient. I have also personally directed, reviewed, and agree with the discharge instructions and disposition. Decision To Admit - Pt Status Changed To: Hospital Disposition Of: Inpatient - Admit Certification Admit to Inpatient:: After my assessment, the patient will require hospitalization for at least two midnights. This is because of the severity of symptoms shown, intensity of services needed, and/or the medical risk in this patient being treated as an outpatient. - InPatient: Physician Admission Certification: I certify that this patient requires 2 or more midnights of care for the following reason:: After my assessment, the patient will require hospitalization for at least two midnights. This is because of the severity of symptoms shown, intensity of services needed, and/or the medical risk in this patient being treated as an outpatient. - . Bed Request Type: Telemetry Admitting Physician: Aura Smith Patient Diagnosis: Respiratory distress, Uncontrolled atrial fibrillation
[2018-07-05] MEDS ORDERED: Sodium Chloride 0.9% 1,000 ML ONE (05:19)
[2018-07-05 05:29] LABS: MEAN CORPUSCULAR HGB CONC 30.3 g/dL (33.0-37.0); RED CELL DISTRIBUTION WIDTH 18.8 % (11.5-14.5)
[2018-07-05] MEDS: Albuterol-Ipratrop 3 mg / 0.5 (3 ml) UD IH SCH ×3 (05:30→06:03)
[2018-07-05 05:31] LABS: BASO # 0.3 K/uL (0.0-0.2); BASO % 1.3 % (0.0-2.0); EOS % 0.2 % (0.0-4.0); HEMOGLOBIN 13.3 g/dL (11.0-16.0); LYMPH # 5.6 K/uL (1.0-4.3); LYMPH % 22.9 % (20.0-40.0); MEAN CELL VOLUME 69.7 fL (81.0-99.0); MEAN CORPUSCULAR HEMOGLOBIN 21.1 pg (27.0-31.0); MEAN PLATELET VOLUME 8.3 fL (7.2-11.7); MONO # 1.5 K/uL (0.0-0.8); MONO % 6.1 % (0.0-10.0); NEUT % 69.5 % (50.0-75.0); NRBC % 0.4 % (0.0-2.0); RBC 6.28 Mil/uL (3.80-5.20); WHITE BLOOD COUNT 24.5 K/uL (4.8-10.8)
[2018-07-05 05:32] VITALS: BMI 29.2
[2018-07-05 05:45] LABS: INR 1.1; PROTHROMBIN TIME 11.7 SECONDS (9.7-12.2)
[2018-07-05 05:48] LABS: ALB/GLOB RATIO 1.3 (1.0-2.1); ALBUMIN 4.3 g/dL (3.5-5.0); ALT/SGPT 115 U/L (9-52); AST/SGOT 54 U/L (14-36); BLOOD UREA NITROGEN 28 mg/dL (7-17); CALCIUM 9.2 mg/dl (8.6-10.4); GFR NON-AFRICAN AMERICAN > 60; LIPASE 46 U/L (23-300)
[2018-07-05] MEDS ORDERED: Enoxaparin 40 mg Syringe SC STA (05:53)
[2018-07-05 06:01] LABS: B-TYPE NATRIURETIC PEPTIDE 7160 pg/mL (0-450)
[2018-07-05] MEDS ORDERED: Enoxaparin 80 mg Syringe ONE (06:20)
--- NOTE | 2018-07-05 07:31 | RAD ---
Date of service: 07/05/2018 HISTORY: chest pain COMPARISON: Portable chest 06/28/2018. FINDINGS: LUNGS: Limited patchy density lateral to the left heart border is question in the interval which may indicate infiltrate or atelectasis. Remaining bilateral lung murray are clear. PLEURA: No significant pleural effusion identified, no pneumothorax apparent. CARDIOVASCULAR: No aortic atherosclerotic calcification present. Normal cardiac size. No pulmonary vascular congestion. OSSEOUS STRUCTURES: No significant abnormalities. VISUALIZED UPPER ABDOMEN: Normal. OTHER FINDINGS: None. IMPRESSION: Limited atelectasis or infiltrate question lateral to the left heart border at the left base. No pulmonary vascular congestion or additional potential infiltrate bilaterally.
[2018-07-05 07:38] LABS: SQUAMOUS EPITHIAL 2 /hpf (0-5); URINE BACTERIA RARE (<OCC); URINE BILIRUBIN NEGATIVE (NEGATIVE); URINE BLOOD NEGATIVE (NEGATIVE); URINE CLARITY Clear (Clear); URINE COLOR Straw (YELLOW); URINE GLUCOSE (UA) NORMAL (Normal); URINE HYALINE CAST 0-2 /lpf (0-2); URINE LEUKOCYTE ESTERASE NEG Leu/uL (Negative); URINE PROTEIN 1+ mg/dL (NEGATIVE); URINE UROBILINOGEN NORMAL mg/dL (0.2-1.0)
[2018-07-05] MEDS ORDERED: Azithromycin 500mg/250ML NS 500 MG/250 ML BAG IVPB SCH (08:30)
--- NOTE | 2018-07-05 08:34 | CP.PCM.PN ---
Subjective - Date & Time of Evaluation Date of Evaluation: 07/05/18 Time of Evaluation: 07:50 - Subjective Subjective: Progress note for Dr. Smith Patient is a 47 year old female with a past medical history of asthma, bronchiestasis, and hypothyroidism, who presented to the hospital with complaints of worsening shortness of breath and fast heart rate. Patient was recently admitted on 06/28/17- 06/30/17 and treated for her chronic bronchiectasis. Patient says it has been difficult for her to sleep and ambulate for the past few because she is so short of breath. She has also been checking her heart rate at home which has gone up into the 150s. Last night it became more difficult for her to breath and she was breathing very fast so she decided to come to the ED. She also admits to generalized abdominal pain which she says is chronic. Patient denies fevers, chills, nausea, vomiting, bowel and urinary complaints. PMD: Dr. Audi Mejia: Dr. Crowley PMHx: asthma, bronchiecstasis, uterine polyp, hypothyroidism, chronic abd pain SurgHx: right nephrectomy (2003), uterine polyp removal 01/2018 FamHx:Dad: DMII, MOM: DMII SocHx: denies tobacco, alcohol, and drug use; recently traveled to last week and [place] in May. Allergies: NKDA Medications: Synthroid 50mg PO HS, Pepcid 20mg po daily, Breo daily, Proair BID. Objective - Vital Signs/Intake and Output Vital Signs (last 24 hours): Temp Pulse Resp BP Pulse Ox 97.8 F 104 H 20 140/101 H 99 07/05/18 07:40 07/05/18 07:40 07/05/18 07:40 07/05/18 07:40 07/05/18 07:40 - Medications Medications: Current Medications Albuterol/Ipratropium (Duoneb 3 Mg/0.5 Mg (3 Ml) Ud) 3 ml INH RQ4 KIMBER Diltiazem HCl (Cardizem) 30 mg PO Q8H KIMBER Famotidine (Pepcid) 20 mg PO DAILY KIMBER Fluticasone/Vilanterol (Breo Ellipta 100-25 Mcg Inh) 1 puff INH RQ24 KIMBER Ceftriaxone Sodium (Rocephin Iv 1 Gm Duplex) 50 mls @ 100 mls/hr IVPB DAILY KIMBER; Protocol Azithromycin (Zithromax 500mg In Ns Addvantage) 500 mg in 250 mls @ 166.667 mls/hr IVPB Q24H KIMBER; Protocol Levothyroxine Sodium (Synthroid) 50 mcg PO DAILY@0630 KIMBER Methylprednisolone (Solu-Medrol) 40 mg IVP Q12H KIMBER Montelukast Sodium (Singulair) 10 mg PO HS KIMBER Simethicone (Mylicon Chew Tab) 80 mg PO Q12 PRN PRN Reason: GI distress - Labs Labs: 07/05/18 05:24 07/05/18 05:24 PT 11.7 SECONDS (9.7-12.2) 07/05/18 05:24 INR 1.1 07/05/18 05:24 APTT 25 SECONDS (21-34) 07/05/18 05:24 - Constitutional Appears: Non-toxic, In Acute Distress - Head Exam Head Exam: ATRAUMATIC, NORMAL INSPECTION, NORMOCEPHALIC - Eye Exam Eye Exam: EOMI, Normal appearance - Respiratory Exam Respiratory Exam: Decreased Breath Sounds, Rales, Wheezes - Cardiovascular Exam Cardiovascular Exam: Tachycardia, +S1, +S2 - GI/Abdominal Exam GI & Abdominal Exam: Soft, Tenderness - Extremities Exam Extremities Exam: Normal Inspection. absent: Pedal Edema - Neurological Exam Neurological Exam: Alert, Awake, Oriented x3 - Psychiatric Exam Psychiatric exam: Anxious, Normal Affect - Skin Skin Exam: Intact, Normal Color, Warm Assessment and Plan - Assessment and Plan (Free Text) Assessment: Bronchiectasis - Hx of asthma - Previous admission on 06/28/18 for bronchiectasis - CXR (07/05/18): Limited atelectasis or infiltrate question to the left heart border at the left base. No pulmonary vascular congestion or additional p otential infiltrate bilaterally. -Dr. Crowley consulted, Pulm, help appreciated -f/u IGE Meds: * Duonebs Q4hr kimber * Solumedrol 40mg IV Q12hr * Ceftriaxone 1gm daily * Azithromyxin 500mg daily * Continue home medication: Montelukast 10mg PO HS, Breo qD * Lasix 40mg ivp given in ED A Fib, SVT EKG: A fib at 126bpm on admission Dr. Law consulted, help appreciated rapid response called at 9:57 for HR in 200s. Patient was found to be in SVT and did not convert with Adenosine 6mg ivp then 12mg ivp then 12mg ivp. Cardizem 20mg ivp given which decreased heart rate to 100s. Dr. Crowley called for ICU consult and patient was transferred to ICU to be placed on Cardizem drip -Echo ordered -CTA -d dimer: 746 -Troponin I: .03, .05 -BNP: 7160 Meds: * Cardizem given in ED (20mg ivp + 15mg ivp)then Cardizem 30mg po, then Cardizem 20mg ivp * Cardizem drip * Amiodarone 150mg ivp * CHADSVASC: 1 point- 0.9% risk of stroke/TIA/systemic embolism per year * HASBLED: 0- .9% risk of bleed Leukocytosis -WBC:24.5 -patient on Prednisone at home -afebrile, lactic acid: 1.7 Hypothyroidism - Continue home medication: Synthroid 50mcg PO daily -TSH: 3.81 -f/u Free T4 Abdominal pain -Simethicone 80mg po q12h prn -Pepcid 20mg po daily Prophylaxis - DVT: Lovenox 70mg given in ED, Continue Lovenox 30mg sc q12h - GI: Pepcid 20mg po daily Case discussed and patient seen with Dr. Smith
[2018-07-05] MEDS: MethylPREDNISolone 40 mg Vial IVP SCH ×2 (09:17→20:30)
[2018-07-05] MEDS ORDERED: cefTRIAXone IV 1 gm in Dextros 50 ML IVPB SCH (10:00)
--- NOTE | 2018-07-05 10:15 | PCM.RRT ---
<Ramsey Gloria - Last Filed: 07/05/18 10:43> SERVER PROGRAMMER Nurses Assessment - Situation Date: 07/05/18 SERVER PROGRAMMER Location:: T Med/Surg SERVER PROGRAMMER Reason for Call: Tachycardia - IV IV Inserted during SERVER PROGRAMMER?: No - Respiratory SERVER PROGRAMMER Delivery Method: BiPAP @% Received Nebulizer Treatments: No Was the Patient Ventilated with Bag/Mask 100% O2?: No Secretions Suctioned?: No Was the Patient Intubated?: No Was the Patient Placed on a Ventilator?: No - Ventilator Settings FIO2 (% Oxygen): 40 - Diagnostic Test Ordered EKG: Yes (SVT) Chest X-Ray: No CT Scan: No - Stat Labs Ordered SERVER PROGRAMMER Stat Labs Ordered: CBC SERVER PROGRAMMER Other Labs Ordered: CMP, D Dimer, JOHNNIE x2 - Constitutional Appears: Non-toxic - Head Head Exam: ATRAUMATIC, NORMOCEPHALIC - Eyes Eye Exam: EOMI - Respiratory Exam Respiratory Exam: Rhonchi, NORMAL BREATHING PATTERN. absent: Accessory Muscle Use Additional comments: On bipap - Cardiovascular Exam Cardiovascular Exam: REGULAR RHYTHM, +S1, +S2 - GI/Abdominal Exam GI & Abdominal Exam: Soft, Normal Bowel Sounds. absent: Tenderness - Neurological Exam Neurological Exam: Alert, Awake, CN II-XII Intact, Oriented x3 - Extremities Exam Extremities Exam: absent: Pedal Edema, Tenderness Plan - Assessment of Findings&Treatment Plan SERVER PROGRAMMER called at 09:57 for heart rate in 200s. Patient admitted with new onset Afib - rapid A fib with RVR and given 35 cardizem IV in ER at approx 0600. Patient found to have HR in 200s on telemetry and rapid response was called. When we arrived on scene, patient found to be in no acute distress, on BiPap (she has history of asthma and was short of breath/respiratory distress on initial presentation). Patient denied any complaints of any chest pain. 12 lead EKG was ordered showing SVT. Defibrillator pads were applied. Adenosine 6mg IV was pushed at 10:14 and SVT did break momentarily, but went back up to 200s. Adenosine 12 mg IV was pushed at 10:16 which did not break SVT. Third dose adenosine (12 mg) pushed at 10:20 which still did not break rhythm. STAT labs were ordered including repeat CBC, CMP, D Dimer, JOHNNIE x 2 Cardizem 20 mg was then pushed - following cardizem, pulse 106, BP 124/88. Rhythm appeared at this point to convert to atrial flutter on the cardiac monitor technician. STAT ICU consult was placed. Dr. Crowley arrived to evaluate patient and patient was transferred to ICU bed 12. CTA was ordered STAT, as well as echo. <Sury Anne V - Last Filed: 07/05/18 22:48> SERVER PROGRAMMER Nurses Assessment - Vital Signs Vital Signs: Rapid Response Vital Sign Blood Pressure 140/80 Pulse Rate 200 Respiratory Rate 30 Oxygen Saturation 98 - Vital Signs at end of SERVER PROGRAMMER Vital Signs at end of SERVER PROGRAMMER: Rapid Response End Vital Sign Blood Pressure 124/88 Pulse Rate 105 O2 Sat by Pulse Oximetry 97 Attending/Attestation - Attestation I have personally seen and examined this patient.: Yes I have fully participated in the care of the patient.: Yes I have reviewed all pertinent clinical information, including history, physical exam and plan: Yes Notes (Text): Brief hospitalist note. Patient as admitted earlier this morning for new onset Afib - rapid A fib with RVR and given 35 cardizem IV in ER at approx 0600 AM. On telemetry, heart rate in 200s on the floor. Patient is on bipap, saturating with bipap. EKG noted for SVT; reviewed with cardiology Dr. Law, did not improve with vagal manuever, attempted Adenosine 6 units, 12 units, 12 units but did not improve. Patient given Cardizem 20mg IV X1, heart rate improved to low 100s, and hemodynamically stable. ICU consulted; patient placed on Cardizem drip and transferred to icu for further management Labs were collected at the SERVER PROGRAMMER. elevated d-dimer. CT angio ordered noted for left lobe PE; started on heparin drip and multifocal pneumonia, started Zosyn, Cipro and vancomycin to cover for healthcare associated pneumonia since patient was recently discharged in the ICU Echo, Thyroid studies ordered per cardiology pending venous doppler given confirmed PE to r/o dvt Resident working with Dr. Smith present at SERVER PROGRAMMER I spoke with patient and at bedside.
[2018-07-05 10:38] LABS: BASO # 0.4 K/uL (0.0-0.2); BASO % 1.5 % (0.0-2.0); EOS # 0.1 K/uL (0.0-0.7); EOS % 0.2 % (0.0-4.0); HEMOGLOBIN 13.6 g/dL (11.0-16.0); LYMPH # 4.5 K/uL (1.0-4.3); LYMPH % 17.9 % (20.0-40.0); MEAN CELL VOLUME 69.2 fL (81.0-99.0); MEAN CORPUSCULAR HEMOGLOBIN 21.5 pg (27.0-31.0); MEAN CORPUSCULAR HGB CONC 31.1 g/dL (33.0-37.0); MEAN PLATELET VOLUME 8.4 fL (7.2-11.7); MONO # 1.3 K/uL (0.0-0.8); MONO % 5.2 % (0.0-10.0); NEUT # 19.1 K/uL (1.8-7.0); NEUT % 75.2 % (50.0-75.0); NRBC % 0.1 % (0.0-2.0); RBC 6.29 Mil/uL (3.80-5.20); RED CELL DISTRIBUTION WIDTH 18.7 % (11.5-14.5); WHITE BLOOD COUNT 25.4 K/uL (4.8-10.8)
--- NOTE | 2018-07-05 10:49 | CP.PCM.CON ---
<Sudarshan Solares - Last Filed: 07/05/18 17:12> History of Present Illness - History of Present Illness History of Present Illness: PGY-1 ICU consult note for Dr Crowley Patient is 47 year old female w pmhx of asthma, bronchiestasis, and hypothyroidism, came to hospital with complaints of worsening shortness of breath and fast heart rate that started last night. HR has been elevated at home, as patient checks her HR. Patient reports having difficuty sleeping due to her breathing. Patient admitted to [facility] for new onset Afib, rapid a fib with RVR. Pt received cardizem in the ED In the floor, patient developed tacycardia, about 200 bpm, [employer] activated, SVT noticed on 12 lead EKG. Adenosine 6, 12, 12 given, with minimal break of SVT, but did not return to regular rhythm. Cardizem 20mg pushed, rhythm observed to break, with a flutter observed. Patient transferred to ICU for cardizem drip administration. PMD: Dr. Huntley Allergies: NKDA PMHx: asthma, bronchiecstasis, uterine polyp, hypothyroidism, chronic abd pain SurgHx: right nephrectomy (2003), uterine polyp removal 01/2018 SocHx: denies tobacco, alcohol, and drug use; recently traveled to [place] last week and [place] in May. Medications: Synthroid 50mg PO HS, Pepcid 20mg po daily, Breo daily, Proair BID Review of Systems - Review of Systems All systems: reviewed and no additional remarkable complaints except Review of Systems: as stated in HPI Past Patient History - Infectious Disease Hx of Infectious Diseases: None - Past Medical History & Family History Past Medical History?: No - Past Social History Smoking Status: Never Smoked - CARDIAC Hx Cardiac Disorders: No - PULMONARY Hx Asthma: Yes Hx Bronchitis: Yes Hx Pneumonia: Yes - NEUROLOGICAL Hx Neurological Disorder: No - HEENT Hx HEENT Problems: Yes Other/Comment: HX: LEFT SIDE OF NECK-GLAND REMOVED-NO CANCER. HX: DYSPHAGIA - RENAL Hx Chronic Kidney Disease: Yes Hx Kidney Stones: Yes - ENDOCRINE/METABOLIC Hx Hypothyroidism: Yes - HEMATOLOGICAL/ONCOLOGICAL Hx Blood Disorders: No - INTEGUMENTARY Hx Dermatological Problems: No - MUSCULOSKELETAL/RHEUMATOLOGICAL Hx Arthritis: Yes (KNEE) - GASTROINTESTINAL Hx Gastrointestinal Disorders: No - GENITOURINARY/GYNECOLOGICAL Hx Genitourinary Disorders: Yes Hx Reproductive Disorders: Yes Other/Comment: HX: DYSMENORRHEA. HX: ENDOMETRIAL POLYP - PSYCHIATRIC Hx Substance Use: No - SURGICAL HISTORY Hx Surgeries: Yes Hx Dilation and Curettage: Yes (WITH HYSTERSCOPY/MYOSURE(12/07/17)) Other/Comment: right nephrectomy, - ANESTHESIA Hx Anesthesia: Yes Hx Anesthesia Reactions: No Hx Malignant Hyperthermia: No Meds Allergies/Adverse Reactions: Allergies Allergy/AdvReac Type Severity Reaction Status Date / Time seasonal Allergy Uncoded 07/05/18 05:22 - Medications Medications: Current Medications Albuterol/Ipratropium (Duoneb 3 Mg/0.5 Mg (3 Ml) Ud) 3 ml INH RQ4 KIMBER Diltiazem HCl (Cardizem) 30 mg PO Q8H KIMBER Last Admin: 07/05/18 09:18 Dose: 30 mg Famotidine (Pepcid) 20 mg PO DAILY [facility] Last Admin: 07/05/18 09:18 Dose: 20 mg Fluticasone/Vilanterol (Breo Ellipta 100-25 Mcg Inh) 1 puff INH RQ24 KIMBER Ceftriaxone Sodium (Rocephin Iv 1 Gm Duplex) 50 mls @ 100 mls/hr IVPB DAILY KIMBER; Protocol Last Admin: 07/05/18 09:24 Dose: 100 mls/hr Azithromycin (Zithromax 500mg In Ns Addvantage) 500 mg in 250 mls @ 166.667 mls/hr IVPB Q24H KIMBER; Protocol Diltiazem HCl 125 mg/ Sodium (Chloride) 125 mls @ 5 mls/hr IV .Q24H KIMBER; Protocol Levothyroxine Sodium (Synthroid) 50 mcg PO DAILY@0630 [facility] Methylprednisolone (Solu-Medrol) 40 mg IVP Q12H [facility] Last Admin: 07/05/18 09:17 Dose: 40 mg Montelukast Sodium (Singulair) 10 mg PO HS KIMBER Simethicone (Mylicon Chew Tab) 80 mg PO Q12 PRN PRN Reason: GI distress Physical Exam - Head Exam Head Exam: ATRAUMATIC, NORMAL INSPECTION, NORMOCEPHALIC - Eye Exam Eye Exam: Normal appearance Pupil Exam: NORMAL ACCOMODATION - Respiratory Exam Respiratory Exam: Clear to Auscultation Bilateral, NORMAL BREATHING PATTERN - Cardiovascular Exam Cardiovascular Exam: Tachycardia, REGULAR RHYTHM, +S1, +S2 - GI/Abdominal Exam GI & Abdominal Exam: Normal Bowel Sounds, Soft - Extremities Exam Extremities exam: Positive for: normal inspection - Back Exam Back exam: NORMAL INSPECTION - Neurological Exam Neurological exam: Alert, CN II-XII Intact, Oriented x3 - Psychiatric Exam Psychiatric exam: Anxious, Normal Mood - Skin Skin Exam: Dry, Intact, Normal Color, Warm Results - Vital Signs Recent Vital Signs: Last Vital Signs Temp 97.8 F 07/05/18 07:40 Pulse 104 H 07/05/18 07:45 Resp 20 07/05/18 07:40 BP 140/101 H 07/05/18 07:40 Pulse Ox 99 07/05/18 07:40 - Labs Result Diagrams: 07/05/18 10:31 07/05/18 10:31 Labs: Laboratory Results - last 24 hr 07/05/18 07/05/18 07/05/18 05:24 05:24 05:24 WBC 24.5 H D RBC 6.28 H Hgb 13.3 Hct 43.7 MCV 69.7 L MCH 21.1 L MCHC 30.3 L RDW 18.8 H Plt Count 420 H MPV 8.3 Neut % (Auto) 69.5 Lymph % (Auto) 22.9 [place] % (Auto) 6.1 Eos % (Auto) 0.2 Baso % (Auto) 1.3 Neut # (Auto) 17.0 H Lymph # (Auto) 5.6 H [place] # (Auto) 1.5 H Eos # (Auto) 0.0 Baso # (Auto) 0.3 H PT 11.7 INR 1.1 APTT 25 D-Dimer, Quantitative Sodium 135 Potassium 4.8 Chloride 99 Carbon Dioxide 25 Anion Gap 16 BUN 28 H Creatinine 0.8 Est GFR ( Amer) > 60 Est GFR (Non-Af Amer) > 60 Random Glucose 164 H Lactic Acid Calcium 9.2 Total Bilirubin 0.8 AST 54 H ALT 115 H D Alkaline Phosphatase 39 Troponin I 0.0310 NT-Pro-B Natriuret Pep 7160 H Total Protein 7.6 Albumin 4.3 Globulin 3.3 Albumin/Globulin Ratio 1.3 Lipase 46 TSH 3rd Generation Urine Color Urine Clarity Urine pH Ur Specific [place] Urine Protein Urine Glucose (UA) Urine Ketones Urine Blood Urine Nitrate Urine Bilirubin Urine Urobilinogen Ur Leukocyte Esterase Urine WBC (Auto) Urine RBC (Auto) Ur Squamous Epith Cells Urine Bacteria Hyaline Casts 07/05/18 07/05/18 07/05/18 06:33 07:02 08:44 WBC RBC Hgb Hct MCV MCH MCHC RDW Plt Count MPV Neut % (Auto) Lymph % (Auto) [place] % (Auto) Eos % (Auto) Baso % (Auto) Neut # (Auto) Lymph # (Auto) [place] # (Auto) Eos # (Auto) Baso # (Auto) PT INR APTT D-Dimer, Quantitative Sodium Potassium Chloride Carbon Dioxide Anion Gap BUN Creatinine Est GFR ( Amer) Est GFR (Non-Af Amer) Random Glucose Lactic Acid 1.7 Calcium Total Bilirubin AST ALT Alkaline Phosphatase Troponin I NT-Pro-B Natriuret Pep Total Protein Albumin Globulin Albumin/Globulin Ratio Lipase TSH 3rd Generation 3.81 Urine Color Straw Urine Clarity Clear Urine pH 6.0 Ur Specific [place] 1.010 Urine Protein 1+ H Urine Glucose (UA) Normal Urine Ketones Negative Urine Blood Negative Urine Nitrate Negative Urine Bilirubin Negative Urine Urobilinogen Normal Ur Leukocyte Esterase Neg Urine WBC (Auto) 1 Urine RBC (Auto) 1 Ur Squamous Epith Cells 2 Urine Bacteria Rare Hyaline Casts 0-2 07/05/18 07/05/18 10:31 10:31 WBC 25.4 H RBC 6.29 H Hgb 13.6 Hct 43.5 MCV 69.2 L MCH 21.5 L MCHC 31.1 L RDW 18.7 H Plt Count 455 H MPV 8.4 Neut % (Auto) 75.2 H Lymph % (Auto) 17.9 L [place] % (Auto) 5.2 Eos % (Auto) 0.2 Baso % (Auto) 1.5 Neut # (Auto) 19.1 H Lymph # (Auto) 4.5 H [place] # (Auto) 1.3 H Eos # (Auto) 0.1 Baso # (Auto) 0.4 H PT INR APTT D-Dimer, Quantitative 746 H Sodium Potassium Chloride Carbon Dioxide Anion Gap BUN Creatinine Est GFR ( Amer) Est GFR (Non-Af Amer) Random Glucose Lactic Acid Calcium Total Bilirubin AST ALT Alkaline Phosphatase Troponin I NT-Pro-B Natriuret Pep Total Protein Albumin Globulin Albumin/Globulin Ratio Lipase TSH 3rd Generation Urine Color Urine Clarity Urine pH Ur Specific [place] Urine Protein Urine Glucose (UA) Urine Ketones Urine Blood Urine Nitrate Urine Bilirubin Urine Urobilinogen Ur Leukocyte Esterase Urine WBC (Auto) Urine RBC (Auto) Ur Squamous Epith Cells Urine Bacteria Hyaline Casts Assessment & Plan - Assessment and Plan (Free Text) Assessment: 47 year old female with pmhx of hypothyroidism, asthma came to ER for worsening shortness of breath and elevated HR, [employer] called 07/05 for HR 200, admitted for new onset afib EKG showed SVT, with unsuccessful breaking of rhythm with adenosine, rhty observe to be in aflutter after cardizem, transferred to ICU for administration of Cardizem drip. CTA shows isolated pulmonary embolism in subsegmental vessel left lower lobe and multifocal PNA. Plan: Neuro AAOx3 Cardio new onset afib/SVT/aflutter On tele Cardizem drip @ 5mg/hr Lasix x 1 in ED, Lasix x 1 on floor echo - pending BNP - 7160 D-Dimer - 746 f/u CBC, CMP, d dimer, JOHNNIE x 2 CTA - isolated pulmonary embolism in subsegmental vessel left lower lobe, multifocal PNA Cardio- Dr Law Pulines hx of asthma CTA chest - isolated pulmonary embolism in subsegmental vessel left lower lobe, multifocal PNA Echo - pending official report Heparin drip started Pulm - Dr rohith Mcmullen Q4 KIMBER solumedrol 40mg IVP Q12H Breo Ellipta and singuilair GI Regular diet Protonix ID continue Azythromycin, ceftriaxone zosyn cipro Vanco x1 dose now zosyn Q6 Vanco Q12 ID - Dr stevens MRSA screen Endo Synthroid 50mcg PO daily TSH: 3.81 free T4 - 1.76 PPX Heparin drip Pepcid 20mg PO daily Simethicone Plan discussed with Dr Rohith Solares, PGY-1 - Date & Time Date: 07/05/18 Time: 11:00 <Kody Crowley - Last Filed: 07/05/18 18:03> Meds - Medications Medications: Current Medications Albuterol/Ipratropium (Duoneb 3 Mg/0.5 Mg (3 Ml) Ud) 3 ml INH RQ4 KIMBER Famotidine (Pepcid) 20 mg PO DAILY KIMBER Last Admin: 07/05/18 09:18 Dose: 20 mg Fluticasone/Vilanterol (Breo Ellipta 100-25 Mcg Inh) 1 puff INH RQ24 KIMBER Azithromycin (Zithromax 500mg In Ns Addvantage) 500 mg in 250 mls @ 166.667 mls/hr IVPB Q24H KIMBER; Protocol Last Admin: 07/05/18 11:10 Dose: 166.667 mls/hr Diltiazem HCl 125 mg/ Sodium (Chloride) 125 mls @ 5 mls/hr IV .Q24H KIMBER; Protocol Last Titration: 07/05/18 11:16 Dose: 10 mg/hr, 10 mls/hr Heparin Sodium/Sodium Chloride (Heparin 06561 Units/250ml 1/2 Normal Saline) 25,000 units in 250 mls @ 12.654 mls/hr IV .[id number] PRN; Protocol PRN Reason: PROTOCOL Last Admin: 07/05/18 17:00 Dose: 18 units/kg/hr, 12.654 mls/hr Ciprofloxacin (Cipro 400mg/200ml Dsw) 400 mg in 200 mls @ 133 mls/hr IVPB ONCE ONE; Protocol Stop: 07/05/18 19:30 Vancomycin HCl 1 gm/ Sodium (Chloride) 250 mls @ 166.7 mls/hr IVPB ONCE ONE; Protocol Stop: 07/05/18 20:29 Piperacillin Sod/Tazobactam (Sod 3.375 gm/ Sodium Chloride) 100 mls @ 200 mls/hr IVPB Q6H KIMBER; Protocol Vancomycin HCl 1,000 mg/ (Sodium Chloride) 250 mls @ 166.6 mls/hr IVPB Q12H KIMBER; Protocol Levothyroxine Sodium (Synthroid) 50 mcg PO DAILY@0630 [facility] Methylprednisolone (Solu-Medrol) 40 mg IVP Q12H KIMBER Last Admin: 07/05/18 09:17 Dose: 40 mg Montelukast Sodium (Singulair) 10 mg PO HS KIMBER Simethicone (Mylicon Chew Tab) 80 mg PO Q12 PRN PRN Reason: GI distress Results - Vital Signs Recent Vital Signs: Last Vital Signs Temp 97.8 F 07/05/18 07:40 Pulse 132 H 07/05/18 15:00 Resp 28 H 07/05/18 15:00 BP 113/72 07/05/18 16:15 Pulse Ox 98 07/05/18 15:00 - Labs Result Diagrams: 07/05/18 10:31 07/05/18 10:31 Labs: Laboratory Results - last 24 hr 07/05/18 07/05/18 07/05/18 05:24 05:24 05:24 WBC 24.5 H D RBC 6.28 H Hgb 13.3 Hct 43.7 MCV 69.7 L MCH 21.1 L MCHC 30.3 L RDW 18.8 H Plt Count 420 H MPV 8.3 Neut % (Auto) 69.5 Lymph % (Auto) 22.9 [place] % (Auto) 6.1 Eos % (Auto) 0.2 Baso % (Auto) 1.3 Neut # (Auto) 17.0 H Lymph # (Auto) 5.6 H [place] # (Auto) 1.5 H Eos # (Auto) 0.0 Baso # (Auto) 0.3 H Differential Comment PT 11.7 INR 1.1 APTT 25 D-Dimer, Quantitative Sodium 135 Potassium 4.8 Chloride 99 Carbon Dioxide 25 Anion Gap 16 BUN 28 H Creatinine 0.8 Est GFR ( Amer) > 60 Est GFR (Non-Af Amer) > 60 Random Glucose 164 H Hemoglobin A1c Lactic Acid Calcium 9.2 Phosphorus Magnesium Total Bilirubin 0.8 AST 54 H ALT 115 H D Alkaline Phosphatase 39 Total Creatine Kinase CK-MB (Mass) Troponin I 0.0310 NT-Pro-B Natriuret Pep 7160 H Total Protein 7.6 Albumin 4.3 Globulin 3.3 Albumin/Globulin Ratio 1.3 Triglycerides Cholesterol LDL Cholesterol Direct HDL Cholesterol Lipase 46 Free T4 TSH 3rd Generation Urine Color Urine Clarity Urine pH Ur Specific [place] Urine Protein Urine Glucose (UA) Urine Ketones Urine Blood Urine Nitrate Urine Bilirubin Urine Urobilinogen Ur Leukocyte Esterase Urine WBC (Auto) Urine RBC (Auto) Ur Squamous Epith Cells Urine Bacteria Hyaline Casts Urine HCG, Qual 07/05/18 07/05/18 07/05/18 06:33 07:02 08:44 WBC RBC Hgb Hct MCV MCH MCHC RDW Plt Count MPV Neut % (Auto) Lymph % (Auto) [place] % (Auto) Eos % (Auto) Baso % (Auto) Neut # (Auto) Lymph # (Auto) [place] # (Auto) Eos # (Auto) Baso # (Auto) Differential Comment PT INR APTT D-Dimer, Quantitative Sodium Potassium Chloride Carbon Dioxide Anion Gap BUN Creatinine Est GFR ( Amer) Est GFR (Non-Af Amer) Random Glucose Hemoglobin A1c Lactic Acid 1.7 Calcium Phosphorus Magnesium Total Bilirubin AST ALT Alkaline Phosphatase Total Creatine Kinase CK-MB (Mass) Troponin I NT-Pro-B Natriuret Pep Total Protein Albumin Globulin Albumin/Globulin Ratio Triglycerides Cholesterol LDL Cholesterol Direct HDL Cholesterol Lipase Free T4 TSH 3rd Generation 3.81 Urine Color Straw Urine Clarity Clear Urine pH 6.0 Ur Specific [place] 1.010 Urine Protein 1+ H Urine Glucose (UA) Normal Urine Ketones Negative Urine Blood Negative Urine Nitrate Negative Urine Bilirubin Negative Urine Urobilinogen Normal Ur Leukocyte Esterase Neg Urine WBC (Auto) 1 Urine RBC (Auto) 1 Ur Squamous Epith Cells 2 Urine Bacteria Rare Hyaline Casts 0-2 Urine HCG, Qual 07/05/18 07/05/18 07/05/18 10:31 10:31 10:31 WBC RBC Hgb Hct MCV MCH MCHC RDW Plt Count MPV Neut % (Auto) Lymph % (Auto) [place] % (Auto) Eos % (Auto) Baso % (Auto) Neut # (Auto) Lymph # (Auto) [place] # (Auto) Eos # (Auto) Baso # (Auto) Differential Comment PT INR APTT D-Dimer, Quantitative 746 H Sodium 136 Potassium 4.4 Chloride 94 L Carbon Dioxide 29 Anion Gap 18 BUN 29 H Creatinine 0.8 Est GFR ( Amer) > 60 Est GFR (Non-Af Amer) > 60 Random Glucose 184 H Hemoglobin A1c Lactic Acid Calcium 9.3 Phosphorus 4.8 H Magnesium 1.7 Total Bilirubin 0.8 AST 69 H D ALT 132 H Alkaline Phosphatase 42 Total Creatine Kinase 33 CK-MB (Mass) 2.46 Troponin I 0.0580 NT-Pro-B Natriuret Pep Total Protein 7.6 Albumin 4.3 Globulin 3.4 Albumin/Globulin Ratio 1.3 Triglycerides 259 H Cholesterol 179 LDL Cholesterol Direct 132 H HDL Cholesterol 32 Lipase Free T4 1.75 TSH 3rd Generation Urine Color Urine Clarity Urine pH Ur Specific [place] Urine Protein Urine Glucose (UA) Urine Ketones Urine Blood Urine Nitrate Urine Bilirubin Urine Urobilinogen Ur Leukocyte Esterase Urine WBC (Auto) Urine RBC (Auto) Ur Squamous Epith Cells Urine Bacteria Hyaline Casts Urine HCG, Qual 07/05/18 07/05/18 07/05/18 10:31 11:47 12:09 WBC 25.4 H RBC 6.29 H Hgb 13.6 Hct 43.5 MCV 69.2 L MCH 21.5 L MCHC 31.1 L RDW 18.7 H Plt Count 455 H MPV 8.4 Neut % (Auto) 75.2 H Lymph % (Auto) 17.9 L [place] % (Auto) 5.2 Eos % (Auto) 0.2 Baso % (Auto) 1.5 Neut # (Auto) 19.1 H Lymph # (Auto) 4.5 H [place] # (Auto) 1.3 H Eos # (Auto) 0.1 Baso # (Auto) 0.4 H Differential Comment PT INR APTT D-Dimer, Quantitative Sodium Potassium Chloride Carbon Dioxide Anion Gap BUN Creatinine Est GFR ( Amer) Est GFR (Non-Af Amer) Random Glucose Hemoglobin A1c 7.5 H Lactic Acid Calcium Phosphorus Magnesium Total Bilirubin AST ALT Alkaline Phosphatase Total Creatine Kinase CK-MB (Mass) Troponin I NT-Pro-B Natriuret Pep Total Protein Albumin Globulin Albumin/Globulin Ratio Triglycerides Cholesterol LDL Cholesterol Direct HDL Cholesterol Lipase Free T4 TSH 3rd Generation Urine Color Urine Clarity Urine pH Ur Specific [place] Urine Protein Urine Glucose (UA) Urine Ketones Urine Blood Urine Nitrate Urine Bilirubin Urine Urobilinogen Ur Leukocyte Esterase Urine WBC (Auto) Urine RBC (Auto) Ur Squamous Epith Cells Urine Bacteria Hyaline Casts Urine HCG, Qual Negative 07/05/18 16:35 WBC RBC Hgb Hct MCV MCH MCHC RDW Plt Count MPV Neut % (Auto) Lymph % (Auto) [place] % (Auto) Eos % (Auto) Baso % (Auto) Neut # (Auto) Lymph # (Auto) [place] # (Auto) Eos # (Auto) Baso # (Auto) Differential Comment PT INR APTT D-Dimer, Quantitative Sodium Potassium Chloride Carbon Dioxide Anion Gap BUN Creatinine Est GFR ( Amer) Est GFR (Non-Af Amer) Random Glucose Hemoglobin A1c Lactic Acid Calcium Phosphorus Magnesium Total Bilirubin AST ALT Alkaline Phosphatase Total Creatine Kinase 22 L CK-MB (Mass) 2.07 Troponin I 0.0480 NT-Pro-B Natriuret Pep Total Protein Albumin Globulin Albumin/Globulin Ratio Triglycerides Cholesterol LDL Cholesterol Direct HDL Cholesterol Lipase Free T4 TSH 3rd Generation Urine Color Urine Clarity Urine pH Ur Specific [place] Urine Protein Urine Glucose (UA) Urine Ketones Urine Blood Urine Nitrate Urine Bilirubin Urine Urobilinogen Ur Leukocyte Esterase Urine WBC (Auto) Urine RBC (Auto) Ur Squamous Epith Cells Urine Bacteria Hyaline Casts Urine HCG, Qual Attending/Attestation - Attestation I have personally seen and examined this patient.: Yes I have fully participated in the care of the patient.: Yes I have reviewed all pertinent clinical information: Yes Notes (Text): 07/05/18 18:01 Patient seen and examined 47-year-old female with history of bronchiectasis/asthma was transfer to intensive care unit for atrial fibrillation with rapid ventricular response and severe shortness of breath. Patient was placed on BiPAP and was started on amiodarone drip. CT angios showed pulmonary embolism and patient was started on IV heparin Continue IV antibiotics for possible pneumonia Bronchodilators Echocardiogram noted
[2018-07-05 11:05] LABS: ALB/GLOB RATIO 1.3 (1.0-2.1); ALBUMIN 4.3 g/dL (3.5-5.0); ALT/SGPT 132 U/L (9-52); AST/SGOT 69 U/L (14-36); BLOOD UREA NITROGEN 29 mg/dL (7-17); CALCIUM 9.3 mg/dl (8.6-10.4); GFR NON-AFRICAN AMERICAN > 60
[2018-07-05 11:12] LABS: CK-MB 2.46 ng/mL (0.0-3.38)
[2018-07-05 12:10] LABS: HDL CHOLESTEROL 32 mg/dL (30-70)
[2018-07-05 12:21] LABS: LDL CHOLESTEROL 132 mg/dL (0-129)
[2018-07-05] MEDS ORDERED: Iodixanol 320 MG/ML 100 ML BOTTLE IV ONE (14:35)
--- NOTE | 2018-07-05 15:57 | CP.PCM.CON ---
<Walt Christianson - Last Filed: 07/05/18 17:12> History of Present Illness - History of Present Illness History of Present Illness: 47 year old female with a past medical history of hypothyroidism, asthma, recurrent pneumonia, obstructive lung disorder, and bronchiectasis who initially presented with complaints of coughing and rib/back pain for over 10 days. She also complained of 2 days blood in sputum in the mornings. She has been using her nebulizer 4 times daily for the past 10 days, proair twice a day and breo once a day. Cardiology was consulted earlier this morning for new onset Atrial fibrillation. Patient denies any chest pain ,shortness of breath, fevers, chills, nausea, vomiting, or any other complaints. PMHx: asthma, bronchiecstasis, uterine polyp, hypothyroidism SurgHx: right nephrectomy (2003), uterine polyp removal 01/2018 FamHx: denies SocHx: denies tobacco, alcohol, and drug use; recently traveled to last week and [place] in May. Allergies: NKDA Medications: Synthroid 50mg PO HS, Protonix 40mg PO BID, Norethindrone 5mg PO BID, Breo daily, Proair BID. Review of Systems - Constitutional Constitutional: absent: Chills, Frequent Falls, Night Sweats, Weakness - EENT Eyes: absent: Blurred Vision, Discharge, Loss of Peripheral Vision, Requires C orrective Lenses Ears: absent: Ear Discharge, Dizziness Nose/Mouth/Throat: absent: Nasal Congestion, Bleeding Gums, Odynophagia - Cardiovascular Cardiovascular: absent: Chest Pain, Claudication, Irregular Heart Rhythm, Leg Edema, Syncope - Respiratory Respiratory: absent: Cough, Dyspnea, Hemoptysis, Snoring - Gastrointestinal Gastrointestinal: absent: Belching, Change in Stool Character, Heartburn, Loose Stools, Melena, Nausea - Genitourinary Genitourinary: absent: Change in Urinary Stream, Difficulty Urinating, Urinary Urgency - Musculoskeletal Musculoskeletal: absent: Back Pain, Myalgias, Neck Pain, Tingling - Integumentary Integumentary: absent: Lesions, Pruritus, Striae, Swelling, Unusual Bruising - Neurological Neurological: absent: Abnormal Hearing, Burning Sensations, Dizziness, Numbness, Restless Legs, Tingling, Tremor, Vertigo - Psychiatric Psychiatric: absent: Depression, Hopelessness, Paranoia, Visual Hallucinations, Tactile Hallucinations - Endocrine Endocrine: absent: Polydipsia, Polyphagia, Polyuria - Hematologic/Lymphatic Hematologic: absent: Easy Bleeding, Easy Bruising Past Patient History - Infectious Disease Hx of Infectious Diseases: None - Past Medical History & Family History Past Medical History?: No - Past Social History Smoking Status: Never Smoked - CARDIAC Hx Cardiac Disorders: No - PULMONARY Hx Asthma: Yes Hx Bronchitis: Yes Hx Pneumonia: Yes - NEUROLOGICAL Hx Neurological Disorder: No - HEENT Hx HEENT Problems: Yes Other/Comment: HX: LEFT SIDE OF NECK-GLAND REMOVED-NO CANCER. HX: DYSPHAGIA - RENAL Hx Chronic Kidney Disease: Yes Hx Kidney Stones: Yes - ENDOCRINE/METABOLIC Hx Hypothyroidism: Yes - HEMATOLOGICAL/ONCOLOGICAL Hx Blood Disorders: No - INTEGUMENTARY Hx Dermatological Problems: No - MUSCULOSKELETAL/RHEUMATOLOGICAL Hx Arthritis: Yes (KNEE) - GASTROINTESTINAL Hx Gastrointestinal Disorders: No - GENITOURINARY/GYNECOLOGICAL Hx Genitourinary Disorders: Yes Hx Reproductive Disorders: Yes Other/Comment: HX: DYSMENORRHEA. HX: ENDOMETRIAL POLYP - PSYCHIATRIC Hx Substance Use: No - SURGICAL HISTORY Hx Surgeries: Yes Hx Dilation and Curettage: Yes (WITH HYSTERSCOPY/MYOSURE(12/07/17)) Other/Comment: right nephrectomy, - ANESTHESIA Hx Anesthesia: Yes Hx Anesthesia Reactions: No Hx Malignant Hyperthermia: No Has any member of the family had a problem w/ anesthesia?: No Meds Allergies/Adverse Reactions: Allergies Allergy/AdvReac Type Severity Reaction Status Date / Time seasonal Allergy Uncoded 07/05/18 05:22 - Medications Medications: Current Medications Adenosine (Adenosine 6 Mg/2 Ml Inj) 6 mg IVP STAT STA Stop: 07/05/18 15:49 Adenosine (Adenosine) 12 mg IVP ONCE ONE Stop: 07/05/18 15:49 Adenosine (Adenosine) 12 mg IVP ONCE ONE Stop: 07/05/18 15:50 Albuterol/Ipratropium (Duoneb 3 Mg/0.5 Mg (3 Ml) Ud) 3 ml INH RQ4 [facility] Enoxaparin Sodium (Lovenox) 30 mg SC Q12 [facility] Famotidine (Pepcid) 20 mg PO DAILY [facility] Last Admin: 07/05/18 09:18 Dose: 20 mg Fluticasone/Vilanterol (Breo Ellipta 100-25 Mcg Inh) 1 puff INH RQ24 [facility] Ceftriaxone Sodium (Rocephin Iv 1 Gm Duplex) 50 mls @ 100 mls/hr IVPB DAILY [facility]; Protocol Last Admin: 07/05/18 09:24 Dose: 100 mls/hr Azithromycin (Zithromax 500mg In Ns Addvantage) 500 mg in 250 mls @ 166.667 mls/hr IVPB Q24H [facility]; Protocol Last Admin: 07/05/18 11:10 Dose: 166.667 mls/hr Diltiazem HCl 125 mg/ Sodium (Chloride) 125 mls @ 5 mls/hr IV .Q24H [facility]; Protocol Last Titration: 07/05/18 11:16 Dose: 10 mg/hr, 10 mls/hr Levothyroxine Sodium (Synthroid) 50 mcg PO DAILY@0630 [facility] Methylprednisolone (Solu-Medrol) 40 mg IVP Q12H [facility] Last Admin: 07/05/18 09:17 Dose: 40 mg Montelukast Sodium (Singulair) 10 mg PO HS [facility] Simethicone (Mylicon Chew Tab) 80 mg PO Q12 PRN PRN Reason: GI distress Physical Exam - Head Exam Head Exam: ATRAUMATIC, NORMAL INSPECTION - Eye Exam Eye Exam: EOMI, Normal appearance, PERRL Pupil Exam: NORMAL ACCOMODATION, PERRL. absent: Irregular, Unequal - ENT Exam ENT Exam: Mucous Membranes Moist, Normal Oropharynx - Respiratory Exam Respiratory Exam: Clear to Auscultation Bilateral, NORMAL BREATHING PATTERN. absent: Prolonged Expiratory Phase, Respiratory Distress - Cardiovascular Exam Cardiovascular Exam: REGULAR RHYTHM, +S1, +S2 - GI/Abdominal Exam GI & Abdominal Exam: Normal Bowel Sounds, Soft. absent: Organomegaly, Tenderness - Back Exam Back exam: NORMAL INSPECTION. absent: CVA tenderness (R), paraspinal tenderness - Neurological Exam Neurological exam: Alert, CN II-XII Intact, Oriented x3 - Psychiatric Exam Psychiatric exam: Normal Affect, Normal Mood - Skin Skin Exam: Dry, Intact, Normal Color Results - Vital Signs Recent Vital Signs: Last Vital Signs Temp 97.8 F 07/05/18 07:40 Pulse 132 H 07/05/18 15:00 Resp 28 H 07/05/18 15:00 BP 114/82 07/05/18 14:47 Pulse Ox 98 07/05/18 15:00 - Labs Result Diagrams: 07/05/18 10:31 07/05/18 10:31 Labs: Laboratory Results - last 24 hr 07/05/18 07/05/18 07/05/18 05:24 05:24 05:24 WBC 24.5 H D RBC 6.28 H Hgb 13.3 Hct 43.7 MCV 69.7 L MCH 21.1 L MCHC 30.3 L RDW 18.8 H Plt Count 420 H MPV 8.3 Neut % (Auto) 69.5 Lymph % (Auto) 22.9 [place] % (Auto) 6.1 Eos % (Auto) 0.2 Baso % (Auto) 1.3 Neut # (Auto) 17.0 H Lymph # (Auto) 5.6 H [place] # (Auto) 1.5 H Eos # (Auto) 0.0 Baso # (Auto) 0.3 H Differential Comment PT 11.7 INR 1.1 APTT 25 D-Dimer, Quantitative Sodium 135 Potassium 4.8 Chloride 99 Carbon Dioxide 25 Anion Gap 16 BUN 28 H Creatinine 0.8 Est GFR ( Amer) > 60 Est GFR (Non-Af Amer) > 60 Random Glucose 164 H Hemoglobin A1c Lactic Acid Calcium 9.2 Phosphorus Magnesium Total Bilirubin 0.8 AST 54 H ALT 115 H D Alkaline Phosphatase 39 Total Creatine Kinase CK-MB (Mass) Troponin I 0.0310 NT-Pro-B Natriuret Pep 7160 H Total Protein 7.6 Albumin 4.3 Globulin 3.3 Albumin/Globulin Ratio 1.3 Triglycerides Cholesterol LDL Cholesterol Direct HDL Cholesterol Lipase 46 Free T4 TSH 3rd Generation Urine Color Urine Clarity Urine pH Ur Specific [place] Urine Protein Urine Glucose (UA) Urine Ketones Urine Blood Urine Nitrate Urine Bilirubin Urine Urobilinogen Ur Leukocyte Esterase Urine WBC (Auto) Urine RBC (Auto) Ur Squamous Epith Cells Urine Bacteria Hyaline Casts Urine HCG, Qual 07/05/18 07/05/18 07/05/18 06:33 07:02 08:44 WBC RBC Hgb Hct MCV MCH MCHC RDW Plt Count MPV Neut % (Auto) Lymph % (Auto) [place] % (Auto) Eos % (Auto) Baso % (Auto) Neut # (Auto) Lymph # (Auto) [place] # (Auto) Eos # (Auto) Baso # (Auto) Differential Comment PT INR APTT D-Dimer, Quantitative Sodium Potassium Chloride Carbon Dioxide Anion Gap BUN Creatinine Est GFR ( Amer) Est GFR (Non-Af Amer) Random Glucose Hemoglobin A1c Lactic Acid 1.7 Calcium Phosphorus Magnesium Total Bilirubin AST ALT Alkaline Phosphatase Total Creatine Kinase CK-MB (Mass) Troponin I NT-Pro-B Natriuret Pep Total Protein Albumin Globulin Albumin/Globulin Ratio Triglycerides Cholesterol LDL Cholesterol Direct HDL Cholesterol Lipase Free T4 TSH 3rd Generation 3.81 Urine Color Straw Urine Clarity Clear Urine pH 6.0 Ur Specific [place] 1.010 Urine Protein 1+ H Urine Glucose (UA) Normal Urine Ketones Negative Urine Blood Negative Urine Nitrate Negative Urine Bilirubin Negative Urine Urobilinogen Normal Ur Leukocyte Esterase Neg Urine WBC (Auto) 1 Urine RBC (Auto) 1 Ur Squamous Epith Cells 2 Urine Bacteria Rare Hyaline Casts 0-2 Urine HCG, Qual 07/05/18 07/05/18 07/05/18 10:31 10:31 10:31 WBC RBC Hgb Hct MCV MCH MCHC RDW Plt Count MPV Neut % (Auto) Lymph % (Auto) [place] % (Auto) Eos % (Auto) Baso % (Auto) Neut # (Auto) Lymph # (Auto) [place] # (Auto) Eos # (Auto) Baso # (Auto) Differential Comment PT INR APTT D-Dimer, Quantitative 746 H Sodium 136 Potassium 4.4 Chloride 94 L Carbon Dioxide 29 Anion Gap 18 BUN 29 H Creatinine 0.8 Est GFR ( Amer) > 60 Est GFR (Non-Af Amer) > 60 Random Glucose 184 H Hemoglobin A1c Lactic Acid Calcium 9.3 Phosphorus 4.8 H Magnesium 1.7 Total Bilirubin 0.8 AST 69 H D ALT 132 H Alkaline Phosphatase 42 Total Creatine Kinase 33 CK-MB (Mass) 2.46 Troponin I 0.0580 NT-Pro-B Natriuret Pep Total Protein 7.6 Albumin 4.3 Globulin 3.4 Albumin/Globulin Ratio 1.3 Triglycerides 259 H Cholesterol 179 LDL Cholesterol Direct 132 H HDL Cholesterol 32 Lipase Free T4 1.75 TSH 3rd Generation Urine Color Urine Clarity Urine pH Ur Specific [place] Urine Protein Urine Glucose (UA) Urine Ketones Urine Blood Urine Nitrate Urine Bilirubin Urine Urobilinogen Ur Leukocyte Esterase Urine WBC (Auto) Urine RBC (Auto) Ur Squamous Epith Cells Urine Bacteria Hyaline Casts Urine HCG, Qual 07/05/18 07/05/18 07/05/18 10:31 11:47 12:09 WBC 25.4 H RBC 6.29 H Hgb 13.6 Hct 43.5 MCV 69.2 L MCH 21.5 L MCHC 31.1 L RDW 18.7 H Plt Count 455 H MPV 8.4 Neut % (Auto) 75.2 H Lymph % (Auto) 17.9 L [place] % (Auto) 5.2 Eos % (Auto) 0.2 Baso % (Auto) 1.5 Neut # (Auto) 19.1 H Lymph # (Auto) 4.5 H [place] # (Auto) 1.3 H Eos # (Auto) 0.1 Baso # (Auto) 0.4 H Differential Comment PT INR APTT D-Dimer, Quantitative Sodium Potassium Chloride Carbon Dioxide Anion Gap BUN Creatinine Est GFR ( Amer) Est GFR (Non-Af Amer) Random Glucose Hemoglobin A1c 7.5 H Lactic Acid Calcium Phosphorus Magnesium Total Bilirubin AST ALT Alkaline Phosphatase Total Creatine Kinase CK-MB (Mass) Troponin I NT-Pro-B Natriuret Pep Total Protein Albumin Globulin Albumin/Globulin Ratio Triglycerides Cholesterol LDL Cholesterol Direct HDL Cholesterol Lipase Free T4 TSH 3rd Generation Urine Color Urine Clarity Urine pH Ur Specific [place] Urine Protein Urine Glucose (UA) Urine Ketones Urine Blood Urine Nitrate Urine Bilirubin Urine Urobilinogen Ur Leukocyte Esterase Urine WBC (Auto) Urine RBC (Auto) Ur Squamous Epith Cells Urine Bacteria Hyaline Casts Urine HCG, Qual Negative Assessment & Plan - Assessment and Plan (Free Text) Assessment: 47 year old female with a past medical history of hypothyroidism, asthma, recurrent pneumonia, obstructive lung disorder, and bronchiectasis who initially presented with complaints of coughing and rib/back pain for over 10 days. Cardiology was consulted after [employer] for new onset atrial fibrillation. Plan: 1. New onset Atrial fibrillation -TSH:3.81 -Free t4:1.76 -bnp: 7160 -D-DIMER: 746 -Echo taken. Pending final read -CTA ordered. Will f/u with results -CHADSVASC: 1 point- 0.9% risk of stroke/TIA/systemic embolism per year -HASBLED: 0- .9% risk of bleed Medications: -Cardizem drip @5mg/hr 2.Hypothyroidisim -Continue Synthroid 50mcg PO Daily 3.Abdominal pain -Simethicone 80mg po q12h prn -Pepcid 20mg po daily PPX -Lovenox 30mg SC Q12 -Pepcid 20mg PO Daily Plan discussed with Dr. Law. Walt Christianson, Pgy-2 <Олег Law - Last Filed: 07/05/18 21:32> Meds - Medications Medications: Current Medications Acetaminophen (Tylenol 325mg Tab) 650 mg PO Q4H PRN PRN Reason: Pain, moderate (4-7) Last Admin: 07/05/18 20:00 Dose: 650 mg Albuterol/Ipratropium (Duoneb 3 Mg/0.5 Mg (3 Ml) Ud) 3 ml INH RQ4 [facility] Famotidine (Pepcid) 20 mg PO DAILY [facility] Last Admin: 07/05/18 09:18 Dose: 20 mg Fluticasone/Vilanterol (Breo Ellipta 100-25 Mcg Inh) 1 puff INH RQ24 [facility] Azithromycin (Zithromax 500mg In Ns Addvantage) 500 mg in 250 mls @ 166.667 mls/hr IVPB Q24H [facility]; Protocol Last Admin: 07/05/18 11:10 Dose: 166.667 mls/hr Diltiazem HCl 125 mg/ Sodium (Chloride) 125 mls @ 5 mls/hr IV .Q24H [facility]; P rotocol Last Admin: 07/05/18 19:55 Dose: 15 mg/hr, 15 mls/hr Heparin Sodium/Sodium Chloride (Heparin 12443 Units/250ml 1/2 Normal Saline) 25,000 units in 250 mls @ 12.654 mls/hr IV .A29G10H PRN; Protocol PRN Reason: PROTOCOL Last Admin: 07/05/18 17:00 Dose: 18 units/kg/hr, 12.654 mls/hr Piperacillin Sod/Tazobactam Sod (Zosyn 3.375 Gm Iv Premix) 3.375 gm in 50 mls @ 200 mls/hr IVPB Q6H [facility]; Protocol Vancomycin/Sodium Chloride (Vancomycin 1 Gm/Ns 200 Ml) 1 gm in 200 mls @ 166.6 mls/hr IVPB Q12H [facility]; Protocol Stop: 07/11/18 04:31 Levothyroxine Sodium (Synthroid) 50 mcg PO DAILY@0630 [facility] Methylprednisolone (Solu-Medrol) 40 mg IVP Q12H [facility] Last Admin: 07/05/18 20:30 Dose: 40 mg Montelukast Sodium (Singulair) 10 mg PO HS [facility] Simethicone (Mylicon Chew Tab) 80 mg PO Q12 PRN PRN Reason: GI distress Results - Vital Signs Recent Vital Signs: Last Vital Signs Temp 97.7 F 07/05/18 20:00 Pulse 95 H 07/05/18 20:44 Resp 22 07/05/18 20:44 BP 99/66 L 07/05/18 20:44 Pulse Ox 97 07/05/18 20:44 - Labs Result Diagrams: 07/05/18 10:31 07/05/18 10:31 Labs: Laboratory Results - last 24 hr 07/05/18 07/05/18 07/05/18 05:24 05:24 05:24 WBC 24.5 H D RBC 6.28 H Hgb 13.3 Hct 43.7 MCV 69.7 L MCH 21.1 L MCHC 30.3 L RDW 18.8 H Plt Count 420 H MPV 8.3 Neut % (Auto) 69.5 Lymph % (Auto) 22.9 [place] % (Auto) 6.1 Eos % (Auto) 0.2 Baso % (Auto) 1.3 Neut # (Auto) 17.0 H Lymph # (Auto) 5.6 H [place] # (Auto) 1.5 H Eos # (Auto) 0.0 Baso # (Auto) 0.3 H Differential Comment PT 11.7 INR 1.1 APTT 25 D-Dimer, Quantitative Sodium 135 Potassium 4.8 Chloride 99 Carbon Dioxide 25 Anion Gap 16 BUN 28 H Creatinine 0.8 Est GFR ( Amer) > 60 Est GFR (Non-Af Amer) > 60 Random Glucose 164 H Hemoglobin A1c Lactic Acid Calcium 9.2 Phosphorus Magnesium Total Bilirubin 0.8 AST 54 H ALT 115 H D Alkaline Phosphatase 39 Total Creatine Kinase CK-MB (Mass) Troponin I 0.0310 NT-Pro-B Natriuret Pep 7160 H Total Protein 7.6 Albumin 4.3 Globulin 3.3 Albumin/Globulin Ratio 1.3 Triglycerides Cholesterol LDL Cholesterol Direct HDL Cholesterol Lipase 46 Free T4 TSH 3rd Generation Urine Color Urine Clarity Urine pH Ur Specific [place] Urine Protein Urine Glucose (UA) Urine Ketones Urine Blood Urine Nitrate Urine Bilirubin Urine Urobilinogen Ur Leukocyte Esterase Urine WBC (Auto) Urine RBC (Auto) Ur Squamous Epith Cells Urine Bacteria Hyaline Casts Urine HCG, Qual 07/05/18 07/05/18 07/05/18 06:33 07:02 08:44 WBC RBC Hgb Hct MCV MCH MCHC RDW Plt Count MPV Neut % (Auto) Lymph % (Auto) [place] % (Auto) Eos % (Auto) Baso % (Auto) Neut # (Auto) Lymph # (Auto) [place] # (Auto) Eos # (Auto) Baso # (Auto) Differential Comment PT INR APTT D-Dimer, Quantitative Sodium Potassium Chloride Carbon Dioxide Anion Gap BUN Creatinine Est GFR ( Amer) Est GFR (Non-Af Amer) Random Glucose Hemoglobin A1c Lactic Acid 1.7 Calcium Phosphorus Magnesium Total Bilirubin AST ALT Alkaline Phosphatase Total Creatine Kinase CK-MB (Mass) Troponin I NT-Pro-B Natriuret Pep Total Protein Albumin Globulin Albumin/Globulin Ratio Triglycerides Cholesterol LDL Cholesterol Direct HDL Cholesterol Lipase Free T4 TSH 3rd Generation 3.81 Urine Color Straw Urine Clarity Clear Urine pH 6.0 Ur Specific [place] 1.010 Urine Protein 1+ H Urine Glucose (UA) Normal Urine Ketones Negative Urine Blood Negative Urine Nitrate Negative Urine Bilirubin Negative Urine Urobilinogen Normal Ur Leukocyte Esterase Neg Urine WBC (Auto) 1 Urine RBC (Auto) 1 Ur Squamous Epith Cells 2 Urine Bacteria Rare Hyaline Casts 0-2 Urine HCG, Qual 07/05/18 07/05/18 07/05/18 10:31 10:31 10:31 WBC RBC Hgb Hct MCV MCH MCHC RDW Plt Count MPV Neut % (Auto) Lymph % (Auto) [place] % (Auto) Eos % (Auto) Baso % (Auto) Neut # (Auto) Lymph # (Auto) [place] # (Auto) Eos # (Auto) Baso # (Auto) Differential Comment PT INR APTT D-Dimer, Quantitative 746 H Sodium 136 Potassium 4.4 Chloride 94 L Carbon Dioxide 29 Anion Gap 18 BUN 29 H Creatinine 0.8 Est GFR ( Amer) > 60 Est GFR (Non-Af Amer) > 60 Random Glucose 184 H Hemoglobin A1c Lactic Acid Calcium 9.3 Phosphorus 4.8 H Magnesium 1.7 Total Bilirubin 0.8 AST 69 H D ALT 132 H Alkaline Phosphatase 42 Total Creatine Kinase 33 CK-MB (Mass) 2.46 Troponin I 0.0580 NT-Pro-B Natriuret Pep Total Protein 7.6 Albumin 4.3 Globulin 3.4 Albumin/Globulin Ratio 1.3 Triglycerides 259 H Cholesterol 179 LDL Cholesterol Direct 132 H HDL Cholesterol 32 Lipase Free T4 1.75 TSH 3rd Generation Urine Color Urine Clarity Urine pH Ur Specific [place] Urine Protein Urine Glucose (UA) Urine Ketones Urine Blood Urine Nitrate Urine Bilirubin Urine Urobilinogen Ur Leukocyte Esterase Urine WBC (Auto) Urine RBC (Auto) Ur Squamous Epith Cells Urine Bacteria Hyaline Casts Urine HCG, Qual 07/05/18 07/05/18 07/05/18 10:31 11:47 12:09 WBC 25.4 H RBC 6.29 H Hgb 13.6 Hct 43.5 MCV 69.2 L MCH 21.5 L MCHC 31.1 L RDW 18.7 H Plt Count 455 H MPV 8.4 Neut % (Auto) 75.2 H Lymph % (Auto) 17.9 L [place] % (Auto) 5.2 Eos % (Auto) 0.2 Baso % (Auto) 1.5 Neut # (Auto) 19.1 H Lymph # (Auto) 4.5 H [place] # (Auto) 1.3 H Eos # (Auto) 0.1 Baso # (Auto) 0.4 H Differential Comment PT INR APTT D-Dimer, Quantitative Sodium Potassium Chloride Carbon Dioxide Anion Gap BUN Creatinine Est GFR ( Amer) Est GFR (Non-Af Amer) Random Glucose Hemoglobin A1c 7.5 H Lactic Acid Calcium Phosphorus Magnesium Total Bilirubin AST ALT Alkaline Phosphatase Total Creatine Kinase CK-MB (Mass) Troponin I NT-Pro-B Natriuret Pep Total Protein Albumin Globulin Albumin/Globulin Ratio Triglycerides Cholesterol LDL Cholesterol Direct HDL Cholesterol Lipase Free T4 TSH 3rd Generation Urine Color Urine Clarity Urine pH Ur Specific [place] Urine Protein Urine Glucose (UA) Urine Ketones Urine Blood Urine Nitrate Urine Bilirubin Urine Urobilinogen Ur Leukocyte Esterase Urine WBC (Auto) Urine RBC (Auto) Ur Squamous Epith Cells Urine Bacteria Hyaline Casts Urine HCG, Qual Negative 07/05/18 16:35 WBC RBC Hgb Hct MCV MCH MCHC RDW Plt Count MPV Neut % (Auto) Lymph % (Auto) [place] % (Auto) Eos % (Auto) Baso % (Auto) Neut # (Auto) Lymph # (Auto) [place] # (Auto) Eos # (Auto) Baso # (Auto) Differential Comment PT INR APTT D-Dimer, Quantitative Sodium Potassium Chloride Carbon Dioxide Anion Gap BUN Creatinine Est GFR ( Amer) Est GFR (Non-Af Amer) Random Glucose Hemoglobin A1c Lactic Acid Calcium Phosphorus Magnesium Total Bilirubin AST ALT Alkaline Phosphatase Total Creatine Kinase 22 L CK-MB (Mass) 2.07 Troponin I 0.0480 NT-Pro-B Natriuret Pep Total Protein Albumin Globulin Albumin/Globulin Ratio Triglycerides Cholesterol LDL Cholesterol Direct HDL Cholesterol Lipase Free T4 TSH 3rd Generation Urine Color Urine Clarity Urine pH Ur Specific [place] Urine Protein Urine Glucose (UA) Urine Ketones Urine Blood Urine Nitrate Urine Bilirubin Urine Urobilinogen Ur Leukocyte Esterase Urine WBC (Auto) Urine RBC (Auto) Ur Squamous Epith Cells Urine Bacteria Hyaline Casts Urine HCG, Qual Assessment & Plan - Assessment and Plan (Free Text) Plan: Patient examined and evaluated personally by me. Plan of care d/w the medical office manager and as documented
--- NOTE | 2018-07-05 16:20 | CT ---
Date of service: 07/05/2018 PROCEDURE: CT Chest with contrast (Pulmonary Angiogram) HISTORY: SOB, r/o PE COMPARISON: 06/28/2018 TECHNIQUE: Axial computed tomography images were obtained of the chest in the pulmonary arterial phase of enhancement. Coronal and sagittal reformatted images were created and reviewed. Intravenous contrast dose: 100 mL Visipaque 320 Radiation dose: Total exam DLP = 563.13 mGy-cm. This CT exam was performed using one or more of the following dose reduction techniques: Automated exposure control, adjustment of the mA and/or kV according to patient size, and/or use of iterative reconstruction technique. FINDINGS: PULMONARY ARTERIES: There is filling defect in a subsegmental left lower lobe pulmonary artery branch. Consistent with pulmonary embolus. This is best demonstrated on series 2, image 131 and 132. No other pulmonary embolism is appreciated elsewhere. AORTA: No acute findings. No thoracic aortic aneurysm. No aortic atherosclerotic calcification or mural plaque present. LUNGS: Bilateral lower lobe bronchiectasis, fusiform. Bronchiectasis also noted in right middle lobe and lingular segment of left upper lobe. Multifocal ill-defined opacities in both upper lobes as well as in the superior segment of both lower lobes.. No discrete mass. Focal small airways disease, nonspecific, in the right upper lobe, images 37 through 42 on series 4. Presents as "tree-in-bud" appearance. PLEURAL SPACES: Unremarkable. No effusion or pneumothorax. HEART: Unremarkable. No cardiomegaly. No significant pericardial effusion. LYMPH NODES: There is bilateral hilar lymphadenopathy. There is mild mediastinal lymphadenopathy. BONES, CHEST WALL: Unremarkable. 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 This also could be the result of old splenic trauma. IMPRESSION: Multifocal opacities in both upper lobes and superior segment lower lobes, consistent with multifocal pneumonia. Follow-up to clearing to exclude underlying neoplasm. Focal small airways disease in right upper lobe. Isolated pulmonary embolism in subsegmental vessel left lower lobe. Mild mediastinal and bilateral hilar lymphadenopathy, nonspecific. Bilateral fusiform bronchiectasis both lower lobes as well as right middle lobe and lingular segment left upper lobe. 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
--- NOTE | 2018-07-05 16:40 | CARD ---
APPROVED REPORT Date of service: 07/05/2018 EXAM: Two-dimensional and M-mode echocardiogram with Doppler and color Doppler. INDICATION Atrial Fibrillation COPD r/o thrombus 2D DIMENSIONS IVSd0.9 (0.7-1.1cm)LVDd4.5 (3.9-5.9cm) PWd0.7 (0.7-1.1cm)LA Ucplim54 (18-58mL) LVDs3.0 (2.5-4.0cm)FS (%) 32.5 % LVEF (%)61.0 (>50%)LVEF (Burrell's)57 % M-Mode DIMENSIONS Left Atrium (MM)3.67 (2.5-4.0cm)IVSd0.85 (0.7-1.1cm) Aortic Root2.78 (2.2-3.7cm)LVDd4.53 (4.0-5.6cm) Aortic Cusp Exc.1.63 (1.5-2.0cm)PWd0.79 (0.7-1.1cm) FS (%) 29 %LVDs3.23 (2.0-3.8cm) LVEF (%)56 (>50%) Mitral Valve MV E Ktmircyr43.5cm/sE/A ratio0.8VLXK606.30 cm/s TDI Lateral E' Peak V7.13cm/sMedial E' Peak V7.06cm/sE/Lateral E'12.4 E/Medial E'12.5 Tricuspid Valve TR Peak Ghslczpq951qo/sTR Peak Gr.[id number] LEFT VENTRICLE The left ventricle is normal size. There is normal left ventricular wall thickness. The left ventricular function is normal. The left ventricular ejection fraction is within the normal range. There is normal LV segmental wall motion. RIGHT VENTRICLE The right ventricle is normal size. There is normal right ventricular wall thickness. The right ventricular systolic function is normal. ATRIA The left atrium is borderline dilated. The right atrium size is normal. AORTIC VALVE The aortic valve is normal in structure. No aortic regurgitation is present. There is no aortic valvular stenosis. MITRAL VALVE The mitral valve is mildly thickened. There is no mitral valve stenosis. Mitral regurgitation is moderate. TRICUSPID VALVE The tricuspid valve is normal in structure. There is mild tricuspid regurgitation. There is mild pulmonary hypertension. PULMONIC VALVE There is trace pulmonic valvular regurgitation. GREAT VESSELS The aortic root is normal in size. The IVC is normal in size and collapses >50% with inspiration. PERICARDIAL EFFUSION There is no pericardial effusion. <Conclusion> There is normal left ventricular wall thickness. The left ventricular function is normal. The left ventricular ejection fraction is within the normal range. There is normal LV segmental wall motion. Mitral regurgitation is moderate. There is mild tricuspid regurgitation. There is mild pulmonary hypertension.
[2018-07-05] MEDS ORDERED: Piperacill/Tazo 3.375gm in Dex 3.375 GM/50 ML BAG IVPB ONE (17:00)
[2018-07-05] MEDS: Heparin25000 units/250ml 1/2NS 25,000 UNITS/250 ML BAG IV PRN (17:00)
[2018-07-05 17:03] LABS: CK-MB 2.07 ng/mL (0.0-3.38); TROPONIN I 0.048 ng/mL (0.00-0.120)
[2018-07-05] MEDS ORDERED: Ciprofloxacin 400mg/200ml D5W 400 MG/200 ML BAG IVPB ONE (18:00)
[2018-07-05 18:44] VITALS: PULSE 107
[2018-07-05] MEDS ORDERED: Digoxin 500 mcg/2ml (0.5 mg/2ml) Inj IVP ONE (19:00)
[2018-07-05] MEDS ORDERED: Enoxaparin 30 mg Syringe SC SCH (22:00)
[2018-07-05 22:54] LABS: CK-MB 1.72 ng/mL (0.0-3.38); TROPONIN I 0.032 ng/mL (0.00-0.120)
[2018-07-06] MEDS: Albuterol-Ipratrop 3 mg / 0.5 (3 ml) UD INH SCH ×6 (00:46→20:10)
[2018-07-06] MEDS: Vancomycin 1 gm/NS 200 ml 1 GM/200 ML BAG IVPB SCH ×2 (03:30→17:43)
[2018-07-06] MEDS ORDERED: Ciprofloxacin 200mg/100ml D5W 100 ML IVPB SCH (04:30)
[2018-07-06 05:32] LABS: BASO # 0.1 K/uL (0.0-0.2); BASO % 0.4 % (0.0-2.0); EOS % 0.1 % (0.0-4.0); HEMOGLOBIN 12.1 g/dL (11.0-16.0); LYMPH # 1.5 K/uL (1.0-4.3); LYMPH % 8.1 % (20.0-40.0); MEAN CELL VOLUME 69.2 fL (81.0-99.0); MEAN CORPUSCULAR HEMOGLOBIN 21.6 pg (27.0-31.0); MEAN CORPUSCULAR HGB CONC 31.3 g/dL (33.0-37.0); MEAN PLATELET VOLUME 8.8 fL (7.2-11.7); MONO # 0.4 K/uL (0.0-0.8); NEUT # 16.1 K/uL (1.8-7.0); NEUT % 89.4 % (50.0-75.0); NRBC % 0.2 % (0.0-2.0); PLATELET COUNT 383 K/uL (130-400); RED CELL DISTRIBUTION WIDTH 18.7 % (11.5-14.5); WHITE BLOOD COUNT 18.1 K/uL (4.8-10.8)
[2018-07-06 05:43] LABS: ALB/GLOB RATIO 1.2 (1.0-2.1); ALBUMIN 3.7 g/dL (3.5-5.0); ALT/SGPT 112 U/L (9-52); AST/SGOT 35 U/L (14-36); BLOOD UREA NITROGEN 30 mg/dL (7-17); CALCIUM 8.6 mg/dl (8.6-10.4); GFR NON-AFRICAN AMERICAN > 60
[2018-07-06] MEDS: Levothyroxine 50 MCG TAB PO SCH (06:02)
[2018-07-06 08:23] LABS: BANDS 2 % (0-2); LYMPHOCYTE 10 % (20-40); MONOCYTE 1 % (0-10); NEUTROPHIL 87 % (50-75); PLATELET ESTIMATE NORMAL (NORMAL); TOTAL CELLS COUNTED 100
[2018-07-06 08:24] LABS: ANISOCYTOSIS SLIGHT; POIKILOCYTOSIS SLIGHT
[2018-07-06 08:25] LABS: GIANT PLATELETS PRESENT; TARGET CELLS SLIGHT
[2018-07-06] MEDS ORDERED: diltiaZEM 60 mg ER Cap PO SCH (08:30)
[2018-07-06] MEDS ORDERED: diltiaZEM 180 mg/24 Hours CD Cap PO SCH (09:00)
[2018-07-06] MEDS: MethylPREDNISolone 40 mg Vial IVP SCH ×2 (09:36→20:22)
[2018-07-06] MEDS ORDERED: Enoxaparin 30 mg Syringe SC SCH (10:00)
[2018-07-06] MEDS: Fluticasone-Vilanterol 100/25mcg Diskus INH SCH (11:02)
[2018-07-06] MEDS ORDERED: Metoprolol 1 mg/ml Inj IVP ONE ×2 (11:24→12:00)
[2018-07-06] MEDS: Heparin25000 units/250ml 1/2NS 25,000 UNITS/250 ML BAG IV PRN (11:55)
[2018-07-06] MEDS: Azithromycin 500 MG in Sodium Chloride 0.9% 250 ML IVPB SCH (12:15)
--- NOTE | 2018-07-06 17:32 | CP.CCUPN ---
<Deep Pérez - Last Filed: 07/06/18 17:49> CCU Objective - Vital Signs / Intake & Output Vital Signs (Last 4 hours): Vital Signs Pulse Resp BP Pulse Ox 07/06/18 15:56 94 H 07/06/18 15:00 94 H 18 98 07/06/18 14:44 101 H 21 117/77 96 07/06/18 14:32 101 H 20 114/80 97 07/06/18 14:00 109 H 17 97 Intake and Output (Last 8hrs): Intake & Output 07/06/18 07/06/18 07/06/18 06:59 14:59 22:59 Intake Total 676.1 596.2 Output Total 500 700 Balance 176.1 -103.8 Weight 153 lb 11.2 oz Intake: IV 74.5 250 Intake, IV Amount 351.6 346.2 Left Antecubital 50 270 Left Wrist 101.6 76.2 Right Hand 200 Oral 250 Output: Urine 500 700 Urine, Voided 500 700 Other: # Voids Urine, Voided 1 # Bowel Movements 0 1 - Medications Active Medications: Active Medications Generic Name Dose Route Start Last Admin Trade Name Freq PRN Reason Stop Dose Admin Acetaminophen 650 mg 07/05/18 19:55 07/06/18 09:42 Tylenol 325mg Tab PO 650 mg Q4H PRN Administration Pain, moderate (4-7) Albuterol/Ipratropium 3 ml 07/05/18 08:00 07/06/18 16:20 Duoneb 3 Mg/0.5 Mg (3 Ml) Ud INH 3 ml RQ4 KIMBER Administration Diltiazem HCl 180 mg 07/06/18 09:00 07/06/18 09:36 Cardizem Cd PO 180 mg Q24H KIMBER Administration Famotidine 20 mg 07/05/18 10:00 07/06/18 09:36 Pepcid PO 20 mg DAILY KIMBER Administration Fluticasone/Vilanterol 1 puff 07/05/18 08:00 07/06/18 11:02 Breo Ellipta 100-25 Mcg Inh INH 1 puff RQ24 KIMBER Administration Heparin Sodium/Sodium Chloride 25,000 units in 250 mls @ 12.654 mls/hr 07/05/18 16:51 07/06/18 11:55 Heparin 45272 Units/250ml 1/2 Normal Saline IV 18 units/kg/hr .[id number] PRN 12.654 mls/hr PROTOCOL Administration Protocol 18 UNITS/KG/HR Piperacillin Sod/Tazobactam Sod 3.375 gm in 50 mls @ 200 mls/hr 07/06/18 23:00 Zosyn 3.375 Gm Iv Premix IVPB Q6H KIMBER Protocol Vancomycin/Sodium Chloride 1 gm in 200 mls @ 166.6 mls/hr 07/06/18 04:30 07/06/18 03:30 Vancomycin 1 Gm/Ns 200 Ml IVPB 07/11/18 04:31 166.6 mls/hr Q12H KIMBER Administration Protocol Azithromycin 500 mg/ Sodium 250 mls @ 250 mls/hr 07/06/18 12:30 Chloride IVPB Q24H [facility] Protocol Levothyroxine Sodium 50 mcg 07/06/18 06:30 07/06/18 06:02 Synthroid PO 50 mcg DAILY@0630 KIMBER Administration Methylprednisolone 40 mg 07/05/18 08:30 07/06/18 09:36 Solu-Medrol IVP 40 mg Q12H KIMBER Administration Montelukast Sodium 10 mg 07/05/18 22:00 07/05/18 22:00 Singulair PO 10 mg HS KIMBER Administration Simethicone 80 mg 07/05/18 07:57 Mylicon Chew Tab PO Q12 PRN GI distress - Patient Studies Lab Studies: Microbiology Studies 07/05/18 11:40 MRSA Culture (Admit) - Final Naris MRSA NOT DETECTED Lab Studies 07/06/18 07/06/18 07/06/18 Range/Units 05:21 05:18 05:18 WBC 18.1 H (4.8-10.8) K/uL RBC 5.60 H (3.80-5.20) Mil/uL Hgb 12.1 (11.0-16.0) g/dL Hct 38.7 (34.0-47.0) % MCV 69.2 L (81.0-99.0) fL MCH 21.6 L (27.0-31.0) pg MCHC 31.3 L (33.0-37.0) g/dL RDW 18.7 H (11.5-14.5) % Plt Count 383 (130-400) K/uL MPV 8.8 (7.2-11.7) fL Neut % (Auto) 89.4 H (50.0-75.0) % Lymph % (Auto) 8.1 L (20.0-40.0) % [place] % (Auto) 2.0 (0.0-10.0) % Eos % (Auto) 0.1 (0.0-4.0) % Baso % (Auto) 0.4 (0.0-2.0) % Neut # (Auto) 16.1 H (1.8-7.0) K/uL Lymph # (Auto) 1.5 (1.0-4.3) K/uL [place] # (Auto) 0.4 (0.0-0.8) K/uL Eos # (Auto) 0.0 (0.0-0.7) K/uL Baso # (Auto) 0.1 (0.0-0.2) K/uL Neutrophils % (Manual) 87 H (50-75) % Band Neutrophils % 2 (0-2) % Lymphocytes % (Manual) 10 L (20-40) % Monocytes % (Manual) 1 (0-10) % Platelet Estimate Normal (NORMAL) Giant Platelets Present Poikilocytosis (manual Slight Anisocytosis (manual) Slight Target Cells Slight APTT 77 H D (21-34) SECONDS Sodium 137 (132-148) mmol/L Potassium 4.4 (3.6-5.2) mmol/L Chloride 94 L (98-107) mmol/L Carbon Dioxide 30 (22-30) mmol/L Anion Gap 17 (10-20) BUN 30 H (7-17) mg/dL Creatinine 0.8 (0.7-1.2) mg/dL Est GFR ( Amer) > 60 Est GFR (Non-Af Amer) > 60 Random Glucose 165 H (65-105) mg/dL Calcium 8.6 (8.6-10.4) mg/dl Phosphorus 4.8 H (2.5-4.5) mg/dL Magnesium 1.9 (1.6-2.3) mg/dL Total Bilirubin 0.6 (0.2-1.3) mg/dL AST 35 (14-36) U/L ALT 112 H (9-52) U/L Alkaline Phosphatase 43 (38-126) U/L Total Creatine Kinase (30-135) U/L CK-MB (Mass) (0.0-3.38) ng/mL Troponin I (0.00-0.120) ng/mL Total Protein 6.8 (6.3-8.3) g/dL Albumin 3.7 (3.5-5.0) g/dL Globulin 3.1 (2.2-3.9) gm/dL Albumin/Globulin Ratio 1.2 (1.0-2.1) IgE (<ox=244) kU/L 07/05/18 07/05/18 07/05/18 Range/Units 22:19 22:19 11:40 WBC (4.8-10.8) K/uL RBC (3.80-5.20) Mil/uL Hgb (11.0-16.0) g/dL Hct (34.0-47.0) % MCV (81.0-99.0) fL MCH (27.0-31.0) pg MCHC (33.0-37.0) g/dL RDW (11.5-14.5) % Plt Count (130-400) K/uL MPV (7.2-11.7) fL Neut % (Auto) (50.0-75.0) % Lymph % (Auto) (20.0-40.0) % [place] % (Auto) (0.0-10.0) % Eos % (Auto) (0.0-4.0) % Baso % (Auto) (0.0-2.0) % Neut # (Auto) (1.8-7.0) K/uL Lymph # (Auto) (1.0-4.3) K/uL [place] # (Auto) (0.0-0.8) K/uL Eos # (Auto) (0.0-0.7) K/uL Baso # (Auto) (0.0-0.2) K/uL Neutrophils % (Manual) (50-75) % Band Neutrophils % (0-2) % Lymphocytes % (Manual) (20-40) % Monocytes % (Manual) (0-10) % Platelet Estimate (NORMAL) Giant Platelets Poikilocytosis (manual Anisocytosis (manual) Target Cells APTT 52 H D (21-34) SECONDS Sodium (132-148) mmol/L Potassium (3.6-5.2) mmol/L Chloride (98-107) mmol/L Carbon Dioxide (22-30) mmol/L Anion Gap (10-20) BUN (7-17) mg/dL Creatinine (0.7-1.2) mg/dL Est GFR ( Amer) Est GFR (Non-Af Amer) Random Glucose (65-105) mg/dL Calcium (8.6-10.4) mg/dl Phosphorus (2.5-4.5) mg/dL Magnesium (1.6-2.3) mg/dL Total Bilirubin (0.2-1.3) mg/dL AST (14-36) U/L ALT (9-52) U/L Alkaline Phosphatase (38-126) U/L Total Creatine Kinase 23 L (30-135) U/L CK-MB (Mass) 1.72 (0.0-3.38) ng/mL Troponin I 0.0320 (0.00-0.120) ng/mL Total Protein (6.3-8.3) g/dL Albumin (3.5-5.0) g/dL Globulin (2.2-3.9) gm/dL Albumin/Globulin Ratio (1.0-2.1) IgE 182 H (<wo=441) kU/L Laboratory Results - last 24 hr 07/05/18 07/05/18 07/05/18 11:40 22:19 22:19 WBC RBC Hgb Hct MCV MCH MCHC RDW Plt Count MPV Neut % (Auto) Lymph % (Auto) [place] % (Auto) Eos % (Auto) Baso % (Auto) Neut # (Auto) Lymph # (Auto) [place] # (Auto) Eos # (Auto) Baso # (Auto) Neutrophils % (Manual) Band Neutrophils % Lymphocytes % (Manual) Monocytes % (Manual) Platelet Estimate Giant Platelets Poikilocytosis (manual Anisocytosis (manual) Target Cells APTT 52 H D Sodium Potassium Chloride Carbon Dioxide Anion Gap BUN Creatinine Est GFR ( Amer) Est GFR (Non-Af Amer) Random Glucose Calcium Phosphorus Magnesium Total Bilirubin AST ALT Alkaline Phosphatase Total Creatine Kinase 23 L CK-MB (Mass) 1.72 Troponin I 0.0320 Total Protein Albumin Globulin Albumin/Globulin Ratio IgE 182 H 07/06/18 07/06/18 07/06/18 05:18 05:18 05:21 WBC 18.1 H RBC 5.60 H Hgb 12.1 Hct 38.7 MCV 69.2 L MCH 21.6 L MCHC 31.3 L RDW 18.7 H Plt Count 383 MPV 8.8 Neut % (Auto) 89.4 H Lymph % (Auto) 8.1 L [place] % (Auto) 2.0 Eos % (Auto) 0.1 Baso % (Auto) 0.4 Neut # (Auto) 16.1 H Lymph # (Auto) 1.5 [place] # (Auto) 0.4 Eos # (Auto) 0.0 Baso # (Auto) 0.1 Neutrophils % (Manual) 87 H Band Neutrophils % 2 Lymphocytes % (Manual) 10 L Monocytes % (Manual) 1 Platelet Estimate Normal Giant Platelets Present Poikilocytosis (manual Slight Anisocytosis (manual) Slight Target Cells Slight APTT 77 H D Sodium 137 Potassium 4.4 Chloride 94 L Carbon Dioxide 30 Anion Gap 17 BUN 30 H Creatinine 0.8 Est GFR ( Amer) > 60 Est GFR (Non-Af Amer) > 60 Random Glucose 165 H Calcium 8.6 Phosphorus 4.8 H Magnesium 1.9 Total Bilirubin 0.6 AST 35 ALT 112 H Alkaline Phosphatase 43 Total Creatine Kinase CK-MB (Mass) Troponin I Total Protein 6.8 Albumin 3.7 Globulin 3.1 Albumin/Globulin Ratio 1.2 IgE Critical Care Progress Note - Nutrition Nutrition: Nutrition Category Date Time Status NPO Diet [DIET] Diets 07/07/18 Breakfast Active Regular Diet [DIET] Diets 07/05/18 Breakfast Active Attending/Attestation - Attestation I have personally seen and examined this patient.: Yes I have fully participated in the care of the patient.: Yes I have reviewed all pertinent clinical information: Yes Notes (Text): 07/06/18 17:50 I have seen and examined the patient. Medical records, lab studies, and imaging were reviewed by me and a management plan was formulated on multidisciplinary rounds with resident Dr. Solares. I agree with their documented assessment and plan. Patient in sinus tachycardia from PE, continue heparin drip, metoprolol IV for rate control. Multilobar pneumonia, continue abx. Hypothyroidism continue levothyroxine. Critical Care Time 35 minutes. Multi-disciplinary rounds were performed with house staff, nursing, speech therapy, respiratory therapy, pharmacy and nutrition with integrated input from the primary team/attending and other consulting services. The documented time is cumulative and includes review of patient data/exams/labs/chart review and examination of the patient on rounds and throughout the day; time is exclusive of any procedures or teaching time. <Sudarshan Solares - Last Filed: 07/06/18 21:53> CCU Subjective - Physician Review Subjective (Free Text): PGY-1 ICU progress note for Dr Pérez service Patient is seen and examined at bedside. Patient states having pain stomach pain, and back pain. Patient reports headaches, states she did not sleep last night. Denies fever, chills, chest pain, shortness of breath. Critical Care Time Spent (in minutes): 35 CCU Objective - Vital Signs / Intake & Output Vital Signs (Last 4 hours): Vital Signs Pulse Resp BP Pulse Ox 07/06/18 15:56 94 H 07/06/18 15:00 94 H 18 98 07/06/18 14:44 101 H 21 117/77 96 07/06/18 14:32 101 H 20 114/80 97 07/06/18 14:00 109 H 17 97 Intake and Output (Last 8hrs): Intake & Output 07/06/18 07/06/18 07/06/18 06:59 14:59 22:59 Intake Total 676.1 596.2 Output Total 500 700 Balance 176.1 -103.8 Weight 153 lb 11.2 oz Intake: IV 74.5 250 Intake, IV Amount 351.6 346.2 Left Antecubital 50 270 Left Wrist 101.6 76.2 Right Hand 200 Oral 250 Output: Urine 500 700 Urine, Voided 500 700 Other: # Voids Urine, Voided 1 # Bowel Movements 0 1 - Physical Exam Head: Positive for: Atraumatic, Normocephalic Pupils: Positive for: PERRL Extroacular Muscles: Positive for: EOMI Conjunctiva: Positive for: Normal Mouth: Positive for: Moist Mucous Membranes Respiratory/Chest: Positive for: Decreased Breath Sounds. Negative for: Good Air Exchange, Respiratory Distress, Wheezes, Rales, Rhonchi, Tachypneic Cardiovascular: Positive for: Regular Rate and Rhythm, Murmurs, Normal S1, S2 Abdomen: Positive for: Tenderness, Normal Bowel Sounds Back: Positive for: Normal Inspection Upper Extremity: Positive for: Normal Inspection Lower Extremity: Positive for: Normal Inspection Neurological: Positive for: GCS=15, CN II-XII Intact, Speech Normal Skin: Positive for: Warm, Normal Color Psychiatric: Positive for: Alert, Oriented x 3, Normal Insight, Normal Concentration - Medications Active Medications: Active Medications Generic Name Dose Route Start Last Admin Trade Name Freq PRN Reason Stop Dose Admin Acetaminophen 650 mg 07/05/18 19:55 07/06/18 09:42 Tylenol 325mg Tab PO 650 mg Q4H PRN Administration Pain, moderate (4-7) Albuterol/Ipratropium 3 ml 07/05/18 08:00 07/06/18 16:20 Duoneb 3 Mg/0.5 Mg (3 Ml) Ud INH 3 ml RQ4 KIMBER Administration Diltiazem HCl 180 mg 07/06/18 09:00 07/06/18 09:36 Cardizem Cd PO 180 mg Q24H KIMBER Administration Famotidine 20 mg 07/05/18 10:00 07/06/18 09:36 Pepcid PO 20 mg DAILY KIMBER Administration Fluticasone/Vilanterol 1 puff 07/05/18 08:00 07/06/18 11:02 Breo Ellipta 100-25 Mcg Inh INH 1 puff RQ24 KIMBER Administration Heparin Sodium/Sodium Chloride 25,000 units in 250 mls @ 12.654 mls/hr 07/05/18 16:51 07/06/18 11:55 Heparin 43298 Units/250ml 1/2 Normal Saline IV 18 units/kg/hr .[id number] PRN 12.654 mls/hr PROTOCOL Administration Protocol 18 UNITS/KG/HR Piperacillin Sod/Tazobactam Sod 3.375 gm in 50 mls @ 200 mls/hr 07/06/18 23:00 Zosyn 3.375 Gm Iv Premix IVPB Q6H KIMBER Protocol Vancomycin/Sodium Chloride 1 gm in 200 mls @ 166.6 mls/hr 07/06/18 04:30 07/06/18 03:30 Vancomycin 1 Gm/Ns 200 Ml IVPB 07/11/18 04:31 166.6 mls/hr Q12H KIMBER Administration Protocol Azithromycin 500 mg/ Sodium 250 mls @ 250 mls/hr 07/06/18 12:30 Chloride IVPB Q24H KIMBER Protocol Levothyroxine Sodium 50 mcg 07/06/18 06:30 07/06/18 06:02 Synthroid PO 50 mcg DAILY@0630 KIMBER Administration Methylprednisolone 40 mg 07/05/18 08:30 07/06/18 09:36 Solu-Medrol IVP 40 mg Q12H KIMBER Administration Montelukast Sodium 10 mg 07/05/18 22:00 07/05/18 22:00 Singulair PO 10 mg HS KIMBER Administration Simethicone 80 mg 07/05/18 07:57 Mylicon Chew Tab PO Q12 PRN GI distress - Patient Studies Lab Studies: Microbiology Studies 07/05/18 11:40 MRSA Culture (Admit) - Final Naris MRSA NOT DETECTED Lab Studies 07/06/18 07/06/18 07/06/18 Range/Units 05:21 05:18 05:18 WBC 18.1 H (4.8-10.8) K/uL RBC 5.60 H (3.80-5.20) Mil/uL Hgb 12.1 (11.0-16.0) g/dL Hct 38.7 (34.0-47.0) % MCV 69.2 L (81.0-99.0) fL MCH 21.6 L (27.0-31.0) pg MCHC 31.3 L (33.0-37.0) g/dL RDW 18.7 H (11.5-14.5) % Plt Count 383 (130-400) K/uL MPV 8.8 (7.2-11.7) fL Neut % (Auto) 89.4 H (50.0-75.0) % Lymph % (Auto) 8.1 L (20.0-40.0) % [place] % (Auto) 2.0 (0.0-10.0) % Eos % (Auto) 0.1 (0.0-4.0) % Baso % (Auto) 0.4 (0.0-2.0) % Neut # (Auto) 16.1 H (1.8-7.0) K/uL Lymph # (Auto) 1.5 (1.0-4.3) K/uL [place] # (Auto) 0.4 (0.0-0.8) K/uL Eos # (Auto) 0.0 (0.0-0.7) K/uL Baso # (Auto) 0.1 (0.0-0.2) K/uL Neutrophils % (Manual) 87 H (50-75) % Band Neutrophils % 2 (0-2) % Lymphocytes % (Manual) 10 L (20-40) % Monocytes % (Manual) 1 (0-10) % Platelet Estimate Normal (NORMAL) Giant Platelets Present Poikilocytosis (manual Slight Anisocytosis (manual) Slight Target Cells Slight APTT 77 H D (21-34) SECONDS Sodium 137 (132-148) mmol/L Potassium 4.4 (3.6-5.2) mmol/L Chloride 94 L (98-107) mmol/L Carbon Dioxide 30 (22-30) mmol/L Anion Gap 17 (10-20) BUN 30 H (7-17) mg/dL Creatinine 0.8 (0.7-1.2) mg/dL Est GFR ( Amer) > 60 Est GFR (Non-Af Amer) > 60 Random Glucose 165 H (65-105) mg/dL Calcium 8.6 (8.6-10.4) mg/dl Phosphorus 4.8 H (2.5-4.5) mg/dL Magnesium 1.9 (1.6-2.3) mg/dL Total Bilirubin 0.6 (0.2-1.3) mg/dL AST 35 (14-36) U/L ALT 112 H (9-52) U/L Alkaline Phosphatase 43 (38-126) U/L Total Creatine Kinase (30-135) U/L CK-MB (Mass) (0.0-3.38) ng/mL Troponin I (0.00-0.120) ng/mL Total Protein 6.8 (6.3-8.3) g/dL Albumin 3.7 (3.5-5.0) g/dL Globulin 3.1 (2.2-3.9) gm/dL Albumin/Globulin Ratio 1.2 (1.0-2.1) IgE (<dq=757) kU/L 07/05/18 07/05/18 07/05/18 Range/Units 22:19 22:19 11:40 WBC (4.8-10.8) K/uL RBC (3.80-5.20) Mil/uL Hgb (11.0-16.0) g/dL Hct (34.0-47.0) % MCV (81.0-99.0) fL MCH (27.0-31.0) pg MCHC (33.0-37.0) g/dL RDW (11.5-14.5) % Plt Count (130-400) K/uL MPV (7.2-11.7) fL Neut % (Auto) (50.0-75.0) % Lymph % (Auto) (20.0-40.0) % [place] % (Auto) (0.0-10.0) % Eos % (Auto) (0.0-4.0) % Baso % (Auto) (0.0-2.0) % Neut # (Auto) (1.8-7.0) K/uL Lymph # (Auto) (1.0-4.3) K/uL [place] # (Auto) (0.0-0.8) K/uL Eos # (Auto) (0.0-0.7) K/uL Baso # (Auto) (0.0-0.2) K/uL Neutrophils % (Manual) (50-75) % Band Neutrophils % (0-2) % Lymphocytes % (Manual) (20-40) % Monocytes % (Manual) (0-10) % Platelet Estimate (NORMAL) Giant Platelets Poikilocytosis (manual Anisocytosis (manual) Target Cells APTT 52 H D (21-34) SECONDS Sodium (132-148) mmol/L Potassium (3.6-5.2) mmol/L Chloride (98-107) mmol/L Carbon Dioxide (22-30) mmol/L Anion Gap (10-20) BUN (7-17) mg/dL Creatinine (0.7-1.2) mg/dL Est GFR ( Amer) Est GFR (Non-Af Amer) Random Glucose (65-105) mg/dL Calcium (8.6-10.4) mg/dl Phosphorus (2.5-4.5) mg/dL Magnesium (1.6-2.3) mg/dL Total Bilirubin (0.2-1.3) mg/dL AST (14-36) U/L ALT (9-52) U/L Alkaline Phosphatase (38-126) U/L Total Creatine Kinase 23 L (30-135) U/L CK-MB (Mass) 1.72 (0.0-3.38) ng/mL Troponin I 0.0320 (0.00-0.120) ng/mL Total Protein (6.3-8.3) g/dL Albumin (3.5-5.0) g/dL Globulin (2.2-3.9) gm/dL Albumin/Globulin Ratio (1.0-2.1) IgE 182 H (<kt=191) kU/L Laboratory Results - last 24 hr 07/05/18 07/05/18 07/05/18 11:40 22:19 22:19 WBC RBC Hgb Hct MCV MCH MCHC RDW Plt Count MPV Neut % (Auto) Lymph % (Auto) [place] % (Auto) Eos % (Auto) Baso % (Auto) Neut # (Auto) Lymph # (Auto) [place] # (Auto) Eos # (Auto) Baso # (Auto) Neutrophils % (Manual) Band Neutrophils % Lymphocytes % (Manual) Monocytes % (Manual) Platelet Estimate Giant Platelets Poikilocytosis (manual Anisocytosis (manual) Target Cells APTT 52 H D Sodium Potassium Chloride Carbon Dioxide Anion Gap BUN Creatinine Est GFR ( Amer) Est GFR (Non-Af Amer) Random Glucose Calcium Phosphorus Magnesium Total Bilirubin AST ALT Alkaline Phosphatase Total Creatine Kinase 23 L CK-MB (Mass) 1.72 Troponin I 0.0320 Total Protein Albumin Globulin Albumin/Globulin Ratio IgE 182 H 07/06/18 07/06/18 07/06/18 05:18 05:18 05:21 WBC 18.1 H RBC 5.60 H Hgb 12.1 Hct 38.7 MCV 69.2 L MCH 21.6 L MCHC 31.3 L RDW 18.7 H Plt Count 383 MPV 8.8 Neut % (Auto) 89.4 H Lymph % (Auto) 8.1 L [place] % (Auto) 2.0 Eos % (Auto) 0.1 Baso % (Auto) 0.4 Neut # (Auto) 16.1 H Lymph # (Auto) 1.5 [place] # (Auto) 0.4 Eos # (Auto) 0.0 Baso # (Auto) 0.1 Neutrophils % (Manual) 87 H Band Neutrophils % 2 Lymphocytes % (Manual) 10 L Monocytes % (Manual) 1 Platelet Estimate Normal Giant Platelets Present Poikilocytosis (manual Slight Anisocytosis (manual) Slight Target Cells Slight APTT 77 H D Sodium 137 Potassium 4.4 Chloride 94 L Carbon Dioxide 30 Anion Gap 17 BUN 30 H Creatinine 0.8 Est GFR ( Amer) > 60 Est GFR (Non-Af Amer) > 60 Random Glucose 165 H Calcium 8.6 Phosphorus 4.8 H Magnesium 1.9 Total Bilirubin 0.6 AST 35 ALT 112 H Alkaline Phosphatase 43 Total Creatine Kinase CK-MB (Mass) Troponin I Total Protein 6.8 Albumin 3.7 Globulin 3.1 Albumin/Globulin Ratio 1.2 IgE Critical Care Progress Note - Nutrition Nutrition: Nutrition Category Date Time Status NPO Diet [DIET] Diets 07/07/18 Breakfast Active Regular Diet [DIET] Diets 07/05/18 Breakfast Active Assessment/Plan - Assessment and Plan (Free Text) Plan: 47 year old female with pmhx of hypothyroidism, asthma came to ER for worsening shortness of breath and elevated HR, [employer] [employer] called 07/05 for HR 200, admitted for new onset afib EKG showed SVT, with unsuccessful breaking of rhythm with adenosine, rhty observe to be in aflutter after cardizem, transferred to ICU for administration of Cardizem drip. CTA shows isolated pulmonary embolism in subsegmental vessel left lower lobe and multifocal PNA. Neuro AAOx3 Cardio diltiazem drip converted to PO 180 mg metoprolol IV for rate control echo - pending CTA - isolated pulmonary embolism in subsegmental vessel left lower lobe, multifocal PNA sinus tachy due to PE Cardio- Dr Law Pulm hx of asthma CTA chest - isolated pulmonary embolism in subsegmental vessel left lower lobe, multifocal PNA continue Heparin drip Pulm - Dr newberry Duoneb Q4 KIMBER solumedrol 40mg IVP Q12H Breo Ellipta and singuilair GI Regular diet Protonix ID WBC downtrending, afebrile zithromax, zosyn, vanco ID - Dr stevens Endo Synthroid 50mcg PO daily TSH: 3.81 free T4 - 1.76 PPX Heparin drip Pepcid 20mg PO daily Simethicone tylenol 1 x motrin for pain Plan discussed with Dr Keo Solares, PGY-1 - Date & Time Date: 07/06/18 Time: 10:00
--- NOTE | 2018-07-06 18:56 | CP.PCM.CON ---
History of Present Illness - History of Present Illness History of Present Illness: 47 year old female came to hospital with complaints of worsening shortness of breath and admitted to hospital for new onset Afib and had an [employer] for rapid rate requiring amiodorone drip Diagnosed with PE as per patient and septic work up done due to elevated WBC and possible exac of bronchiectasis Has long Hx of recurrent Pseudomonal infections Allergies: NKDA PMHx: asthma, bronchiectasis, uterine polyp, hypothyroidism, chronic abd pain SurgHx: right nephrectomy (2003), uterine polyp removal 01/2018 SocHx: denies tobacco, alcohol, and drug use; recently traveled to last week and [place] in May. Medications: Synthroid 50mg PO HS, Pepcid 20mg po daily, Breo daily, Proair BID Review of Systems - Constitutional Constitutional: As Per HPI, Fever, Lethargy, Malaise - EENT Eyes: absent: As Per HPI, Blind Spots, Blurred Vision, Change in Vision, Decreased Night Vision, Diplopia, Discharge, Dry Eye, Exophthalmos, Floaters, Irritation, Itchy Eyes, Loss of Peripheral Vision, Pain, Photophobia, Requires Corrective Lenses, Sees Flashes, Spots in Vision, Tunnel Vision, Other Visual Disturbances, Loss of Vision, Other Ears: absent: As Per HPI, Decreased Hearing, Ear Discharge, Ear Pain, Tinnitus, Abnormal Hearing, Disequilibrium, Dizziness, Other Nose/Mouth/Throat: absent: As Per HPI, Epistaxis, Nasal Congestion, Nasal Discharge, Nasal Obstruction, Nasal Trauma, Nose Pain, Post Nasal Drip, Sinus Pain, Sinus Pressure, Bleeding Gums, Change in Voice, Dental Pain, Dry Mouth, Dysphagia, Halitosis, Hoarsness, Lip Swelling, Mouth Lesions, Mouth Pain, Odynophagia, Sore Throat, Throat Swelling, Tongue Swelling, Facial Pain, Neck Pain, Neck Mass, Other - Breasts Breasts: absent: As Per HPI, Change in Shape, Mass, Pain, Nipple Discharge, Nipple Inversion, Skin Changes, Swelling, Other - Cardiovascular Cardiovascular: absent: As Per HPI, Acrocyanosis, Chest Pain, Chest Pain at Rest, Chest Pain with Activity, Claudication, Diaphoresis, Dyspnea, Dyspnea on Exertion, Edema, Irregular Heart Rhythm, Pain Radiating to Arm/Neck/Jaw, Leg Edema, Leg Ulcers, Lightheadedness, Orthopnea, Palpitations, Paroxysmal Nocturnal Dyspnea, Pedal Edema, Radiating Pain, Rapid Heart Rate, Slow Heart Rate, Syncope, Other - Respiratory Respiratory: As Per HPI, Cough, Dyspnea. absent: Hemoptysis - Gastrointestinal Gastrointestinal: absent: As Per HPI, Abdominal Pain, Belching, Bloating, Change in Bowel Habits, Change in Stool Character, Coffee Ground Emesis, Constipation, Cramping, Diarrhea, Dyspepsia, Dysphagia, Early Satiety, Excessive Flatus, Fecal Incontinence, Heartburn, Hematemesis, Hematochezia, Loose Stools, Melena, Nausea, Odynophagia, Temesmus, Vomiting, Other - Genitourinary Genitourinary: absent: As Per HPI, Change in Urinary Stream, Difficulty Urinat ing, Dysuria, Flank Pain, Hematuria, Pyuria, Nocturia, Urinary Incontinence, Urinary Frequency, Urinary Hesitance, Urinary Urgency, Voiding Freq/Small Amts, Freq UTI, Hx Renal/Bladder Calculi, Hx /Renal Surgery, Bladder Distension, Other - Reproductive: Female Reproductive:Female: absent: As Per HPI, Amenorrhea, Amenorrhea/ Control, Currently Menstual, Cycle <21 Days, Cycle >35 Days, Cycle Variable, Menses 1-7 Days, Menses >/= 8 Days, Menses Variable, Cycle > 4 Weeks Between, No Menses for 6 Months, Heavy Menses, Light Menses, Normal Menses, Spotting Between Cycles, S/P Hysterectomy, Menopausal, Post Menopausal, Premenarche, Abnormal Vaginal Bleeding, Dysmenorrhea, Dyspareunia, Genital Lesions, Genital Pruritis, Pelvic Pain, Prolapse Symptoms, Sexual Dysfunction, Vaginal Discharge, Vaginal Dryness, Vaginal Odor, Vaginal Pruritis, Other - Menstruation Menstruation: absent: As Per HPI, Amenorrhea, Amenorrhea/ Control, Currently Menstual, Cycle <21 Days, Cycle >35 Days, Cycle Variable, Menses 1-7 D ays, Menses >/= 8 Days, Menses Variable, Cycle > 4 Weeks Between, No Menses for 6 Months, Heavy Menses, Light Menses, Normal Menses, Spotting Between Cycles, S/P Hysterectomy, Menopausal, Post Menopausal, Premenarche, Abnormal Vaginal Bleeding, Dysmenorrhea, Other - Musculoskeletal Musculoskeletal: absent: As Per HPI, Abnormal Gait, Arthralgias, Atrophy, Back Pain, Deformity, Joint Swelling, Limited Range of Motion, Loss of Height, Muscle Cramps, Muscle Weakness, Myalgias, Neck Pain, Numbness, Radiating Pain into Limb, Stiffness, Tingling, Other - Integumentary Integumentary: absent: As Per HPI, Acne, Alopecia, Bleeding Lesions, Change in Hair, Change in Nails, Change in Pigmentation, Changing Lesions, Dry Skin, Erythema, Furuncle, Hirsutism, Lesions, New Lesions, Non-Healing Lesions, Photosensitivity, Pruritus, Rash, Skin Pain, Skin Ulcer, Sores, Striae, Swelling, Unusual Bruising, Wounds, Jaundice, Other - Neurological Neurological: absent: As Per HPI, Abnormal Gait, Abnormal Hearing, Abnormal Movements, Abnormal Speech, Behavioral Changes, Burning Sensations, Confusion, Convulsions, Disequilibrium, Dizziness, Numbness, Focal Weakness, Frequent Falls, Headaches, Lack of Coordination, Loss of Vision, Memory Loss, Paresthesias, Radicular Pain, Restless Legs, Sensory Deficit, Syncope, Tingling, Tremor, Vertigo, Weakness, Other Visual Disturbances, Other - Psychiatric Psychiatric: absent: As Per HPI, Abnormal Sleep Pattern, Anhedonia, Anxiety, Auditory Hallucinations, Behavioral Changes, Change in Appetite, Change in Terri jossue, Confusion, Depression, Difficulty Concentrating, Hallucinations, Homicidal Ideation, Hopelessness, Irritability, Memory Loss, Mood Swings, Panic Attacks, Paranoia, Suicidal Ideation, Visual Hallucinations, Tactile Hallucinations, Other - Endocrine Endocrine: absent: As Per HPI, Change in Body Appearance, Change in Libido, Cold Intolorance, Deepening of Voice, Excessive Sweating, Fatigue, Flushing, Heat Intolorance, Increase in Ring/Shoe/Hat Size, Palpitations, Polydipsia, Polyphagia, Polyuria, Other - Hematologic/Lymphatic Hematologic: absent: As Per HPI, Easy Bleeding, Easy Bruising, Lymphadenopathy, Other Past Patient History - Infectious Disease Hx of Infectious Diseases: None - Past Medical History & Family History Past Medical History?: No - Past Social History Smoking Status: Never Smoked - CARDIAC Hx Cardiac Disorders: No - PULMONARY Hx Asthma: Yes Hx Bronchitis: Yes Hx Pneumonia: Yes - NEUROLOGICAL Hx Neurological Disorder: No - HEENT Hx HEENT Problems: Yes Other/Comment: HX: LEFT SIDE OF NECK-GLAND REMOVED-NO CANCER. HX: DYSPHAGIA - RENAL Hx Chronic Kidney Disease: Yes Hx Kidney Stones: Yes - ENDOCRINE/METABOLIC Hx Hypothyroidism: Yes - HEMATOLOGICAL/ONCOLOGICAL Hx Blood Disorders: No - INTEGUMENTARY Hx Dermatological Problems: No - MUSCULOSKELETAL/RHEUMATOLOGICAL Hx Falls: No - GASTROINTESTINAL Hx Gastrointestinal Disorders: No - GENITOURINARY/GYNECOLOGICAL Hx Genitourinary Disorders: Yes Hx Reproductive Disorders: Yes Other/Comment: HX: DYSMENORRHEA. HX: ENDOMETRIAL POLYP - PSYCHIATRIC Hx Substance Use: No - SURGICAL HISTORY Hx Surgeries: Yes Hx Dilation and Curettage: Yes (WITH HYSTERSCOPY/MYOSURE(12/07/17)) Other/Comment: right nephrectomy, - ANESTHESIA Hx Anesthesia: Yes Hx Anesthesia Reactions: No Hx Malignant Hyperthermia: No Meds Allergies/Adverse Reactions: Allergies Allergy/AdvReac Type Severity Reaction Status Date / Time seasonal Allergy Uncoded 07/05/18 05:22 - Medications Medications: Current Medications Acetaminophen (Tylenol 325mg Tab) 650 mg PO Q4H PRN PRN Reason: Pain, moderate (4-7) Last Admin: 07/06/18 09:42 Dose: 650 mg Albuterol/Ipratropium (Duoneb 3 Mg/0.5 Mg (3 Ml) Ud) 3 ml INH RQ4 [facility] Last Admin: 07/06/18 16:20 Dose: 3 ml Diltiazem HCl (Cardizem Cd) 180 mg PO Q24H [facility] Last Admin: 07/06/18 09:36 Dose: 180 mg Famotidine (Pepcid) 20 mg PO DAILY [facility] Last Admin: 07/06/18 09:36 Dose: 20 mg Fluticasone/Vilanterol (Breo Ellipta 100-25 Mcg Inh) 1 puff INH RQ24 [facility] Last Admin: 07/06/18 11:02 Dose: 1 puff Heparin Sodium/Sodium Chloride (Heparin 24251 Units/250ml 1/2 Normal Saline) 25,000 units in 250 mls @ 12.654 mls/hr IV .[id number] PRN; Protocol PRN Reason: PROTOCOL Last Admin: 07/06/18 11:55 Dose: 18 units/kg/hr, 12.654 mls/hr Piperacillin Sod/Tazobactam Sod (Zosyn 3.375 Gm Iv Premix) 3.375 gm in 50 mls @ 200 mls/hr IVPB Q6H [facility]; Protocol Vancomycin/Sodium Chloride (Vancomycin 1 Gm/Ns 200 Ml) 1 gm in 200 mls @ 166.6 mls/hr IVPB Q12H [facility]; Protocol Stop: 07/11/18 04:31 Last Admin: 07/06/18 17:43 Dose: 166.6 mls/hr Azithromycin 500 mg/ Sodium (Chloride) 250 mls @ 250 mls/hr IVPB Q24H [facility]; Protocol Last Admin: 07/06/18 12:15 Dose: 250 mls/hr Levothyroxine Sodium (Synthroid) 50 mcg PO DAILY@0630 [facility] Last Admin: 07/06/18 06:02 Dose: 50 mcg Methylprednisolone (Solu-Medrol) 40 mg IVP Q12H [facility] Last Admin: 07/06/18 09:36 Dose: 40 mg Montelukast Sodium (Singulair) 10 mg PO HS [facility] Last Admin: 07/05/18 22:00 Dose: 10 mg Simethicone (Mylicon Chew Tab) 80 mg PO Q12 PRN PRN Reason: GI distress Physical Exam - Constitutional Appears: Non-toxic, In Acute Distress - Head Exam Head Exam: ATRAUMATIC, NORMOCEPHALIC - Eye Exam Eye Exam: absent: Scleral icterus - ENT Exam ENT Exam: Mucous Membranes Dry, Normal External Ear Exam - Neck Exam Neck exam: Negative for: Lymphadenopathy - Respiratory Exam Respiratory Exam: Decreased Breath Sounds - Cardiovascular Exam Cardiovascular Exam: Tachycardia, Irregular Rhythm, +S1, +S2 - GI/Abdominal Exam GI & Abdominal Exam: Diminished Bowel Sounds, Soft. absent: Guarding, Hernia, Rebound, Rigid, Tenderness - Rectal Exam Rectal Exam: Deferred - Exam Exam: NORMAL INSPECTION - Extremities Exam Extremities exam: Negative for: pedal edema - Back Exam Back exam: absent: CVA tenderness (L), CVA tenderness (R) - Neurological Exam Neurological exam: Alert, CN II-XII Intact, Oriented x3, Reflexes Normal - Psychiatric Exam Psychiatric exam: Depressed - Skin Skin Exam: Dry, Intact Results - Vital Signs Recent Vital Signs: Last Vital Signs Temp 97.9 F 07/06/18 16:00 Pulse 115 H 07/06/18 18:00 Resp 21 07/06/18 18:00 BP 113/76 07/06/18 17:44 Pulse Ox 97 07/06/18 18:00 - Labs Result Diagrams: 07/06/18 05:18 07/06/18 05:21 Labs: Laboratory Results - last 24 hr 07/05/18 07/05/18 07/05/18 11:40 22:19 22:19 WBC RBC Hgb Hct MCV MCH MCHC RDW Plt Count MPV Neut % (Auto) Lymph % (Auto) Mckean % (Auto) Eos % (Auto) Baso % (Auto) Neut # (Auto) Lymph # (Auto) Mckean # (Auto) Eos # (Auto) Baso # (Auto) Neutrophils % (Manual) Band Neutrophils % Lymphocytes % (Manual) Monocytes % (Manual) Platelet Estimate Giant Platelets Poikilocytosis (manual Anisocytosis (manual) Target Cells APTT 52 H D Sodium Potassium Chloride Carbon Dioxide Anion Gap BUN Creatinine Est GFR ( Amer) Est GFR (Non-Af Amer) Random Glucose Calcium Phosphorus Magnesium Total Bilirubin AST ALT Alkaline Phosphatase Total Creatine Kinase 23 L CK-MB (Mass) 1.72 Troponin I 0.0320 Total Protein Albumin Globulin Albumin/Globulin Ratio IgE 182 H 07/06/18 07/06/18 07/06/18 05:18 05:18 05:21 WBC 18.1 H RBC 5.60 H Hgb 12.1 Hct 38.7 MCV 69.2 L MCH 21.6 L MCHC 31.3 L RDW 18.7 H Plt Count 383 MPV 8.8 Neut % (Auto) 89.4 H Lymph % (Auto) 8.1 L Mckean % (Auto) 2.0 Eos % (Auto) 0.1 Baso % (Auto) 0.4 Neut # (Auto) 16.1 H Lymph # (Auto) 1.5 Mckean # (Auto) 0.4 Eos # (Auto) 0.0 Baso # (Auto) 0.1 Neutrophils % (Manual) 87 H Band Neutrophils % 2 Lymphocytes % (Manual) 10 L Monocytes % (Manual) 1 Platelet Estimate Normal Giant Platelets Present Poikilocytosis (manual Slight Anisocytosis (manual) Slight Target Cells Slight APTT 77 H D Sodium 137 Potassium 4.4 Chloride 94 L Carbon Dioxide 30 Anion Gap 17 BUN 30 H Creatinine 0.8 Est GFR ( Amer) > 60 Est GFR (Non-Af Amer) > 60 Random Glucose 165 H Calcium 8.6 Phosphorus 4.8 H Magnesium 1.9 Total Bilirubin 0.6 AST 35 ALT 112 H Alkaline Phosphatase 43 Total Creatine Kinase CK-MB (Mass) Troponin I Total Protein 6.8 Albumin 3.7 Globulin 3.1 Albumin/Globulin Ratio 1.2 IgE Assessment & Plan (1) Respiratory distress Status: Acute (2) Uncontrolled atrial fibrillation Status: Acute (3) Bronchiectasis Status: Acute (4) Pulmonary embolism Status: Acute (5) Respiratory failure Status: Acute - Assessment and Plan (Free Text) Assessment: await cultures agree with empiric IV antibiotics cont rx as per Dr Crowley
--- NOTE | 2018-07-06 21:48 | CP.PCM.PN ---
Subjective - Date & Time of Evaluation Date of Evaluation: 07/06/18 Time of Evaluation: 19:20 - Subjective Subjective: Patient seen and evaluated still in A Fib HR poorly controlled Review of Systems - Constitutional Constitutional: absent: Chills, Frequent Falls, Night Sweats, Weakness - EENT Eyes: absent: Blurred Vision, Discharge, Loss of Peripheral Vision, Requires Corrective Lenses Ears: absent: Ear Discharge, Dizziness Nose/Mouth/Throat: absent: Nasal Congestion, Bleeding Gums, Odynophagia - Cardiovascular Cardiovascular: absent: Chest Pain, Claudication, Irregular Heart Rhythm, Leg Edema, Syncope - Respiratory Respiratory: absent: Cough, Dyspnea, Hemoptysis, Snoring - Gastrointestinal Gastrointestinal: absent: Belching, Change in Stool Character, Heartburn, Loose Stools, Melena, Nausea - Genitourinary Genitourinary: absent: Change in Urinary Stream, Difficulty Urinating, Urinary Urgency - Musculoskeletal Musculoskeletal: absent: Back Pain, Myalgias, Neck Pain, Tingling - Integumentary Integumentary: absent: Lesions, Pruritus, Striae, Swelling, Unusual Bruising - Neurological Neurological: absent: Abnormal Hearing, Burning Sensations, Dizziness, Numbness, Restless Legs, Tingling, Tremor, Vertigo - Psychiatric Psychiatric: absent: Depression, Hopelessness, Paranoia, Visual Hallucinations, Tactile Hallucinations - Endocrine Endocrine: absent: Polydipsia, Polyphagia, Polyuria - Hematologic/Lymphatic Hematologic: absent: Easy Bleeding, Easy Bruising Physical Exam - Head Exam Head Exam: ATRAUMATIC, NORMAL INSPECTION - Eye Exam Eye Exam: EOMI, Normal appearance, PERRL Pupil Exam: NORMAL ACCOMODATION, PERRL. absent: Irregular, Unequal - ENT Exam ENT Exam: Mucous Membranes Moist, Normal Oropharynx - Respiratory Exam Respiratory Exam: Clear to Auscultation Bilateral, NORMAL BREATHING PATTERN. absent: Prolonged Expiratory Phase, Respiratory Distress - Cardiovascular Exam Cardiovascular Exam: REGULAR RHYTHM, +S1, +S2 - GI/Abdominal Exam GI & Abdominal Exam: Normal Bowel Sounds, Soft. absent: Organomegaly, Tenderness - Back Exam Back exam: NORMAL INSPECTION. absent: CVA tenderness (R), paraspinal tenderness - Neurological Exam Neurological exam: Alert, CN II-XII Intact, Oriented x3 - Psychiatric Exam Psychiatric exam: Normal Affect, Normal Mood - Skin Skin Exam: Dry, Intact, Normal Color Objective - Vital Signs/Intake and Output Vital Signs (last 24 hours): Temp Pulse Resp BP Pulse Ox 98.3 F 118 H 25 H 123/92 H 98 07/06/18 20:00 07/06/18 21:00 07/06/18 21:00 07/06/18 20:45 07/06/18 21:00 Intake and Output: 07/06/18 07/07/18 18:59 06:59 Intake Total 621.6 248.1 Output Total 700 Balance -78.4 248.1 - Medications Medications: Current Medications Acetaminophen (Tylenol 325mg Tab) 650 mg PO Q4H PRN PRN Reason: Pain, moderate (4-7) Last Admin: 07/06/18 09:42 Dose: 650 mg Albuterol/Ipratropium (Duoneb 3 Mg/0.5 Mg (3 Ml) Ud) 3 ml INH RQ4 [facility] Last Admin: 07/06/18 20:10 Dose: 3 ml Diltiazem HCl (Cardizem Cd) 180 mg PO Q24H [facility] Last Admin: 07/06/18 09:36 Dose: 180 mg Famotidine (Pepcid) 20 mg PO DAILY [facility] Last Admin: 07/06/18 09:36 Dose: 20 mg Fluticasone/Vilanterol (Breo Ellipta 100-25 Mcg Inh) 1 puff INH RQ24 [facility] Last Admin: 07/06/18 11:02 Dose: 1 puff Heparin Sodium/Sodium Chloride (Heparin 83056 Units/250ml 1/2 Normal Saline) 25,000 units in 250 mls @ 12.654 mls/hr IV .[id number] PRN; Protocol PRN Reason: PROTOCOL Last Admin: 07/06/18 11:55 Dose: 18 units/kg/hr, 12.654 mls/hr Piperacillin Sod/Tazobactam Sod (Zosyn 3.375 Gm Iv Premix) 3.375 gm in 50 mls @ 200 mls/hr IVPB Q6H [facility]; Protocol Vancomycin/Sodium Chloride (Vancomycin 1 Gm/Ns 200 Ml) 1 gm in 200 mls @ 166.6 mls/hr IVPB Q12H [facility]; Protocol Stop: 07/11/18 04:31 Last Admin: 07/06/18 17:43 Dose: 166.6 mls/hr Azithromycin 500 mg/ Sodium (Chloride) 250 mls @ 250 mls/hr IVPB Q24H [facility]; Protocol Last Admin: 07/06/18 12:15 Dose: 250 mls/hr Diltiazem HCl 125 mg/ Dextrose 125 mls @ 10 mls/hr IV .[id number] [facility]; Protocol Last Titration: 07/06/18 21:40 Dose: 15 mg/hr, 15 mls/hr Levothyroxine Sodium (Synthroid) 50 mcg PO DAILY@0630 [facility] Last Admin: 07/06/18 06:02 Dose: 50 mcg Methylprednisolone (Solu-Medrol) 40 mg IVP Q12H [facility] Last Admin: 07/06/18 20:22 Dose: 40 mg Montelukast Sodium (Singulair) 10 mg PO HS [facility] Last Admin: 07/06/18 21:35 Dose: 10 mg Simethicone (Mylicon Chew Tab) 80 mg PO Q12 PRN PRN Reason: GI distress - Labs Labs: 07/06/18 05:18 07/06/18 05:21 PT 11.7 SECONDS (9.7-12.2) 07/05/18 05:24 INR 1.1 07/05/18 05:24 APTT 77 SECONDS (21-34) H D 07/06/18 05:18 Assessment and Plan - Assessment and Plan (Free Text) Assessment: 47 year old female with a past medical history of hypothyroidism, asthma, recurrent pneumonia, obstructive lung disorder, and bronchiectasis who initially presented with complaints of coughing and rib/back pain for over 10 days. Cardiology was consulted after [facility] for new onset atrial fibrillation. Plan: 1. New onset Atrial fibrillation -TSH:3.81 -Free t4:1.76 -bnp: 7160 -D-DIMER: 746 -Echo taken. Pending final read -CTA ordered. Will f/u with results -CHADSVASC: 1 point- 0.9% risk of stroke/TIA/systemic embolism per year -HASBLED: 0- .9% risk of bleed Medications: -Cardizem drip @10mg/hr 2.Hypothyroidisim -Continue Synthroid 50mcg PO Daily 3.Abdominal pain -Simethicone 80mg po q12h prn -Pepcid 20mg po daily PPX -Pepcid 20mg PO Daily Patient scheduled for CYNDEE cardioversion tomorrow
[2018-07-06] MEDS: Piperacill/Tazo 3.375gm in Dex 3.375 GM/50 ML BAG IVPB SCH (23:25)
[2018-07-07] MEDS: Albuterol-Ipratrop 3 mg / 0.5 (3 ml) UD INH SCH ×6 (00:45→19:47)
[2018-07-07] MEDS: Vancomycin 1 gm/NS 200 ml 1 GM/200 ML BAG IVPB SCH ×2 (04:33→15:29)
[2018-07-07] MEDS: Piperacill/Tazo 3.375gm in Dex 3.375 GM/50 ML BAG IVPB SCH ×4 (04:34→23:23)
[2018-07-07] MEDS: Levothyroxine 50 MCG TAB PO SCH (05:41)
--- NOTE | 2018-07-07 06:28 | HP ---
HISTORY OF PRESENT ILLNESS: A 47-year-old female with a history of asthma and bronchiectasis, admitted to the hospital with a chief complaint of shortness of breath, wheezing, fatigue, tiredness, cough. The patient came to the ER, found to be in atrial fibrillation. MEDICATIONS: Inhaled albuterol, inhaler, prednisone, and antibiotics. PHYSICAL EXAMINATION: GENERAL: The patient is awake, alert, and oriented. Shortness of breath. VITAL SIGNS: Pulse is 130 and regular. Blood pressure 110/70. HEENT: Within normal limits. NECK: Supple. CHEST: Symmetrical. HEART: Regular. ABDOMEN: Soft. EXTREMITIES: No edema. CT of the pneumonia and small focal subsegmental PE. ASSESSMENT AND PLAN: The patient suffers from pneumonia, asthma, bronchiectasis, pulmonary embolism, atrial fibrillation. The patient to get bedrest. Supportive care. Aura Smith MD
[2018-07-07 06:31] LABS: BASO # 0.1 K/uL (0.0-0.2); BASO % 0.5 % (0.0-2.0); EOS % 0.1 % (0.0-4.0); HEMOGLOBIN 11.5 g/dL (11.0-16.0); LYMPH # 0.5 K/uL (1.0-4.3); LYMPH % 3.5 % (20.0-40.0); MEAN CELL VOLUME 69.6 fL (81.0-99.0); MEAN CORPUSCULAR HEMOGLOBIN 21.4 pg (27.0-31.0); MEAN CORPUSCULAR HGB CONC 30.7 g/dL (33.0-37.0); MEAN PLATELET VOLUME 9.3 fL (7.2-11.7); MONO # 0.4 K/uL (0.0-0.8); MONO % 2.8 % (0.0-10.0); NEUT # 13.7 K/uL (1.8-7.0); NEUT % 93.1 % (50.0-75.0); NRBC % 0.1 % (0.0-2.0); PLATELET COUNT 361 K/uL (130-400); RBC 5.39 Mil/uL (3.80-5.20); RED CELL DISTRIBUTION WIDTH 18.7 % (11.5-14.5); WHITE BLOOD COUNT 14.7 K/uL (4.8-10.8)
[2018-07-07 06:49] LABS: ALB/GLOB RATIO 1.3 (1.0-2.1); ALBUMIN 3.7 g/dL (3.5-5.0); ALT/SGPT 86 U/L (9-52); AST/SGOT 20 U/L (14-36); BLOOD UREA NITROGEN 27 mg/dL (7-17); CALCIUM 8.5 mg/dl (8.6-10.4); GFR NON-AFRICAN AMERICAN > 60
[2018-07-07 06:58] LABS: INR 1.1; PROTHROMBIN TIME 12.3 SECONDS (9.7-12.2)
[2018-07-07] MEDS: Fluticasone-Vilanterol 100/25mcg Diskus INH SCH (07:34)
[2018-07-07 08:41] LABS: ANISOCYTOSIS SLIGHT; BANDS 2 % (0-2); HYPOCHROMIC MODERATE; LYMPHOCYTE 3 % (20-40); MONOCYTE 3 % (0-10); MYELOCYTE 1 % (0-0); NEUTROPHIL 91 % (50-75); PLATELET ESTIMATE NORMAL (NORMAL); POIKILOCYTOSIS SLIGHT; TARGET CELLS SLIGHT; TOTAL CELLS COUNTED 100
[2018-07-07 08:42] LABS: BURR CELLS SLIGHT
[2018-07-07] MEDS: MethylPREDNISolone 40 mg Vial IVP SCH (09:15)
[2018-07-07] MEDS: Heparin25000 units/250ml 1/2NS 25,000 UNITS/250 ML BAG IV PRN (09:55)
--- NOTE | 2018-07-07 10:00 | CP.CCUPN ---
<Sudarshan Solares - Last Filed: 07/07/18 15:01> CCU Subjective - Physician Review Subjective (Free Text): PGY-[address] ICU progress note for Dr Pérez service Patient is seen and examined at bedside. Patient sitting comfortably in bed in no acute distress. No acute complaints at this time. Critical Care Time Spent (in minutes): 35 CCU Objective - Vital Signs / Intake & Output Vital Signs (Last 4 hours): Vital Signs Pulse Resp BP Pulse Ox 07/07/18 07:36 72 07/07/18 07:00 72 18 99 07/07/18 06:44 83 16 96/63 L 100 Intake and Output (Last 8hrs): Intake & Output 07/06/18 07/07/18 07/07/18 22:59 06:59 14:59 Intake Total 288.5 736.6 27.7 Output Total 600 Balance 288.5 136.6 27.7 Weight 155 lb Intake: IV 10 115 Intake, IV Amount 128.5 521.6 27.7 Left Antecubital 45 120 15 Left Wrist 12.7 Right Antecubital 20 300 Right Forearm 50.8 101.6 12.7 Oral 150 100 Output: Urine 600 Urine, Voided 600 Other: # Bowel Movements 0 - Physical Exam Head: Positive for: Atraumatic, Normocephalic Pupils: Positive for: PERRL Extroacular Muscles: Positive for: EOMI Conjunctiva: Positive for: Normal Mouth: Positive for: Moist Mucous Membranes Respiratory/Chest: Negative for: Good Air Exchange, Respiratory Distress, Wheezes, Rales, Rhonchi, Tachypneic Cardiovascular: Positive for: Regular Rate and Rhythm, Murmurs, Normal S1, S2 Abdomen: Positive for: Tenderness, Normal Bowel Sounds Back: Positive for: Normal Inspection Upper Extremity: Positive for: Normal Inspection Lower Extremity: Positive for: Normal Inspection Neurological: Positive for: GCS=15, CN II-XII Intact, Speech Normal Skin: Positive for: Warm, Normal Color Psychiatric: Positive for: Alert, Oriented x 3, Normal Insight, Normal Concentration - Medications Active Medications: Active Medications Generic Name Dose Route Start Last Admin Trade Name Freq PRN Reason Stop Dose Admin Acetaminophen 650 mg 07/05/18 19:55 07/06/18 09:42 Tylenol 325mg Tab PO 650 mg Q4H PRN Administration Pain, moderate (4-7) Albuterol/Ipratropium 3 ml 07/05/18 08:00 07/07/18 07:34 Duoneb 3 Mg/0.5 Mg (3 Ml) Ud INH 3 ml RQ4 KIMBER Administration Diltiazem HCl 180 mg 07/06/18 09:00 07/06/18 09:36 Cardizem Cd PO 180 mg Q24H KIMBER Administration Famotidine 20 mg 07/05/18 10:00 07/06/18 09:36 Pepcid PO 20 mg DAILY KIMBER Administration Fluticasone/Vilanterol 1 puff 07/05/18 08:00 07/07/18 07:34 Breo Ellipta 100-25 Mcg Inh INH 1 puff RQ24 KIMBER Administration Heparin Sodium/Sodium Chloride 25,000 units in 250 mls @ 12.654 mls/hr 07/05/18 16:51 07/06/18 11:55 Heparin 89754 Units/250ml 1/2 Normal Saline IV 18 units/kg/hr .[id number] PRN 12.654 mls/hr PROTOCOL Administration Protocol 18 UNITS/KG/HR Piperacillin Sod/Tazobactam Sod 3.375 gm in 50 mls @ 200 mls/hr 07/06/18 23:00 07/07/18 04:34 Zosyn 3.375 Gm Iv Premix IVPB 200 mls/hr Q6H KIMBER Administration Protocol Vancomycin/Sodium Chloride 1 gm in 200 mls @ 166.6 mls/hr 07/06/18 04:30 07/07/18 04:33 Vancomycin 1 Gm/Ns 200 Ml IVPB 07/11/18 04:31 166.6 mls/hr Q12H KIMBER Administration Protocol Azithromycin 500 mg/ Sodium 250 mls @ 250 mls/hr 07/06/18 12:30 07/06/18 12:15 Chloride IVPB 250 mls/hr Q24H KIMBER Administration Protocol Diltiazem HCl 125 mg/ Dextrose 125 mls @ 10 mls/hr 07/06/18 19:30 07/07/18 05:32 IV 15 mg/hr .[id number] KIMBER 15 mls/hr Administration Protocol 10 MG/HR Levothyroxine Sodium 50 mcg 07/06/18 06:30 07/07/18 05:41 Synthroid PO 50 mcg DAILY@0630 KIMBER Administration Methylprednisolone 40 mg 07/05/18 08:30 07/07/18 09:15 Solu-Medrol IVP 40 mg Q12H KIMBER Administration Montelukast Sodium 10 mg 07/05/18 22:00 07/06/18 21:35 Singulair PO 10 mg HS KIMBER Administration Simethicone 80 mg 07/05/18 07:57 Mylicon Chew Tab PO Q12 PRN GI distress - Patient Studies Lab Studies: Microbiology Studies 07/05/18 11:40 MRSA Culture (Admit) - Final Naris MRSA NOT DETECTED Lab Studies 07/07/18 07/07/18 07/07/18 Range/Units 06:24 06:21 06:21 WBC 14.7 H (4.8-10.8) K/uL RBC 5.39 H (3.80-5.20) Mil/uL Hgb 11.5 (11.0-16.0) g/dL Hct 37.5 (34.0-47.0) % MCV 69.6 L (81.0-99.0) fL MCH 21.4 L (27.0-31.0) pg MCHC 30.7 L (33.0-37.0) g/dL RDW 18.7 H (11.5-14.5) % Plt Count 361 (130-400) K/uL MPV 9.3 (7.2-11.7) fL Neut % (Auto) 93.1 H (50.0-75.0) % Lymph % (Auto) 3.5 L (20.0-40.0) % [place] % (Auto) 2.8 (0.0-10.0) % Eos % (Auto) 0.1 (0.0-4.0) % Baso % (Auto) 0.5 (0.0-2.0) % Neut # (Auto) 13.7 H (1.8-7.0) K/uL Lymph # (Auto) 0.5 L (1.0-4.3) K/uL [place] # (Auto) 0.4 (0.0-0.8) K/uL Eos # (Auto) 0.0 (0.0-0.7) K/uL Baso # (Auto) 0.1 (0.0-0.2) K/uL Neutrophils % (Manual) 91 H (50-75) % Band Neutrophils % 2 (0-2) % Lymphocytes % (Manual) 3 L (20-40) % Monocytes % (Manual) 3 (0-10) % Myelocytes % 1 H (0-0) % Platelet Estimate Normal (NORMAL) Hypochromasia (manual) Moderate Poikilocytosis (manual Slight Anisocytosis (manual) Slight Target Cells Slight Ethel Cells Slight PT 12.3 H (9.7-12.2) SECONDS INR 1.1 APTT 66 H D (21-34) SECONDS Sodium 135 (132-148) mmol/L Potassium 4.3 (3.6-5.2) mmol/L Chloride 97 L (98-107) mmol/L Carbon Dioxide 26 (22-30) mmol/L Anion Gap 17 (10-20) BUN 27 H (7-17) mg/dL Creatinine 0.6 L (0.7-1.2) mg/dL Est GFR ( Amer) > 60 Est GFR (Non-Af Amer) > 60 Random Glucose 230 H D (65-105) mg/dL Calcium 8.5 L (8.6-10.4) mg/dl Phosphorus 3.3 (2.5-4.5) mg/dL Magnesium 2.0 (1.6-2.3) mg/dL Total Bilirubin 0.6 (0.2-1.3) mg/dL AST 20 (14-36) U/L ALT 86 H D (9-52) U/L Alkaline Phosphatase 43 (38-126) U/L Total Protein 6.5 (6.3-8.3) g/dL Albumin 3.7 (3.5-5.0) g/dL Globulin 2.9 (2.2-3.9) gm/dL Albumin/Globulin Ratio 1.3 (1.0-2.1) IgE (<gd=486) kU/L 07/05/18 Range/Units 11:40 WBC (4.8-10.8) K/uL RBC (3.80-5.20) Mil/uL Hgb (11.0-16.0) g/dL Hct (34.0-47.0) % MCV (81.0-99.0) fL MCH (27.0-31.0) pg MCHC (33.0-37.0) g/dL RDW (11.5-14.5) % Plt Count (130-400) K/uL MPV (7.2-11.7) fL Neut % (Auto) (50.0-75.0) % Lymph % (Auto) (20.0-40.0) % [place] % (Auto) (0.0-10.0) % Eos % (Auto) (0.0-4.0) % Baso % (Auto) (0.0-2.0) % Neut # (Auto) (1.8-7.0) K/uL Lymph # (Auto) (1.0-4.3) K/uL [place] # (Auto) (0.0-0.8) K/uL Eos # (Auto) (0.0-0.7) K/uL Baso # (Auto) (0.0-0.2) K/uL Neutrophils % (Manual) (50-75) % Band Neutrophils % (0-2) % Lymphocytes % (Manual) (20-40) % Monocytes % (Manual) (0-10) % Myelocytes % (0-0) % Platelet Estimate (NORMAL) Hypochromasia (manual) Poikilocytosis (manual Anisocytosis (manual) Target Cells Ethel Cells PT (9.7-12.2) SECONDS INR APTT (21-34) SECONDS Sodium (132-148) mmol/L Potassium (3.6-5.2) mmol/L Chloride (98-107) mmol/L Carbon Dioxide (22-30) mmol/L Anion Gap (10-20) BUN (7-17) mg/dL Creatinine (0.7-1.2) mg/dL Est GFR ( Amer) Est GFR (Non-Af Amer) Random Glucose (65-105) mg/dL Calcium (8.6-10.4) mg/dl Phosphorus (2.5-4.5) mg/dL Magnesium (1.6-2.3) mg/dL Total Bilirubin (0.2-1.3) mg/dL AST (14-36) U/L ALT (9-52) U/L Alkaline Phosphatase (38-126) U/L Total Protein (6.3-8.3) g/dL Albumin (3.5-5.0) g/dL Globulin (2.2-3.9) gm/dL Albumin/Globulin Ratio (1.0-2.1) IgE 182 H (<vv=401) kU/L Laboratory Results - last 24 hr 07/05/18 07/07/18 07/07/18 11:40 06:21 06:21 WBC RBC Hgb Hct MCV MCH MCHC RDW Plt Count MPV Neut % (Auto) Lymph % (Auto) [place] % (Auto) Eos % (Auto) Baso % (Auto) Neut # (Auto) Lymph # (Auto) [place] # (Auto) Eos # (Auto) Baso # (Auto) Neutrophils % (Manual) Band Neutrophils % Lymphocytes % (Manual) Monocytes % (Manual) Myelocytes % Platelet Estimate Hypochromasia (manual) Poikilocytosis (manual Anisocytosis (manual) Target Cells Manuela Cells PT 12.3 H INR 1.1 APTT 66 H D Sodium 135 Potassium 4.3 Chloride 97 L Carbon Dioxide 26 Anion Gap 17 BUN 27 H Creatinine 0.6 L Est GFR ( Amer) > 60 Est GFR (Non-Af Amer) > 60 Random Glucose 230 H D Calcium 8.5 L Phosphorus 3.3 Magnesium 2.0 Total Bilirubin 0.6 AST 20 ALT 86 H D Alkaline Phosphatase 43 Total Protein 6.5 Albumin 3.7 Globulin 2.9 Albumin/Globulin Ratio 1.3 IgE 182 H 07/07/18 06:24 WBC 14.7 H RBC 5.39 H Hgb 11.5 Hct 37.5 MCV 69.6 L MCH 21.4 L MCHC 30.7 L RDW 18.7 H Plt Count 361 MPV 9.3 Neut % (Auto) 93.1 H Lymph % (Auto) 3.5 L [place] % (Auto) 2.8 Eos % (Auto) 0.1 Baso % (Auto) 0.5 Neut # (Auto) 13.7 H Lymph # (Auto) 0.5 L [place] # (Auto) 0.4 Eos # (Auto) 0.0 Baso # (Auto) 0.1 Neutrophils % (Manual) 91 H Band Neutrophils % 2 Lymphocytes % (Manual) 3 L Monocytes % (Manual) 3 Myelocytes % 1 H Platelet Estimate Normal Hypochromasia (manual) Moderate Poikilocytosis (manual Slight Anisocytosis (manual) Slight Target Cells Slight Manuela Cells Slight PT INR APTT Sodium Potassium Chloride Carbon Dioxide Anion Gap BUN Creatinine Est GFR ( Amer) Est GFR (Non-Af Amer) Random Glucose Calcium Phosphorus Magnesium Total Bilirubin AST ALT Alkaline Phosphatase Total Protein Albumin Globulin Albumin/Globulin Ratio IgE EKG/Cardiology Studies: Cardiology / EKG Studies 07/07/18 08:27 EKG [ELECTROCARDIOGRAM] Stat Comment: Mode Of Transportation: Reason For Exam: a flutter Critical Care Progress Note - Nutrition Nutrition: Nutrition Category Date Time Status NPO Diet [DIET] Diets 07/07/18 Breakfast Active Assessment/Plan - Assessment and Plan (Free Text) Plan: 47 year old female with pmhx of hypothyroidism, asthma came to ER for worsening shortness of breath and elevated HR, CONFERENCE SPECIALIST called 07/05 for HR 200, admitted for new onset afib EKG showed SVT, with unsuccessful breaking of rhythm with adenosine, rhty observe to be in aflutter after cardizem, transferred to ICU on 07/05 for administration of Cardizem drip. 07/05 CTA chest shows isolated pulmonary embolism in subsegmental vessel left lower lobe and multifocal PNA. Patient continues to show aflutter. Patient going for CYNDEE cardioversion on 07/07. Neuro AAOx3 no acute issues Cardio a flutter/afib seen on tele continue cardizem drip @ 10mg/hr as per cardio HR 100-110s Cardio- Dr Law - Plan for CYNDEE cardioversion today - no clots noted, 100j - conversion to SR few minutes then back to afib, 120j and 150j - persistent afib Follow up Dr Law recs Pulm CTA chest - isolated pulmonary embolism in subsegmental vessel left lower lobe, multifocal PNA continue Heparin drip Pulm - Dr rohith Mcmullen Q4 KIMBER solumedrol 40mg IVP Q12H - discontinued due to elevated blood glucose Breo Ellipta and singuilair abx as indicated in ID GI Regular diet Protonix ID WBC cotinues to downtrend, afebrile zithromax, zosyn, vanco ID - Dr stevens Endo Synthroid 50mcg PO daily TSH: 3.81 free T4 - 1.76 HBA1C - 7.5 - not previously diagnosed with DM d/c solumedrol accuchecks Q6HRs consider ISS PPX Heparin drip Pepcid 20mg PO daily Simethicone tylenol Plan discussed with Dr Beto Solares, PGY-1 - Date & Time Date: 07/07/18 Time: 08:00 <Deep Pérez - Last Filed: 07/07/18 17:59> CCU Objective - Vital Signs / Intake & Output Vital Signs (Last 4 hours): Vital Signs Pulse Resp BP Pulse Ox 07/07/18 14:20 96 H 20 118/76 99 07/07/18 14:00 92 H 20 113/73 99 Intake and Output (Last 8hrs): Intake & Output 07/07/18 07/07/18 07/07/18 06:59 14:59 22:59 Intake Total 736.6 541.2 Output Total 600 Balance 136.6 541.2 Weight 155 lb Intake: IV 115 375 Intake, IV Amount 521.6 166.2 Left Antecubital 120 90 Right Antecubital 300 Right Forearm 101.6 76.2 Oral 100 Output: Urine 600 Urine, Voided 600 Other: # Bowel Movements 0 - Medications Active Medications: Active Medications Generic Name Dose Route Start Last Admin Trade Name Freq PRN Reason Stop Dose Admin Acetaminophen 650 mg 07/05/18 19:55 07/06/18 09:42 Tylenol 325mg Tab PO 650 mg Q4H PRN Administration Pain, moderate (4-7) Albuterol/Ipratropium 3 ml 07/05/18 08:00 07/07/18 11:18 Duoneb 3 Mg/0.5 Mg (3 Ml) Ud INH 3 ml RQ4 KIMBER Administration Famotidine 20 mg 07/05/18 10:00 07/07/18 10:00 Pepcid PO Not Given DAILY KIMBER Fluticasone/Vilanterol 1 puff 07/05/18 08:00 07/07/18 07:34 Breo Ellipta 100-25 Mcg Inh INH 1 puff RQ24 KIMBER Administration Heparin Sodium/Sodium Chloride 25,000 units in 250 mls @ 12.654 mls/hr 07/05/18 16:51 07/07/18 09:55 Heparin 56239 Units/250ml 1/2 Normal Saline IV 18 units/kg/hr .[id number] PRN 12.654 mls/hr PROTOCOL Administration Protocol 18 UNITS/KG/HR Piperacillin Sod/Tazobactam Sod 3.375 gm in 50 mls @ 200 mls/hr 07/06/18 23:00 07/07/18 10:19 Zosyn 3.375 Gm Iv Premix IVPB 200 mls/hr Q6H KIMBER Administration Protocol Vancomycin/Sodium Chloride 1 gm in 200 mls @ 166.6 mls/hr 07/06/18 04:30 07/07/18 15:29 Vancomycin 1 Gm/Ns 200 Ml IVPB 07/11/18 04:31 166.6 mls/hr Q12H KIMBER Administration Protocol Azithromycin 500 mg/ Sodium 250 mls @ 250 mls/hr 07/06/18 12:30 07/07/18 12:45 Chloride IVPB 250 mls/hr Q24H KIMBER Administration Protocol Diltiazem HCl 125 mg/ Dextrose 125 mls @ 10 mls/hr 07/06/18 19:30 07/07/18 14:44 IV 15 mg/hr .[id number] KIMBER 15 mls/hr Administration Protocol 10 MG/HR Amiodarone HCl 900 mg/ 500 mls @ 33.33 mls/hr 07/07/18 14:00 07/07/18 14:20 Dextrose IV 07/08/18 05:00 1 mg/min .[id number] ONE 33.33 mls/hr Administration Protocol 1 MG/MIN Levothyroxine Sodium 50 mcg 07/06/18 06:30 07/07/18 05:41 Synthroid PO 50 mcg DAILY@0630 KIMBER Administration Montelukast Sodium 10 mg 07/05/18 22:00 07/06/18 21:35 Singulair PO 10 mg HS KIMBER Administration Simethicone 80 mg 07/05/18 07:57 Mylicon Chew Tab PO Q12 PRN GI distress - Patient Studies Lab Studies: Lab Studies 07/07/18 07/07/18 07/07/18 Range/Units 11:53 11:46 06:24 WBC 14.7 H (4.8-10.8) K/uL RBC 5.39 H (3.80-5.20) Mil/uL Hgb 11.5 (11.0-16.0) g/dL Hct 37.5 (34.0-47.0) % MCV 69.6 L (81.0-99.0) fL MCH 21.4 L (27.0-31.0) pg MCHC 30.7 L (33.0-37.0) g/dL RDW 18.7 H (11.5-14.5) % Plt Count 361 (130-400) K/uL MPV 9.3 (7.2-11.7) fL Neut % (Auto) 93.1 H (50.0-75.0) % Lymph % (Auto) 3.5 L (20.0-40.0) % [place] % (Auto) 2.8 (0.0-10.0) % Eos % (Auto) 0.1 (0.0-4.0) % Baso % (Auto) 0.5 (0.0-2.0) % Neut # (Auto) 13.7 H (1.8-7.0) K/uL Lymph # (Auto) 0.5 L (1.0-4.3) K/uL [place] # (Auto) 0.4 (0.0-0.8) K/uL Eos # (Auto) 0.0 (0.0-0.7) K/uL Baso # (Auto) 0.1 (0.0-0.2) K/uL Neutrophils % (Manual) 91 H (50-75) % Band Neutrophils % 2 (0-2) % Lymphocytes % (Manual) 3 L (20-40) % Monocytes % (Manual) 3 (0-10) % Myelocytes % 1 H (0-0) % Platelet Estimate Normal (NORMAL) Hypochromasia (manual) Moderate Poikilocytosis (manual Slight Anisocytosis (manual) Slight Target Cells Slight Ethel Cells Slight PT (9.7-12.2) SECONDS INR APTT (21-34) SECONDS Sodium (132-148) mmol/L Potassium (3.6-5.2) mmol/L Chloride (98-107) mmol/L Carbon Dioxide (22-30) mmol/L Anion Gap (10-20) BUN (7-17) mg/dL Creatinine (0.7-1.2) mg/dL Est GFR ( Amer) Est GFR (Non-Af Amer) POC Glucose (mg/dL) 195 H (65-110) mg/dL Random Glucose (65-105) mg/dL Calcium (8.6-10.4) mg/dl Phosphorus (2.5-4.5) mg/dL Magnesium (1.6-2.3) mg/dL Total Bilirubin (0.2-1.3) mg/dL AST (14-36) U/L ALT (9-52) U/L Alkaline Phosphatase (38-126) U/L Total Protein (6.3-8.3) g/dL Albumin (3.5-5.0) g/dL Globulin (2.2-3.9) gm/dL Albumin/Globulin Ratio (1.0-2.1) Urine HCG, Qual Negative (NEGATIVE) 07/07/18 07/07/18 Range/Units 06:21 06:21 WBC (4.8-10.8) K/uL RBC (3.80-5.20) Mil/uL Hgb (11.0-16.0) g/dL Hct (34.0-47.0) % MCV (81.0-99.0) fL MCH (27.0-31.0) pg MCHC (33.0-37.0) g/dL RDW (11.5-14.5) % Plt Count (130-400) K/uL MPV (7.2-11.7) fL Neut % (Auto) (50.0-75.0) % Lymph % (Auto) (20.0-40.0) % [place] % (Auto) (0.0-10.0) % Eos % (Auto) (0.0-4.0) % Baso % (Auto) (0.0-2.0) % Neut # (Auto) (1.8-7.0) K/uL Lymph # (Auto) (1.0-4.3) K/uL [place] # (Auto) (0.0-0.8) K/uL Eos # (Auto) (0.0-0.7) K/uL Baso # (Auto) (0.0-0.2) K/uL Neutrophils % (Manual) (50-75) % Band Neutrophils % (0-2) % Lymphocytes % (Manual) (20-40) % Monocytes % (Manual) (0-10) % Myelocytes % (0-0) % Platelet Estimate (NORMAL) Hypochromasia (manual) Poikilocytosis (manual Anisocytosis (manual) Target Cells Manuela Cells PT 12.3 H (9.7-12.2) SECONDS INR 1.1 APTT 66 H D (21-34) SECONDS Sodium 135 (132-148) mmol/L Potassium 4.3 (3.6-5.2) mmol/L Chloride 97 L (98-107) mmol/L Carbon Dioxide 26 (22-30) mmol/L Anion Gap 17 (10-20) BUN 27 H (7-17) mg/dL Creatinine 0.6 L (0.7-1.2) mg/dL Est GFR ( Amer) > 60 Est GFR (Non-Af Amer) > 60 POC Glucose (mg/dL) (65-110) mg/dL Random Glucose 230 H D (65-105) mg/dL Calcium 8.5 L (8.6-10.4) mg/dl Phosphorus 3.3 (2.5-4.5) mg/dL Magnesium 2.0 (1.6-2.3) mg/dL Total Bilirubin 0.6 (0.2-1.3) mg/dL AST 20 (14-36) U/L ALT 86 H D (9-52) U/L Alkaline Phosphatase 43 (38-126) U/L Total Protein 6.5 (6.3-8.3) g/dL Albumin 3.7 (3.5-5.0) g/dL Globulin 2.9 (2.2-3.9) gm/dL Albumin/Globulin Ratio 1.3 (1.0-2.1) Urine HCG, Qual (NEGATIVE) Laboratory Results - last 24 hr 07/07/18 07/07/18 07/07/18 06:21 06:21 06:24 WBC 14.7 H RBC 5.39 H Hgb 11.5 Hct 37.5 MCV 69.6 L MCH 21.4 L MCHC 30.7 L RDW 18.7 H Plt Count 361 MPV 9.3 Neut % (Auto) 93.1 H Lymph % (Auto) 3.5 L [place] % (Auto) 2.8 Eos % (Auto) 0.1 Baso % (Auto) 0.5 Neut # (Auto) 13.7 H Lymph # (Auto) 0.5 L [place] # (Auto) 0.4 Eos # (Auto) 0.0 Baso # (Auto) 0.1 Neutrophils % (Manual) 91 H Band Neutrophils % 2 Lymphocytes % (Manual) 3 L Monocytes % (Manual) 3 Myelocytes % 1 H Platelet Estimate Normal Hypochromasia (manual) Moderate Poikilocytosis (manual Slight Anisocytosis (manual) Slight Target Cells Slight Manuela Cells Slight PT 12.3 H INR 1.1 APTT 66 H D Sodium 135 Potassium 4.3 Chloride 97 L Carbon Dioxide 26 Anion Gap 17 BUN 27 H Creatinine 0.6 L Est GFR ( Amer) > 60 Est GFR (Non-Af Amer) > 60 POC Glucose (mg/dL) Random Glucose 230 H D Calcium 8.5 L Phosphorus 3.3 Magnesium 2.0 Total Bilirubin 0.6 AST 20 ALT 86 H D Alkaline Phosphatase 43 Total Protein 6.5 Albumin 3.7 Globulin 2.9 Albumin/Globulin Ratio 1.3 Urine HCG, Qual 07/07/18 07/07/18 11:46 11:53 WBC RBC Hgb Hct MCV MCH MCHC RDW Plt Count MPV Neut % (Auto) Lymph % (Auto) [place] % (Auto) Eos % (Auto) Baso % (Auto) Neut # (Auto) Lymph # (Auto) [place] # (Auto) Eos # (Auto) Baso # (Auto) Neutrophils % (Manual) Band Neutrophils % Lymphocytes % (Manual) Monocytes % (Manual) Myelocytes % Platelet Estimate Hypochromasia (manual) Poikilocytosis (manual Anisocytosis (manual) Target Cells Ethel Cells PT INR APTT Sodium Potassium Chloride Carbon Dioxide Anion Gap BUN Creatinine Est GFR ( Amer) Est GFR (Non-Af Amer) POC Glucose (mg/dL) 195 H Random Glucose Calcium Phosphorus Magnesium Total Bilirubin AST ALT Alkaline Phosphatase Total Protein Albumin Globulin Albumin/Globulin Ratio Urine HCG, Qual Negative EKG/Cardiology Studies: Cardiology / EKG Studies 07/07/18 08:27 EKG [ELECTROCARDIOGRAM] Stat Comment: Mode Of Transportation: Reason For Exam: a flutter Critical Care Progress Note - Nutrition Nutrition: Nutrition Category Date Time Status Regular Diet [DIET] Diets 07/07/18 Dinner Active Attending/Attestation - Attestation I have personally seen and examined this patient.: Yes I have fully participated in the care of the patient.: Yes I have reviewed all pertinent clinical information: Yes Notes (Text): 07/07/18 16:30 I have seen and examined the patient. Medical records, lab studies, and imaging were reviewed by me and a management plan was formulated on multidisciplinary rounds with resident Dr. Solares. I agree with their documented assessment and plan. CYNDEE with cardioversion unsuccessful, will go home on oral rate control. She will have to follow up outpatient for ablation. Will start patient on Eliquis for PE. Patient has undiagnosed DM, elevated A1C, discussed with PMD, starting on metformin, will need further outpatient followup for diabetic management. Critical Care Time 35 minutes. Multi-disciplinary rounds were performed with house staff, nursing, speech therapy, respiratory therapy, pharmacy and nutrition with integrated input from the primary team/attending and other consulting services. The documented time is cumulative and includes review of patient data/exams/labs/chart review and examination of the patient on rounds and throughout the day; time is exclusive of any procedures or teaching time.
[2018-07-07] MEDS ORDERED: Lidocaine 4% (Laryng-O-Jet) Kit MM ONE (12:29)
[2018-07-07] MEDS: Azithromycin 500 MG in Sodium Chloride 0.9% 250 ML IVPB SCH (12:45)
[2018-07-07] MEDS ORDERED: Lidocaine Hydrochloride 10 ML INJ ONE (12:46)
[2018-07-07] MEDS ORDERED: Etomidate 20 mg/10ml Inj IV ONE (12:46)
[2018-07-07] MEDS ORDERED: Phenylephrine 10 mg/ml Inj ONE (12:47)
[2018-07-07] MEDS ORDERED: Esmolol 100 mg/10ml Inj IV ONE (12:47)
[2018-07-07] MEDS ORDERED: ePHEDrine 50 mg/ml Inj ONE (12:47)
--- NOTE | 2018-07-07 15:50 | CARD ---
APPROVED REPORT Date of service: 07/05/2018 EKG Measurement Heart [id number] <Conclusion> Supraventricular tachycardia ST & T wave abnormality, consider inferior ischemia ST & T wave abnormality, consider anterolateral ischemia Abnormal ECG
--- NOTE | 2018-07-07 15:54 | CARD ---
APPROVED REPORT Date of service: 07/05/2018 EKG Measurement Heart [id number] <Conclusion> Atrial fibrillation with rapid ventricular response Abnormal ECG
--- NOTE | 2018-07-07 17:56 | CP.PCM.PN ---
Subjective - Date & Time of Evaluation Date of Evaluation: 07/07/18 Time of Evaluation: 09:00 - Subjective Subjective: 47 year old female came to hospital with complaints of worsening shortness of breath and admitted to hospital for new onset Afib and had an HIGHWAY ADMINISTRATIVE ENGINEER for rapid rate requiring amiodorone drip Diagnosed with PE Has long Hx of recur rent Pseudomonal infections Objective - Vital Signs/Intake and Output Vital Signs (last 24 hours): Temp Pulse Resp BP Pulse Ox 98.4 F 112 H 20 129/74 95 07/07/18 12:00 07/07/18 17:25 07/07/18 14:20 07/07/18 17:25 07/07/18 17:25 Intake and Output: 07/07/18 07/07/18 06:59 18:59 Intake Total 1012.4 679.7 Output Total 600 500 Balance 412.4 179.7 - Medications Medications: Current Medications Acetaminophen (Tylenol 325mg Tab) 650 mg PO Q4H PRN PRN Reason: Pain, moderate (4-7) Last Admin: 07/07/18 17:21 Dose: 650 mg Albuterol/Ipratropium (Duoneb 3 Mg/0.5 Mg (3 Ml) Ud) 3 ml INH RQ4 [facility] Last Admin: 07/07/18 11:18 Dose: 3 ml Apixaban (Eliquis) 10 mg PO BID [facility] Stop: 07/14/18 10:01 Famotidine (Pepcid) 20 mg PO DAILY [facility] Last Admin: 07/07/18 10:00 Dose: Not Given Fluticasone/Vilanterol (Breo Ellipta 100-25 Mcg Inh) 1 puff INH RQ24 [facility] Last Admin: 07/07/18 07:34 Dose: 1 puff Heparin Sodium/Sodium Chloride (Heparin 30458 Units/250ml 1/2 Normal Saline) 25,000 units in 250 mls @ 12.654 mls/hr IV .[id number] PRN; Protocol PRN Reason: PROTOCOL Last Admin: 07/07/18 09:55 Dose: 18 units/kg/hr, 12.654 mls/hr Piperacillin Sod/Tazobactam Sod (Zosyn 3.375 Gm Iv Premix) 3.375 gm in 50 mls @ 200 mls/hr IVPB Q6H [facility]; Protocol Last Admin: 07/07/18 17:13 Dose: 200 mls/hr Vancomycin/Sodium Chloride (Vancomycin 1 Gm/Ns 200 Ml) 1 gm in 200 mls @ 166.6 mls/hr IVPB Q12H [facility]; Protocol Stop: 07/11/18 04:31 Last Admin: 07/07/18 15:29 Dose: 166.6 mls/hr Azithromycin 500 mg/ Sodium (Chloride) 250 mls @ 250 mls/hr IVPB Q24H [facility]; Protocol Last Admin: 07/07/18 12:45 Dose: 250 mls/hr Diltiazem HCl 125 mg/ Dextrose 125 mls @ 10 mls/hr IV .[id number] [facility]; Protocol Last Admin: 07/07/18 14:44 Dose: 15 mg/hr, 15 mls/hr Amiodarone HCl 900 mg/ (Dextrose) 500 mls @ 33.33 mls/hr IV .Q15H1M [facility]; Protocol Stop: 07/08/18 05:00 Last Admin: 07/07/18 14:20 Dose: 1 mg/min, 33.33 mls/hr Levothyroxine Sodium (Synthroid) 50 mcg PO DAILY@0630 [facility] Last Admin: 07/07/18 05:41 Dose: 50 mcg Metformin HCl (Glucophage) 500 mg PO BID [facility] Last Admin: 07/07/18 17:21 Dose: 500 mg Montelukast Sodium (Singulair) 10 mg PO HS [facility] Last Admin: 07/06/18 21:35 Dose: 10 mg Simethicone (Mylicon Chew Tab) 80 mg PO Q12 PRN PRN Reason: GI distress - Labs Labs: 07/07/18 06:24 07/07/18 06:21 PT 12.3 SECONDS (9.7-12.2) H 07/07/18 06:21 INR 1.1 07/07/18 06:21 APTT 66 SECONDS (21-34) H D 07/07/18 06:21 - Constitutional Appears: Non-toxic, No Acute Distress - Head Exam Head Exam: NORMOCEPHALIC - Eye Exam Eye Exam: absent: Scleral icterus - ENT Exam ENT Exam: Mucous Membranes Dry - Neck Exam Neck Exam: absent: Lymphadenopathy - Respiratory Exam Respiratory Exam: Decreased Breath Sounds, Prolonged Expiratory Phase, Rhonchi, Wheezes - Cardiovascular Exam Cardiovascular Exam: Tachycardia, Irregular Rhythm, +S1, +S2 - GI/Abdominal Exam GI & Abdominal Exam: Distended, Soft. absent: Tenderness - Rectal Exam Rectal Exam: Deferred - Exam Exam: NORMAL INSPECTION - Extremities Exam Extremities Exam: Pedal Edema - Back Exam Back Exam: absent: CVA tenderness (L), CVA tenderness (R) - Neurological Exam Neurological Exam: Alert, Awake, CN II-XII Intact, Oriented x3 - Psychiatric Exam Psychiatric exam: Depressed - Skin Skin Exam: Dry Assessment and Plan (1) Respiratory distress Status: Acute (2) Uncontrolled atrial fibrillation Status: Acute (3) Bronchiectasis Status: Acute (4) Pulmonary embolism Status: Acute (5) Respiratory failure Status: Acute - Assessment and Plan (Free Text) Assessment: resp failure r/o pseudomonas infection bronchiectasis/ severe copd new PE afib with RVR poor prognosis Dr Law on board IV antibiotics reordered
--- NOTE | 2018-07-07 20:20 | CP.PCM.PN ---
Subjective - Date & Time of Evaluation Date of Evaluation: 07/07/18 Time of Evaluation: 13:05 - Subjective Subjective: Patient s/p CYNDEE Dilated LA and RV Moderate MR and TR Failed Cardiversion x 3 Start anticoagulation Cardizem EP eval with Dr. Zhu for possible out patient ablation Objective - Vital Signs/Intake and Output Vital Signs (last 24 hours): Temp Pulse Resp BP Pulse Ox 98.4 F 96 H 20 124/73 96 07/07/18 16:00 07/07/18 18:06 07/07/18 16:00 07/07/18 18:06 07/07/18 18:06 Intake and Output: 07/07/18 07/08/18 18:59 06:59 Intake Total 1356.9 Output Total 500 Balance 856.9 - Medications Medications: Current Medications Acetaminophen (Tylenol 325mg Tab) 650 mg PO Q4H PRN PRN Reason: Pain, moderate (4-7) Last Admin: 07/07/18 17:21 Dose: 650 mg Albuterol/Ipratropium (Duoneb 3 Mg/0.5 Mg (3 Ml) Ud) 3 ml INH RQ4 [facility] Last Admin: 07/07/18 19:47 Dose: 3 ml Apixaban (Eliquis) 10 mg PO BID [facility] Stop: 07/14/18 10:01 Last Admin: 07/07/18 18:25 Dose: 10 mg Famotidine (Pepcid) 20 mg PO DAILY [facility] Last Admin: 07/07/18 10:00 Dose: Not Given Fluticasone/Vilanterol (Breo Ellipta 100-25 Mcg Inh) 1 puff INH RQ24 [facility] Last Admin: 07/07/18 07:34 Dose: 1 puff Piperacillin Sod/Tazobactam Sod (Zosyn 3.375 Gm Iv Premix) 3.375 gm in 50 mls @ 200 mls/hr IVPB Q6H [facility]; Protocol Last Admin: 07/07/18 17:13 Dose: 200 mls/hr Vancomycin/Sodium Chloride (Vancomycin 1 Gm/Ns 200 Ml) 1 gm in 200 mls @ 166.6 mls/hr IVPB Q12H [facility]; Protocol Stop: 07/11/18 04:31 Last Admin: 07/07/18 15:29 Dose: 166.6 mls/hr Azithromycin 500 mg/ Sodium (Chloride) 250 mls @ 250 mls/hr IVPB Q24H [facility]; Protocol Last Admin: 07/07/18 12:45 Dose: 250 mls/hr Diltiazem HCl 125 mg/ Dextrose 125 mls @ 10 mls/hr IV .[id number] [facility]; Protocol Last Admin: 07/07/18 14:44 Dose: 15 mg/hr, 15 mls/hr Amiodarone HCl 900 mg/ (Dextrose) 500 mls @ 33.33 mls/hr IV .Q15H1M [facility]; Protocol Stop: 07/08/18 05:00 Last Admin: 07/07/18 14:20 Dose: 1 mg/min, 33.33 mls/hr Levothyroxine Sodium (Synthroid) 50 mcg PO DAILY@0630 [facility] Last Admin: 07/07/18 05:41 Dose: 50 mcg Metformin HCl (Glucophage) 500 mg PO BID [facility] Last Admin: 07/07/18 17:21 Dose: 500 mg Montelukast Sodium (Singulair) 10 mg PO HS [facility] Last Admin: 07/06/18 21:35 Dose: 10 mg Simethicone (Mylicon Chew Tab) 80 mg PO Q12 PRN PRN Reason: GI distress - Labs Labs: 07/07/18 06:24 07/07/18 06:21 PT 12.3 SECONDS (9.7-12.2) H 07/07/18 06:21 INR 1.1 07/07/18 06:21 APTT 66 SECONDS (21-34) H D 07/07/18 06:21
--- NOTE | 2018-07-07 23:06 | CARD ---
APPROVED REPORT Date of service: 07/07/2018 EXAM: Transesophageal echocardiogram with color flow Doppler and Synchronized Cardioversion. Echo Enhancing Agent Indication: Rule Out Septal Defect Agent/Amount Used: Agitated Saline Mitral Valve E/A ratio0.0 TDI E/Lateral E'0.0E/Medial E'0.0 Reason For Test : Rule out Intracardiac Thrombus. PROCEDURE After obtaining informed consent, patient underwent transesophageal echo in the ICU. Type of Sedation : Conscious Sedation Sedation was provided by anesthesiologist. Sedation was achieved with intravenously. The CYNDEE was performed complications. Rhythm following Synchronized Cardioversion: Atrial Fibrillation Throughout the procedure, the blood pressure, pulse oximetry, cardiac rhythm, and rate were monitored. The patient tolerated the procedure without adverse effects. Recovery from conscious sedation was uneventful and vital signs were stable. LEFT VENTRICLE The left ventricular function is normal. The left ventricular ejection fraction is within the normal range. There is normal LV segmental wall motion. No left ventricle thrombus noted on this study. There is no ventricular septal defect visualized. There is no left ventricular aneurysm. RIGHT VENTRICLE The right ventricle is normal size. The right ventricular systolic function is normal. ATRIA The left atrium is moderately dilated. The right atrium is moderately dilated. No bubble cross over noted AORTIC VALVE The aortic valve is normal in structure. No aortic regurgitation is present. There is no aortic valvular stenosis. There is no aortic valvular vegetation. MITRAL VALVE The mitral valve is normal in structure. There is no evidence of mitral valve prolapse. There is no mitral valve stenosis. Mitral regurgitation is moderate. TRICUSPID VALVE The tricuspid valve is normal in structure. There is moderate tricuspid regurgitation. There is no tricuspid valve prolapse or vegetation. There is no tricuspid valve stenosis. PULMONIC VALVE The pulmonary valve is normal in structure. GREAT VESSELS The aortic root is normal in size. <Conclusion> The left ventricular function is normal. The left ventricular ejection fraction is within the normal range. The right ventricular systolic function is normal. No bubble cross over noted Mitral regurgitation is moderate. There is moderate tricuspid regurgitation. The left atrium is moderately dilated. The right atrium is moderately dilated. Patient received synchronized shock x 3. Patient converted to NSR and immediately went back to A Fib
[2018-07-08] MEDS: Albuterol-Ipratrop 3 mg / 0.5 (3 ml) UD INH SCH ×6 (00:11→20:16)
[2018-07-08] MEDS ORDERED: Oxycodone/Acetaminophen 5/325 mg Tab PO STA (01:07)
[2018-07-08] MEDS: Piperacill/Tazo 3.375gm in Dex 3.375 GM/50 ML BAG IVPB SCH ×4 (05:12→22:44)
[2018-07-08] MEDS: Vancomycin 1 gm/NS 200 ml 1 GM/200 ML BAG IVPB SCH (05:13)
[2018-07-08] MEDS: Levothyroxine 50 MCG TAB PO SCH (06:45)
[2018-07-08 06:56] LABS: BASO % 0.2 % (0.0-2.0); EOS % 0.1 % (0.0-4.0); HEMOGLOBIN 11.1 g/dL (11.0-16.0); LYMPH # 0.9 K/uL (1.0-4.3); LYMPH % 6.5 % (20.0-40.0); MEAN CELL VOLUME 69.7 fL (81.0-99.0); MEAN CORPUSCULAR HEMOGLOBIN 21.4 pg (27.0-31.0); MEAN CORPUSCULAR HGB CONC 30.7 g/dL (33.0-37.0); MEAN PLATELET VOLUME 8.9 fL (7.2-11.7); MONO # 0.8 K/uL (0.0-0.8); MONO % 5.8 % (0.0-10.0); NEUT # 12.2 K/uL (1.8-7.0); NEUT % 87.4 % (50.0-75.0); NRBC % 0.1 % (0.0-2.0); PLATELET COUNT 342 K/uL (130-400); RBC 5.19 Mil/uL (3.80-5.20); RED CELL DISTRIBUTION WIDTH 19.3 % (11.5-14.5); WHITE BLOOD COUNT 13.9 K/uL (4.8-10.8)
[2018-07-08 07:10] LABS: ALB/GLOB RATIO 1.3 (1.0-2.1); ALBUMIN 3.8 g/dL (3.5-5.0); ALT/SGPT 72 U/L (9-52); AST/SGOT 17 U/L (14-36); BLOOD UREA NITROGEN 24 mg/dL (7-17); CALCIUM 8.4 mg/dl (8.6-10.4); GFR NON-AFRICAN AMERICAN > 60
[2018-07-08] MEDS: Fluticasone-Vilanterol 100/25mcg Diskus INH SCH (07:42)
[2018-07-08 09:18] LABS: BANDS 2 % (0-2); LYMPHOCYTE 7 % (20-40); METAMYELOCYTE 1 % (0-0); MONOCYTE 4 % (0-10); MYELOCYTE 1 % (0-0); NEUTROPHIL 85 % (50-75); TOTAL CELLS COUNTED 100
[2018-07-08 09:19] LABS: ANISOCYTOSIS SLIGHT; PLATELET ESTIMATE NORMAL (NORMAL); POIKILOCYTOSIS SLIGHT
[2018-07-08 09:20] LABS: HYPOCHROMIC SLIGHT; MICROCYTOSIS MODERATE; OVALOCYTES SLIGHT; POLYCHROMIC SLIGHT; TARGET CELLS SLIGHT
[2018-07-08 09:21] LABS: LARGE PLATELETS PRESENT; SPHEROCYTES SLIGHT
[2018-07-08] MEDS: Azithromycin 500 MG in Sodium Chloride 0.9% 250 ML IVPB SCH (12:56)
[2018-07-08] MEDS: Simethicone 80 mg Chewtab PO PRN (13:48)
[2018-07-08] MEDS: Docusate-Senna 50 mg-8.6 mg Tab PO SCH (17:20)
--- NOTE | 2018-07-08 18:04 | CP.PCM.CON ---
History of Present Illness - History of Present Illness History of Present Illness: Cardiac Electro-physiology Note Chart reviewed and imaging studies reviewed patient interviewed and examined] 47 year old female presented with worsening shortness of breath and was detected to have a new onset Afib; Diagnosed with PE as per patient and septic work up done due to elevated WBC and possible exac of bronchiectasis Has long Hx of recurrent Pseudomonal infections Past medical: asthma, bronchiectasis, uterine polyp, hypothyroidism, chronic abd pain Past surgical: right nephrectomy (2003), uterine polyp removal 01/2018 Social denies tobacco, alcohol, and drug use; recently traveled to [place] last week and [place] in May. Medications: Synthroid 50mg PO HS, Pepcid 20mg po daily, Breo daily, Proair BID Allergies: NKDA Ms. Winter has effort intolerance and persistent narrow complex tachycardia with periods of regularity @220 beats per minute consistent with atrial flutter and irregularity interspersed suggestive of atrial fibrillation on a background of thyroid disease, asthma bronchiectasis borderline LV systolic function normal heart chamber dimensions and mild valvular incompetence The underlying myocardial process subtending atrial arrhythmias is unclear but plausibly related to lung disease/hypoxemia/PE ???secondary amyloid; rates warrant a rhythm control strategy; resistance to cardioversion and anti- arrhythmics favor an ablative procedure; however of note this entails a left sided procedure with attendant risks of stroke and tamponade @ this point given relative rate control would continue with these medications, anticoagulation and consider an outpatient ablation if uncontrolled rates supervene DW patient and family at length prognosis procedures and risks and options; they verbalized understanding Past Patient History - Infectious Disease Hx of Infectious Diseases: None - Past Medical History & Family History Past Medical History?: No - Past Social History Smoking Status: Never Smoked - CARDIAC Hx Cardiac Disorders: No - PULMONARY Hx Asthma: Yes Hx Bronchitis: Yes Hx Pneumonia: Yes - NEUROLOGICAL Hx Neurological Disorder: No - HEENT Hx HEENT Problems: Yes Other/Comment: HX: LEFT SIDE OF NECK-GLAND REMOVED-NO CANCER. HX: DYSPHAGIA - RENAL Hx Chronic Kidney Disease: Yes Hx Kidney Stones: Yes - ENDOCRINE/METABOLIC Hx Hypothyroidism: Yes - HEMATOLOGICAL/ONCOLOGICAL Hx Blood Disorders: No - INTEGUMENTARY Hx Dermatological Problems: No - MUSCULOSKELETAL/RHEUMATOLOGICAL Hx Falls: No - GASTROINTESTINAL Hx Gastrointestinal Disorders: No - GENITOURINARY/GYNECOLOGICAL Hx Genitourinary Disorders: Yes Hx Reproductive Disorders: Yes Other/Comment: HX: DYSMENORRHEA. HX: ENDOMETRIAL POLYP - PSYCHIATRIC Hx Substance Use: No - SURGICAL HISTORY Hx Surgeries: Yes Hx Dilation and Curettage: Yes (WITH HYSTERSCOPY/MYOSURE(12/07/17)) Other/Comment: right nephrectomy, - ANESTHESIA Hx Anesthesia: Yes Hx Anesthesia Reactions: No Hx Malignant Hyperthermia: No Meds Allergies/Adverse Reactions: Allergies Allergy/AdvReac Type Severity Reaction Status Date / Time seasonal Allergy Uncoded 07/05/18 05:22 - Medications Medications: Current Medications Acetaminophen (Tylenol 325mg Tab) 650 mg PO Q4H PRN PRN Reason: Pain, moderate (4-7) Last Admin: 07/08/18 10:45 Dose: 650 mg Albuterol/Ipratropium (Duoneb 3 Mg/0.5 Mg (3 Ml) Ud) 3 ml INH RQ4 [facility] Last Admin: 07/08/18 11:38 Dose: 3 ml Amiodarone HCl (Cordarone) 200 mg PO BID [facility] Last Admin: 07/08/18 17:20 Dose: 200 mg Apixaban (Eliquis) 10 mg PO BID [facility] Stop: 07/14/18 10:01 Last Admin: 07/08/18 17:20 Dose: 10 mg Diltiazem HCl (Cardizem) 240 mg PO Q12H [facility] Last Admin: 07/08/18 17:20 Dose: 240 mg Famotidine (Pepcid) 20 mg PO DAILY [facility] Last Admin: 07/08/18 09:50 Dose: 20 mg Fluticasone/Vilanterol (Breo Ellipta 100-25 Mcg Inh) 1 puff INH RQ24 [facility] Last Admin: 07/08/18 07:42 Dose: 1 puff Piperacillin Sod/Tazobactam Sod (Zosyn 3.375 Gm Iv Premix) 3.375 gm in 50 mls @ 200 mls/hr IVPB Q6H [facility]; Protocol Last Admin: 07/08/18 17:21 Dose: 200 mls/hr Azithromycin 500 mg/ Sodium (Chloride) 250 mls @ 250 mls/hr IVPB Q24H [facility]; Protocol Last Admin: 07/08/18 12:56 Dose: 250 mls/hr Diltiazem HCl 125 mg/ Dextrose 125 mls @ 10 mls/hr IV .[id number] [facility]; Protocol Last Titration: 07/08/18 15:00 Dose: 0 mg/hr, 0 mls/hr Amiodarone HCl 900 mg/ (Dextrose) 500 mls @ 16.67 mls/hr IV .Q24H [facility]; Protocol Stop: 07/08/18 20:59 Levothyroxine Sodium (Synthroid) 50 mcg PO DAILY@0630 [facility] Last Admin: 07/08/18 06:45 Dose: 50 mcg Metformin HCl (Glucophage) 500 mg PO BID [facility] Last Admin: 07/08/18 17:20 Dose: 500 mg Montelukast Sodium (Singulair) 10 mg PO HS [facility] Last Admin: 07/07/18 22:45 Dose: 10 mg Senna/Docusate Sodium (Senokot S 50 Mg-8.6 Mg) 1 tab PO BID [facility] Last Admin: 07/08/18 17:20 Dose: 1 tab Simethicone (Mylicon Chew Tab) 80 mg PO Q12 PRN PRN Reason: GI distress Last Admin: 07/08/18 13:48 Dose: 80 mg Results - Vital Signs Recent Vital Signs: Last Vital Signs Temp 98.0 F 07/08/18 16:00 Pulse 81 07/08/18 17:07 Resp 21 07/08/18 17:07 BP 127/87 07/08/18 17:07 Pulse Ox 97 07/08/18 17:07 - Labs Result Diagrams: 07/08/18 06:51 07/08/18 06:51 Labs: Laboratory Results - last 24 hr 07/07/18 07/08/18 07/08/18 23:42 05:42 06:51 WBC 13.9 H RBC 5.19 Hgb 11.1 Hct 36.2 MCV 69.7 L MCH 21.4 L MCHC 30.7 L RDW 19.3 H Plt Count 342 MPV 8.9 Neut % (Auto) 87.4 H Lymph % (Auto) 6.5 L [place] % (Auto) 5.8 Eos % (Auto) 0.1 Baso % (Auto) 0.2 Neut # (Auto) 12.2 H Lymph # (Auto) 0.9 L [place] # (Auto) 0.8 Eos # (Auto) 0.0 Baso # (Auto) 0.0 Neutrophils % (Manual) 85 H Band Neutrophils % 2 Lymphocytes % (Manual) 7 L Monocytes % (Manual) 4 Metamyelocytes % 1 H Myelocytes % 1 H Platelet Estimate Normal Large Platelets Present Polychromasia Slight Hypochromasia (manual) Slight Poikilocytosis (manual Slight Anisocytosis (manual) Slight Microcytosis (manual) Moderate Macrocytosis (manual) Slight Spherocytes Slight Target Cells Slight Ovalocytes Slight APTT Sodium Potassium Chloride Carbon Dioxide Anion Gap BUN Creatinine Est GFR ( Amer) Est GFR (Non-Af Amer) POC Glucose (mg/dL) 258 H 160 H Random Glucose Calcium Phosphorus Magnesium Total Bilirubin AST ALT Alkaline Phosphatase Total Protein Albumin Globulin Albumin/Globulin Ratio 07/08/18 07/08/18 07/08/18 06:51 06:51 12:04 WBC RBC Hgb Hct MCV MCH MCHC RDW Plt Count MPV Neut % (Auto) Lymph % (Auto) [place] % (Auto) Eos % (Auto) Baso % (Auto) Neut # (Auto) Lymph # (Auto) [place] # (Auto) Eos # (Auto) Baso # (Auto) Neutrophils % (Manual) Band Neutrophils % Lymphocytes % (Manual) Monocytes % (Manual) Metamyelocytes % Myelocytes % Platelet Estimate Large Platelets Polychromasia Hypochromasia (manual) Poikilocytosis (manual Anisocytosis (manual) Microcytosis (manual) Macrocytosis (manual) Spherocytes Target Cells Ovalocytes APTT 21 D Sodium 135 Potassium 4.3 Chloride 97 L Carbon Dioxide 27 Anion Gap 15 BUN 24 H Creatinine 0.8 Est GFR ( Amer) > 60 Est GFR (Non-Af Amer) > 60 POC Glucose (mg/dL) 181 H Random Glucose 168 H D Calcium 8.4 L Phosphorus 3.4 Magnesium 2.2 Total Bilirubin 0.6 AST 17 ALT 72 H Alkaline Phosphatase 37 L Total Protein 6.6 Albumin 3.8 Globulin 2.8 Albumin/Globulin Ratio 1.3 07/08/18 16:37 WBC RBC Hgb Hct MCV MCH MCHC RDW Plt Count MPV Neut % (Auto) Lymph % (Auto) [place] % (Auto) Eos % (Auto) Baso % (Auto) Neut # (Auto) Lymph # (Auto) [place] # (Auto) Eos # (Auto) Baso # (Auto) Neutrophils % (Manual) Band Neutrophils % Lymphocytes % (Manual) Monocytes % (Manual) Metamyelocytes % Myelocytes % Platelet Estimate Large Platelets Polychromasia Hypochromasia (manual) Poikilocytosis (manual Anisocytosis (manual) Microcytosis (manual) Macrocytosis (manual) Spherocytes Target Cells Ovalocytes APTT Sodium Potassium Chloride Carbon Dioxide Anion Gap BUN Creatinine Est GFR ( Amer) Est GFR (Non-Af Amer) POC Glucose (mg/dL) 150 H Random Glucose Calcium Phosphorus Magnesium Total Bilirubin AST ALT Alkaline Phosphatase Total Protein Albumin Globulin Albumin/Globulin Ratio
--- NOTE | 2018-07-08 23:52 | CP.PCM.PN ---
Subjective - Date & Time of Evaluation Date of Evaluation: 07/08/18 Time of Evaluation: 16:20 - Subjective Subjective: Patient seen and evaluated still in A Fib/A Flutter HR controlled Review of Systems - Constitutional Constitutional: absent: Chills, Frequent Falls, Night Sweats, Weakness - EENT Eyes: absent: Blurred Vision, Discharge, Loss of Peripheral Vision, Requires Corrective Lenses Ears: absent: Ear Discharge, Dizziness Nose/Mouth/Throat: absent: Nasal Congestion, Bleeding Gums, Odynophagia - Cardiovascular Cardiovascular: absent: Chest Pain, Claudication, Irregular Heart Rhythm, Leg Edema, Syncope - Respiratory Respiratory: absent: Cough, Dyspnea, Hemoptysis, Snoring - Gastrointestinal Gastrointestinal: absent: Belching, Change in Stool Character, Heartburn, Loose Stools, Melena, Nausea - Genitourinary Genitourinary: absent: Change in Urinary Stream, Difficulty Urinating, Urinary Urgency - Musculoskeletal Musculoskeletal: absent: Back Pain, Myalgias, Neck Pain, Tingling - Integumentary Integumentary: absent: Lesions, Pruritus, Striae, Swelling, Unusual Bruising - Neurological Neurological: absent: Abnormal Hearing, Burning Sensations, Dizziness, Numbness, Restless Legs, Tingling, Tremor, Vertigo - Psychiatric Psychiatric: absent: Depression, Hopelessness, Paranoia, Visual Hallucinations, Tactile Hallucinations - Endocrine Endocrine: absent: Polydipsia, Polyphagia, Polyuria - Hematologic/Lymphatic Hematologic: absent: Easy Bleeding, Easy Bruising Physical Exam - Head Exam Head Exam: ATRAUMATIC, NORMAL INSPECTION - Eye Exam Eye Exam: EOMI, Normal appearance, PERRL Pupil Exam: NORMAL ACCOMODATION, PERRL. absent: Irregular, Unequal - ENT Exam ENT Exam: Mucous Membranes Moist, Normal Oropharynx - Respiratory Exam Respiratory Exam: Clear to Auscultation Bilateral, NORMAL BREATHING PATTERN. absent: Prolonged Expiratory Phase, Respiratory Distress - Cardiovascular Exam Cardiovascular Exam: REGULAR RHYTHM, +S1, +S2 - GI/Abdominal Exam GI & Abdominal Exam: Normal Bowel Sounds, Soft. absent: Organomegaly, Tenderness - Back Exam Back exam: NORMAL INSPECTION. absent: CVA tenderness (R), paraspinal tenderness - Neurological Exam Neurological exam: Alert, CN II-XII Intact, Oriented x3 - Psychiatric Exam Psychiatric exam: Normal Affect, Normal Mood - Skin Skin Exam: Dry, Intact, Normal Color Assessment and Plan - Assessment and Plan (Free Text) Assessment: 47 year old female with a past medical history of hypothyroidism, asthma, recurrent pneumonia, obstructive lung disorder, and bronchiectasis who initially presented with complaints of coughing and rib/back pain for over 10 days. Cardiology was consulted after NURSERY NURSE for new onset atrial fibrillation. Plan: 1. New onset Atrial fibrillation Resistant to cardioversion -Cardizem drip @10mg/hr EP consult appreciated 2.Hypothyroidisim -Continue Synthroid 50mcg PO Daily 3.Abdominal pain -Simethicone 80mg po q12h prn -Pepcid 20mg po daily 4. Pulmonary Embolism On anticoagulation PPX -Pepcid 20mg PO Daily Objective - Vital Signs/Intake and Output Vital Signs (last 24 hours): Temp Pulse Resp BP Pulse Ox 98.0 F 72 24 117/81 98 07/08/18 16:00 07/08/18 22:35 07/08/18 19:06 07/08/18 19:06 07/08/18 19:06 Intake and Output: 07/08/18 07/09/18 18:59 06:59 Intake Total 1864.9 Output Total 500 Balance 1364.9 - Medications Medications: Current Medications Acetaminophen (Tylenol 325mg Tab) 650 mg PO Q4H PRN PRN Reason: Pain, moderate (4-7) Last Admin: 07/08/18 18:43 Dose: 650 mg Albuterol/Ipratropium (Duoneb 3 Mg/0.5 Mg (3 Ml) Ud) 3 ml INH RQ4 [facility] Last Admin: 07/08/18 20:16 Dose: 3 ml Amiodarone HCl (Cordarone) 200 mg PO BID [facility] Last Admin: 07/08/18 17:20 Dose: 200 mg Apixaban (Eliquis) 10 mg PO BID [facility] Stop: 07/14/18 10:01 Last Admin: 07/08/18 17:20 Dose: 10 mg Diltiazem HCl (Cardizem) 240 mg PO Q12H [facility] Last Admin: 07/08/18 17:20 Dose: 240 mg Famotidine (Pepcid) 20 mg PO DAILY [facility] Last Admin: 07/08/18 09:50 Dose: 20 mg Fluticasone/Vilanterol (Breo Ellipta 100-25 Mcg Inh) 1 puff INH RQ24 [facility] Last Admin: 07/08/18 07:42 Dose: 1 puff Piperacillin Sod/Tazobactam Sod (Zosyn 3.375 Gm Iv Premix) 3.375 gm in 50 mls @ 200 mls/hr IVPB Q6H [facility]; Protocol Last Admin: 07/08/18 22:44 Dose: 200 mls/hr Azithromycin 500 mg/ Sodium (Chloride) 250 mls @ 250 mls/hr IVPB Q24H [facility]; Protocol Last Admin: 07/08/18 12:56 Dose: 250 mls/hr Levothyroxine Sodium (Synthroid) 50 mcg PO DAILY@0630 [facility] Last Admin: 07/08/18 06:45 Dose: 50 mcg Metformin HCl (Glucophage) 500 mg PO BID [facility] Last Admin: 07/08/18 17:20 Dose: 500 mg Montelukast Sodium (Singulair) 10 mg PO HS [facility] Last Admin: 07/08/18 22:44 Dose: 10 mg Senna/Docusate Sodium (Senokot S 50 Mg-8.6 Mg) 1 tab PO BID [facility] Last Admin: 07/08/18 17:20 Dose: 1 tab Simethicone (Mylicon Chew Tab) 80 mg PO Q12 PRN PRN Reason: GI distress Last Admin: 07/08/18 13:48 Dose: 80 mg - Labs Labs: 07/08/18 06:51 07/08/18 06:51 PT 12.3 SECONDS (9.7-12.2) H 07/07/18 06:21 INR 1.1 07/07/18 06:21 APTT 21 SECONDS (21-34) D 07/08/18 06:51
[2018-07-09] MEDS ORDERED: Oxycodone/Acetaminophen 5/325 mg Tab PO ONE (00:08)
[2018-07-09] MEDS: Albuterol-Ipratrop 3 mg / 0.5 (3 ml) UD INH SCH ×7 (00:18→20:39)
[2018-07-09] MEDS: Levothyroxine 50 MCG TAB PO SCH (06:00)
[2018-07-09] MEDS: Piperacill/Tazo 3.375gm in Dex 3.375 GM/50 ML BAG IVPB SCH ×4 (06:00→23:00)
[2018-07-09 06:29] LABS: BASO # 0.1 K/uL (0.0-0.2); BASO % 0.4 % (0.0-2.0); EOS % 0.1 % (0.0-4.0); HEMOGLOBIN 10.5 g/dL (11.0-16.0); LYMPH # 2.3 K/uL (1.0-4.3); LYMPH % 15.3 % (20.0-40.0); MEAN CELL VOLUME 69.6 fL (81.0-99.0); MEAN CORPUSCULAR HEMOGLOBIN 21.5 pg (27.0-31.0); MEAN CORPUSCULAR HGB CONC 30.9 g/dL (33.0-37.0); MEAN PLATELET VOLUME 8.5 fL (7.2-11.7); MONO # 0.8 K/uL (0.0-0.8); MONO % 5.2 % (0.0-10.0); NEUT # 11.8 K/uL (1.8-7.0); NRBC % 0.1 % (0.0-2.0); RBC 4.88 Mil/uL (3.80-5.20); RED CELL DISTRIBUTION WIDTH 18.9 % (11.5-14.5); WHITE BLOOD COUNT 14.9 K/uL (4.8-10.8)
[2018-07-09 06:38] LABS: INR 1.4; PROTHROMBIN TIME 15.8 SECONDS (9.7-12.2)
[2018-07-09 06:53] LABS: ALB/GLOB RATIO 1.2 (1.0-2.1); ALBUMIN 3.4 g/dL (3.5-5.0); ALT/SGPT 61 U/L (9-52); AST/SGOT 22 U/L (14-36); BLOOD UREA NITROGEN 22 mg/dL (7-17); CALCIUM 8.3 mg/dl (8.6-10.4); GFR NON-AFRICAN AMERICAN > 60
[2018-07-09] MEDS: Fluticasone-Vilanterol 100/25mcg Diskus INH SCH (07:40)
[2018-07-09] MEDS: Docusate-Senna 50 mg-8.6 mg Tab PO SCH ×2 (09:33→17:53)
[2018-07-09] MEDS: Azithromycin 500 MG in Sodium Chloride 0.9% 250 ML IVPB SCH (11:31)
--- NOTE | 2018-07-09 17:19 | CP.PCM.PN ---
Subjective - Date & Time of Evaluation Date of Evaluation: 07/09/18 Time of Evaluation: 07:00 - Subjective Subjective: afib better controlled less cough less sob Objective - Vital Signs/Intake and Output Vital Signs (last 24 hours): Temp Pulse Resp BP Pulse Ox 98.0 F 95 H 22 129/85 98 07/09/18 16:00 07/09/18 16:00 07/09/18 16:00 07/09/18 15:54 07/09/18 16:00 Intake and Output: 07/09/18 07/09/18 06:59 18:59 Intake Total 400 900 Output Total 0 300 Balance 400 600 - Medications Medications: Current Medications Acetaminophen (Tylenol 325mg Tab) 650 mg PO Q4H PRN PRN Reason: Pain, moderate (4-7) Last Admin: 07/08/18 18:43 Dose: 650 mg Albuterol/Ipratropium (Duoneb 3 Mg/0.5 Mg (3 Ml) Ud) 3 ml INH RQ4 [facility] Last Admin: 07/09/18 16:07 Dose: 3 ml Amiodarone HCl (Cordarone) 200 mg PO BID [facility] Last Admin: 07/09/18 09:33 Dose: 200 mg Apixaban (Eliquis) 10 mg PO BID [facility] Stop: 07/14/18 10:01 Last Admin: 07/09/18 09:32 Dose: 10 mg Diltiazem HCl (Cardizem) 240 mg PO Q12H [facility] Last Admin: 07/09/18 06:00 Dose: 240 mg Famotidine (Pepcid) 20 mg PO DAILY [facility] Last Admin: 07/09/18 09:33 Dose: 20 mg Fluticasone/Vilanterol (Breo Ellipta 100-25 Mcg Inh) 1 puff INH RQ24 [facility] Last Admin: 07/09/18 07:40 Dose: 1 puff Piperacillin Sod/Tazobactam Sod (Zosyn 3.375 Gm Iv Premix) 3.375 gm in 50 mls @ 200 mls/hr IVPB Q6H [facility]; Protocol Last Admin: 07/09/18 11:31 Dose: 200 mls/hr Azithromycin 500 mg/ Sodium (Chloride) 250 mls @ 250 mls/hr IVPB Q24H [facility]; Protocol Last Admin: 07/09/18 11:31 Dose: 250 mls/hr Levothyroxine Sodium (Synthroid) 50 mcg PO DAILY@0630 [facility] Last Admin: 07/09/18 06:00 Dose: 50 mcg Metformin HCl (Glucophage) 500 mg PO BID [facility] Last Admin: 07/09/18 09:32 Dose: 500 mg Montelukast Sodium (Singulair) 10 mg PO HS [facility] Last Admin: 07/08/18 22:44 Dose: 10 mg Senna/Docusate Sodium (Senokot S 50 Mg-8.6 Mg) 1 tab PO BID [facility] Last Admin: 07/09/18 09:33 Dose: Not Given Simethicone (Mylicon Chew Tab) 80 mg PO Q12 PRN PRN Reason: GI distress Last Admin: 07/08/18 13:48 Dose: 80 mg - Labs Labs: 07/09/18 06:05 07/09/18 06:05 PT 15.8 SECONDS (9.7-12.2) H 07/09/18 06:05 INR 1.4 07/09/18 06:05 APTT 24 SECONDS (21-34) 07/09/18 06:05 - Constitutional Appears: Non-toxic, Chronically Ill - Head Exam Head Exam: NORMOCEPHALIC - Eye Exam Eye Exam: absent: Scleral icterus - ENT Exam ENT Exam: Mucous Membranes Dry - Neck Exam Neck Exam: absent: Lymphadenopathy - Respiratory Exam Respiratory Exam: Decreased Breath Sounds, Rhonchi - Cardiovascular Exam Cardiovascular Exam: REGULAR RHYTHM, +S1, +S2 - GI/Abdominal Exam GI & Abdominal Exam: Distended, Soft - Rectal Exam Rectal Exam: Deferred - Exam Exam: NORMAL INSPECTION - Extremities Exam Extremities Exam: Pedal Edema - Back Exam Back Exam: absent: CVA tenderness (L), CVA tenderness (R) Assessment and Plan (1) Respiratory distress Status: Acute (2) Uncontrolled atrial fibrillation Status: Acute (3) Bronchiectasis Status: Acute (4) Pulmonary embolism Status: Acute (5) Respiratory failure Status: Acute - Assessment and Plan (Free Text) Assessment: cont iv antibiotics cont anticoag
--- NOTE | 2018-07-09 21:53 | CP.PCM.PN ---
Subjective - Date & Time of Evaluation Date of Evaluation: 07/09/18 Time of Evaluation: 18:20 - Subjective Subjective: Patient seen and evaluated Now in Sinus rhythm HR controlled Denies chest pain Still has dyspnea Review of Systems - Constitutional Constitutional: absent: Chills, Frequent Falls, Night Sweats, Weakness - EENT Eyes: absent: Blurred Vision, Discharge, Loss of Peripheral Vision, Requires Corrective Lenses Ears: absent: Ear Discharge, Dizziness Nose/Mouth/Throat: absent: Nasal Congestion, Bleeding Gums, Odynophagia - Cardiovascular Cardiovascular: absent: Chest Pain, Claudication, Irregular Heart Rhythm, Leg Edema, Syncope - Respiratory Respiratory: absent: Cough, Dyspnea, Hemoptysis, Snoring - Gastrointestinal Gastrointestinal: absent: Belching, Change in Stool Character, Heartburn, Loose Stools, Melena, Nausea - Genitourinary Genitourinary: absent: Change in Urinary Stream, Difficulty Urinating, Urinary Urgency - Musculoskeletal Musculoskeletal: absent: Back Pain, Myalgias, Neck Pain, Tingling - Integumentary Integumentary: absent: Lesions, Pruritus, Striae, Swelling, Unusual Bruising - Neurological Neurological: absent: Abnormal Hearing, Burning Sensations, Dizziness, Numbness, Restless Legs, Tingling, Tremor, Vertigo - Psychiatric Psychiatric: absent: Depression, Hopelessness, Paranoia, Visual Hallucinations, Tactile Hallucinations - Endocrine Endocrine: absent: Polydipsia, Polyphagia, Polyuria - Hematologic/Lymphatic Hematologic: absent: Easy Bleeding, Easy Bruising Physical Exam - Head Exam Head Exam: ATRAUMATIC, NORMAL INSPECTION - Eye Exam Eye Exam: EOMI, Normal appearance, PERRL Pupil Exam: NORMAL ACCOMODATION, PERRL. absent: Irregular, Unequal - ENT Exam ENT Exam: Mucous Membranes Moist, Normal Oropharynx - Respiratory Exam Respiratory Exam: Clear to Auscultation Bilateral, NORMAL BREATHING PATTERN. absent: Prolonged Expiratory Phase, Respiratory Distress - Cardiovascular Exam Cardiovascular Exam: REGULAR RHYTHM, +S1, +S2 - GI/Abdominal Exam GI & Abdominal Exam: Normal Bowel Sounds, Soft. absent: Organomegaly, Tenderness - Back Exam Back exam: NORMAL INSPECTION. absent: CVA tenderness (R), paraspinal tenderness - Neurological Exam Neurological exam: Alert, CN II-XII Intact, Oriented x3 - Psychiatric Exam Psychiatric exam: Normal Affect, Normal Mood - Skin Skin Exam: Dry, Intact, Normal Color Assessment and Plan - Assessment and Plan (Free Text) Assessment: 47 year old female with a past medical history of hypothyroidism, asthma, recurrent pneumonia, obstructive lung disorder, and bronchiectasis who initially presented with complaints of coughing and rib/back pain for over 10 days. 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 Plan: 1. New onset Atrial fibrillation-Now NSR On cardizem CD 240 bid Decrease Amiadorone to 200mg daily 2.Hypothyroidisim -Continue Synthroid 50mcg PO Daily 3.Abdominal pain -Simethicone 80mg po q12h prn -Pepcid 20mg po daily 4. Pulmonary Embolism On anticoagulation PPX -Pepcid 20mg PO Daily Objective - Vital Signs/Intake and Output Vital Signs (last 24 hours): Temp Pulse Resp BP Pulse Ox 98.2 F 95 H 25 H 130/87 96 07/09/18 20:00 07/09/18 20:00 07/09/18 20:00 07/09/18 20:00 07/09/18 20:00 Intake and Output: 07/09/18 07/10/18 18:59 06:59 Intake Total 900 Output Total 300 Balance 600 - Medications Medications: Current Medications Acetaminophen (Tylenol 325mg Tab) 650 mg PO Q4H PRN PRN Reason: Pain, moderate (4-7) Last Admin: 07/08/18 18:43 Dose: 650 mg Albuterol/Ipratropium (Duoneb 3 Mg/0.5 Mg (3 Ml) Ud) 3 ml INH RQ4 [facility] Last Admin: 07/09/18 20:39 Dose: 3 ml Amiodarone HCl (Cordarone) 200 mg PO DAILY [facility] Apixaban (Eliquis) 10 mg PO BID [facility] Stop: 07/14/18 10:01 Last Admin: 07/09/18 17:29 Dose: 10 mg Diltiazem HCl (Cardizem) 240 mg PO Q12H [facility] Last Admin: 07/09/18 17:51 Dose: 240 mg Famotidine (Pepcid) 20 mg PO DAILY [facility] Last Admin: 07/09/18 09:33 Dose: 20 mg Fluticasone/Vilanterol (Breo Ellipta 100-25 Mcg Inh) 1 puff INH RQ24 [facility] Last Admin: 07/09/18 07:40 Dose: 1 puff Piperacillin Sod/Tazobactam Sod (Zosyn 3.375 Gm Iv Premix) 3.375 gm in 50 mls @ 200 mls/hr IVPB Q6H [facility]; Protocol Last Admin: 07/09/18 17:29 Dose: 200 mls/hr Azithromycin 500 mg/ Sodium (Chloride) 250 mls @ 250 mls/hr IVPB Q24H [facility]; Protocol Last Admin: 07/09/18 11:31 Dose: 250 mls/hr Levothyroxine Sodium (Synthroid) 50 mcg PO DAILY@0630 [facility] Last Admin: 07/09/18 06:00 Dose: 50 mcg Metformin HCl (Glucophage) 500 mg PO BID [facility] Last Admin: 07/09/18 17:29 Dose: 500 mg Montelukast Sodium (Singulair) 10 mg PO HS [facility] Last Admin: 07/09/18 21:00 Dose: 10 mg Senna/Docusate Sodium (Senokot S 50 Mg-8.6 Mg) 1 tab PO BID [facility] Last Admin: 07/09/18 17:53 Dose: Not Given Simethicone (Mylicon Chew Tab) 80 mg PO Q12 PRN PRN Reason: GI distress Last Admin: 07/08/18 13:48 Dose: 80 mg - Labs Labs: 07/09/18 06:05 07/09/18 06:05 PT 15.8 SECONDS (9.7-12.2) H 07/09/18 06:05 INR 1.4 07/09/18 06:05 APTT 24 SECONDS (21-34) 07/09/18 06:05
[2018-07-09] MEDS ORDERED: DiphenhydrAMINE 50 mg/ml Inj IVP ONE (22:37)
[2018-07-10] MEDS: Albuterol-Ipratrop 3 mg / 0.5 (3 ml) UD INH SCH ×4 (03:36→19:21)
[2018-07-10] MEDS: Piperacill/Tazo 3.375gm in Dex 3.375 GM/50 ML BAG IVPB SCH ×4 (05:15→22:58)
[2018-07-10] MEDS: Levothyroxine 50 MCG TAB PO SCH (05:37)
--- NOTE | 2018-07-10 08:44 | CP.PCM.PN ---
<Walt Christianson - Last Filed: 07/10/18 17:25> Subjective - Date & Time of Evaluation Date of Evaluation: 07/10/18 Time of Evaluation: 08:43 - Subjective Subjective: PGY-2 Progress Note: Dr. Law Cardiology Service Patient seen and examined at bedside. Per nursing no acute events occurred overnight. Objective - Vital Signs/Intake and Output Vital Signs (last 24 hours): Temp Pulse Resp BP Pulse Ox 98.4 F 91 H 16 126/84 98 07/10/18 08:00 07/10/18 08:00 07/10/18 08:00 07/10/18 08:00 07/10/18 08:00 Intake and Output: 07/10/18 07/10/18 06:59 18:59 Intake Total 340 Output Total 700 Balance -360 - Medications Medications: Current Medications Acetaminophen (Tylenol 325mg Tab) 650 mg PO Q4H PRN PRN Reason: Pain, moderate (4-7) Last Admin: 07/08/18 18:43 Dose: 650 mg Albuterol/Ipratropium (Duoneb 3 Mg/0.5 Mg (3 Ml) Ud) 3 ml INH RQ4 [facility] Last Admin: 07/10/18 07:25 Dose: 3 ml Amiodarone HCl (Cordarone) 200 mg PO DAILY [facility] Apixaban (Eliquis) 10 mg PO BID [facility] Stop: 07/14/18 10:01 Last Admin: 07/09/18 17:29 Dose: 10 mg Diltiazem HCl (Cardizem) 240 mg PO Q12H [facility] Last Admin: 07/10/18 05:37 Dose: 240 mg Famotidine (Pepcid) 20 mg PO DAILY [facility] Last Admin: 07/09/18 09:33 Dose: 20 mg Fluticasone/Vilanterol (Breo Ellipta 100-25 Mcg Inh) 1 puff INH RQ24 [facility] Last Admin: 07/09/18 07:40 Dose: 1 puff Piperacillin Sod/Tazobactam Sod (Zosyn 3.375 Gm Iv Premix) 3.375 gm in 50 mls @ 200 mls/hr IVPB Q6H [facility]; Protocol Last Admin: 07/10/18 05:15 Dose: 200 mls/hr Azithromycin 500 mg/ Sodium (Chloride) 250 mls @ 250 mls/hr IVPB Q24H [facility]; Protocol Last Admin: 07/09/18 11:31 Dose: 250 mls/hr Levothyroxine Sodium (Synthroid) 50 mcg PO DAILY@0630 [facility] Last Admin: 07/10/18 05:37 Dose: 50 mcg Metformin HCl (Glucophage) 500 mg PO BID [facility] Last Admin: 07/09/18 17:29 Dose: 500 mg Montelukast Sodium (Singulair) 10 mg PO HS [facility] Last Admin: 07/09/18 21:00 Dose: 10 mg Senna/Docusate Sodium (Senokot S 50 Mg-8.6 Mg) 1 tab PO BID [facility] Last Admin: 07/09/18 17:53 Dose: Not Given Simethicone (Mylicon Chew Tab) 80 mg PO Q12 PRN PRN Reason: GI distress Last Admin: 07/08/18 13:48 Dose: 80 mg - Labs Labs: 07/09/18 06:05 07/09/18 06:05 PT 15.8 SECONDS (9.7-12.2) H 07/09/18 06:05 INR 1.4 07/09/18 06:05 APTT 24 SECONDS (21-34) 07/09/18 06:05 - Head Exam Head Exam: ATRAUMATIC, NORMAL INSPECTION - Eye Exam Eye Exam: EOMI, Normal appearance Pupil Exam: NORMAL ACCOMODATION - ENT Exam ENT Exam: Mucous Membranes Moist, Normal Exam - Neck Exam Neck Exam: Normal Inspection. absent: Lymphadenopathy, Thyromegaly - Respiratory Exam Respiratory Exam: Clear to Ausculation Bilateral, NORMAL BREATHING PATTERN. absent: Respiratory Distress - Cardiovascular Exam Cardiovascular Exam: +S1, +S2 - GI/Abdominal Exam GI & Abdominal Exam: Soft, Normal Bowel Sounds - Neurological Exam Neurological Exam: Altered Assessment and Plan - Assessment and Plan (Free Text) Assessment: 47 year old female with a past medical history of hypothyroidism, asthma, recurrent pneumonia, obstructive lung disorder, and bronchiectasis who initially presented with complaints of coughing and rib/back pain for over 10 days. 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 Plan: 1. New onset Atrial fibrillation -TSH:3.81 -Free t4:1.76 -bnp: 7160 -D-DIMER: 746 -In sinus rhythm. -Echo :moderate Mitral regurgitations :moderate Tricuspid reurgitations -CTA :Multifocal opacities in both upper lobes and superior segment lower lobes, consistent with multifocal pneumonia. Follow-up to clearing to exclude underlying neoplasm. Focal small airways disease in right upper lobe. Isolated pulmonary embolism in subsegmental vessel left lower lobe. Mild mediastinal and bilateral hilar lymphadenopathy, nonspecific. Bilateral fusiform bronchiectasis both lower lobes as well as right middle lobe and lingular segment left upper lobe. Possible polysplenia -CHADSVASC: 1 point- 0.9% risk of stroke/TIA/systemic embolism per year -HASBLED: 0- .9% risk of bleed Medications: -Cardizem 240 MG po q12 [facility] -Amiodarone 200 mg PO Daily [facility] 3. Pneumonia -Zosyn 3.375gm IVPB Q6H [facility] -Azithromycin 500mg IVPB Q24 h [facility] 2.Hypothyroidisim -Continue Synthroid 50mcg PO Daily 3.Abdominal pain -Simethicone 80mg po q12h prn -Pepcid 20mg po daily 4.Pulmonary embolism -Eliquis 10mg PO BID [facility] 5.DM -Metformin 500mg PO BID [facility] PPX -Pepcid 20mg PO Daily Plan discussed with Dr. Law. Walt Christianson, Pgy-2 <Олег Law - Last Filed: 07/10/18 21:51> Objective - Vital Signs/Intake and Output Vital Signs (last 24 hours): Temp Pulse Resp BP Pulse Ox 98.7 F 96 H 20 105/66 98 07/10/18 16:00 07/10/18 16:00 07/10/18 16:00 07/10/18 16:00 07/10/18 16:00 Intake and Output: 07/10/18 07/11/18 18:59 06:59 Intake Total 590 Balance 590 - Medications Medications: Current Medications Acetaminophen (Tylenol 325mg Tab) 650 mg PO Q4H PRN PRN Reason: Pain, moderate (4-7) Last Admin: 07/10/18 11:45 Dose: 650 mg Albuterol/Ipratropium (Duoneb 3 Mg/0.5 Mg (3 Ml) Ud) 3 ml INH RQ4 [facility] Last Admin: 07/10/18 19:21 Dose: 3 ml Amiodarone HCl (Cordarone) 200 mg PO DAILY [facility] Last Admin: 01/21/19 09:01 Dose: 200 mg Apixaban (Eliquis) 10 mg PO BID [facility] Stop: 07/14/18 10:01 Last Admin: 07/10/18 17:11 Dose: 10 mg Diltiazem HCl (Cardizem) 240 mg PO Q12H [facility] Last Admin: 07/10/18 17:12 Dose: 240 mg Famotidine (Pepcid) 20 mg PO DAILY [facility] Last Admin: 07/10/18 09:01 Dose: 20 mg Fluticasone/Vilanterol (Breo Ellipta 100-25 Mcg Inh) 1 puff INH RQ24 [facility] Last Admin: 07/10/18 09:06 Dose: 1 puff Piperacillin Sod/Tazobactam Sod (Zosyn 3.375 Gm Iv Premix) 3.375 gm in 50 mls @ 200 mls/hr IVPB Q6H [facility]; Protocol Last Admin: 07/10/18 16:35 Dose: 200 mls/hr Azithromycin 500 mg/ Sodium (Chloride) 250 mls @ 250 mls/hr IVPB Q24H [facility]; Protocol Last Admin: 07/10/18 11:36 Dose: 250 mls/hr Levothyroxine Sodium (Synthroid) 50 mcg PO DAILY@0630 [facility] Last Admin: 07/10/18 05:37 Dose: 50 mcg Metformin HCl (Glucophage) 500 mg PO BID [facility] Last Admin: 07/10/18 17:12 Dose: 500 mg Montelukast Sodium (Singulair) 10 mg PO HS [facility] Last Admin: 07/10/18 21:45 Dose: 10 mg Senna/Docusate Sodium (Senokot S 50 Mg-8.6 Mg) 1 tab PO BID [facility] Last Admin: 07/10/18 17:12 Dose: 1 tab Simethicone (Mylicon Chew Tab) 80 mg PO Q12 PRN PRN Reason: GI distress Last Admin: 07/08/18 13:48 Dose: 80 mg Zolpidem Tartrate (Ambien) 5 mg PO HS PRN PRN Reason: Insomnia - Labs Labs: 07/10/18 14:09 07/10/18 14:09 PT 15.8 SECONDS (9.7-12.2) H 07/09/18 06:05 INR 1.4 07/09/18 06:05 APTT 24 SECONDS (21-34) 07/09/18 06:05 Assessment and Plan - Assessment and Plan (Free Text) Assessment: Patient seen and examined personally by me. Plan of care d/w the medical billing clerk and as documented
[2018-07-10] MEDS: Docusate-Senna 50 mg-8.6 mg Tab PO SCH ×2 (09:01→17:12)
[2018-07-10] MEDS: Fluticasone-Vilanterol 100/25mcg Diskus INH SCH ×2 (09:05→09:06)
[2018-07-10] MEDS: Azithromycin 500 MG in Sodium Chloride 0.9% 250 ML IVPB SCH (11:36)
--- NOTE | 2018-07-10 11:37 | VASCLAB ---
Date of service: 07/06/2018 PROCEDURE: Lower Extremity Venous Duplex Exam. HISTORY: r/o DVT PRIORS: None. TECHNIQUE: Bilateral common femoral, femoral, popliteal and posterior tibial, peroneal and great saphenous veins were evaluated. Flow was assessed with color Doppler, compressibility, assessment of phasic flow and augmentation response. Report prepared by Kashif Joshua, BS, RVT FINDINGS: RIGHT: 1. Common Femoral Vein: 1.1. Compressibility - Fully compressible: Thrombus - None : Flow - Phasic: Augmentation -Normal: Reflux - None. 2. Femoral Vein: 2.1. Compressibility - Fully compressible: Thrombus - None : Flow - Phasic: Augmentation -Normal: Reflux - None. 3. Popliteal Vein: 3.1. Compressibility - Fully compressible: Thrombus - None : Flow - Phasic: Augmentation -Normal: Reflux - None. 4. Posterior Tibial Vein: 4.1. Compressibility - Fully compressible: Thrombus - None: Flow - Phasic: Augmentation -Normal: Reflux - None. 5. Peroneal Vein: 5.1. Compressibility - Fully compressible: Thrombus - None: Flow - Phasic: Augmentation -Normal: Reflux - None. 6. Great Saphenous Vein: 6.1. Compressibility - Fully compressible: Thrombus - None: Flow - Phasic: Augmentation - Normal: Reflux - None. LEFT: 1. Common Femoral Vein: 1.1. Compressibility - Fully compressible: Thrombus - None: Flow - Phasic: Augmentation -Normal: Reflux - None. 2. Femoral Vein: 2.1. Compressibility - Fully compressible: Thrombus - None: Flow - Phasic: Augmentation -Normal: Reflux - None. 3. Popliteal Vein: 3.1. Compressibility - Fully compressible: Thrombus - None : Flow - Phasic: Augmentation -Normal: Reflux - None. 4. Posterior Tibial Vein: 4.1. Compressibility - Fully compressible: Thrombus - None: Flow - Phasic: Augmentation -Normal: Reflux - None. 5. Peroneal Vein: 5.1. Compressibility - Fully compressible: Thrombus - None: Flow - Phasic: Augmentation -Normal: Reflux - None. 6. Great Saphenous Vein: 6.1. Compressibility - Fully compressible: Thrombus - None: Flow - Phasic: Augmentation - Normal: Reflux - None. OTHER FINDINGS: Right: None significant. Left: None significant. IMPRESSION: Right: No evidence of deep or superficial vein thrombosis of the right lower extremity. Normal valve function noted of the right side. Left: No evidence of deep or superficial vein thrombosis of the left lower extremity. Normal valve function noted of the left side.
--- NOTE | 2018-07-10 11:52 | CARD ---
APPROVED REPORT Date of service: 07/08/2018 EKG Measurement Heart [id number] P81 [id number] <Conclusion> Atrial flutter Nonspecific ST abnormality Abnormal ECG
[2018-07-10 14:14] LABS: BASO % 0.2 % (0.0-2.0); EOS # 0.2 K/uL (0.0-0.7); EOS % 0.9 % (0.0-4.0); HEMOGLOBIN 11.6 g/dL (11.0-16.0); LYMPH # 1.6 K/uL (1.0-4.3); LYMPH % 9.4 % (20.0-40.0); MEAN CELL VOLUME 69.8 fL (81.0-99.0); MEAN CORPUSCULAR HEMOGLOBIN 21.5 pg (27.0-31.0); MEAN CORPUSCULAR HGB CONC 30.8 g/dL (33.0-37.0); MEAN PLATELET VOLUME 8.1 fL (7.2-11.7); MONO # 0.7 K/uL (0.0-0.8); MONO % 4.1 % (0.0-10.0); NEUT # 14.5 K/uL (1.8-7.0); NEUT % 85.4 % (50.0-75.0); PLATELET COUNT 317 K/uL (130-400); RBC 5.39 Mil/uL (3.80-5.20); RED CELL DISTRIBUTION WIDTH 19.8 % (11.5-14.5)
[2018-07-10 14:34] LABS: ALB/GLOB RATIO 1.1 (1.0-2.1); ALBUMIN 3.5 g/dL (3.5-5.0); ALT/SGPT 52 U/L (9-52); AST/SGOT 18 U/L (14-36); BLOOD UREA NITROGEN 15 mg/dL (7-17); CALCIUM 9.2 mg/dl (8.6-10.4); GFR NON-AFRICAN AMERICAN > 60
--- NOTE | 2018-07-10 14:42 | CP.PCM.PN ---
Subjective - Date & Time of Evaluation Date of Evaluation: 07/10/18 Time of Evaluation: 07:00 - Subjective Subjective: PGY2- Progress Note for Dr. Smith Patient seen and examined at bedside. Patient says she is feeling better, but that she is still short of breath and has a very hard time sleeping at night. Patient denies any chest pain, nausea, vomiting, constipation, or diarrhea. Objective - Vital Signs/Intake and Output Vital Signs (last 24 hours): Temp Pulse Resp BP Pulse Ox 98 F 92 H 19 119/73 99 07/10/18 12:00 07/10/18 13:47 07/10/18 12:00 07/10/18 12:00 07/10/18 13:23 Intake and Output: 07/10/18 07/10/18 06:59 18:59 Intake Total 340 Output Total 700 Balance -360 - Medications Medications: Current Medications Acetaminophen (Tylenol 325mg Tab) 650 mg PO Q4H PRN PRN Reason: Pain, moderate (4-7) Last Admin: 07/10/18 11:45 Dose: 650 mg Amiodarone HCl (Cordarone) 200 mg PO DAILY [facility] Last Admin: 07/10/18 09:01 Dose: 200 mg Apixaban (Eliquis) 10 mg PO BID [facility] Stop: 07/14/18 10:01 Last Admin: 07/10/18 09:01 Dose: 10 mg Diltiazem HCl (Cardizem) 240 mg PO Q12H [facility] Last Admin: 07/10/18 05:37 Dose: 240 mg Famotidine (Pepcid) 20 mg PO DAILY [facility] Last Admin: 07/10/18 09:01 Dose: 20 mg Fluticasone/Vilanterol (Breo Ellipta 100-25 Mcg Inh) 1 puff INH RQ24 [facility] Last Admin: 07/10/18 09:06 Dose: 1 puff Piperacillin Sod/Tazobactam Sod (Zosyn 3.375 Gm Iv Premix) 3.375 gm in 50 mls @ 200 mls/hr IVPB Q6H [facility]; Protocol Last Admin: 07/10/18 11:36 Dose: 200 mls/hr Azithromycin 500 mg/ Sodium (Chloride) 250 mls @ 250 mls/hr IVPB Q24H [facility]; Protocol Last Admin: 07/10/18 11:36 Dose: 250 mls/hr Levothyroxine Sodium (Synthroid) 50 mcg PO DAILY@0630 [facility] Last Admin: 07/10/18 05:37 Dose: 50 mcg Metformin HCl (Glucophage) 500 mg PO BID [facility] Last Admin: 07/10/18 09:01 Dose: 500 mg Montelukast Sodium (Singulair) 10 mg PO HS [facility] Last Admin: 07/09/18 21:00 Dose: 10 mg Senna/Docusate Sodium (Senokot S 50 Mg-8.6 Mg) 1 tab PO BID [facility] Last Admin: 07/10/18 09:01 Dose: 1 tab Simethicone (Mylicon Chew Tab) 80 mg PO Q12 PRN PRN Reason: GI distress Last Admin: 07/08/18 13:48 Dose: 80 mg Zolpidem Tartrate (Ambien) 5 mg PO HS PRN PRN Reason: Insomnia - Labs Labs: 07/10/18 14:09 07/09/18 06:05 PT 15.8 SECONDS (9.7-12.2) H 07/09/18 06:05 INR 1.4 07/09/18 06:05 APTT 24 SECONDS (21-34) 07/09/18 06:05 - Additional Findings Additional findings: - Constitutional Appears: Non-toxic, In Acute Distress - Head Exam Head Exam: ATRAUMATIC, NORMAL INSPECTION, NORMOCEPHALIC - Eye Exam Eye Exam: EOMI, Normal appearance - Respiratory Exam Respiratory Exam: Decreased Breath Sounds, Rales, Wheezes - Cardiovascular Exam Cardiovascular Exam: RRR, +S1, +S2 - GI/Abdominal Exam GI & Abdominal Exam: Soft, Tenderness - Extremities Exam Extremities Exam: Normal Inspection. absent: Pedal Edema - Neurological Exam Neurological Exam: Alert, Awake, Oriented x3 - Psychiatric Exam Psychiatric exam: Anxious, Normal Affect - Skin Skin Exam: Intact, Normal Color, Warm Assessment and Plan - Assessment and Plan (Free Text) Assessment: Pneumonia, Bronchiectasis - Hx of asthma - Previous admission on 06/28/18 for bronchiectasis - CXR (07/05/18): Limited atelectasis or infiltrate question to the left heart border at the left base. No pulmonary vascular congestion or additional potential infiltrate bilaterally. -Dr. Crowley consulted, Pulm, help appreciated -f/u IGE Meds: * Duonebs Q4hr [facility] * Breo Ellipta * Zosyn q6h prn 1 puff q24h * Azithromycin 500mg daily * Singulair 10mg po HS * Continue home medication: Montelukast 10mg PO HS, Breo qD * Lasix 40mg ivp given in ED A Fib EKG: A fib at 126bpm on admission Dr. Law consulted, help appreciated rapid response called on 07/05/18 for HR in 200s. Patient was found to be in SVT and did not convert with Adenosine 6mg ivp then 12mg ivp then 12mg ivp. Cardizem 20mg ivp given which decreased heart rate to 100s. Dr. Crowley called for ICU consult and patient was transferred to ICU to be placed on Cardizem drip -d dimer: 746 -Troponin I: .03, .05 -BNP: 7160 -Echo :moderate Mitral regurgitations :moderate Tricuspid regurgitations -CTA :Multifocal opacities in both upper lobes and superior segment lower lobes, consistent with multifocal pneumonia. Follow-up to clearing to exclude underlying neoplasm. Focal small airways disease in right upper lobe. Isolated pulmonary embolism in subsegmental vessel left lower lobe. Mild mediastinal and bilateral hilar lymphadenopathy, nonspecific. Bilateral fusiform bro nchiectasis both lower lobes as well as right middle lobe and lingular segment left upper lobe. Possible polysplenia CHADSVASC: 1 point- 0.9% risk of stroke/TIA/systemic embolism per year HASBLED: 0- .9% risk of bleed Meds: * Cardizem 240mg po q12h * Amiodarone 200mg po daily Pulmonary Embolism -Eliquis 10mg po BID (last done on 07/14/18- then switch to 5mg po BID) Leukocytosis -downtrending -afebrile, lactic acid: 1.7 Hypothyroidism - Continue home medication: Synthroid 50mcg PO daily -TSH: 3.81 -Free T4: 1.75 DMII HgA1C: 7.5 Metformin 500mg po BID Chronic Abdominal pain -Simethicone 80mg po q12h prn -Pepcid 20mg po daily Insomnia Ambien 5mg po HS prn Prophylaxis - Eliquis 10mg po BID -GI: Pepcid 20mg po daily -Sennokot S 1 tab po BID -Physical therapy Case discussed and patient seen with Dr. Smith
[2018-07-10 14:43] LABS: ANISOCYTOSIS MODERATE; BANDS 2 % (0-2); LYMPHOCYTE 9 % (20-40); MONOCYTE 3 % (0-10); NEUTROPHIL 85 % (50-75); PLATELET ESTIMATE NORMAL (NORMAL); REACTIVE LYMPHOCYTES 1 % (0-0); TOTAL CELLS COUNTED 100
[2018-07-10 14:44] LABS: HYPOCHROMIC MODERATE; OVALOCYTES SLIGHT; TARGET CELLS MODERATE
--- NOTE | 2018-07-10 15:59 | CP.PCM.PN ---
Subjective - Date & Time of Evaluation Date of Evaluation: 07/10/18 Time of Evaluation: 08:00 - Subjective Subjective: no fever less SOB rate controlled Objective - Vital Signs/Intake and Output Vital Signs (last 24 hours): Temp Pulse Resp BP Pulse Ox 98 F 92 H 19 119/73 99 07/10/18 12:00 07/10/18 13:47 07/10/18 12:00 07/10/18 12:00 07/10/18 13:23 Intake and Output: 07/10/18 07/10/18 06:59 18:59 Intake Total 340 300 Output Total 700 Balance -360 300 - Medications Medications: Current Medications Acetaminophen (Tylenol 325mg Tab) 650 mg PO Q4H PRN PRN Reason: Pain, moderate (4-7) Last Admin: 07/10/18 11:45 Dose: 650 mg Amiodarone HCl (Cordarone) 200 mg PO DAILY [facility] Last Admin: 07/10/18 09:01 Dose: 200 mg Apixaban (Eliquis) 10 mg PO BID [facility] Stop: 07/14/18 10:01 Last Admin: 07/10/18 09:01 Dose: 10 mg Diltiazem HCl (Cardizem) 240 mg PO Q12H [facility] Last Admin: 07/10/18 05:37 Dose: 240 mg Famotidine (Pepcid) 20 mg PO DAILY [facility] Last Admin: 07/10/18 09:01 Dose: 20 mg Fluticasone/Vilanterol (Breo Ellipta 100-25 Mcg Inh) 1 puff INH RQ24 [facility] Last Admin: 07/10/18 09:06 Dose: 1 puff Piperacillin Sod/Tazobactam Sod (Zosyn 3.375 Gm Iv Premix) 3.375 gm in 50 mls @ 200 mls/hr IVPB Q6H [facility]; Protocol Last Admin: 07/10/18 11:36 Dose: 200 mls/hr Azithromycin 500 mg/ Sodium (Chloride) 250 mls @ 250 mls/hr IVPB Q24H [facility]; Protocol Last Admin: 07/10/18 11:36 Dose: 250 mls/hr Levothyroxine Sodium (Synthroid) 50 mcg PO DAILY@0630 [facility] Last Admin: 07/10/18 05:37 Dose: 50 mcg Metformin HCl (Glucophage) 500 mg PO BID [facility] Last Admin: 07/10/18 09:01 Dose: 500 mg Montelukast Sodium (Singulair) 10 mg PO HS [facility] Last Admin: 07/09/18 21:00 Dose: 10 mg Senna/Docusate Sodium (Senokot S 50 Mg-8.6 Mg) 1 tab PO BID [facility] Last Admin: 07/10/18 09:01 Dose: 1 tab Simethicone (Mylicon Chew Tab) 80 mg PO Q12 PRN PRN Reason: GI distress Last Admin: 07/08/18 13:48 Dose: 80 mg Zolpidem Tartrate (Ambien) 5 mg PO HS PRN PRN Reason: Insomnia - Labs Labs: 07/10/18 14:09 07/10/18 14:09 PT 15.8 SECONDS (9.7-12.2) H 07/09/18 06:05 INR 1.4 07/09/18 06:05 APTT 24 SECONDS (21-34) 07/09/18 06:05 - Constitutional Appears: Non-toxic, Chronically Ill - Head Exam Head Exam: NORMOCEPHALIC - Eye Exam Eye Exam: absent: Scleral icterus - ENT Exam ENT Exam: Mucous Membranes Dry - Neck Exam Neck Exam: absent: Thyromegaly - Respiratory Exam Respiratory Exam: Decreased Breath Sounds - Cardiovascular Exam Cardiovascular Exam: REGULAR RHYTHM - GI/Abdominal Exam GI & Abdominal Exam: Distended - Rectal Exam Rectal Exam: Deferred - Exam Exam: NORMAL INSPECTION - Extremities Exam Extremities Exam: Pedal Edema - Back Exam Back Exam: absent: CVA tenderness (L), CVA tenderness (R) - Neurological Exam Neurological Exam: Alert, Awake - Psychiatric Exam Psychiatric exam: Depressed Assessment and Plan (1) Respiratory distress Status: Acute (2) Uncontrolled atrial fibrillation Status: Acute (3) Bronchiectasis Status: Acute (4) Pulmonary embolism Status: Acute (5) Respiratory failure Status: Acute
[2018-07-10] MEDS ORDERED: MethylPREDNISolone 40 mg Vial IVP ONE (16:07)
[2018-07-10] MEDS ORDERED: HYDROmorphone 0.5 mg/0.5 ml ISec IVP STA (23:13)
[2018-07-11] MEDS: Albuterol-Ipratrop 3 mg / 0.5 (3 ml) UD INH SCH ×8 (00:13→19:17)
[2018-07-11] MEDS: Piperacill/Tazo 3.375gm in Dex 3.375 GM/50 ML BAG IVPB SCH ×4 (05:30→22:01)
[2018-07-11] MEDS: Levothyroxine 50 MCG TAB PO SCH (06:14)
[2018-07-11 06:17] LABS: BASO % 0.1 % (0.0-2.0); HEMOGLOBIN 11.2 g/dL (11.0-16.0); LYMPH # 0.5 K/uL (1.0-4.3); MEAN CELL VOLUME 68.4 fL (81.0-99.0); MEAN CORPUSCULAR HGB CONC 30.7 g/dL (33.0-37.0); MEAN PLATELET VOLUME 8.8 fL (7.2-11.7); MONO # 0.3 K/uL (0.0-0.8); NEUT # 15.7 K/uL (1.8-7.0); NEUT % 94.9 % (50.0-75.0); NRBC % 0.1 % (0.0-2.0); PLATELET COUNT 300 K/uL (130-400); RBC 5.33 Mil/uL (3.80-5.20); RED CELL DISTRIBUTION WIDTH 19.9 % (11.5-14.5); WHITE BLOOD COUNT 16.6 K/uL (4.8-10.8)
[2018-07-11 07:05] LABS: ALB/GLOB RATIO 1.2 (1.0-2.1); ALBUMIN 3.5 g/dL (3.5-5.0); ALT/SGPT 49 U/L (9-52); AST/SGOT 13 U/L (14-36); BLOOD UREA NITROGEN 19 mg/dL (7-17); CALCIUM 9.6 mg/dl (8.6-10.4); GFR NON-AFRICAN AMERICAN > 60
[2018-07-11] MEDS: Fluticasone-Vilanterol 100/25mcg Diskus INH SCH (07:22)
[2018-07-11 08:05] LABS: ANISOCYTOSIS MODERATE; HYPOCHROMIC MODERATE; LYMPHOCYTE 3 % (20-40); MICROCYTOSIS SLIGHT; MONOCYTE 1 % (0-10); NEUTROPHIL 96 % (50-75); PLATELET ESTIMATE NORMAL (NORMAL); TOTAL CELLS COUNTED 100
[2018-07-11 08:06] LABS: TARGET CELLS SLIGHT
[2018-07-11] MEDS: Docusate-Senna 50 mg-8.6 mg Tab PO SCH (09:57)
--- NOTE | 2018-07-11 10:19 | CP.PCM.PN ---
Subjective - Date & Time of Evaluation Date of Evaluation: 07/11/18 Time of Evaluation: 09:20 - Subjective Subjective: Medicine progress note (Dr. Smith's service) Patient was seen and examined at bedside, while resting in bed comfortably. Patient reports that she is with improved symptoms and denies any symptoms of cough, chest pain, palpitations, shortness of breath, nausea and vomiting. Objective - Vital Signs/Intake and Output Vital Signs (last 24 hours): Temp Pulse Resp BP Pulse Ox 97.9 F 70 17 104/68 97 07/11/18 08:00 07/11/18 08:00 07/11/18 08:00 07/11/18 08:00 07/11/18 08:00 Intake and Output: 07/11/18 07/11/18 06:59 18:59 Intake Total 340 Output Total 0 Balance 340 - Medications Medications: Current Medications Acetaminophen (Tylenol 325mg Tab) 650 mg PO Q4H PRN PRN Reason: Pain, moderate (4-7) Last Admin: 07/10/18 22:58 Dose: 650 mg Albuterol/Ipratropium (Duoneb 3 Mg/0.5 Mg (3 Ml) Ud) 3 ml INH RQ4 [facility] Last Admin: 07/11/18 07:23 Dose: 3 ml Amiodarone HCl (Cordarone) 200 mg PO DAILY [facility] Last Admin: 07/11/18 09:57 Dose: 200 mg Apixaban (Eliquis) 10 mg PO BID [facility] Stop: 07/14/18 10:01 Last Admin: 07/11/18 09:56 Dose: 10 mg Diltiazem HCl (Cardizem) 240 mg PO Q12H [facility] Last Admin: 07/11/18 06:14 Dose: 240 mg Famotidine (Pepcid) 20 mg PO DAILY [facility] Last Admin: 07/11/18 09:57 Dose: 20 mg Fluticasone/Vilanterol (Breo Ellipta 100-25 Mcg Inh) 1 puff INH RQ24 [facility] Last Admin: 07/11/18 07:22 Dose: 1 puff Piperacillin Sod/Tazobactam Sod (Zosyn 3.375 Gm Iv Premix) 3.375 gm in 50 mls @ 200 mls/hr IVPB Q6H [facility]; Protocol Last Admin: 07/11/18 05:30 Dose: 200 mls/hr Azithromycin 500 mg/ Sodium (Chloride) 250 mls @ 250 mls/hr IVPB Q24H [facility]; Protocol Last Admin: 07/10/18 11:36 Dose: 250 mls/hr Levothyroxine Sodium (Synthroid) 50 mcg PO DAILY@0630 [facility] Last Admin: 07/11/18 06:14 Dose: 50 mcg Metformin HCl (Glucophage) 500 mg PO BID [facility] Last Admin: 07/11/18 09:57 Dose: 500 mg Montelukast Sodium (Singulair) 10 mg PO HS [facility] Last Admin: 07/10/18 21:45 Dose: 10 mg Saccharomyces Boulardii (Florastor) 250 mg PO BID [facility] Senna/Docusate Sodium (Senokot S 50 Mg-8.6 Mg) 1 tab PO BID [facility] Last Admin: 07/11/18 09:57 Dose: Not Given Simethicone (Mylicon Chew Tab) 80 mg PO Q12 PRN PRN Reason: GI distress Last Admin: 07/08/18 13:48 Dose: 80 mg Zolpidem Tartrate (Ambien) 5 mg PO HS PRN PRN Reason: Insomnia Last Admin: 07/10/18 22:58 Dose: 5 mg - Labs Labs: 07/11/18 06:07 07/11/18 06:07 PT 15.8 SECONDS (9.7-12.2) H 07/09/18 06:05 INR 1.4 07/09/18 06:05 APTT 24 SECONDS (21-34) 07/09/18 06:05 - Constitutional Appears: No Acute Distress - Head Exam Head Exam: ATRAUMATIC, NORMAL INSPECTION - Eye Exam Eye Exam: EOMI, Normal appearance - ENT Exam ENT Exam: Mucous Membranes Moist - Respiratory Exam Respiratory Exam: Decreased Breath Sounds, Clear to Ausculation Bilateral. abse nt: Rales, Rhonchi, Wheezes - Cardiovascular Exam Cardiovascular Exam: REGULAR RHYTHM, +S1, +S2. absent: Tachycardia - GI/Abdominal Exam GI & Abdominal Exam: Soft, Normal Bowel Sounds. absent: Distended, Firm, Guarding, Rigid, Tenderness - Extremities Exam Extremities Exam: Normal Inspection. absent: Calf Tenderness, Pedal Edema - Neurological Exam Neurological Exam: Alert, Awake, Oriented x3 - Psychiatric Exam Psychiatric exam: Normal Affect - Skin Skin Exam: Normal Color Assessment and Plan (1) Multifocal pneumonia Assessment & Plan: Consultations: - Pulley Mortiser Operator, Dr. Crowley---> Help appreciated - ID, Dr. Mendoza----> Help appreciated - Previous admission on 06/28/18 for bronchiectasis - CXR (07/05/18): Limited atelectasis or infiltrate question to the left heart border at the left base. No pulmonary vascular congestion or additional potential infiltrate bilaterally. Chest CT (07/05/18): Multifocal opacities in both upper lobes and superior segm ent lower lobes, consistent with multifocal pneumonia. Follow-up to clearing to exclude underlying neoplasm. Focal small airways disease in right upper lobe. Isolated pulmonary embolism in subsegmental vessel left lower lobe. Mild mediastinal and bilateral hilar lymphadenopathy, nonspecific. Bilateral fusiform bronchiectasis both lower lobes as well as right middle lobe and lingular segment left upper lobe. Possible polysplenia Sputum Culture: Gram negative rods, awaiting organism growth WBC: Down trending Medications/Management: - Zosyn 3.375gm IV Q6H - Azithromycin IV 500mg daily - Florastor 250mg PO BID Status: Acute (2) Uncontrolled atrial fibrillation Assessment & Plan: Currently rate controlled and Stable EKG: A fib at 126bpm on admission Dr. Law consulted, help appreciated rapid response called on 07/05/18 for HR in 200s. Patient was found to be in SVT and did not convert with Adenosine 6mg ivp then 12mg ivp then 12mg ivp. Cardizem 20mg ivp given which decreased heart rate to 100s. Dr. Crowley called for ICU consult and patient was transferred to ICU to be placed on Cardizem drip -d dimer: 746 -Troponin I: .03, .05 -BNP: 7160 -Echo :moderate Mitral regurgitations :moderate Tricuspid regurgitations Management: - Cardizem 240mg PO Q12h - Amiodarone 200mg PO daily Status: Acute (3) Pulmonary embolism Assessment & Plan: CTA: Multifocal opacities in both upper lobes and superior segment lower lobes, consistent with multifocal pneumonia. Follow-up to clearing to exclude underlying neoplasm. Focal small airways disease in right upper lobe. Isolated pulmonary embolism in subsegmental vessel left lower lobe. Mild mediastinal and bilateral hilar lymphadenopathy, nonspecific. Bilateral fusiform bronchiectasis both lower lobes as well as right middle lobe and lingular segment left upper lobe. Possible polysplenia -Eliquis 10mg po BID (last done on 07/14/18- then switch to 5mg po BID) Status: Acute (4) History of hypothyroidism Assessment & Plan: - Continue home medication: Synthroid 50mcg PO daily -TSH (07/05/18): 3.81 -Free T4 (07/05/18): 1.75 Status: Acute (5) Diabetes mellitus Assessment & Plan: HgbA1C (07/05/18): 7.5% - Metformin 500mg PO BID - ISS- low dose - Hypoglycemia protocol Status: Acute (6) History of asthma Assessment & Plan: * Duonebs 3ml INH RQ4H * Breo Ellipta 100-25mcg INH RQ24H * Singulair 10mg PO HS Status: Acute (7) Chronic abdominal pain Assessment & Plan: Possibly secondary to constipation - Senokot 50Mg-8.6Mg 1 tab PO BID - Mylicon 80mg PO Q12 PRN Status: Acute (8) Insomnia Assessment & Plan: Ambien 5mg PO HS Status: Acute (9) Prophylactic measure Assessment & Plan: GI: Pepcid 20mg PO daily DVT: Eliquis 10mg PO BID Patient currently D/C from PT has she is able to transfer independently during 07/10/18 evaluation Disposition: Awaiting organism growth and sensitivity from sputum culture All plans and management discussed with Dr. Smith Status: Acute
--- NOTE | 2018-07-11 10:50 | CP.PCM.PN ---
Subjective - Date & Time of Evaluation Date of Evaluation: 07/11/18 Time of Evaluation: 07:00 - Subjective Subjective: less SOB rate controlled sputum gram neg nory Objective - Vital Signs/Intake and Output Vital Signs (last 24 hours): Temp Pulse Resp BP Pulse Ox 97.9 F 70 17 104/68 97 07/11/18 08:00 07/11/18 08:00 07/11/18 08:00 07/11/18 08:00 07/11/18 08:00 Intake and Output: 07/11/18 07/11/18 06:59 18:59 Intake Total 340 Output Total 0 Balance 340 - Medications Medications: Current Medications Acetaminophen (Tylenol 325mg Tab) 650 mg PO Q4H PRN PRN Reason: Pain, moderate (4-7) Last Admin: 07/10/18 22:58 Dose: 650 mg Albuterol/Ipratropium (Duoneb 3 Mg/0.5 Mg (3 Ml) Ud) 3 ml INH RQ4 [facility] Last Admin: 07/11/18 07:23 Dose: 3 ml Amiodarone HCl (Cordarone) 200 mg PO DAILY [facility] Last Admin: 07/11/18 09:57 Dose: 200 mg Apixaban (Eliquis) 10 mg PO BID [facility] Stop: 07/14/18 10:01 Last Admin: 07/11/18 09:56 Dose: 10 mg Diltiazem HCl (Cardizem) 240 mg PO Q12H [facility] Last Admin: 07/11/18 06:14 Dose: 240 mg Famotidine (Pepcid) 20 mg PO DAILY [facility] Last Admin: 07/11/18 09:57 Dose: 20 mg Fluticasone/Vilanterol (Breo Ellipta 100-25 Mcg Inh) 1 puff INH RQ24 [facility] Last Admin: 07/11/18 07:22 Dose: 1 puff Piperacillin Sod/Tazobactam Sod (Zosyn 3.375 Gm Iv Premix) 3.375 gm in 50 mls @ 200 mls/hr IVPB Q6H [facility]; Protocol Last Admin: 07/11/18 05:30 Dose: 200 mls/hr Azithromycin 500 mg/ Sodium (Chloride) 250 mls @ 250 mls/hr IVPB Q24H [facility]; Protocol Last Admin: 07/10/18 11:36 Dose: 250 mls/hr Levothyroxine Sodium (Synthroid) 50 mcg PO DAILY@0630 [facility] Last Admin: 07/11/18 06:14 Dose: 50 mcg Metformin HCl (Glucophage) 500 mg PO BID [facility] Last Admin: 07/11/18 09:57 Dose: 500 mg Montelukast Sodium (Singulair) 10 mg PO HS [facility] Last Admin: 07/10/18 21:45 Dose: 10 mg Saccharomyces Boulardii (Florastor) 250 mg PO BID [facility] Senna/Docusate Sodium (Senokot S 50 Mg-8.6 Mg) 1 tab PO BID [facility] Last Admin: 07/11/18 09:57 Dose: Not Given Simethicone (Mylicon Chew Tab) 80 mg PO Q12 PRN PRN Reason: GI distress Last Admin: 07/08/18 13:48 Dose: 80 mg Zolpidem Tartrate (Ambien) 5 mg PO HS PRN PRN Reason: Insomnia Last Admin: 07/10/18 22:58 Dose: 5 mg - Labs Labs: 07/11/18 06:07 07/11/18 06:07 PT 15.8 SECONDS (9.7-12.2) H 07/09/18 06:05 INR 1.4 07/09/18 06:05 APTT 24 SECONDS (21-34) 07/09/18 06:05 - Constitutional Appears: Non-toxic, Chronically Ill - Head Exam Head Exam: NORMOCEPHALIC - Eye Exam Eye Exam: absent: Scleral icterus - ENT Exam ENT Exam: Mucous Membranes Dry - Neck Exam Neck Exam: absent: Lymphadenopathy - Respiratory Exam Respiratory Exam: Decreased Breath Sounds - Cardiovascular Exam Cardiovascular Exam: REGULAR RHYTHM - GI/Abdominal Exam GI & Abdominal Exam: Distended, Soft - Rectal Exam Rectal Exam: Deferred - Exam Exam: NORMAL INSPECTION Assessment and Plan (1) Respiratory distress Status: Acute (2) Uncontrolled atrial fibrillation Status: Acute (3) Bronchiectasis Status: Acute (4) Pulmonary embolism Status: Acute (5) Respiratory failure Status: Acute - Assessment and Plan (Free Text) Assessment: await cultures
[2018-07-11] MEDS ORDERED: Glucagon Recombinant 1 mg Inj IM PRN (11:55)
[2018-07-11] MEDS ORDERED: Dextrose 50% SYRINGE Inj (50 ml) IV PRN (11:55)
[2018-07-11] MEDS: (Novolog) Insulin Aspart, Recombinant 100 u/ml 10 ml vial SC SCH ×3 (12:45→21:21)
[2018-07-11] MEDS: Azithromycin 500 MG in Sodium Chloride 0.9% 250 ML IVPB SCH (12:45)
[2018-07-11] MEDS: Saccharomyces Boulardi 250 mg Cap PO SCH ×2 (12:46→18:13)
--- NOTE | 2018-07-11 13:36 | CP.PCM.PN ---
<Walt Christianson - Last Filed: 07/11/18 18:45> Subjective - Date & Time of Evaluation Date of Evaluation: 07/11/18 Time of Evaluation: 13:36 - Subjective Subjective: PGY-2 Progress Note: Dr. Law Service Patient seen and examined at bedside. Per nursing no acute events occurred overnight. Patient does continue to go in and out of sinus rhythm associated with duoneb treatments per Nursing. Patient denies any chest pain, abdominal pain, headaches, fevers, chills, or any other complaints. Objective - Vital Signs/Intake and Output Vital Signs (last 24 hours): Temp Pulse Resp BP Pulse Ox 97.9 F 78 17 104/68 97 07/11/18 12:00 07/11/18 12:00 07/11/18 08:00 07/11/18 08:00 07/11/18 08:00 Intake and Output: 07/11/18 07/11/18 06:59 18:59 Intake Total 340 Output Total 0 Balance 340 - Medications Medications: Current Medications Acetaminophen (Tylenol 325mg Tab) 650 mg PO Q4H PRN PRN Reason: Pain, moderate (4-7) Last Admin: 07/11/18 12:52 Dose: 650 mg Albuterol/Ipratropium (Duoneb 3 Mg/0.5 Mg (3 Ml) Ud) 3 ml INH RQ4 [facility] Last Admin: 07/11/18 11:58 Dose: 3 ml Amiodarone HCl (Cordarone) 200 mg PO DAILY [facility] Last Admin: 07/11/18 09:57 Dose: 200 mg Apixaban (Eliquis) 10 mg PO BID [facility] Stop: 07/14/18 10:01 Last Admin: 07/11/18 09:56 Dose: 10 mg Dextrose (Dextrose 50% Inj) 0 ml IV STAT PRN; Protocol PRN Reason: Hypoglycemia Protocol Dextrose (Glutose 15) 0 gm PO ONCE PRN; Protocol PRN Reason: Hypoglycemia Protocol Diltiazem HCl (Cardizem) 240 mg PO Q12H [facility] Last Admin: 07/11/18 06:14 Dose: 240 mg Famotidine (Pepcid) 20 mg PO DAILY [facility] Last Admin: 07/11/18 09:57 Dose: 20 mg Fluticasone/Vilanterol (Breo Ellipta 100-25 Mcg Inh) 1 puff INH RQ24 [facility] Last Admin: 07/11/18 07:22 Dose: 1 puff Glucagon (Glucagen Diagnostic Kit) 0 mg IM STAT PRN; Protocol PRN Reason: Hypoglycemia Protocol Piperacillin Sod/Tazobactam Sod (Zosyn 3.375 Gm Iv Premix) 3.375 gm in 50 mls @ 200 mls/hr IVPB Q6H [facility]; Protocol Last Admin: 07/11/18 12:44 Dose: 200 mls/hr Azithromycin 500 mg/ Sodium (Chloride) 250 mls @ 250 mls/hr IVPB Q24H [facility]; Protocol Last Admin: 07/11/18 12:45 Dose: 250 mls/hr Dextrose (Dextrose 5% In Water 1000 Ml) 1,000 mls @ 0 mls/hr IV .Q0M PRN; Protocol PRN Reason: Hypoglycemia Protocol Insulin Aspart (Novolog) 0 unit SC ACHS [facility]; Protocol Last Admin: 07/11/18 12:45 Dose: 2 u Levothyroxine Sodium (Synthroid) 50 mcg PO DAILY@0630 [facility] Last Admin: 07/11/18 06:14 Dose: 50 mcg Metformin HCl (Glucophage) 500 mg PO BID [facility] Last Admin: 07/11/18 09:57 Dose: 500 mg Montelukast Sodium (Singulair) 10 mg PO HS [facility] Last Admin: 07/10/18 21:45 Dose: 10 mg Saccharomyces Boulardii (Florastor) 250 mg PO BID [facility] Last Admin: 07/11/18 12:46 Dose: 250 mg Senna/Docusate Sodium (Senokot S 50 Mg-8.6 Mg) 1 tab PO BID [facility] Last Admin: 07/11/18 09:57 Dose: Not Given Simethicone (Mylicon Chew Tab) 80 mg PO Q12 PRN PRN Reason: GI distress Last Admin: 07/08/18 13:48 Dose: 80 mg Zolpidem Tartrate (Ambien) 5 mg PO HS PRN PRN Reason: Insomnia Last Admin: 07/10/18 22:58 Dose: 5 mg - Labs Labs: 07/11/18 06:07 07/11/18 06:07 PT 15.8 SECONDS (9.7-12.2) H 07/09/18 06:05 INR 1.4 07/09/18 06:05 APTT 24 SECONDS (21-34) 07/09/18 06:05 - Head Exam Head Exam: ATRAUMATIC, NORMAL INSPECTION, NORMOCEPHALIC - Eye Exam Eye Exam: EOMI, Normal appearance, PERRL. absent: Periorbital tenderness Pupil Exam: NORMAL ACCOMODATION - ENT Exam ENT Exam: Mucous Membranes Moist, Normal Oropharynx - Respiratory Exam Respiratory Exam: Clear to Ausculation Bilateral, NORMAL BREATHING PATTERN. abs ent: Prolonged Expiratory Phase, Respiratory Distress - Cardiovascular Exam Cardiovascular Exam: Tachycardia, +S1, +S2 - GI/Abdominal Exam GI & Abdominal Exam: Soft, Normal Bowel Sounds. absent: Hyperactive Bowel Sounds - Neurological Exam Neurological Exam: Alert, Awake, CN II-XII Intact, Oriented x3 - Psychiatric Exam Psychiatric exam: Normal Affect, Normal Mood - Skin Skin Exam: Dry, Intact, Normal Color Assessment and Plan - Assessment and Plan (Free Text) Assessment: 47 year old female with a past medical history of hypothyroidism, asthma, recurrent pneumonia, obstructive lung disorder, and bronchiectasis who initially presented with complaints of coughing and rib/back pain for over 10 days. Cardiology was consulted after RN I[facility] for new onset atrial fibrillation. Plan: 1. New onset Atrial fibrillation -TSH:3.81 -Free t4:1.76 -bnp: 7160 -D-DIMER: 746 -In sinus rhythm. -Echo :moderate Mitral regurgitations :moderate Tricuspid reurgitations -CTA :Multifocal opacities in both upper lobes and superior segment lower lobes, consistent with multifocal pneumonia. Follow-up to clearing to exclude underlying neoplasm. Focal small airways disease in right upper lobe. Isolated pulmonary embolism in subsegmental vessel left lower lobe. Mild mediastinal and bilateral hilar lymphadenopathy, nonspecific. Bilateral fusiform bronchiectasis both lower lobes as well as right middle lobe and lingular segment left upper lobe. 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 Medications: -Amiodarone 200 mg PO Daily [facility] -Cardizem 240mg Q12 [facility] 3. Pneumonia -Zosyn 3.375gm IVPB Q6H [facility] -Azithromycin 500mg IVPB Q24 h [facility] 2.Hypothyroidisim -Continue Synthroid 50mcg PO Daily 3.Abdominal pain -Simethicone 80mg po q12h prn -Pepcid 20mg po daily 4.Pulmonary embolism -Eliquis 10mg PO BID [facility] 5.DM -Metformin 500mg PO BID [facility] 6.Insomnia -Ambien 5mg PO PRN PPX -Pepcid 20mg PO Daily -Florastor Plan discussed with Dr. Law. Walt Christianson, Pgy-2 <Олег Law - Last Filed: 07/11/18 22:12> Objective - Vital Signs/Intake and Output Vital Signs (last 24 hours): Temp Pulse Resp BP Pulse Ox 97.4 F L 119 H 20 119/82 97 07/11/18 19:07 07/11/18 19:07 07/11/18 19:07 07/11/18 19:07 07/11/18 19:07 - Medications Medications: Current Medications Acetaminophen (Tylenol 325mg Tab) 650 mg PO Q4H PRN PRN Reason: Pain, moderate (4-7) Last Admin: 07/11/18 12:52 Dose: 650 mg Albuterol/Ipratropium (Duoneb 3 Mg/0.5 Mg (3 Ml) Ud) 3 ml INH RQ4 [facility] Last Admin: 07/11/18 16:19 Dose: 3 ml Amiodarone HCl (Cordarone) 200 mg PO DAILY [facility] Last Admin: 07/11/18 09:57 Dose: 200 mg Apixaban (Eliquis) 10 mg PO BID [facility] Stop: 07/14/18 10:01 Last Admin: 07/11/18 18:13 Dose: 10 mg Dextrose (Dextrose 50% Inj) 0 ml IV STAT PRN; Protocol PRN Reason: Hypoglycemia Protocol Dextrose (Glutose 15) 0 gm PO ONCE PRN; Protocol PRN Reason: Hypoglycemia Protocol Diltiazem HCl (Cardizem) 240 mg PO Q12H [facility] Last Admin: 07/11/18 18:13 Dose: 240 mg Famotidine (Pepcid) 20 mg PO DAILY [facility] Last Admin: 07/11/18 09:57 Dose: 20 mg Fluticasone/Vilanterol (Breo Ellipta 100-25 Mcg Inh) 1 puff INH RQ24 [facility] Last Admin: 07/11/18 07:22 Dose: 1 puff Glucagon (Glucagen Diagnostic Kit) 0 mg IM STAT PRN; Protocol PRN Reason: Hypoglycemia Protocol Piperacillin Sod/Tazobactam Sod (Zosyn 3.375 Gm Iv Premix) 3.375 gm in 50 mls @ 200 mls/hr IVPB Q6H [facility]; Protocol Last Admin: 07/11/18 22:01 Dose: 200 mls/hr Azithromycin 500 mg/ Sodium (Chloride) 250 mls @ 250 mls/hr IVPB Q24H [facility]; Protocol Last Admin: 07/11/18 12:45 Dose: 250 mls/hr Dextrose (Dextrose 5% In Water 1000 Ml) 1,000 mls @ 0 mls/hr IV .Q0M PRN; Protocol PRN Reason: Hypoglycemia Protocol Insulin Aspart (Novolog) 0 unit SC ACHS [facility]; Protocol Last Admin: 07/11/18 21:21 Dose: Not Given Levothyroxine Sodium (Synthroid) 50 mcg PO DAILY@0630 [facility] Last Admin: 07/11/18 06:14 Dose: 50 mcg Metformin HCl (Glucophage) 500 mg PO BID [facility] Last Admin: 07/11/18 18:13 Dose: 500 mg Montelukast Sodium (Singulair) 10 mg PO HS [facility] Last Admin: 07/11/18 21:55 Dose: 10 mg Saccharomyces Boulardii (Florastor) 250 mg PO BID [facility] Last Admin: 07/11/18 18:13 Dose: 250 mg Senna/Docusate Sodium (Senokot S 50 Mg-8.6 Mg) 1 tab PO BID [facility] Last Admin: 07/11/18 09:57 Dose: Not Given Simethicone (Mylicon Chew Tab) 80 mg PO Q12 PRN PRN Reason: GI distress Last Admin: 07/11/18 22:01 Dose: 80 mg Zolpidem Tartrate (Ambien) 5 mg PO HS PRN PRN Reason: Insomnia Last Admin: 07/11/18 21:55 Dose: 5 mg - Labs Labs: 07/11/18 06:07 07/11/18 06:07 PT 15.8 SECONDS (9.7-12.2) H 07/09/18 06:05 INR 1.4 07/09/18 06:05 APTT 24 SECONDS (21-34) 07/09/18 06:05 Assessment and Plan - Assessment and Plan (Free Text) Assessment: Patient seen and examined personally by me. Plan of care d/w the medical sales representative and as documented
[2018-07-11] MEDS ORDERED: (Novolog) Insulin Aspart, Recombinant 100 u/ml 10 ml vial SC SCH (16:30)
[2018-07-11 19:15] VITALS: RESP 20
--- NOTE | 2018-07-11 19:36 | CARD ---
APPROVED REPORT Date of service: 07/07/2018 EKG Measurement Heart [id number] <Conclusion> Atrial fibrillation Abnormal ECG
[2018-07-11] MEDS: Simethicone 80 mg Chewtab PO PRN (22:01)
[2018-07-12] MEDS: Albuterol-Ipratrop 3 mg / 0.5 (3 ml) UD INH SCH ×6 (00:09→21:10)
[2018-07-12] MEDS: Levothyroxine 50 MCG TAB PO SCH (05:31)
[2018-07-12] MEDS: Piperacill/Tazo 3.375gm in Dex 3.375 GM/50 ML BAG IVPB SCH ×4 (05:32→22:05)
[2018-07-12] MEDS: Fluticasone-Vilanterol 100/25mcg Diskus INH SCH (07:20)
[2018-07-12] MEDS: (Novolog) Insulin Aspart, Recombinant 100 u/ml 10 ml vial SC SCH ×4 (07:46→21:15)
[2018-07-12 08:13] LABS: BASO % 0.2 % (0.0-2.0); EOS # 0.1 K/uL (0.0-0.7); EOS % 0.8 % (0.0-4.0); HEMOGLOBIN 11.2 g/dL (11.0-16.0); LYMPH # 2.3 K/uL (1.0-4.3); MEAN CELL VOLUME 69.8 fL (81.0-99.0); MEAN CORPUSCULAR HGB CONC 30.1 g/dL (33.0-37.0); MEAN PLATELET VOLUME 8.2 fL (7.2-11.7); MONO # 0.8 K/uL (0.0-0.8); MONO % 4.6 % (0.0-10.0); NEUT # 14.1 K/uL (1.8-7.0); NEUT % 81.4 % (50.0-75.0); RBC 5.31 Mil/uL (3.80-5.20); RED CELL DISTRIBUTION WIDTH 20.6 % (11.5-14.5); WHITE BLOOD COUNT 17.4 K/uL (4.8-10.8)
[2018-07-12 08:37] LABS: ALB/GLOB RATIO 1.2 (1.0-2.1); ALBUMIN 3.5 g/dL (3.5-5.0); ALT/SGPT 38 U/L (9-52); AST/SGOT 15 U/L (14-36); BLOOD UREA NITROGEN 25 mg/dL (7-17); CALCIUM 8.6 mg/dl (8.6-10.4); GFR NON-AFRICAN AMERICAN > 60
[2018-07-12] MEDS: Saccharomyces Boulardi 250 mg Cap PO SCH ×2 (09:42→17:54)
[2018-07-12] MEDS: Docusate-Senna 50 mg-8.6 mg Tab PO SCH ×2 (10:46→18:09)
[2018-07-12] MEDS: Azithromycin 500 MG in Sodium Chloride 0.9% 250 ML IVPB SCH (11:47)
--- NOTE | 2018-07-12 12:35 | CP.PCM.PN ---
Subjective - Date & Time of Evaluation Date of Evaluation: 07/12/18 Time of Evaluation: 09:00 - Subjective Subjective: Pseudomonas in sputum rx in progress Objective - Vital Signs/Intake and Output Vital Signs (last 24 hours): Temp Pulse Resp BP Pulse Ox 97.5 F L 82 20 115/75 99 07/12/18 08:00 07/12/18 12:00 07/12/18 08:00 07/12/18 09:43 07/12/18 08:00 - Medications Medications: Current Medications Acetaminophen (Tylenol 325mg Tab) 650 mg PO Q4H PRN PRN Reason: Pain, moderate (4-7) Last Admin: 07/11/18 12:52 Dose: 650 mg Albuterol/Ipratropium (Duoneb 3 Mg/0.5 Mg (3 Ml) Ud) 3 ml INH RQ4 [facility] Last Admin: 07/12/18 07:20 Dose: 3 ml Amiodarone HCl (Cordarone) 200 mg PO DAILY [facility] Last Admin: 07/12/18 09:41 Dose: 200 mg Apixaban (Eliquis) 10 mg PO BID [facility] Stop: 07/14/18 10:01 Last Admin: 07/12/18 09:41 Dose: 10 mg Dextrose (Dextrose 50% Inj) 0 ml IV STAT PRN; Protocol PRN Reason: Hypoglycemia Protocol Dextrose (Glutose 15) 0 gm PO ONCE PRN; Protocol PRN Reason: Hypoglycemia Protocol Diltiazem HCl (Cardizem) 240 mg PO Q12H [facility] Last Admin: 07/12/18 05:31 Dose: 240 mg Famotidine (Pepcid) 20 mg PO DAILY [facility] Last Admin: 07/12/18 09:41 Dose: 20 mg Fluticasone/Vilanterol (Breo Ellipta 100-25 Mcg Inh) 1 puff INH RQ24 [facility] Last Admin: 07/12/18 07:20 Dose: Not Given Glucagon (Glucagen Diagnostic Kit) 0 mg IM STAT PRN; Protocol PRN Reason: Hypoglycemia Protocol Piperacillin Sod/Tazobactam Sod (Zosyn 3.375 Gm Iv Premix) 3.375 gm in 50 mls @ 200 mls/hr IVPB Q6H [facility]; Protocol Last Admin: 07/12/18 10:32 Dose: 200 mls/hr Azithromycin 500 mg/ Sodium (Chloride) 250 mls @ 250 mls/hr IVPB Q24H [facility]; Protocol Last Admin: 07/12/18 11:47 Dose: 250 mls/hr Dextrose (Dextrose 5% In Water 1000 Ml) 1,000 mls @ 0 mls/hr IV .Q0M PRN; Protocol PRN Reason: Hypoglycemia Protocol Insulin Aspart (Novolog) 0 unit SC ACHS [facility]; Protocol Last Admin: 07/12/18 12:25 Dose: Not Given Levothyroxine Sodium (Synthroid) 50 mcg PO DAILY@0630 [facility] Last Admin: 07/12/18 05:31 Dose: 50 mcg Metformin HCl (Glucophage) 500 mg PO BID [facility] Last Admin: 07/12/18 09:41 Dose: 500 mg Montelukast Sodium (Singulair) 10 mg PO HS [facility] Last Admin: 07/11/18 21:55 Dose: 10 mg Saccharomyces Boulardii (Florastor) 250 mg PO BID [facility] Last Admin: 07/12/18 09:42 Dose: 250 mg Senna/Docusate Sodium (Senokot S 50 Mg-8.6 Mg) 1 tab PO BID [facility] Last Admin: 07/12/18 10:46 Dose: 1 tab Simethicone (Mylicon Chew Tab) 80 mg PO Q12 PRN PRN Reason: GI distress Last Admin: 07/11/18 22:01 Dose: 80 mg Zolpidem Tartrate (Ambien) 5 mg PO HS PRN PRN Reason: Insomnia Last Admin: 07/11/18 21:55 Dose: 5 mg - Labs Labs: 07/12/18 08:05 07/12/18 08:05 PT 15.8 SECONDS (9.7-12.2) H 07/09/18 06:05 INR 1.4 07/09/18 06:05 APTT 24 SECONDS (21-34) 07/09/18 06:05 - Constitutional Appears: Non-toxic, Chronically Ill - Head Exam Head Exam: NORMOCEPHALIC - Eye Exam Eye Exam: absent: Scleral icterus - ENT Exam ENT Exam: Mucous Membranes Dry - Neck Exam Neck Exam: absent: Lymphadenopathy - Respiratory Exam Respiratory Exam: Decreased Breath Sounds - Cardiovascular Exam Cardiovascular Exam: REGULAR RHYTHM - GI/Abdominal Exam GI & Abdominal Exam: Distended - Rectal Exam Rectal Exam: Deferred Assessment and Plan (1) Respiratory distress Status: Acute (2) Uncontrolled atrial fibrillation Status: Acute (3) Bronchiectasis Status: Acute (4) Pulmonary embolism Status: Acute (5) Respiratory failure Status: Acute
--- NOTE | 2018-07-12 13:59 | CP.PCM.PN ---
<[place] - Last Filed: 07/12/18 17:49> Subjective - Date & Time of Evaluation Date of Evaluation: 07/12/18 Time of Evaluation: 13:59 - Subjective Subjective: PGY-2 Progress Note: Dr. Law Service Patient seen and examined at bedside. Per nursing no acute events occurred overnight. Patient does continue to go in and out of sinus rhythm associated with duoneb treatments per Nursing. Patient denies any chest pain, abdominal pain, headaches, fevers, chills, or any other complaints. Objective - Vital Signs/Intake and Output Vital Signs (last 24 hours): Temp Pulse Resp BP Pulse Ox 97.5 F L 82 20 115/75 99 07/12/18 08:00 07/12/18 12:00 07/12/18 08:00 07/12/18 09:43 07/12/18 08:00 - Medications Medications: Current Medications Acetaminophen (Tylenol 325mg Tab) 650 mg PO Q4H PRN PRN Reason: Pain, moderate (4-7) Last Admin: 07/11/18 12:52 Dose: 650 mg Albuterol/Ipratropium (Duoneb 3 Mg/0.5 Mg (3 Ml) Ud) 3 ml INH RQ4 [facility] Last Admin: 07/12/18 07:20 Dose: 3 ml Amiodarone HCl (Cordarone) 200 mg PO DAILY [facility] Last Admin: 07/12/18 09:41 Dose: 200 mg Apixaban (Eliquis) 10 mg PO BID [facility] Stop: 07/14/18 10:01 Last Admin: 07/12/18 09:41 Dose: 10 mg Dextrose (Dextrose 50% Inj) 0 ml IV STAT PRN; Protocol PRN Reason: Hypoglycemia Protocol Dextrose (Glutose 15) 0 gm PO ONCE PRN; Protocol PRN Reason: Hypoglycemia Protocol Diltiazem HCl (Cardizem) 240 mg PO Q12H [facility] Last Admin: 07/12/18 05:31 Dose: 240 mg Famotidine (Pepcid) 20 mg PO DAILY [facility] Last Admin: 07/12/18 09:41 Dose: 20 mg Fluticasone/Vilanterol (Breo Ellipta 100-25 Mcg Inh) 1 puff INH RQ24 [facility] Last Admin: 07/12/18 07:20 Dose: Not Given Glucagon (Glucagen Diagnostic Kit) 0 mg IM STAT PRN; Protocol PRN Reason: Hypoglycemia Protocol Piperacillin Sod/Tazobactam Sod (Zosyn 3.375 Gm Iv Premix) 3.375 gm in 50 mls @ 200 mls/hr IVPB Q6H [facility]; Protocol Last Admin: 07/12/18 10:32 Dose: 200 mls/hr Azithromycin 500 mg/ Sodium (Chloride) 250 mls @ 250 mls/hr IVPB Q24H [facility]; Protocol Last Admin: 07/12/18 11:47 Dose: 250 mls/hr Dextrose (Dextrose 5% In Water 1000 Ml) 1,000 mls @ 0 mls/hr IV .Q0M PRN; Protocol PRN Reason: Hypoglycemia Protocol Insulin Aspart (Novolog) 0 unit SC ACHS [facility]; Protocol Last Admin: 07/12/18 12:25 Dose: Not Given Levothyroxine Sodium (Synthroid) 50 mcg PO DAILY@0630 [facility] Last Admin: 07/12/18 05:31 Dose: 50 mcg Metformin HCl (Glucophage) 500 mg PO BID [facility] Last Admin: 07/12/18 09:41 Dose: 500 mg Montelukast Sodium (Singulair) 10 mg PO HS [facility] Last Admin: 07/11/18 21:55 Dose: 10 mg Saccharomyces Boulardii (Florastor) 250 mg PO BID [facility] Last Admin: 07/12/18 09:42 Dose: 250 mg Senna/Docusate Sodium (Senokot S 50 Mg-8.6 Mg) 1 tab PO BID [facility] Last Admin: 07/12/18 10:46 Dose: 1 tab Simethicone (Mylicon Chew Tab) 80 mg PO Q12 PRN PRN Reason: GI distress Last Admin: 07/11/18 22:01 Dose: 80 mg Zolpidem Tartrate (Ambien) 5 mg PO HS PRN PRN Reason: Insomnia Last Admin: 07/11/18 21:55 Dose: 5 mg - Labs Labs: 07/12/18 08:05 07/12/18 08:05 PT 15.8 SECONDS (9.7-12.2) H 07/09/18 06:05 INR 1.4 07/09/18 06:05 APTT 24 SECONDS (21-34) 07/09/18 06:05 - Head Exam Head Exam: NORMAL INSPECTION - Eye Exam Eye Exam: EOMI, Normal appearance, PERRL. absent: Periorbital tenderness Pupil Exam: NORMAL ACCOMODATION, PERRL - ENT Exam ENT Exam: Mucous Membranes Moist, Normal Oropharynx - Respiratory Exam Respiratory Exam: Clear to Ausculation Bilateral, NORMAL BREATHING PATTERN. absent: Prolonged Expiratory Phase, Respiratory Distress - Cardiovascular Exam Cardiovascular Exam: REGULAR RHYTHM, +S1, +S2. absent: Rubs - GI/Abdominal Exam GI & Abdominal Exam: Soft, Normal Bowel Sounds. absent: Hyperactive Bowel Sounds - Neurological Exam Neurological Exam: Alert, Awake, CN II-XII Intact, Oriented x3 - Psychiatric Exam Psychiatric exam: Normal Affect, Normal Mood - Skin Skin Exam: Dry, Intact, Normal Color. absent: Diaphoretic, Pallor Assessment and Plan - Assessment and Plan (Free Text) Assessment: 47 year old female with a past medical history of hypothyroidism, asthma, recurrent pneumonia, obstructive lung disorder, and bronchiectasis who initially presented with complaints of coughing and rib/back pain for over 10 days. Cardiology was consulted after [employer] for new onset atrial fibrillation. Plan: 1. New onset Atrial fibrillation -TSH:3.81 -Free t4:1.76 -bnp: 7160 -D-DIMER: 746 -In sinus rhythm. -Echo :moderate Mitral regurgitations :moderate Tricuspid reurgitations -CTA :Multifocal opacities in both upper lobes and superior segment lower lobes, consistent with multifocal pneumonia. Follow-up to clearing to exclude underlying neoplasm. Focal small airways disease in right upper lobe. Isolated pulmonary embolism in subsegmental vessel left lower lobe. Mild mediastinal and bilateral hilar lymphadenopathy, nonspecific. Bilateral fusiform bronchiectasis both lower lobes as well as right middle lobe and lingular segment left upper lobe. 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 Medications: -Amiodarone 200 mg PO Daily [facility] Discontinued (07/12/18) -Cardizem 240mg Q12 [facility] 3. Pneumonia -Zosyn 3.375gm IVPB Q6H [facility] -Azithromycin 500mg IVPB Q24 h [facility] 2.Hypothyroidisim -Continue Synthroid 50mcg PO Daily 3.Abdominal pain -Simethicone 80mg po q12h prn -Pepcid 20mg po daily 4.Pulmonary embolism -Eliquis 10mg PO BID [facility] 5.DM -Metformin 500mg PO BID [facility] 6.Insomnia -Ambien 5mg PO PRN PPX -Pepcid 20mg PO Daily -Florastor Plan discussed with Dr. Law. Walt Christianson, Pgy-2 <Олег Law - Last Filed: 07/13/18 00:15> Objective - Vital Signs/Intake and Output Vital Signs (last 24 hours): Temp Pulse Resp BP Pulse Ox 97.9 F 104 H 20 111/65 95 07/12/18 18:23 07/12/18 18:23 07/12/18 18:23 07/12/18 18:23 07/12/18 18:23 - Medications Medications: Current Medications Acetaminophen (Tylenol 325mg Tab) 650 mg PO Q4H PRN PRN Reason: Pain, moderate (4-7) Last Admin: 07/11/18 12:52 Dose: 650 mg Albuterol/Ipratropium (Duoneb 3 Mg/0.5 Mg (3 Ml) Ud) 3 ml INH RQ4 [facility] Last Admin: 07/12/18 21:10 Dose: 3 ml Apixaban (Eliquis) 10 mg PO BID [facility] Stop: 07/14/18 10:01 Last Admin: 07/12/18 17:54 Dose: 10 mg Dextrose (Dextrose 50% Inj) 0 ml IV STAT PRN; Protocol PRN Reason: Hypoglycemia Protocol Dextrose (Glutose 15) 0 gm PO ONCE PRN; Protocol PRN Reason: Hypoglycemia Protocol Diltiazem HCl (Cardizem) 240 mg PO Q12H [facility] Last Admin: 07/12/18 18:15 Dose: 240 mg Famotidine (Pepcid) 20 mg PO DAILY [facility] Last Admin: 07/12/18 09:41 Dose: 20 mg Fluticasone/Vilanterol (Breo Ellipta 100-25 Mcg Inh) 1 puff INH RQ24 [facility] Last Admin: 07/12/18 07:20 Dose: Not Given Glucagon (Glucagen Diagnostic Kit) 0 mg IM STAT PRN; Protocol PRN Reason: Hypoglycemia Protocol Piperacillin Sod/Tazobactam Sod (Zosyn 3.375 Gm Iv Premix) 3.375 gm in 50 mls @ 200 mls/hr IVPB Q6H [facility]; Protocol Last Admin: 07/12/18 22:05 Dose: 200 mls/hr Azithromycin 500 mg/ Sodium (Chloride) 250 mls @ 250 mls/hr IVPB Q24H [facility]; Protocol Last Admin: 07/12/18 11:47 Dose: 250 mls/hr Dextrose (Dextrose 5% In Water 1000 Ml) 1,000 mls @ 0 mls/hr IV .Q0M PRN; Protocol PRN Reason: Hypoglycemia Protocol Insulin Aspart (Novolog) 0 unit SC ACHS [facility]; Protocol Last Admin: 07/12/18 21:15 Dose: Not Given Levothyroxine Sodium (Synthroid) 50 mcg PO DAILY@0630 [facility] Last Admin: 07/12/18 05:31 Dose: 50 mcg Metformin HCl (Glucophage) 500 mg PO BID [facility] Last Admin: 07/12/18 17:54 Dose: 500 mg Montelukast Sodium (Singulair) 10 mg PO HS [facility] Last Admin: 07/12/18 21:26 Dose: 10 mg Saccharomyces Boulardii (Florastor) 250 mg PO BID [facility] Last Admin: 07/12/18 17:54 Dose: 250 mg Senna/Docusate Sodium (Senokot S 50 Mg-8.6 Mg) 1 tab PO BID [facility] Last Admin: 07/12/18 18:09 Dose: 1 tab Simethicone (Mylicon Chew Tab) 80 mg PO Q12 PRN PRN Reason: GI distress Last Admin: 07/11/18 22:01 Dose: 80 mg Zolpidem Tartrate (Ambien) 5 mg PO HS PRN PRN Reason: Insomnia Last Admin: 07/12/18 23:06 Dose: 5 mg - Labs Labs: 07/12/18 08:05 07/12/18 08:05 PT 15.8 SECONDS (9.7-12.2) H 07/09/18 06:05 INR 1.4 07/09/18 06:05 APTT 24 SECONDS (21-34) 07/09/18 06:05 Assessment and Plan - Assessment and Plan (Free Text) Assessment: Patient seen and evaluated personally by me. Plan of care d/w the the resident and as documented
--- NOTE | 2018-07-12 14:21 | CP.PCM.PN ---
Subjective - Date & Time of Evaluation Date of Evaluation: 07/12/18 Time of Evaluation: 07:00 - Subjective Subjective: PGY2- Progress Note for Dr. Smith Patient seen and examined at bedside. Patient says her heart rate feels better, but sometimes she still feels it beating quickly. Patient still has some shortness of breath. Patient also admits to vaginal bleeding. Patient was being treated with Norethindrone 10mg po daily for heavy menstrual bleeding secondary to fibroids. Patient stopped the Norethindrone once hospitalized and she started having vaginal bleeing yesterday. Patient denies headache, chest pain, abdominal pain, nausea, vomiting, constipation, or diarrhea. Objective - Vital Signs/Intake and Output Vital Signs (last 24 hours): Temp Pulse Resp BP Pulse Ox 97.5 F L 82 20 115/75 99 07/12/18 08:00 07/12/18 12:00 07/12/18 08:00 07/12/18 09:43 07/12/18 08:00 - Medications Medications: Current Medications Acetaminophen (Tylenol 325mg Tab) 650 mg PO Q4H PRN PRN Reason: Pain, moderate (4-7) Last Admin: 07/11/18 12:52 Dose: 650 mg Albuterol/Ipratropium (Duoneb 3 Mg/0.5 Mg (3 Ml) Ud) 3 ml INH RQ4 [facility] Last Admin: 07/12/18 07:20 Dose: 3 ml Amiodarone HCl (Cordarone) 200 mg PO DAILY [facility] Last Admin: 07/12/18 09:41 Dose: 200 mg Apixaban (Eliquis) 10 mg PO BID [facility] Stop: 07/14/18 10:01 Last Admin: 07/12/18 09:41 Dose: 10 mg Dextrose (Dextrose 50% Inj) 0 ml IV STAT PRN; Protocol PRN Reason: Hypoglycemia Protocol Dextrose (Glutose 15) 0 gm PO ONCE PRN; Protocol PRN Reason: Hypoglycemia Protocol Diltiazem HCl (Cardizem) 240 mg PO Q12H [facility] Last Admin: 07/12/18 05:31 Dose: 240 mg Famotidine (Pepcid) 20 mg PO DAILY [facility] Last Admin: 07/12/18 09:41 Dose: 20 mg Fluticasone/Vilanterol (Breo Ellipta 100-25 Mcg Inh) 1 puff INH RQ24 [facility] Last Admin: 07/12/18 07:20 Dose: Not Given Glucagon (Glucagen Diagnostic Kit) 0 mg IM STAT PRN; Protocol PRN Reason: Hypoglycemia Protocol Piperacillin Sod/Tazobactam Sod (Zosyn 3.375 Gm Iv Premix) 3.375 gm in 50 mls @ 200 mls/hr IVPB Q6H [facility]; Protocol Last Admin: 07/12/18 10:32 Dose: 200 mls/hr Azithromycin 500 mg/ Sodium (Chloride) 250 mls @ 250 mls/hr IVPB Q24H [facility]; Protocol Last Admin: 07/12/18 11:47 Dose: 250 mls/hr Dextrose (Dextrose 5% In Water 1000 Ml) 1,000 mls @ 0 mls/hr IV .Q0M PRN; Protocol PRN Reason: Hypoglycemia Protocol Insulin Aspart (Novolog) 0 unit SC ACHS [facility]; Protocol Last Admin: 07/12/18 12:25 Dose: Not Given Levothyroxine Sodium (Synthroid) 50 mcg PO DAILY@0630 [facility] Last Admin: 07/12/18 05:31 Dose: 50 mcg Metformin HCl (Glucophage) 500 mg PO BID [facility] Last Admin: 07/12/18 09:41 Dose: 500 mg Montelukast Sodium (Singulair) 10 mg PO HS [facility] Last Admin: 07/11/18 21:55 Dose: 10 mg Saccharomyces Boulardii (Florastor) 250 mg PO BID [facility] Last Admin: 07/12/18 09:42 Dose: 250 mg Senna/Docusate Sodium (Senokot S 50 Mg-8.6 Mg) 1 tab PO BID [facility] Last Admin: 07/12/18 10:46 Dose: 1 tab Simethicone (Mylicon Chew Tab) 80 mg PO Q12 PRN PRN Reason: GI distress Last Admin: 07/11/18 22:01 Dose: 80 mg Zolpidem Tartrate (Ambien) 5 mg PO HS PRN PRN Reason: Insomnia Last Admin: 07/11/18 21:55 Dose: 5 mg - Labs Labs: 07/12/18 08:05 07/12/18 08:05 PT 15.8 SECONDS (9.7-12.2) H 07/09/18 06:05 INR 1.4 07/09/18 06:05 APTT 24 SECONDS (21-34) 07/09/18 06:05 - Additional Findings Additional findings: - Constitutional Appears: No Acute Distress - Head Exam Head Exam: ATRAUMATIC, NORMAL INSPECTION - Eye Exam Eye Exam: EOMI, Normal appearance - ENT Exam ENT Exam: Mucous Membranes Moist - Respiratory Exam Respiratory Exam: Decreased Breath Sounds, rhonchi - Cardiovascular Exam Cardiovascular Exam: REGULAR RHYTHM, +S1, +S2. absent: Tachycardia - GI/Abdominal Exam GI & Abdominal Exam: Soft, Normal Bowel Sounds. absent: Distended, Firm, Guarding, Rigid, Tenderness - Extremities Exam Extremities Exam: Normal Inspection. absent: Calf Tenderness, Pedal Edema - Neurological Exam Neurological Exam: Alert, Awake, Oriented x3 - Psychiatric Exam Psychiatric exam: Normal Affect - Skin Skin Exam: Normal Color Assessment and Plan - Assessment and Plan (Free Text) Assessment: (1) Multifocal pneumonia Assessment & Plan: Consultations: - Feeder Loader, Dr. Crowley---> Help appreciated - ID, Dr. Mendoza----> Help appreciated - Previous admission on 06/28/18 for bronchiectasis - CXR (07/05/18): Limited atelectasis or infiltrate question to the left heart border at the left base. No pulmonary vascular congestion or additional potential infiltrate bilaterally. Chest CT (07/05/18): Multifocal opacities in both upper lobes and superior segment lower lobes, consistent with multifocal pneumonia. Follow-up to clearing to exclude underlying neoplasm. Focal small airways disease in right upper lobe. Isolated pulmonary embolism in subsegmental vessel left lower lobe. Mild mediastinal and bilateral hilar lymphadenopathy, nonspecific. Bilateral fusiform bronchiectasis both lower lobes as well as right middle lobe and lingular segment left upper lobe. Possible polysplenia Sputum Culture: pseudomonas, sensitive to Zosyn WBC: Down trending Medications/Management: - Zosyn 3.375gm IV Q6H - Azithromycin IV 500mg daily - Florastor 250mg PO BID Status: Acute (2) Uncontrolled atrial fibrillation Assessment & Plan: Currently rate controlled and Stable EKG: A fib at 126bpm on admission Dr. Law consulted, help appreciated rapid response called on 07/05/18 for HR in 200s. Patient was found to be in SVT and did not convert with Adenosine 6mg ivp then 12mg ivp then 12mg ivp. Cardizem 20mg ivp given which decreased heart rate to 100s. Dr. Crowley called for ICU consult and patient was transferred to ICU to be placed on Cardizem drip -d dimer: 746 -Troponin I: .03, .05 -BNP: 7160 -Echo :moderate Mitral regurgitations :moderate Tricuspid regurgitations Management: - Cardizem 240mg PO Q12h - Amiodarone 200mg PO daily Status: Acute (3) Pulmonary embolism Assessment & Plan: CTA: Multifocal opacities in both upper lobes and superior segment lower lobes, consistent with multifocal pneumonia. Follow-up to clearing to exclude underlying neoplasm. Focal small airways disease in right upper lobe. Isolated pulmonary embolism in subsegmental vessel left lower lobe. Mild mediastinal and bilateral hilar lymphadenopathy, nonspecific. Bilateral fusiform bronchiectasis both lower lobes as well as right middle lobe and lingular segment left upper lobe. Possible polysplenia -Eliquis 10mg po BID (last done on 07/14/18- then switch to 5mg po BID) Status: Acute (4) History of hypothyroidism Assessment & Plan: - Continue home medication: Synthroid 50mcg PO daily -TSH (07/05/18): 3.81 -Free T4 (07/05/18): 1.75 Status: Acute (5) Diabetes mellitus Assessment & Plan: HgbA1C (07/05/18): 7.5% - Metformin 500mg PO BID - ISS- low dose - Hypoglycemia protocol Status: Acute (6) Hx of Menorrhagia Assessment & Plan: hx fibroids -H/H stable- 11.2/37.1 -previously on Norethindrone 10mg po daily, has not taken since prior to hospitalization -hold high dose Norethindrone secondary to PE -monitor H/H -patient will need to f/u with OBGYN as an outpatient Status: Acute (7) History of asthma Assessment & Plan: * Duonebs 3ml INH RQ4H * Breo Ellipta 100-25mcg INH RQ24H * Singulair 10mg PO HS Status: Acute (8) Chronic abdominal pain Assessment & Plan: Possibly secondary to constipation - Senokot 50Mg-8.6Mg 1 tab PO BID - Mylicon 80mg PO Q12 PRN Status: Acute (8) Insomnia Assessment & Plan: Ambien 5mg PO HS Status: Acute (9) Prophylactic measure Assessment & Plan: GI: Pepcid 20mg PO daily DVT: Eliquis 10mg PO BID Patient currently D/C from PT has she is able to transfer independently during 07/10/18 evaluation Disposition: Awaiting organism growth and sensitivity from sputum culture All plans and management discussed with Dr. Smith Status: Acute
--- NOTE | 2018-07-12 18:45 | CP.PCM.PN ---
Subjective - Date & Time of Evaluation Date of Evaluation: 07/12/18 Time of Evaluation: 09:00 - Subjective Subjective: still anxious IV rx renewed less sputum Objective - Vital Signs/Intake and Output Vital Signs (last 24 hours): Temp Pulse Resp BP Pulse Ox 97.9 F 104 H 20 111/65 95 07/12/18 18:23 07/12/18 18:23 07/12/18 18:23 07/12/18 18:23 07/12/18 18:23 - Medications Medications: Current Medications Acetaminophen (Tylenol 325mg Tab) 650 mg PO Q4H PRN PRN Reason: Pain, moderate (4-7) Last Admin: 07/11/18 12:52 Dose: 650 mg Albuterol/Ipratropium (Duoneb 3 Mg/0.5 Mg (3 Ml) Ud) 3 ml INH RQ4 [facility] Last Admin: 07/12/18 13:25 Dose: 3 ml Apixaban (Eliquis) 10 mg PO BID [facility] Stop: 07/14/18 10:01 Last Admin: 07/12/18 17:54 Dose: 10 mg Dextrose (Dextrose 50% Inj) 0 ml IV STAT PRN; Protocol PRN Reason: Hypoglycemia Protocol Dextrose (Glutose 15) 0 gm PO ONCE PRN; Protocol PRN Reason: Hypoglycemia Protocol Diltiazem HCl (Cardizem) 240 mg PO Q12H [facility] Last Admin: 07/12/18 18:15 Dose: 240 mg Famotidine (Pepcid) 20 mg PO DAILY [facility] Last Admin: 07/12/18 09:41 Dose: 20 mg Fluticasone/Vilanterol (Breo Ellipta 100-25 Mcg Inh) 1 puff INH RQ24 [facility] Last Admin: 07/12/18 07:20 Dose: Not Given Glucagon (Glucagen Diagnostic Kit) 0 mg IM STAT PRN; Protocol PRN Reason: Hypoglycemia Protocol Piperacillin Sod/Tazobactam Sod (Zosyn 3.375 Gm Iv Premix) 3.375 gm in 50 mls @ 200 mls/hr IVPB Q6H [facility]; Protocol Last Admin: 07/12/18 17:55 Dose: 200 mls/hr Azithromycin 500 mg/ Sodium (Chloride) 250 mls @ 250 mls/hr IVPB Q24H [facility]; Protocol Last Admin: 07/12/18 11:47 Dose: 250 mls/hr Dextrose (Dextrose 5% In Water 1000 Ml) 1,000 mls @ 0 mls/hr IV .Q0M PRN; Protocol PRN Reason: Hypoglycemia Protocol Insulin Aspart (Novolog) [facility]; Protocol Last Admin: 07/12/18 17:52 Dose: Not Given Levothyroxine Sodium (Synthroid) 50 mcg PO DAILY@0630 [facility] Last Admin: 07/12/18 05:31 Dose: 50 mcg Metformin HCl (Glucophage) 500 mg PO BID [facility] Last Admin: 07/12/18 17:54 Dose: 500 mg Montelukast Sodium (Singulair) 10 mg PO HS [facility] Last Admin: 07/11/18 21:55 Dose: 10 mg Saccharomyces Boulardii (Florastor) 250 mg PO BID [facility] Last Admin: 07/12/18 17:54 Dose: 250 mg Senna/Docusate Sodium (Senokot S 50 Mg-8.6 Mg) 1 tab PO BID [facility] Last Admin: 07/12/18 18:09 Dose: 1 tab Simethicone (Mylicon Chew Tab) 80 mg PO Q12 PRN PRN Reason: GI distress Last Admin: 07/11/18 22:01 Dose: 80 mg Zolpidem Tartrate (Ambien) 5 mg PO HS PRN PRN Reason: Insomnia Last Admin: 07/11/18 21:55 Dose: 5 mg - Labs Labs: 07/12/18 08:05 07/12/18 08:05 PT 15.8 SECONDS (9.7-12.2) H 07/09/18 06:05 INR 1.4 07/09/18 06:05 APTT 24 SECONDS (21-34) 07/09/18 06:05 - Constitutional Appears: Chronically Ill - Head Exam Head Exam: NORMOCEPHALIC - Eye Exam Eye Exam: absent: Scleral icterus - ENT Exam ENT Exam: Mucous Membranes Dry - Neck Exam Neck Exam: absent: Lymphadenopathy - Respiratory Exam Respiratory Exam: Decreased Breath Sounds - Cardiovascular Exam Cardiovascular Exam: REGULAR RHYTHM - GI/Abdominal Exam GI & Abdominal Exam: Distended, Soft - Rectal Exam Rectal Exam: Deferred Assessment and Plan (1) Respiratory distress Status: Acute (2) Uncontrolled atrial fibrillation Status: Acute (3) Bronchiectasis Status: Acute (4) Pulmonary embolism Status: Acute (5) Respiratory failure Status: Acute
[2018-07-13] MEDS: Albuterol-Ipratrop 3 mg / 0.5 (3 ml) UD INH SCH ×6 (00:31→19:40)
[2018-07-13] MEDS: Levothyroxine 50 MCG TAB PO SCH (05:54)
[2018-07-13] MEDS: Piperacill/Tazo 3.375gm in Dex 3.375 GM/50 ML BAG IVPB SCH ×4 (05:55→22:01)
[2018-07-13] MEDS: Fluticasone-Vilanterol 100/25mcg Diskus INH SCH (07:10)
[2018-07-13] MEDS: (Novolog) Insulin Aspart, Recombinant 100 u/ml 10 ml vial SC SCH ×4 (07:44→21:03)
[2018-07-13 07:55] LABS: BASO % 0.3 % (0.0-2.0); EOS # 0.3 K/uL (0.0-0.7); HEMOGLOBIN 11.8 g/dL (11.0-16.0); LYMPH # 2.2 K/uL (1.0-4.3); LYMPH % 16.4 % (20.0-40.0); MEAN CELL VOLUME 70.3 fL (81.0-99.0); MEAN CORPUSCULAR HEMOGLOBIN 21.1 pg (27.0-31.0); MEAN CORPUSCULAR HGB CONC 30.1 g/dL (33.0-37.0); MEAN PLATELET VOLUME 8.1 fL (7.2-11.7); MONO # 0.9 K/uL (0.0-0.8); MONO % 6.5 % (0.0-10.0); NEUT # 10.2 K/uL (1.8-7.0); NEUT % 74.8 % (50.0-75.0); RBC 5.6 Mil/uL (3.80-5.20); RED CELL DISTRIBUTION WIDTH 20.5 % (11.5-14.5); WHITE BLOOD COUNT 13.7 K/uL (4.8-10.8)
[2018-07-13 08:34] LABS: ALB/GLOB RATIO 1.3 (1.0-2.1); ALBUMIN 3.8 g/dL (3.5-5.0); ALT/SGPT 42 U/L (9-52); AST/SGOT 36 U/L (14-36); BLOOD UREA NITROGEN 18 mg/dL (7-17); CALCIUM 9.3 mg/dl (8.6-10.4); GFR NON-AFRICAN AMERICAN > 60
[2018-07-13] MEDS: Saccharomyces Boulardi 250 mg Cap PO SCH ×2 (09:20→17:34)
--- NOTE | 2018-07-13 10:59 | CP.PCM.PN ---
Subjective - Date & Time of Evaluation Date of Evaluation: 07/13/18 Time of Evaluation: 07:00 - Subjective Subjective: PGY2- Progress Note for Dr. Smith Patient seen and examined at bedside and in no acute distress. Patient says she is feeling better, but still has some shortness of breath. Patient says she only has a small amount of vaginal bleeding. Patient denies any chest pain, abdominal pain, nausea, vomiting, constipation, or diarrhea. Objective - Vital Signs/Intake and Output Vital Signs (last 24 hours): Temp Pulse Resp BP Pulse Ox 97.8 F 78 20 107/67 95 07/13/18 07:51 07/13/18 07:51 07/13/18 07:51 07/13/18 07:51 07/13/18 07:51 - Medications Medications: Current Medications Acetaminophen (Tylenol 325mg Tab) 650 mg PO Q4H PRN PRN Reason: Pain, moderate (4-7) Last Admin: 07/11/18 12:52 Dose: 650 mg Albuterol/Ipratropium (Duoneb 3 Mg/0.5 Mg (3 Ml) Ud) 3 ml INH RQ4 [facility] Last Admin: 07/13/18 07:10 Dose: 3 ml Apixaban (Eliquis) 10 mg PO BID [facility] Stop: 07/14/18 10:01 Last Admin: 07/13/18 09:20 Dose: 10 mg Apixaban (Eliquis) 5 mg PO BID [facility] Dextrose (Dextrose 50% Inj) 0 ml IV STAT PRN; Protocol PRN Reason: Hypoglycemia Protocol Dextrose (Glutose 15) 0 gm PO ONCE PRN; Protocol PRN Reason: Hypoglycemia Protocol Diltiazem HCl (Cardizem) 240 mg PO Q12H [facility] Last Admin: 07/13/18 05:54 Dose: 240 mg Famotidine (Pepcid) 20 mg PO DAILY [facility] Last Admin: 07/13/18 09:20 Dose: 20 mg Fluticasone/Vilanterol (Breo Ellipta 100-25 Mcg Inh) 1 puff INH RQ24 [facility] Last Admin: 07/13/18 07:10 Dose: Not Given Glucagon (Glucagen Diagnostic Kit) 0 mg IM STAT PRN; Protocol PRN Reason: Hypoglycemia Protocol Piperacillin Sod/Tazobactam Sod (Zosyn 3.375 Gm Iv Premix) 3.375 gm in 50 mls @ 200 mls/hr IVPB Q6H [facility]; Protocol Last Admin: 07/13/18 05:55 Dose: 200 mls/hr Azithromycin 500 mg/ Sodium (Chloride) 250 mls @ 250 mls/hr IVPB Q24H [facility]; Protocol Last Admin: 07/12/18 11:47 Dose: 250 mls/hr Dextrose (Dextrose 5% In Water 1000 Ml) 1,000 mls @ 0 mls/hr IV .Q0M PRN; Protocol PRN Reason: Hypoglycemia Protocol Insulin Aspart (Novolog) 0 unit SC ACHS [facility]; Protocol Last Admin: 07/13/18 07:44 Dose: Not Given Levothyroxine Sodium (Synthroid) 50 mcg PO DAILY@0630 [facility] Last Admin: 07/13/18 05:54 Dose: 50 mcg Metformin HCl (Glucophage) 500 mg PO BID [facility] Last Admin: 07/13/18 09:20 Dose: 500 mg Montelukast Sodium (Singulair) 10 mg PO HS [facility] Last Admin: 07/12/18 21:26 Dose: 10 mg Saccharomyces Boulardii (Florastor) 250 mg PO BID [facility] Last Admin: 07/13/18 09:20 Dose: 250 mg Senna/Docusate Sodium (Senokot S 50 Mg-8.6 Mg) 1 tab PO BID [facility] Last Admin: 07/12/18 18:09 Dose: 1 tab Simethicone (Mylicon Chew Tab) 80 mg PO Q12 PRN PRN Reason: GI distress Last Admin: 07/11/18 22:01 Dose: 80 mg Zolpidem Tartrate (Ambien) 5 mg PO HS PRN PRN Reason: Insomnia Last Admin: 07/12/18 23:06 Dose: 5 mg - Labs Labs: 07/13/18 07:49 07/13/18 07:49 PT 15.8 SECONDS (9.7-12.2) H 07/09/18 06:05 INR 1.4 07/09/18 06:05 APTT 24 SECONDS (21-34) 07/09/18 06:05 - Additional Findings Additional findings: - Constitutional Appears: No Acute Distress - Head Exam Head Exam: ATRAUMATIC, NORMAL INSPECTION - Eye Exam Eye Exam: EOMI, Normal appearance - ENT Exam ENT Exam: Mucous Membranes Moist - Respiratory Exam Respiratory Exam: Decreased Breath Sounds, rhonchi - Cardiovascular Exam Cardiovascular Exam: REGULAR RHYTHM, +S1, +S2. absent: Tachycardia - GI/Abdominal Exam GI & Abdominal Exam: Soft, Normal Bowel Sounds. absent: Distended, Firm, Guarding, Rigid, Tenderness - Extremities Exam Extremities Exam: Normal Inspection. absent: Calf Tenderness, Pedal Edema - Neurological Exam Neurological Exam: Alert, Awake, Oriented x3 - Psychiatric Exam Psychiatric exam: Normal Affect - Skin Skin Exam: Normal Color Assessment and Plan - Assessment and Plan (Free Text) Assessment: (1) Multifocal pneumonia Assessment & Plan: Consultations: - Plug Cutter, Dr. Crowley---> Help appreciated - ID, Dr. Mendoza----> Help appreciated - Previous admission on 06/28/18 for bronchiectasis - CXR (07/05/18): Limited atelectasis or infiltrate question to the left heart border at the left base. No pulmonary vascular congestion or additional potential infiltrate bilaterally. Chest CT (07/05/18): Multifocal opacities in both upper lobes and superior segment lower lobes, consistent with multifocal pneumonia. Follow-up to clearing to exclude underlying neoplasm. Focal small airways disease in right upper lobe. Isolated pulmonary embolism in subsegmental vessel left lower lobe. Mild mediastinal and bilateral hilar lymphadenopathy, nonspecific. Bilateral fusiform bronchiectasis both lower lobes as well as right middle lobe and l ingular segment left upper lobe. Possible polysplenia Sputum Culture: pseudomonas, sensitive to Zosyn WBC: Down trending Medications/Management: - Zosyn 3.375gm IV Q6H (started on 07/06/18) - Azithromycin IV 500mg daily (started on 07/06/18) - Florastor 250mg PO BID Status: Acute (2) Uncontrolled atrial fibrillation Assessment & Plan: Currently rate controlled and Stable EKG: A fib at 126bpm on admission Dr. Law consulted, help appreciated rapid response called on 07/05/18 for HR in 200s. Patient was found to be in S VT and did not convert with Adenosine 6mg ivp then 12mg ivp then 12mg ivp. Cardizem 20mg ivp given which decreased heart rate to 100s. Dr. Crowley called for ICU consult and patient was transferred to ICU to be placed on Cardizem drip -d dimer: 746 -Troponin I: .03, .05 -BNP: 7160 -Echo :moderate Mitral regurgitations :moderate Tricuspid regurgitations Management: - Cardizem 240mg PO Q12h - Amiodarone 200mg PO daily Status: Acute (3) Pulmonary embolism Assessment & Plan: CTA: Multifocal opacities in both upper lobes and superior segment lower lobes, consistent with multifocal pneumonia. Follow-up to clearing to exclude un derlying neoplasm. Focal small airways disease in right upper lobe. Isolated pulmonary embolism in subsegmental vessel left lower lobe. Mild mediastinal and bilateral hilar lymphadenopathy, nonspecific. Bilateral fusiform bronchiectasis both lower lobes as well as right middle lobe and lingular segment left upper lobe. Possible polysplenia -Eliquis 10mg po BID (last dose on 07/14/18- then switch to 5mg po BID) Status: Acute (4) History of hypothyroidism Assessment & Plan: - Continue home medication: Synthroid 50mcg PO daily -TSH (07/05/18): 3.81 -Free T4 (07/05/18): 1.75 Status: Acute (5) Diabetes mellitus Assessment & Plan: HgbA1C (07/05/18): 7.5% - Metformin 500mg PO BID - ISS- low dose - Hypoglycemia protocol Status: Acute (6) Hx of Menorrhagia Assessment & Plan: hx fibroids -H/H stable -previously on Norethindrone 10mg po daily, has not taken since prior to hospitalization -hold Norethindrone secondary to PE -monitor H/H -patient will need to f/u with OBGYN as an outpatient Status: Acute (7) History of asthma Assessment & Plan: * Duonebs 3ml INH RQ4H * Breo Ellipta 100-25mcg INH RQ24H * Singulair 10mg PO HS Status: Acute (8) Chronic abdominal pain Assessment & Plan: Possibly secondary to constipation - Senokot 50Mg-8.6Mg 1 tab PO BID - Mylicon 80mg PO Q12 PRN Status: Acute (8) Insomnia Assessment & Plan: Ambien 5mg PO HS Status: Acute (9) Prophylactic measure Assessment & Plan: GI: Pepcid 20mg PO daily DVT: Eliquis 10mg PO BID Patient currently D/C from PT has she is able to transfer independently during 07/10/18 evaluation Status: Acute All plans and management discussed with Dr. Smith
[2018-07-13] MEDS: Docusate-Senna 50 mg-8.6 mg Tab PO SCH ×2 (11:30→17:36)
[2018-07-13] MEDS: Azithromycin 500 MG in Sodium Chloride 0.9% 250 ML IVPB SCH (13:11)
--- NOTE | 2018-07-13 22:03 | CP.PCM.PN ---
Subjective - Date & Time of Evaluation Date of Evaluation: 07/13/18 Time of Evaluation: 22:03 - Subjective Subjective: Patient seen and evaluated this morning Feels better No additional cardiac events Medical management Objective - Vital Signs/Intake and Output Vital Signs (last 24 hours): Temp Pulse Resp BP Pulse Ox 97.8 F 85 20 108/72 92 L 07/13/18 15:30 07/13/18 15:30 07/13/18 15:30 07/13/18 15:30 07/13/18 15:30 - Medications Medications: Current Medications Acetaminophen (Tylenol 325mg Tab) 650 mg PO Q4H PRN PRN Reason: Pain, moderate (4-7) Last Admin: 07/13/18 15:47 Dose: 650 mg Albuterol/Ipratropium (Duoneb 3 Mg/0.5 Mg (3 Ml) Ud) 3 ml INH RQ4 [facility] Last Admin: 07/13/18 19:40 Dose: 3 ml Apixaban (Eliquis) 10 mg PO BID [facility] Stop: 07/14/18 10:01 Last Admin: 07/13/18 17:35 Dose: 10 mg Apixaban (Eliquis) 5 mg PO BID [facility] Dextrose (Dextrose 50% Inj) 0 ml IV STAT PRN; Protocol PRN Reason: Hypoglycemia Protocol Dextrose (Glutose 15) 0 gm PO ONCE PRN; Protocol PRN Reason: Hypoglycemia Protocol Diltiazem HCl (Cardizem) 240 mg PO Q12H [facility] Last Admin: 07/13/18 17:34 Dose: 240 mg Famotidine (Pepcid) 20 mg PO DAILY [facility] Last Admin: 07/13/18 09:20 Dose: 20 mg Fluticasone/Vilanterol (Breo Ellipta 100-25 Mcg Inh) 1 puff INH RQ24 [facility] Last Admin: 07/13/18 07:10 Dose: Not Given Glucagon (Glucagen Diagnostic Kit) 0 mg IM STAT PRN; Protocol PRN Reason: Hypoglycemia Protocol Piperacillin Sod/Tazobactam Sod (Zosyn 3.375 Gm Iv Premix) 3.375 gm in 50 mls @ 200 mls/hr IVPB Q6H [facility]; Protocol Last Admin: 07/13/18 22:01 Dose: 200 mls/hr Azithromycin 500 mg/ Sodium (Chloride) 250 mls @ 250 mls/hr IVPB Q24H [facility]; Protocol Last Admin: 07/13/18 13:11 Dose: 250 mls/hr Dextrose (Dextrose 5% In Water 1000 Ml) 1,000 mls @ 0 mls/hr IV .Q0M PRN; Protocol PRN Reason: Hypoglycemia Protocol Insulin Aspart (Novolog) 0 unit SC ACHS [facility]; Protocol Last Admin: 07/13/18 21:03 Dose: Not Given Levothyroxine Sodium (Synthroid) 50 mcg PO DAILY@0630 [facility] Last Admin: 07/13/18 05:54 Dose: 50 mcg Metformin HCl (Glucophage) 500 mg PO BID [facility] Last Admin: 07/13/18 17:34 Dose: 500 mg Montelukast Sodium (Singulair) 10 mg PO HS [facility] Last Admin: 07/13/18 22:02 Dose: 10 mg Saccharomyces Boulardii (Florastor) 250 mg PO BID [facility] Last Admin: 07/13/18 17:34 Dose: 250 mg Senna/Docusate Sodium (Senokot S 50 Mg-8.6 Mg) 1 tab PO BID [facility] Last Admin: 07/13/18 17:36 Dose: 1 tab Simethicone (Mylicon Chew Tab) 80 mg PO Q12 PRN PRN Reason: GI distress Last Admin: 07/11/18 22:01 Dose: 80 mg Zolpidem Tartrate (Ambien) 5 mg PO HS PRN PRN Reason: Insomnia Last Admin: 07/12/18 23:06 Dose: 5 mg - Labs Labs: 07/13/18 07:49 07/13/18 07:49 PT 15.8 SECONDS (9.7-12.2) H 07/09/18 06:05 INR 1.4 07/09/18 06:05 APTT 24 SECONDS (21-34) 07/09/18 06:05
[2018-07-14] MEDS: Albuterol-Ipratrop 3 mg / 0.5 (3 ml) UD INH SCH ×5 (01:12→16:26)
[2018-07-14] MEDS: Piperacill/Tazo 3.375gm in Dex 3.375 GM/50 ML BAG IVPB SCH ×2 (05:12→10:14)
[2018-07-14] MEDS: Levothyroxine 50 MCG TAB PO SCH (06:12)
[2018-07-14 06:56] LABS: BASO % 0.4 % (0.0-2.0); EOS # 0.3 K/uL (0.0-0.7); EOS % 3.1 % (0.0-4.0); LYMPH # 1.9 K/uL (1.0-4.3); LYMPH % 17.5 % (20.0-40.0); MEAN CELL VOLUME 69.8 fL (81.0-99.0); MEAN CORPUSCULAR HEMOGLOBIN 21.5 pg (27.0-31.0); MEAN CORPUSCULAR HGB CONC 30.8 g/dL (33.0-37.0); MONO # 0.8 K/uL (0.0-0.8); NEUT # 7.8 K/uL (1.8-7.0); NRBC % 0.1 % (0.0-2.0); RBC 5.59 Mil/uL (3.80-5.20); RED CELL DISTRIBUTION WIDTH 20.6 % (11.5-14.5); WHITE BLOOD COUNT 10.8 K/uL (4.8-10.8)
[2018-07-14 07:04] LABS: ALB/GLOB RATIO 1.3 (1.0-2.1); ALBUMIN 3.6 g/dL (3.5-5.0); ALT/SGPT 42 U/L (9-52); AST/SGOT 27 U/L (14-36); BLOOD UREA NITROGEN 20 mg/dL (7-17); CALCIUM 8.8 mg/dl (8.6-10.4); GFR NON-AFRICAN AMERICAN > 60
[2018-07-14] MEDS: Fluticasone-Vilanterol 100/25mcg Diskus INH SCH (07:20)
[2018-07-14] MEDS: (Novolog) Insulin Aspart, Recombinant 100 u/ml 10 ml vial SC SCH ×2 (08:30→12:30)
[2018-07-14] MEDS: Saccharomyces Boulardi 250 mg Cap PO SCH (10:06)
[2018-07-14] MEDS: Docusate-Senna 50 mg-8.6 mg Tab PO SCH (10:10)
--- NOTE | 2018-07-14 10:21 | CP.PCM.PN ---
Subjective - Date & Time of Evaluation Date of Evaluation: 07/14/18 Time of Evaluation: 10:21 - Subjective Subjective: PGY2 Medicine Note for Dr. Smith Patient seen and examined this morning at bedside. Patient is feeling better and coughing less. She has been afebrile and has had improvement in her chest pain. She is sitting comfortably in a chair next to her bed on room air. Denies fevers, chills, nausea, vomiting, diarrhea, constipation or shortness of breath. Objective - Vital Signs/Intake and Output Vital Signs (last 24 hours): Temp Pulse Resp BP Pulse Ox 98.1 F 78 20 102/65 96 07/14/18 08:00 07/14/18 08:00 07/14/18 08:00 07/14/18 08:00 07/14/18 08:00 Intake and Output: 07/14/18 07/14/18 06:59 18:59 Intake Total 22 Balance 22 - Medications Medications: Current Medications Acetaminophen (Tylenol 325mg Tab) 650 mg PO Q4H PRN PRN Reason: Pain, moderate (4-7) Last Admin: 07/13/18 15:47 Dose: 650 mg Albuterol/Ipratropium (Duoneb 3 Mg/0.5 Mg (3 Ml) Ud) 3 ml INH RQ4 [facility] Last Admin: 07/14/18 07:20 Dose: Not Given Apixaban (Eliquis) 5 mg PO BID [facility] Dextrose (Dextrose 50% Inj) 0 ml IV STAT PRN; Protocol PRN Reason: Hypoglycemia Protocol Dextrose (Glutose 15) 0 gm PO ONCE PRN; Protocol PRN Reason: Hypoglycemia Protocol Diltiazem HCl (Cardizem) 240 mg PO Q12H [facility] Last Admin: 07/14/18 06:51 Dose: 240 mg Famotidine (Pepcid) 20 mg PO DAILY [facility] Last Admin: 07/14/18 10:06 Dose: 20 mg Fluticasone/Vilanterol (Breo Ellipta 100-25 Mcg Inh) 1 puff INH RQ24 [facility] Last Admin: 07/14/18 07:20 Dose: Not Given Glucagon (Glucagen Diagnostic Kit) 0 mg IM STAT PRN; Protocol PRN Reason: Hypoglycemia Protocol Piperacillin Sod/Tazobactam Sod (Zosyn 3.375 Gm Iv Premix) 3.375 gm in 50 mls @ 200 mls/hr IVPB Q6H [facility]; Protocol Last Admin: 07/14/18 10:14 Dose: 200 mls/hr Azithromycin 500 mg/ Sodium (Chloride) 250 mls @ 250 mls/hr IVPB Q24H [facility]; Protocol Last Admin: 07/13/18 13:11 Dose: 250 mls/hr Dextrose (Dextrose 5% In Water 1000 Ml) 1,000 mls @ 0 mls/hr IV .Q0M PRN; Protocol PRN Reason: Hypoglycemia Protocol Insulin Aspart (Novolog) 0 unit SC ACHS [facility]; Protocol Last Admin: 07/14/18 08:30 Dose: 1 u Levothyroxine Sodium (Synthroid) 50 mcg PO DAILY@0630 [facility] Last Admin: 07/14/18 06:12 Dose: 50 mcg Metformin HCl (Glucophage) 500 mg PO BID [facility] Last Admin: 07/14/18 10:06 Dose: 500 mg Montelukast Sodium (Singulair) 10 mg PO HS [facility] Last Admin: 07/13/18 22:02 Dose: 10 mg Saccharomyces Boulardii (Florastor) 250 mg PO BID [facility] Last Admin: 07/14/18 10:06 Dose: 250 mg Senna/Docusate Sodium (Senokot S 50 Mg-8.6 Mg) 1 tab PO BID [facility] Last Admin: 07/14/18 10:10 Dose: 1 tab Simethicone (Mylicon Chew Tab) 80 mg PO Q12 PRN PRN Reason: GI distress Last Admin: 07/11/18 22:01 Dose: 80 mg Zolpidem Tartrate (Ambien) 5 mg PO HS PRN PRN Reason: Insomnia Last Admin: 07/13/18 22:50 Dose: 5 mg - Labs Labs: 07/14/18 06:32 07/14/18 06:32 PT 15.8 SECONDS (9.7-12.2) H 07/09/18 06:05 INR 1.4 07/09/18 06:05 APTT 24 SECONDS (21-34) 07/09/18 06:05 - Constitutional Appears: Non-toxic, No Acute Distress - Head Exam Head Exam: NORMAL INSPECTION - Eye Exam Eye Exam: Normal appearance - ENT Exam ENT Exam: Mucous Membranes Moist - Neck Exam Neck Exam: absent: Lymphadenopathy, Tenderness - Respiratory Exam Respiratory Exam: Rhonchi (mild b/l), NORMAL BREATHING PATTERN. absent: Accessory Muscle Use, Rales, Wheezes, Respiratory Distress - Cardiovascular Exam Cardiovascular Exam: REGULAR RHYTHM - GI/Abdominal Exam GI & Abdominal Exam: Soft. absent: Distended, Firm, Guarding, Rigid, Tenderness - Extremities Exam Extremities Exam: absent: Calf Tenderness, Pedal Edema - Neurological Exam Neurological Exam: Alert, Awake, Normal Gait, Oriented x3 - Psychiatric Exam Psychiatric exam: Normal Affect, Normal Mood - Skin Skin Exam: Dry, Warm Assessment and Plan - Assessment and Plan (Free Text) Plan: (1) Multifocal pneumonia Assessment & Plan: Consultations: - [employer]ist, Dr. Crowley---> Help appreciated - ID, Dr. Mendoza----> Help appreciated - Previous admission on 06/28/18 for bronchiectasis - CXR (07/05/18): Limited atelectasis or infiltrate question to the left heart border at the left base. No pulmonary vascular congestion or additional potential infiltrate bilaterally. Chest CT (07/05/18): Multifocal opacities in both upper lobes and superior segment lower lobes, consistent with multifocal pneumonia. Follow-up to clearing to exclude underlying neoplasm. Focal small airways disease in right upper lobe. Isolated pulmonary embolism in subsegmental vessel left lower lobe. Mild mediastinal and bilateral hilar lymphadenopathy, nonspecific. Bilateral fusiform bronchiectasis both lower lobes as well as right middle lobe and lingular segment left upper lobe. Possible polysplenia Sputum Culture: pseudomonas, sensitive to Zosyn WBC: Down trending Medications/Management: - Zosyn 3.375gm IV Q6H (started on 07/06/18) - Azithromycin IV 500mg daily (started on 07/06/18) - Florastor 250mg PO BID Status: Acute (2) Uncontrolled atrial fibrillation Assessment & Plan: Currently rate controlled and Stable EKG: A fib at 126bpm on admission Dr. Law consulted, help appreciated rapid response called on 07/05/18 for HR in 200s. Patient was found to be in SVT and did not convert with Adenosine 6mg ivp then 12mg ivp then 12mg ivp. Cardizem 20mg ivp given which decreased heart rate to 100s. Dr. Crowley called for ICU consult and patient was transferred to ICU to be placed on Cardizem drip -d dimer: 746 -Troponin I: .03, .05 -BNP: 7160 -Echo :moderate Mitral regurgitations :moderate Tricuspid regurgitations Management: - Cardizem 240mg PO Q12h - Amiodarone 200mg PO daily Status: Acute (3) Pulmonary embolism Assessment & Plan: CTA: Multifocal opacities in both upper lobes and superior segment lower lobes, consistent with multifocal pneumonia. Follow-up to clearing to exclude underlying neoplasm. Focal small airways disease in right upper lobe. Isolated pulmonary embolism in subsegmental vessel left lower lobe. Mild mediastinal and bilateral hilar lymphadenopathy, nonspecific. Bilateral fusiform bronchiectasis both lower lobes as well as right middle lobe and lingular segment left upper lobe. Possible polysplenia -Eliquis 10mg po BID (last dose on 07/14/18- then switch to 5mg po BID) Status: Acute (4) History of hypothyroidism Assessment & Plan: - Continue home medication: Synthroid 50mcg PO daily -TSH (07/05/18): 3.81 -Free T4 (07/05/18): 1.75 Status: Acute (5) Diabetes mellitus Assessment & Plan: HgbA1C (07/05/18): 7.5% - Metformin 500mg PO BID - ISS- low dose - Hypoglycemia protocol Status: Acute (6) Hx of Menorrhagia Assessment & Plan: hx fibroids -H/H stable -previously on Norethindrone 10mg po daily, has not taken since prior to hospitalization -hold Norethindrone secondary to PE -monitor H/H -patient will need to f/u with OBGYN as an outpatient Status: Acute (7) History of asthma Assessment & Plan: * Duonebs 3ml INH RQ4H * Breo Ellipta 100-25mcg INH RQ24H * Singulair 10mg PO HS Status: Acute (8) Chronic abdominal pain Assessment & Plan: Possibly secondary to constipation - Senokot 50Mg-8.6Mg 1 tab PO BID - Mylicon 80mg PO Q12 PRN Status: Acute (8) Insomnia Assessment & Plan: Ambien 5mg PO HS Status: Acute (9) Prophylactic measure Assessment & Plan: GI: Pepcid 20mg PO daily DVT: Eliquis 10mg PO BID Patient currently D/C from PT has she is able to transfer independently during 07/10/18 evaluation Status: Acute DISPO: Patient was discharged on 07/14/18 with the following instructions. Dr. Brown explained all of the instructions to the patient and her at bedside. They state they understand and will follow up with all of her appropriate doctors.: Patient is to be discharged home with services. Patient is to follow up with her primary care physician, Dr. Huntley, within one week. Please call and schedule an appointment. Patient is to follow up with Dr. Law (Cardiology) within one month. Please call and schedule an appointment. Patient is to follow up with Dr. Zhu ( Cardiology) within one month. Please call and schedule an appointment. Patient is to follow up with Dr. Crowley (Pulmonology) within 2 weeks of discharge. Please call and schedule an appointment. Patient is to follow up with her [facility] within one week. Your medication, Nor ethindrone, was discontinued due to Pulmonary Embolism. Please call and schedule an appointment to update her on your health and further management. Please take only the medications as directed. - Take complete 7 day course of Ciprofloxacin 500mg, take 1 tab every 12 hours for the next 7 days. - Take probiotic (florastor) a minimum of 30 minutes after taking antibiotic. You are to continue taking probiotic for the 30 days after completion of antibiotic. If patient experiences any new or concerning symptoms, please call Dr. Huntley's office or go to the nearest emergency facility. All plans and management per Dr. Smith
[2018-07-14] MEDS: Azithromycin 500 MG in Sodium Chloride 0.9% 250 ML IVPB SCH (11:51)
[2018-07-14 15:57] VITALS: BP 120/74; PULSE 95; TEMP 97.9; O2SAT 95
== END 2018-07-14 17:25 | disposition home or self-care (01) | DRG 308 ==
LOC: C.ER 05:05 → C.6T 05:54 → C.9I 10:36 → C.5S 07-11 18:24
PROVIDERS: ADMIT Internal Medicine Pulmonary Disease; ATTEND Internal Medicine Pulmonary Disease
PROC: 5A09557 Assistance with Respiratory Ventilation, Greater than 96 Consecutive Hours, Continuous Positive Airway Pressure (ICD-10-PCS; principal; 2018-07-05)
DX: I48.1 Persistent atrial fibrillation (principal); J18.9 Pneumonia, unspecified organism; I26.99 Other pulmonary embolism without acute cor pulmonale; J45.901 Unspecified asthma with (acute) exacerbation; J98.11 Atelectasis; J44.0 Chronic obstructive pulmonary disease with (acute) lower respiratory infection; I47.1 Supraventricular tachycardia; I48.92 Unspecified atrial flutter; E03.9 Hypothyroidism, unspecified; N18.9 Chronic kidney disease, unspecified; Z90.5 Acquired absence of kidney

== ENCOUNTER 2018-07-26 18:49 | Outpatient (CLI) | payer OTHER | END 2018-07-26 18:50 | disposition home or self-care (01) | LOC: C.SLEEP 18:50 ==

== ENCOUNTER 2018-08-10 08:34 | Outpatient (CLI) | payer OTHER | END 2018-08-10 08:35 | disposition home or self-care (01) | LOC: C.RT 08:34 | DX: J20.8 Acute bronchitis due to other specified organisms (principal) ==

== ENCOUNTER 2018-08-10 08:43 | Outpatient (CLI) | payer OTHER | END 2018-08-10 08:44 | disposition home or self-care (01) | LOC: C.LAB 08:43 | DX: I48.0 Paroxysmal atrial fibrillation (principal) ==